=== PATIENT | male | born 1950 | race African-American/Black ===

== ENCOUNTER 2016-10-18 14:12 | Inpatient (IN) | payer MEDICAID, OTHER ==
[~2016-10-18] VITALS: Ht 182.9 cm; Wt 72.6 kg
[~2016-10-18 14:12] MED LIST: ADVAIR 250-501 EACH INH; ALBUTEROL2.5 MG/3 M HHN; ALBUTEROL2.5 MG/3 M INH; ATROVENT HFA12.9 GM INH; AZITHROMYCIN250 MG ORAL; AZITHROMYCIN250 MG PO; IBUPROFEN600 MG ORAL; NORCO 5-325 TA1 EACH ORAL; PREDNISONE20 MG ORAL; PREDNISONE50 MG PO; UNK CHOLESTEROL MED
[2016-10-18] MEDS ORDERED: Azithromycin Inj IV ONE (14:42)
[2016-10-18] MEDS ORDERED: Azithromycin 500 MG in NS 275 ML IV ONE (14:45)
[2016-10-18] MEDS ORDERED: Solu-MEDROL 125mg Inj IVP ONE (14:45)
--- NOTE | 2016-10-18 14:57 | Emergency Room Report ---
History of Present Illness General Chief Complaint: Dyspnea/Respdistress Source: Patient Present Illness HPI 66 YOM with known COPD, previous heavy smoker, with ?2 days productive cough, SOB. On home O2 with no improvement. + fever/chills, chest tightnes. Denies chest pain, Abd pain. On albuterol, spiriva, atrovent for known COPD. Patient states he is DNI. I discussed this in depth with him and patient adamantly refuses intubation if it comes down to that. Is OK with bipap. Allergies: Coded Allergies: No Known Allergies (Unverified , 12/02/11) Patient History Past Medical History: COPD Past Surgical History: none Pertinent Family History: none Social History: Reports: smoking Immunizations: UTD Reviewed Nursing Documentation: PMH: Agreed, PSxH: Agreed Nursing Documentation-PMH Past Medical History: No History, Except For Hx Cardiac Problems: No Hx Hypertension: No Hx Pacemaker: No Hx Asthma: Yes Hx COPD: Yes Hx Diabetes: No Hx Cancer: No Hx Gastrointestinal Problems: No Hx Dialysis: No Hx Neurological Problems: No Hx Cerebrovascular Accident: No Hx Seizures: No Review of Systems All Other Systems: negative except mentioned in HPI Physical Exam Vital Signs Date Time Temp Pulse Resp B/P Pulse Ox O2 Delivery O2 Flow Rate FiO2 10/18/16 14:15 98.1 110 40 142/93 68 Nasal Cannula 2.0 Sp02 EP Interpretation: reviewed, abnormal General Appearance: moderate distress, cachetic Head: normocephalic, atraumatic Eyes: bilateral eye EOMI, bilateral eye PERRL ENT: normal ENT inspection, hearing grossly normal, normal voice Neck: normal inspection, full range of motion, supple, no bony tend Respiratory: normal inspection, accessory muscle use, speaking full sentences, other - Retracting, supravlavicular muscle use Cardiovascular #1: tachycardia Gastrointestinal: normal inspection, normal bowel sounds, non tender, soft, no guarding, no hernia Genitourinary: no CVA tenderness Neurologic: normal inspection, alert, oriented x3, responsive, vacuum form operator III-XII nml as tested, motor strength/tone normal, speech normal Psychiatric: normal inspection, judgement/insight normal, mood/affect normal Skin: normal inspection, normal color, no rash Procedures Critical Care Time Critical Care Time CC time of 45 min for this 66 YOM with SOB VS: Hypoxia, tachypnic DDx includes COPD exacerbation, PNA, URI/bronchitis, sepsis PMhx includes COPD Patient immediately placed on hot molder with rhytm strip and STAT EKG was obtained which showed no acute ischemia Initial management indicated: CBC, CMP, troponin, BNP, CXR, nebs, steroids, empiric Abx, IV Mg, BIPAP Highly suspected: COPD exacerbation, +/- PNA Possible interventions BIPAP, additional Abx. CC time included frequent re-exams, interpretation of labs, imaging, adjustment of Abx, admission Critical care time of 45 minutes does not include reportable procedures. Medical Decision Making Diagnostic Impression: Primary Impression: Dyspnea Qualified Codes: R06.00 - Dyspnea, unspecified Additional Impressions: copd exacerbation Acute respiratory failure with hypoxia and hypercarbia ER Course 66 YO M with acute SOB, Hypoxic, tachypnic. Poor air movement. DDx as specified in CC time PLAN: monitoring, Bipap, nebs, Mg, steroids, IV azithro, Blood Cx, admission to [facility] Rhythm Strip Diag. Results EP Interpretation: yes Rate: 98 Rhythm: NSR, no PVC's, no ectopy Chest X-Ray Diagnostic Results EP Interpretation: Yes Findings: no consolidation, no effusion, no pneumothorax, no acute cardiopulmonary disease Number of Views: 1 Reevaluation Time: 15:45 Last Vital Signs Date Time Temp Pulse Resp B/P Pulse Ox O2 Delivery O2 Flow Rate FiO2 10/18/16 14:15 98.1 110 40 142/93 68 Nasal Cannula 2.0 Status: improved Reevaluation Impression Significant improvement on BIPAP and with meds Feels much better RR improved. O2 demands decreased per RT CXR does not show PNA. No additional Abx were given Labs: No lueks. H&H stable. Troponin. Endorsed to Dr Cardoza at 330pm for [facility] admission Disposition: ADMITTED INPATIENT Condition: Critical Referrals: WILIAN LIND,REFERRING (PCP) PRABHA LAWSON M.D. Oct 18, 2016 14:57
[2016-10-18 15:00] VITALS: BP 135/82
[2016-10-18 15:00] LABS: BASOPHILS % (AUTO) 2.5 % (0.0-2.0); LYMPHOCYTES % (AUTO) 11.8 % (20.0-45.0); MEAN CORPUSCULAR HEMOGLOBIN 26.4 PG (27.0-31.0); MEAN CORPUSCULAR HGB CONC 29.9 G/DL (32.0-36.0); MEAN CORPUSCULAR VOLUME 88 FL (80-99); MONOCYTES % (AUTO) 12.2 % (1.0-10.0); NEUTROPHILS % (AUTO) 70.5 % (45.0-75.0); PLATELET COUNT 270 K/UL (150-450); RED BLOOD COUNT 4.99 M/UL (4.70-6.10); WHITE BLOOD COUNT 4.6 K/UL (4.8-10.8)
[2016-10-18] MEDS: Ipratropium 0.02% Inh Soln 2.5ml UD HHN SCH ×3 (15:00→15:39)
[2016-10-18] MEDS: Albuterol ud Inhalation HHN SCH ×3 (15:01→15:39)
[2016-10-18 15:13] LABS: ALANINE AMINOTRANSFERASE 26 U/L (3-41); ANION GAP 8 (5-15); ASPARTATE AMINO TRANSFERASE 42 U/L (5-40); CALCIUM 9.7 mg/dL (8.6-10.2); CARBON DIOXIDE 40 mEQ/L (20-30); CHLORIDE 86 mEQ/L (98-107); CREATININE 0.8 mg/dL (0.7-1.2); GLOMERULAR FILTRATION RATE > 60 mL/min (>60); HEMOLYSIS 8; POTASSIUM 4.7 mEQ/L (3.4-4.9); SODIUM 134 mEQ/L (135-145); TOTAL PROTEIN 8.4 g/dL (6.6-8.7); TROPONIN I < 0.30 ng/mL (<=0.30)
[2016-10-18 15:23] LABS: CKMB 8.8 ng/mL (< 6.7)
[2016-10-18] MEDS ORDERED: SPIRIVA18 MCG INH (15:52)
--- NOTE | 2016-10-18 15:57 | Consultation ---
History of Present Illness General Date patient seen: Oct 18, 2016 Chief Complaint: Dyspnea/Respdistress Referring physician: dr rivera Reason for Consultation: dyspnea Present Illness HPI 66 year old male with known COPD on home O2 ,presented to ER with CC of productive cough, SOB. + fever/chills, chest tightnes. Denies chest pain, Abd pain. Patient states he is DNI. He is admitted for further evaluation. Allergies: Coded Allergies: No Known Allergies (Unverified , 12/02/11) Medication History Scheduled Fluticasone/Salmeterol (Advair 250-50 Diskus), 1 PUFF INH Q12H, (Reported) Ipratropium [place] (Atrovent Hfa), 12.9 GM INH Q6HR, (Reported) Tiotropium [place]* (Spiriva*), 1 PUFF INH DAILY, (Reported) Scheduled PRN Albuterol Sulfate* (Albuterol Sulfate Hhn*), 2.5 MG HHN EVERY 4 HOURS PRN for Bronchospasm, (Reported) Hydrocodone Bit/Acetaminophen 5-325* ([place] 5-325*), 1 TAB ORAL Q12HR PRN for For Pain Ibuprofen* (Motrin*), 600 MG ORAL Q12HR PRN for For Pain Discontinued Medications Azithromycin* (Zithromax*), 250 MG ORAL DAILY Discontinued Reason: Therapy completed Prednisone* (Prednisone*), 40 MG ORAL DAILY Discontinued Reason: Therapy completed Patient History Healthcare decision maker Resuscitation status Advanced Directive on File Past Medical/Surgical History Past Medical/Surgical History: (1) Emphysema, unspecified (2) Chest tightness Review of Systems Constitutional: Reports: malaise Eye: Reports: no symptoms ENT: Reports: no symptoms Respiratory: Reports: no symptoms, shortness of breath, stridor Physical Exam Lines, tubes and drains: peripheral, central line HEENT: normocephalic, atraumatic Neck: non-tender, normal alignment Respiratory/Chest: chest wall non-tender, lungs clear Breasts: no masses Cardiovascular/Chest: normal peripheral pulses Abdomen: normal bowel sounds Genitourinary/Rectal: normal genital exam Last 24 Hour Vital Signs Date Time Temp Pulse Resp B/P Pulse Ox O2 Delivery O2 Flow Rate FiO2 10/18/16 15:09 96 23 98 Facial 15.0 30 10/18/16 15:01 96 23 97 Bi-pap 15.0 30 10/18/16 15:01 96 23 Bi-pap 15.0 30 10/18/16 15:00 98.1 99 25 135/82 99 Bi-pap 30 10/18/16 14:50 30 10/18/16 14:35 99 40 Nasal Cannula 2.0 10/18/16 14:15 98.1 110 40 142/93 68 Nasal Cannula 2.0 Laboratory Tests Test 10/18/16 14:30 White Blood Count 4.6 K/UL (4.8-10.8) L Red Blood Count 4.99 M/UL (4.70-6.10) Hemoglobin 13.2 G/DL (14.2-18.0) L Hematocrit 44.1 % (42.0-52.0) Mean Corpuscular Volume 88 FL (80-99) Mean Corpuscular Hemoglobin 26.4 PG (27.0-31.0) L Mean Corpuscular Hemoglobin Concent 29.9 G/DL (32.0-36.0) L Red Cell Distribution Width 15.0 % (11.6-14.8) H Platelet Count 270 K/UL (150-450) Mean Platelet Volume 8.0 FL (6.5-10.1) Neutrophils (%) (Auto) 70.5 % (45.0-75.0) Lymphocytes (%) (Auto) 11.8 % (20.0-45.0) L Monocytes (%) (Auto) 12.2 % (1.0-10.0) H Eosinophils (%) (Auto) 3.0 % (0.0-3.0) Basophils (%) (Auto) 2.5 % (0.0-2.0) H Sodium Level 134 mEQ/L (135-145) L Potassium Level 4.7 mEQ/L (3.4-4.9) Chloride Level 86 mEQ/L (98-107) L Carbon Dioxide Level 40 mEQ/L (20-30) H Anion Gap 8 (5-15) Blood Urea Nitrogen 10 mg/dL (7-23) Creatinine 0.8 mg/dL (0.7-1.2) Estimat Glomerular Filtration Rate > 60 mL/min (>60) Glucose Level 81 mg/dL (74-106) Calcium Level 9.7 mg/dL (8.6-10.2) Total Bilirubin 0.3 mg/dL (0.0-1.2) Aspartate Amino Transf (AST/SGOT) 42 U/L (5-40) H Alanine Aminotransferase (ALT/SGPT) 26 U/L (3-41) Alkaline Phosphatase 77 U/L (40-129) Total Creatine Kinase 301 U/L (38-174) H Creatine Kinase MB 8.8 ng/mL (< 6.7) H Creatine Kinase MB Relative Index 2.9 Troponin I < 0.30 ng/mL (<=0.30) Total Protein 8.4 g/dL (6.6-8.7) Albumin 4.2 g/dL (3.5-5.2) Globulin 4.2 g/dL Albumin/Globulin Ratio 1.0 (1.0-2.7) Height (Feet): 5 Height (Inches): 7.00 Weight (Pounds): 170 Medications Current Medications Medications (Trade) Dose Ordered Sig/Radha Route PRN Reason Start Time Stop Time Status Last Admin Dose Admin Magnesium Sulfate (Magnesium Sulfate 1gm/100ml) 100 ml @ 100 mls/hr Q1H IVPB 10/18/16 14:45 10/18/16 16:44 Assessment/Plan Problem List: (1) Acute respiratory failure ICD Codes: J96.00 - Acute respiratory failure, unspecified whether with hypoxia or hypercapnia SNOMED: 82157576 (2) copd exacerbation (3) Emphysema, unspecified ICD Codes: J43.9 - Emphysema, unspecified SNOMED: 74731986 (4) Acute respiratory failure with hypoxia and hypercarbia ICD Codes: J96.01 - Acute respiratory failure with hypoxia; J96.02 - Acute respiratory failure with hypercapnia SNOMED: 36163743, 37666285, 858922989 Assessment/Plan respiratory treatment IV steroids titrate fio2 Iv antibiotics pt/ot GIOVANY SUMMERS Oct 18, 2016 15:57
[2016-10-18] MEDS ORDERED: Nitroglycerin Subl 0.4mg tab (Bottle Of 25) SL PRN (16:00)
[2016-10-18] MEDS ORDERED: Ketorolac 30mg Inj IV PRN (16:00)
[2016-10-18] MEDS ORDERED: LORazepam Inj 2mg/ml 1ml IV PRN (16:00)
[2016-10-18] MEDS ORDERED: DuoNeb 0.5-3(2.5)mg/3ml neb HHN PRN (16:00)
[2016-10-18] MEDS ORDERED: Norco 5mg/325mg tab ORAL PRN ×2 (16:00→18:05)
[2016-10-18] MEDS ORDERED: Promethazine/Codeine 5ml UD ORAL PRN (16:00)
[2016-10-18] MEDS ORDERED: Morphine Sulfate 2mg/ml Inj IVP PRN (16:00)
--- NOTE | 2016-10-18 16:22 | Diagnostic Imaging Report ---
Indications: Shortness of breath Technique: Portable AP chest Findings: Comparison: 05/18/2014 Lungs remain symmetrically hyperinflated with attenuation of upper lung zone vascular markings. Small linear density is now noted in left lung base. Lungs remain otherwise clear. Heart size remains within normal limits. Central pulmonary arteries remain prominent. No pleural abnormality. Aortic arch calcification. IMPRESSION: COPD Development versus better visualization of left lung base subsegmental atelectasis versus scarring Suggestion of development of pulmonary internal hypertension Aortosclerosis No significant change from previous exam
[2016-10-18 16:30] VITALS: BP 103/83
--- NOTE | 2016-10-18 17:10 | History & Physical ---
History and Physical History & Physicial Dipesh Cardoza MD Oct 18, 2016 17:10
[2016-10-18] MEDS ORDERED: Albuterol ud Inhalation HHN PRN (17:15)
[2016-10-18] MEDS: Solu-MEDROL 125mg Inj IV SCH (18:01)
[2016-10-18 18:05] LABS: ABG BASE EXCESS 13.6; ABG PCO2 81.1 mmHg (35.0-45.0)
[2016-10-18 18:06] LABS: ABG ALLEN TEST POSITIVE
[2016-10-18] MEDS: NovoLOG Insulin Flexpen SUBQ SCH ×2 (18:30→20:47)
[2016-10-18] MEDS: Advair 250/50 Inhaler - 14 dose INH SCH (18:51)
[2016-10-18 20:30] VITALS: BP 131/73
[2016-10-18] MEDS: Theophylline ER 100mg ORAL SCH (20:35)
[2016-10-18] MEDS: Heparin 5000 units/ml inj SUBQ SCH (20:36)
[2016-10-18] MEDS ORDERED: Piperacillin/Tazobactam 2.25 GM in D5W 55 ML IV SCH (22:00)
[2016-10-18] MEDS: Zoysn 3.37gm in D5W 110ml IVPB SCH (22:21)
[2016-10-19] VITALS: BP 145/98
[2016-10-19] MEDS: Solu-MEDROL 125mg Inj IV SCH ×4 (00:03→17:56)
--- NOTE | 2016-10-19 01:07 | History and Physical Report ---
DATE OF ADMISSION: 10/18/2016 CHIEF COMPLAINT: Shortness of breath and respiratory distress. HISTORY OF PRESENT ILLNESS: This 66-year-old gentleman with past medical history significant for COPD. Denies any history of heart disease, diabetes, or dyslipidemia. History of extensive smoking in the past, quit about eight years ago, who was presented to the hospital complained about the productive cough and shortness were progressively worsening over past 48 hours. The patient using home oxygen. He is not improving. He had fever, chills, chest tightness, however, denies any abdominal pain. He has been using his albuterol, Spiriva, and Atrovent, however, he was not responsive to it and subsequently, the patient was presented to the emergency room complained about severe shortness breath. Shortly after initial evaluation, the patient was started on the BiPAP. He refused to have intubated and okayed with BiPAP and shortly after initial evaluation, the patient was admitted to the hospital with acute respiratory failure and COPD exacerbation. PAST MEDICAL AND PAST SURGICAL HISTORY: As above. History of chronic smoker, COPD, and emphysema. MEDICATIONS: Medications at home is significant for albuterol, Advair, [place], ibuprofen, Atrovent, and Spiriva. ALLERGIES: No known drug allergies. SOCIAL HISTORY: Ex-smoker, quit about eight years ago. Smoker over 30 years. Denies any substance or alcohol abuse. FAMILY HISTORY: Noncontributory. REVIEW OF SYSTEMS: Mostly as above. Denies any dysuria, frequency, or hematochezia. Denies any hemoptysis in case complained about cough. Denies any loss of consciousness. Denies any double vision. Complained about shortness of breath. PHYSICAL EXAMINATION: VITAL SIGNS: On admission from the ER, temperature 98.1 degrees, pulse of 110, respirations 40, and blood pressure 142/93. GENERAL: The patient awake, responsive, on BiPAP, cachectic. HEAD AND NECK: Pupils are reactive to light. Extraocular movements are intact. NECK: Supple. No JVD. LUNGS: Good air entry. No wheeze. Decreased air in the bases. No rhonchi. HEART: S1, S2. ABDOMEN: Soft and nontender. Positive sounds. EXTREMITIES: No cyanosis or clubbing or edema. Muscle atrophy was noted . NEUROLOGIC: Motor is 5/5 in all extremities. Gait was not assessed. Cranial nerves II through XII are grossly intact. Mood and affect is intact. LABORATORY AND DIAGNOSTIC DATA: On admission, WBC of 4.6, hemoglobin 13, hematocrit 44, and platelet 270,000. Sodium 134, potassium 4.7, chloride 86, bicarb 40, BUN 10, creatinine 0.8, and glucose 81. AST of 42 and ALT of 26. CK kinase 301. Troponin less than 0.30. The patient had a chest x-ray, shows COPD better visualization of the left lung base subsegmental atelectasis versus scarring suggest of pulmonary interval hypertension, atherosclerosis. No significant changes in the previous examination. ASSESSMENT: 1. Acute respiratory failure. 2. Acute chronic obstructive pulmonary disease exacerbation. 3. Malnutrition and cachexia. PLAN: Admit the patient to [facility]. The patient refused intubation. He is DNI, howver, CPR is okay. He was started on broad-spectrum antibiotics with Zosyn, nebulizer treatments, theophylline, Solu-Medrol and we will follow up with the laboratory in the morning including ABG and doctor Dr. Katz, Pulmonary Critical Care. DVT prophylaxis. Heparin subcutaneous. Dipesh Cardoza M.D. DR: Alex JOB#: [id number] CC:
[2016-10-19 04:00] VITALS: BP 111/67
[2016-10-19 04:41] LABS: MEAN CORPUSCULAR HEMOGLOBIN 27.1 PG (27.0-31.0); MEAN CORPUSCULAR VOLUME 88 FL (80-99); MEAN PLATELET VOLUME 8.4 FL (6.5-10.1); PLATELET COUNT 245 K/UL (150-450); RED BLOOD COUNT 4.41 M/UL (4.70-6.10); RED CELL DISTRIBUTION WIDTH 15.2 % (11.6-14.8); WHITE BLOOD COUNT 2.7 K/UL (4.8-10.8)
[2016-10-19 04:55] LABS: INR 1.1 (0.9-1.1); PROTHROMBIN TIME 10.7 SEC (9.30-11.50)
[2016-10-19 05:15] LABS: ANION GAP 7 (5-15); CALCIUM 9.6 mg/dL (8.6-10.2); CARBON DIOXIDE 40 mEQ/L (20-30); CHLORIDE 90 mEQ/L (98-107); CREATININE 0.7 mg/dL (0.7-1.2); GLOMERULAR FILTRATION RATE > 60 mL/min (>60); HEMOLYSIS 0; MAGNESIUM 1.9 mg/dL (1.7-2.5); PHOSPHORUS 3.8 mg/dL (2.5-4.8); POTASSIUM 4.8 mEQ/L (3.4-4.9); SODIUM 137 mEQ/L (135-145)
[2016-10-19] MEDS: NovoLOG Insulin Flexpen SUBQ SCH ×4 (06:30→20:58)
[2016-10-19] MEDS: Zoysn 3.37gm in D5W 110ml IVPB SCH ×3 (06:45→21:00)
[2016-10-19 07:47] LABS: ABG ALLEN TEST POSITIVE; ABG BASE EXCESS 14.7; ABG PCO2 77.8 mmHg (35.0-45.0)
[2016-10-19 08:00] VITALS: BP 122/77
[2016-10-19] MEDS: Advair 250/50 Inhaler - 14 dose INH SCH ×2 (08:00→17:15)
[2016-10-19] MEDS: Theophylline ER 100mg ORAL SCH ×2 (09:13→20:54)
[2016-10-19] MEDS: Heparin 5000 units/ml inj SUBQ SCH ×2 (09:19→20:59)
[2016-10-19 11:22] LABS: BAND NEUTROPHILS % (MANUAL) 2 % (0-8); BASOPHILS % (MANUAL) 0 % (0-2); EOSINOPHILS % (MANUAL) 1 % (0-3); LYMPHOCYTES % (MANUAL) 15 % (20-45); NEUTROPHILS % (MANUAL) 79 % (45-75); PLATELET ESTIMATE ADEQUATE; PLATELET MORPHOLOGY NORMAL; TOTAL CELLS COUNTED 100
[2016-10-19 12:00] VITALS: BP 125/70
--- NOTE | 2016-10-19 13:57 | Internal Med Progress Note ---
Subjective Date of Service: Oct 19, 2016 Physician Name Paulette Gutiérrez Attending Physician Dipesh Cardoza MD Current Medications Medications (Trade) Dose Ordered Sig/Radha Route PRN Reason Start Time Stop Time Status Last Admin Dose Admin Acetaminophen/ Hydrocodone Bitart ([place] 5/325) 1 tab Q12HR PRN ORAL Severe Pain (Pain Scale 7-10) 10/18/16 18:05 10/25/16 18:04 Albuterol/ Ipratropium (DuoNeb 0.5-3(2.5)mg/3ml) 3 ml Q4H PRN HHN dyspnea 10/18/16 16:00 10/23/16 15:59 Dextrose (Dextrose 50%) STAT PRN IV Hypoglycemia 10/18/16 16:00 11/17/16 15:59 Heparin Sodium (Porcine) (Heparin 5000 units/ml) 5,000 units EVERY 12 HOURS SUBQ 10/18/16 21:00 11/17/16 20:59 10/19/16 09:19 Ibuprofen 600 mg 600 mg Q12H PRN ORAL Pain Scale (3-5) 10/18/16 18:15 11/17/16 18:14 Insulin Aspart (NovoLOG) BEFORE MEALS AND HS SUBQ 10/18/16 18:30 11/17/16 18:29 10/19/16 11:43 Ketorolac Tromethamine (Toradol 30mg) 30 mg Q8H PRN IV moderate pain 4-6 10/18/16 16:00 10/23/16 15:59 Lorazepam (Ativan 2mg/ml 1ml) 0.5 mg Q4H PRN IV For Anxiety 10/18/16 16:00 10/25/16 15:59 Methylprednisolone Sodium Succinate (Solu-MEDROL) 60 mg EVERY 6 HOURS IV 10/18/16 18:00 11/17/16 17:59 10/19/16 11:41 Morphine Sulfate (Morphine Sulfate) 2 mg Q4H PRN IVP severe pain 7-10 10/18/16 16:00 10/25/16 15:59 Nitroglycerin (Ntg) 0.4 mg Q5M X 3 DOSES PRN SL Prn Chest Pain 10/18/16 16:00 11/17/16 15:59 Ondansetron HCl (Zofran) 4 mg Q6H PRN IVP Nausea & Vomiting 10/18/16 16:00 11/17/16 15:59 Piperacillin Sod/ Tazobactam Sod/ Dextrose (Zosyn/D5W) 110 ml @ 27.5 mls/hr EVERY 8 HOURS IVPB 10/18/16 22:00 10/23/16 21:59 10/19/16 06:45 Promethazine HCl/ Codeine (Phenergan with Codeine) 5 ml Q6H PRN ORAL cough 10/18/16 16:00 11/17/16 15:59 Salmeterol Xinafoate/ Fluticasone (Advair 250/50 Diskus) 1 puffs Q12H INH 10/18/16 17:15 11/17/16 17:14 10/19/16 08:00 Temazepam (Restoril) 15 mg HSPRN PRN ORAL Insomnia 10/18/16 16:00 10/25/16 15:59 Theophylline (Alen-Dur) 100 mg EVERY 12 HOURS ORAL 10/18/16 21:00 11/17/16 20:59 10/19/16 09:13 Tiotropium [place] (Spiriva Inhaler) 1 puff DAILY INH 10/19/16 09:00 11/18/16 08:59 10/19/16 09:20 Allergies: Coded Allergies: No Known Allergies (Unverified , 12/02/11) ROS Limited/Unobtainable: No Constitutional: Reports: no symptoms HEENT: Reports: no symptoms Cardiovascular: Reports: chest pain, palpitations Respiratory: Reports: shortness of breath Gastrointestinal/Abdominal: Reports: no symptoms Genitourinary: Reports: no symptoms Neurologic/Psychiatric: Reports: no symptoms Subjective 66 YO M admitted with Shortness of breath. Cover for Int Wilfrid-Dr Cardoza. [facility] Objective Last Vital Signs Date Time Temp Pulse Resp B/P Pulse Ox O2 Delivery O2 Flow Rate FiO2 10/19/16 12:00 91 10/19/16 12:00 97.7 20 125/70 92 Nasal Cannula 3.0 10/19/16 11:20 32 General Appearance: WD/WN, alert, mild distress EENT: PERRL/EOMI, normal ENT inspection Neck: non-tender, normal alignment, supple Cardiovascular: normal peripheral pulses, no gallop/murmur, no JVD, tachycardia Respiratory/Chest: chest wall non-tender, crackles/rales, rhonchi - bilaterally , expiratory wheezing Abdomen: normal bowel sounds, non tender, soft, no organomegaly, no mass Extremities: normal range of motion Neurologic: airborne operations II-XII grossly normal, no motor/sensory deficits Skin: normal pigmentation, warm/dry Laboratory Tests Test 10/18/16 14:30 10/18/16 17:11 10/19/16 04:00 10/19/16 07:40 White Blood Count 4.6 K/UL (4.8-10.8) L 2.7 K/UL (4.8-10.8) L Red Blood Count 4.99 M/UL (4.70-6.10) 4.41 M/UL (4.70-6.10) L Hemoglobin 13.2 G/DL (14.2-18.0) L 11.9 G/DL (14.2-18.0) L Hematocrit 44.1 % (42.0-52.0) 38.6 % (42.0-52.0) L Mean Corpuscular Volume 88 FL (80-99) 88 FL (80-99) Mean Corpuscular Hemoglobin 26.4 PG (27.0-31.0) L 27.1 PG (27.0-31.0) Mean Corpuscular Hemoglobin Concent 29.9 G/DL (32.0-36.0) L 31.0 G/DL (32.0-36.0) L Red Cell Distribution Width 15.0 % (11.6-14.8) H 15.2 % (11.6-14.8) H Platelet Count 270 K/UL (150-450) 245 K/UL (150-450) Mean Platelet Volume 8.0 FL (6.5-10.1) 8.4 FL (6.5-10.1) Neutrophils (%) (Auto) 70.5 % (45.0-75.0) % (45.0-75.0) Lymphocytes (%) (Auto) 11.8 % (20.0-45.0) L % (20.0-45.0) Monocytes (%) (Auto) 12.2 % (1.0-10.0) H % (1.0-10.0) Eosinophils (%) (Auto) 3.0 % (0.0-3.0) % (0.0-3.0) Basophils (%) (Auto) 2.5 % (0.0-2.0) H % (0.0-2.0) Sodium Level 134 mEQ/L (135-145) L 137 mEQ/L (135-145) Potassium Level 4.7 mEQ/L (3.4-4.9) 4.8 mEQ/L (3.4-4.9) Chloride Level 86 mEQ/L (98-107) L 90 mEQ/L (98-107) L Carbon Dioxide Level 40 mEQ/L (20-30) H 40 mEQ/L (20-30) H Anion Gap 8 (5-15) 7 (5-15) Blood Urea Nitrogen 10 mg/dL (7-23) 11 mg/dL (7-23) Creatinine 0.8 mg/dL (0.7-1.2) 0.7 mg/dL (0.7-1.2) Estimat Glomerular Filtration Rate > 60 mL/min (>60) > 60 mL/min (>60) Glucose Level 81 mg/dL (74-106) 140 mg/dL (74-106) H Calcium Level 9.7 mg/dL (8.6-10.2) 9.6 mg/dL (8.6-10.2) Total Bilirubin 0.3 mg/dL (0.0-1.2) Aspartate Amino Transf (AST/SGOT) 42 U/L (5-40) H Alanine Aminotransferase (ALT/SGPT) 26 U/L (3-41) Alkaline Phosphatase 77 U/L (40-129) Total Creatine Kinase 301 U/L (38-174) H Creatine Kinase MB 8.8 ng/mL (< 6.7) H Creatine Kinase MB Relative Index 2.9 Troponin I < 0.30 ng/mL (<=0.30) Total Protein 8.4 g/dL (6.6-8.7) Albumin 4.2 g/dL (3.5-5.2) Globulin 4.2 g/dL Albumin/Globulin Ratio 1.0 (1.0-2.7) Arterial Blood pH 7.340 (7.350-7.450) 7.366 (7.350-7.450) Arterial Blood Partial Pressure CO2 81.1 mmHg (35.0-45.0) *H 77.8 mmHg (35.0-45.0) *H Arterial Blood Partial Pressure O2 51.6 mmHg (75.0-100.0) L 69.3 mmHg (75.0-100.0) L Arterial Blood HCO3 42.9 mmol/L (22.0-26.0) H 43.6 mmol/L (22.0-26.0) H Arterial Blood Oxygen Saturation 84.8 % (92.0-98.0) L 93.1 % (92.0-98.0) Arterial Blood Base Excess 13.6 14.7 Efren Test Positive Positive Differential Total Cells Counted 100 Neutrophils % (Manual) 79 % (45-75) H Lymphocytes % (Manual) 15 % (20-45) L Monocytes % (Manual) 3 % (1-10) Eosinophils % (Manual) 1 % (0-3) Basophils % (Manual) 0 % (0-2) Band Neutrophils 2 % (0-8) Platelet Estimate Adequate Platelet Morphology Normal Red Blood Cell Morphology Normal Prothrombin Time 10.7 SEC (9.30-11.50) Prothromb Time International Ratio 1.1 (0.9-1.1) Activated Partial Thromboplast Time 32 SEC (23-33) D-Dimer 518 ng/mL (<500) H Phosphorus Level 3.8 mg/dL (2.5-4.8) Magnesium Level 1.9 mg/dL (1.7-2.5) Intake and Output 10/18/16 10/19/16 19:00 07:00 Intake Total 480 ml 6.75 ml Output Total 200 ml 500 ml Balance 280 ml -493.25 ml Intake Oral 480 ml IV Total 6.75 ml Output Urine Total 200 ml 500 ml # Voids 1 2 # Bowel Movements 1 Assessment/Plan Problem List: (1) SOB (shortness of breath) Assessment & Plan: Tolerating nasal canula. (2) Respiratory failure (3) COPD (chronic obstructive pulmonary disease) with emphysema Assessment & Plan: See pulmonary note. Cont IV solumedrol, duoneb and advair. Cont zosyn (4) Chest tightness (5) Acute respiratory failure with hypoxia and hypercarbia Status: progressing PAULETTE GUTIÉRREZ Oct 19, 2016 13:57
[2016-10-19] MEDS ORDERED: guaiFENesin w/Codeine 5ml Liq ud ORAL PRN (14:15)
[2016-10-19 16:00] VITALS: BP 118/71
[2016-10-19] MEDS: DuoNeb 0.5-3(2.5)mg/3ml neb HHN SCH ×2 (18:52→23:17)
[2016-10-19 20:00] VITALS: BP 131/70
[2016-10-20] VITALS: BP 116/49
[2016-10-20] MEDS: Solu-MEDROL 125mg Inj IV SCH ×4 (00:30→17:35)
[2016-10-20] MEDS: DuoNeb 0.5-3(2.5)mg/3ml neb HHN SCH ×6 (03:00→23:43)
[2016-10-20 04:00] VITALS: BP 117/70
[2016-10-20 04:51] LABS: MEAN CORPUSCULAR HEMOGLOBIN 26.9 PG (27.0-31.0); MEAN CORPUSCULAR HGB CONC 30.1 G/DL (32.0-36.0); MEAN CORPUSCULAR VOLUME 89 FL (80-99); MEAN PLATELET VOLUME 7.4 FL (6.5-10.1); PLATELET COUNT 245 K/UL (150-450); RED CELL DISTRIBUTION WIDTH 14.6 % (11.6-14.8)
[2016-10-20 05:04] LABS: ANION GAP 7 (5-15); CALCIUM 9.2 mg/dL (8.6-10.2); CARBON DIOXIDE 40 mEQ/L (20-30); CHLORIDE 90 mEQ/L (98-107); CREATININE 0.9 mg/dL (0.7-1.2); GLOMERULAR FILTRATION RATE > 60 mL/min (>60); HEMOLYSIS 2; POTASSIUM 4.7 mEQ/L (3.4-4.9); SODIUM 137 mEQ/L (135-145)
[2016-10-20] MEDS: Zoysn 3.37gm in D5W 110ml IVPB SCH ×3 (06:22→21:45)
[2016-10-20] MEDS: NovoLOG Insulin Flexpen SUBQ SCH ×4 (06:31→21:35)
[2016-10-20] MEDS: Advair 250/50 Inhaler - 14 dose INH SCH ×2 (07:21→17:15)
[2016-10-20 08:00] VITALS: BP 106/58
[2016-10-20] MEDS: Theophylline ER 100mg ORAL SCH ×2 (08:47→21:32)
[2016-10-20] MEDS: Heparin 5000 units/ml inj SUBQ SCH ×2 (08:51→21:36)
[2016-10-20 12:00] VITALS: BP 115/65
[2016-10-20 16:00] VITALS: BP 125/71
--- NOTE | 2016-10-20 17:33 | Internal Med Progress Note ---
Subjective Date of Service: Oct 20, 2016 Physician Name Paulette Gutiérrez Attending Physician Dipesh Cardoza MD Current Medications Medications (Trade) Dose Ordered Sig/Radha Route PRN Reason Start Time Stop Time Status Last Admin Dose Admin Acetaminophen/ Hydrocodone Bitart ([place] 5/325) 1 tab Q12HR PRN ORAL Severe Pain (Pain Scale 7-10) 10/18/16 18:05 10/25/16 18:04 Albuterol/ Ipratropium (DuoNeb 0.5-3(2.5)mg/3ml) 3 ml Q4HRT HHN 10/19/16 15:00 10/24/16 14:59 10/20/16 15:05 Dextrose (Dextrose 50%) STAT PRN IV Hypoglycemia 10/18/16 16:00 11/17/16 15:59 Guaifenesin/ Codeine Phosphate (Robitussin with codeine) 5 ml Q6H PRN ORAL For Cough 10/19/16 14:15 11/18/16 14:14 Heparin Sodium (Porcine) (Heparin 5000 units/ml) 5,000 units EVERY 12 HOURS SUBQ 10/18/16 21:00 11/17/16 20:59 10/20/16 08:51 Ibuprofen 600 mg 600 mg Q12H PRN ORAL Pain Scale (3-5) 10/18/16 18:15 11/17/16 18:14 Insulin Aspart (NovoLOG) BEFORE MEALS AND HS SUBQ 10/18/16 18:30 11/17/16 18:29 10/20/16 16:53 Ketorolac Tromethamine (Toradol 30mg) 30 mg Q8H PRN IV moderate pain 4-6 10/18/16 16:00 10/23/16 15:59 Lorazepam (Ativan 2mg/ml 1ml) 0.5 mg Q4H PRN IV For Anxiety 10/18/16 16:00 10/25/16 15:59 Methylprednisolone Sodium Succinate (Solu-MEDROL) 60 mg EVERY 6 HOURS IV 10/18/16 18:00 11/17/16 17:59 10/20/16 11:52 Morphine Sulfate (Morphine Sulfate) 2 mg Q4H PRN IVP severe pain 7-10 10/18/16 16:00 10/25/16 15:59 Nitroglycerin (Ntg) 0.4 mg Q5M X 3 DOSES PRN SL Prn Chest Pain 10/18/16 16:00 11/17/16 15:59 Ondansetron HCl (Zofran) 4 mg Q6H PRN IVP Nausea & Vomiting 10/18/16 16:00 11/17/16 15:59 Piperacillin Sod/ Tazobactam Sod/ Dextrose (Zosyn/D5W) 110 ml @ 27.5 mls/hr EVERY 8 HOURS IVPB 10/18/16 22:00 10/23/16 21:59 10/20/16 13:52 Promethazine HCl/ Codeine (Phenergan with Codeine) 5 ml Q6H PRN ORAL cough 10/18/16 16:00 11/17/16 15:59 Salmeterol Xinafoate/ Fluticasone (Advair 250/50 Diskus) 1 puffs Q12H INH 10/18/16 17:15 11/17/16 17:14 10/20/16 07:21 Temazepam (Restoril) 15 mg HSPRN PRN ORAL Insomnia 10/18/16 16:00 10/25/16 15:59 Theophylline (Alen-Dur) 100 mg EVERY 12 HOURS ORAL 10/18/16 21:00 11/17/16 20:59 10/20/16 08:47 Tiotropium [place] (Spiriva Inhaler) 1 puff DAILY INH 10/19/16 09:00 11/18/16 08:59 10/20/16 09:28 Allergies: Coded Allergies: No Known Allergies (Unverified , 12/02/11) ROS Limited/Unobtainable: No Constitutional: Reports: no symptoms HEENT: Reports: no symptoms Cardiovascular: Reports: no symptoms Respiratory: Reports: shortness of breath Gastrointestinal/Abdominal: Reports: no symptoms Genitourinary: Reports: no symptoms Neurologic/Psychiatric: Reports: no symptoms Subjective 66 YO M admitted with Shortness of breath. Cover for Int Wilfrid-Dr Cardoza. ANNA Objective Last Vital Signs Date Time Temp Pulse Resp B/P Pulse Ox O2 Delivery O2 Flow Rate FiO2 10/20/16 16:00 96.8 106 15 125/71 94 Nasal Cannula 3.0 10/20/16 15:15 32 Laboratory Tests Test 10/20/16 03:30 White Blood Count 15.0 K/UL (4.8-10.8) #H Red Blood Count 4.20 M/UL (4.70-6.10) L Hemoglobin 11.3 G/DL (14.2-18.0) L Hematocrit 37.4 % (42.0-52.0) L Mean Corpuscular Volume 89 FL (80-99) Mean Corpuscular Hemoglobin 26.9 PG (27.0-31.0) L Mean Corpuscular Hemoglobin Concent 30.1 G/DL (32.0-36.0) L Red Cell Distribution Width 14.6 % (11.6-14.8) Platelet Count 245 K/UL (150-450) Mean Platelet Volume 7.4 FL (6.5-10.1) Neutrophils (%) (Auto) % (45.0-75.0) Lymphocytes (%) (Auto) % (20.0-45.0) Monocytes (%) (Auto) % (1.0-10.0) Eosinophils (%) (Auto) % (0.0-3.0) Basophils (%) (Auto) % (0.0-2.0) Sodium Level 137 mEQ/L (135-145) Potassium Level 4.7 mEQ/L (3.4-4.9) Chloride Level 90 mEQ/L (98-107) L Carbon Dioxide Level 40 mEQ/L (20-30) H Anion Gap 7 (5-15) Blood Urea Nitrogen 17 mg/dL (7-23) Creatinine 0.9 mg/dL (0.7-1.2) Estimat Glomerular Filtration Rate > 60 mL/min (>60) Glucose Level 185 mg/dL (74-106) H Calcium Level 9.2 mg/dL (8.6-10.2) Microbiology Date/Time Source Procedure Growth Status 10/18/16 14:37 Blood Blood Culture - Preliminary NO GROWTH AFTER 24 HOURS Resulted 10/18/16 14:30 Blood Blood Culture - Preliminary NO GROWTH AFTER 24 HOURS Resulted Intake and Output 10/19/16 10/20/16 19:00 07:00 Intake Total 720.0 ml 255.0 ml Output Total 200 ml 800 ml Balance 520.0 ml -545.0 ml Intake Oral 500 ml 200 ml IV Total 220.0 ml 55.0 ml Output Urine Total 200 ml 800 ml # Voids 4 # Bowel Movements 2 1 Objective General Appearance: WD/WN, alert, mild distress EENT: PERRL/EOMI, normal ENT inspection Neck: non-tender, normal alignment, supple Cardiovascular: normal peripheral pulses, no gallop/murmur, no JVD, tachycardia Respiratory/Chest: chest wall non-tender, crackles/rales, rhonchi - bilaterally , expiratory wheezing Abdomen: normal bowel sounds, non tender, soft, no organomegaly, no mass Extremities: normal range of motion 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 (2) Respiratory failure (3) COPD (chronic obstructive pulmonary disease) with emphysema Assessment & Plan: See pulmonary note. Cont IV solumedrol, duoneb and advair. Cont zosyn and theophylline (4) Chest tightness (5) Acute respiratory failure with hypoxia and hypercarbia Status: not improved PAULETTE GUTIÉRREZ Oct 20, 2016 17:33
[2016-10-20 20:00] VITALS: BP 129/79
[2016-10-21] VITALS: BP 114/59
[2016-10-21] MEDS: Solu-MEDROL 125mg Inj IV SCH ×2 (01:22→05:29)
[2016-10-21] MEDS: DuoNeb 0.5-3(2.5)mg/3ml neb HHN SCH ×6 (03:00→23:00)
[2016-10-21 04:00] VITALS: BP 113/72
[2016-10-21] MEDS: Zoysn 3.37gm in D5W 110ml IVPB SCH ×3 (05:30→21:34)
[2016-10-21 05:35] LABS: MEAN CORPUSCULAR HEMOGLOBIN 27.4 PG (27.0-31.0); MEAN CORPUSCULAR HGB CONC 30.6 G/DL (32.0-36.0); MEAN CORPUSCULAR VOLUME 90 FL (80-99); MEAN PLATELET VOLUME 7.6 FL (6.5-10.1); PLATELET COUNT 230 K/UL (150-450); RED BLOOD COUNT 3.95 M/UL (4.70-6.10); RED CELL DISTRIBUTION WIDTH 14.7 % (11.6-14.8)
[2016-10-21 06:04] LABS: CALCIUM 9.2 mg/dL (8.6-10.2); CHLORIDE 93 mEQ/L (98-107); CREATININE 0.8 mg/dL (0.7-1.2); GLOMERULAR FILTRATION RATE > 60 mL/min (>60); HEMOLYSIS 0; POTASSIUM 4.8 mEQ/L (3.4-4.9); SODIUM 141 mEQ/L (135-145)
[2016-10-21 06:13] LABS: ANION GAP 8 (5-15); CARBON DIOXIDE 40 mEQ/L (20-30)
[2016-10-21] MEDS: NovoLOG Insulin Flexpen SUBQ SCH ×4 (07:01→20:32)
[2016-10-21] MEDS: Advair 250/50 Inhaler - 14 dose INH SCH ×2 (07:25→17:15)
[2016-10-21 08:00] VITALS: BP 122/70
[2016-10-21 08:37] LABS: ANISOCYTOSIS 1+; BAND NEUTROPHILS % (MANUAL) 0 % (0-8); BASOPHILS % (MANUAL) 0 % (0-2); EOSINOPHILS % (MANUAL) 0 % (0-3); HYPOCHROMASIA 1+; LYMPHOCYTES % (MANUAL) 1 % (20-45); NEUTROPHILS % (MANUAL) 95 % (45-75); PLATELET ESTIMATE ADEQUATE; PLATELET MORPHOLOGY NORMAL; TOTAL CELLS COUNTED 100
[2016-10-21] MEDS: Theophylline ER 100mg ORAL SCH ×2 (09:14→20:29)
[2016-10-21] MEDS: Heparin 5000 units/ml inj SUBQ SCH ×2 (09:18→20:31)
--- NOTE | 2016-10-21 11:32 | Pulmonology Progress Note ---
Assessment/Plan Problems: (1) Acute respiratory failure (2) Dyspnea (3) copd exacerbation (4) Emphysema, unspecified Assessment/Plan improving decrease steroids check sputum sputum induction ordered again check CT chest to rule out bullous disease. pt/ot might go to med/surg. Subjective ROS Limited/Unobtainable: No Interval Events: feeling better, less short of breath. Allergies: Coded Allergies: No Known Allergies (Unverified , 12/02/11) Objective Last 24 Hour Vital Signs Date Time Temp Pulse Resp B/P Pulse Ox O2 Delivery O2 Flow Rate FiO2 10/21/16 10:26 108 20 94 Nasal Cannula 3.0 32 10/21/16 10:15 105 22 Nasal Cannula 3.0 10/21/16 08:00 98.2 101 20 122/70 92 Nasal Cannula 3.0 10/21/16 08:00 110 10/21/16 07:50 104 22 Nasal Cannula 3.0 30 10/21/16 07:31 Nasal Cannula 10/21/16 07:30 Nasal Cannula 10/21/16 07:29 94 Nasal Cannula 3.0 32 10/21/16 07:29 Nasal Cannula 3.0 32 10/21/16 04:00 96.1 92 18 113/72 95 Nasal Cannula 3.0 10/21/16 03:58 96 10/21/16 03:13 Nasal Cannula 10/21/16 03:12 Nasal Cannula 10/21/16 00:00 97.7 108 20 114/59 95 Nasal Cannula 3.0 10/21/16 00:00 110 10/20/16 23:49 111 20 96 Nasal Cannula 3.0 32 10/20/16 23:43 32 10/20/16 23:42 117 18 94 Nasal Cannula 3.0 32 10/20/16 20:11 104 20 98 Nasal Cannula 3.0 32 10/20/16 20:00 109 10/20/16 20:00 96.9 104 15 129/79 98 Nasal Cannula 3.0 10/20/16 19:58 106 18 93 Nasal Cannula 3.0 32 10/20/16 19:58 32 10/20/16 19:57 93 Nasal Cannula 3.0 32 10/20/16 19:57 Nasal Cannula 3.0 32 10/20/16 16:00 96.8 106 15 125/71 94 Nasal Cannula 3.0 10/20/16 16:00 106 1/22/17 15:15 106 20 98 Nasal Cannula 3.0 32 10/20/16 15:05 32 10/20/16 15:04 96 20 96 Nasal Cannula 3.0 32 10/20/16 12:35 97 20 94 Nasal Cannula 3.0 32 10/20/16 12:34 97 20 94 Nasal Cannula 3.0 32 10/20/16 12:00 107 10/20/16 12:00 98.2 98 18 115/65 94 Nasal Cannula 3.0 Intake and Output 10/20/16 10/21/16 19:00 07:00 Intake Total 510.0 ml 405.375 ml Output Total 550 ml 550 ml Balance -40.0 ml -144.625 ml Intake Oral 400 ml 330 ml IV Total 110.0 ml 75.375 ml Output Urine Total 550 ml 550 ml # Voids 4 # Bowel Movements 1 General Appearance: WD/WN HEENT: normocephalic, atraumatic Cardiovascular: normal peripheral pulses, normal rate Abdomen: normal bowel sounds, soft, non tender Genitourinary: normal external genitalia 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 Lymphatic: no neck adenopathy Microbiology Date/Time Source Procedure Growth Status 10/18/16 14:37 Blood Blood Culture - Preliminary NO GROWTH AFTER 48 HOURS Resulted 10/18/16 14:30 Blood Blood Culture - Preliminary NO GROWTH AFTER 48 HOURS Resulted Laboratory Tests 10/21/16 03:45: White Blood Count 16.0H, Red Blood Count 3.95L, Hemoglobin 10.8L, Hematocrit 35.5L, Mean Corpuscular Volume 90, Mean Corpuscular Hemoglobin 27.4, Mean Corpuscular Hemoglobin Concent 30.6L, Red Cell Distribution Width 14.7, Platelet Count 230, Mean Platelet Volume 7.6, Neutrophils (%) (Auto) , Lymphocytes (%) (Auto) , Monocytes (%) (Auto) , Eosinophils (%) (Auto) , Basophils (%) (Auto) , Differential Total Cells Counted 100, Neutrophils % ( Manual) 95H, Lymphocytes % (Manual) 1L, Monocytes % (Manual) 4, Eosinophils % ( Manual) 0, Basophils % (Manual) 0, Band Neutrophils 0, Platelet Estimate Adequate, Platelet Morphology Normal, Hypochromasia 1+, Anisocytosis 1+, Sodium Level 141, Potassium Level 4.8, Chloride Level 93L, Carbon Dioxide Level 40H, Anion Gap 8, Blood Urea Nitrogen 18, Creatinine 0.8, Estimat Glomerular Filtration Rate > 60, Glucose Level 105, Calcium Level 9.2 Current Medications Medications (Trade) Dose Ordered Sig/Radha Route PRN Reason Start Time Stop Time Status Last Admin Dose Admin Acetaminophen/ Hydrocodone Bitart 1 tab 1 tab Q12HR PRN ORAL Severe Pain (Pain Scale 7-10) 10/18/16 18:05 10/25/16 18:04 Albuterol/ Ipratropium (DuoNeb 0.5-3(2.5)mg/3ml) 3 ml Q4HRT HHN 10/19/16 15:00 10/24/16 14:59 10/21/16 10:21 Dextrose (Dextrose 50%) STAT PRN IV Hypoglycemia 10/18/16 16:00 11/17/16 15:59 Guaifenesin/ Codeine Phosphate (Robitussin with codeine) 5 ml Q6H PRN ORAL For Cough 10/19/16 14:15 11/18/16 14:14 Heparin Sodium (Porcine) (Heparin 5000 units/ml) 5,000 units EVERY 12 HOURS SUBQ 10/18/16 21:00 11/17/16 20:59 10/21/16 09:18 Insulin Aspart (NovoLOG) BEFORE MEALS AND HS SUBQ 10/18/16 18:30 11/17/16 18:29 10/21/16 07:01 Methylprednisolone Sodium Succinate (Solu-MEDROL) 60 mg EVERY 12 HOURS IV 10/21/16 21:00 11/20/16 20:59 UNV Nitroglycerin (Ntg) 0.4 mg Q5M X 3 DOSES PRN SL Prn Chest Pain 10/18/16 16:00 11/17/16 15:59 Ondansetron HCl (Zofran) 4 mg Q6H PRN IVP Nausea & Vomiting 10/18/16 16:00 11/17/16 15:59 Piperacillin Sod/ Tazobactam Sod/ Dextrose (Zosyn/D5W) 110 ml @ 27.5 mls/hr EVERY 8 HOURS IVPB 10/18/16 22:00 10/23/16 21:59 10/21/16 05:30 Promethazine HCl/ Codeine (Phenergan with Codeine) 5 ml Q6H PRN ORAL cough 10/18/16 16:00 11/17/16 15:59 Salmeterol Xinafoate/ Fluticasone (Advair 250/50 Diskus) 1 puffs Q12H INH 10/18/16 17:15 11/17/16 17:14 10/21/16 07:25 Temazepam (Restoril) 15 mg HSPRN PRN ORAL Insomnia 10/18/16 16:00 10/25/16 15:59 Theophylline (Alen-Dur) 100 mg EVERY 12 HOURS ORAL 10/18/16 21:00 11/17/16 20:59 10/21/16 09:14 Tiotropium [place] (Spiriva Inhaler) 1 puff DAILY INH 10/19/16 09:00 11/18/16 08:59 10/21/16 07:23 GIOVANY SUMMERS Oct 21, 2016 11:32
--- NOTE | 2016-10-21 11:45 | Internal Med Progress Note ---
Subjective Date of Service: Oct 21, 2016 Physician Name Paulette Gutiérrez Attending Physician Dipesh Cardoza MD Current Medications Medications (Trade) Dose Ordered Sig/Radha Route PRN Reason Start Time Stop Time Status Last Admin Dose Admin Acetaminophen/ Hydrocodone Bitart 1 tab 1 tab Q12HR PRN ORAL Severe Pain (Pain Scale 7-10) 10/18/16 18:05 10/25/16 18:04 Albuterol/ Ipratropium (DuoNeb 0.5-3(2.5)mg/3ml) 3 ml Q4HRT HHN 10/19/16 15:00 10/24/16 14:59 10/21/16 10:21 Dextrose (Dextrose 50%) STAT PRN IV Hypoglycemia 10/18/16 16:00 11/17/16 15:59 Guaifenesin/ Codeine Phosphate (Robitussin with codeine) 5 ml Q6H PRN ORAL For Cough 10/19/16 14:15 11/18/16 14:14 Heparin Sodium (Porcine) (Heparin 5000 units/ml) 5,000 units EVERY 12 HOURS SUBQ 10/18/16 21:00 11/17/16 20:59 10/21/16 09:18 Insulin Aspart (NovoLOG) BEFORE MEALS AND HS SUBQ 10/18/16 18:30 11/17/16 18:29 10/21/16 11:27 Methylprednisolone Sodium Succinate (Solu-MEDROL) 60 mg EVERY 12 HOURS IV 10/21/16 21:00 11/20/16 20:59 Nitroglycerin (Ntg) 0.4 mg Q5M X 3 DOSES PRN SL Prn Chest Pain 10/18/16 16:00 11/17/16 15:59 Ondansetron HCl (Zofran) 4 mg Q6H PRN IVP Nausea & Vomiting 10/18/16 16:00 11/17/16 15:59 Piperacillin Sod/ Tazobactam Sod/ Dextrose (Zosyn/D5W) 110 ml @ 27.5 mls/hr EVERY 8 HOURS IVPB 10/18/16 22:00 10/23/16 21:59 10/21/16 05:30 Promethazine HCl/ Codeine (Phenergan with Codeine) 5 ml Q6H PRN ORAL cough 10/18/16 16:00 11/17/16 15:59 Salmeterol Xinafoate/ Fluticasone (Advair 250/50 Diskus) 1 puffs Q12H INH 10/18/16 17:15 11/17/16 17:14 10/21/16 07:25 Temazepam (Restoril) 15 mg HSPRN PRN ORAL Insomnia 10/18/16 16:00 10/25/16 15:59 Theophylline (Alen-Dur) 100 mg EVERY 12 HOURS ORAL 10/18/16 21:00 11/17/16 20:59 10/21/16 09:14 Tiotropium [place] (Spiriva Inhaler) 1 puff DAILY INH 10/19/16 09:00 11/18/16 08:59 10/21/16 07:23 Allergies: Coded Allergies: No Known Allergies (Unverified , 12/02/11) ROS Limited/Unobtainable: No Constitutional: Reports: no symptoms HEENT: Reports: no symptoms Cardiovascular: Reports: no symptoms Respiratory: Reports: shortness of breath Gastrointestinal/Abdominal: Reports: no symptoms Genitourinary: Reports: no symptoms Neurologic/Psychiatric: Reports: no symptoms Subjective 66 YO M admitted with Shortness of breath. Cover for Int Med-Dr Cardoza. ANNA. Tolerating nasal canula Objective Last Vital Signs Date Time Temp Pulse Resp B/P Pulse Ox O2 Delivery O2 Flow Rate FiO2 10/21/16 10:26 108 20 94 Nasal Cannula 3.0 32 10/21/16 08:00 98.2 122/70 Laboratory Tests Test 10/21/16 03:45 White Blood Count 16.0 K/UL (4.8-10.8) H Red Blood Count 3.95 M/UL (4.70-6.10) L Hemoglobin 10.8 G/DL (14.2-18.0) L Hematocrit 35.5 % (42.0-52.0) L Mean Corpuscular Volume 90 FL (80-99) Mean Corpuscular Hemoglobin 27.4 PG (27.0-31.0) Mean Corpuscular Hemoglobin Concent 30.6 G/DL (32.0-36.0) L Red Cell Distribution Width 14.7 % (11.6-14.8) Platelet Count 230 K/UL (150-450) Mean Platelet Volume 7.6 FL (6.5-10.1) Neutrophils (%) (Auto) % (45.0-75.0) Lymphocytes (%) (Auto) % (20.0-45.0) Monocytes (%) (Auto) % (1.0-10.0) Eosinophils (%) (Auto) % (0.0-3.0) Basophils (%) (Auto) % (0.0-2.0) Differential Total Cells Counted 100 Neutrophils % (Manual) 95 % (45-75) H Lymphocytes % (Manual) 1 % (20-45) L Monocytes % (Manual) 4 % (1-10) Eosinophils % (Manual) 0 % (0-3) Basophils % (Manual) 0 % (0-2) Band Neutrophils 0 % (0-8) Platelet Estimate Adequate Platelet Morphology Normal Hypochromasia 1+ Anisocytosis 1+ Sodium Level 141 mEQ/L (135-145) Potassium Level 4.8 mEQ/L (3.4-4.9) Chloride Level 93 mEQ/L (98-107) L Carbon Dioxide Level 40 mEQ/L (20-30) H Anion Gap 8 (5-15) Blood Urea Nitrogen 18 mg/dL (7-23) Creatinine 0.8 mg/dL (0.7-1.2) Estimat Glomerular Filtration Rate > 60 mL/min (>60) Glucose Level 105 mg/dL (74-106) Calcium Level 9.2 mg/dL (8.6-10.2) Microbiology Date/Time Source Procedure Growth Status 10/18/16 14:37 Blood Blood Culture - Preliminary NO GROWTH AFTER 48 HOURS Resulted 10/18/16 14:30 Blood Blood Culture - Preliminary NO GROWTH AFTER 48 HOURS Resulted Intake and Output 10/20/16 10/21/16 19:00 07:00 Intake Total 510.0 ml 405.375 ml Output Total 550 ml 550 ml Balance -40.0 ml -144.625 ml Intake Oral 400 ml 330 ml IV Total 110.0 ml 75.375 ml Output Urine Total 550 ml 550 ml # Voids 4 # Bowel Movements 1 Objective General Appearance: WD/WN, alert, mild distress EENT: PERRL/EOMI, normal ENT inspection Neck: non-tender, normal alignment, supple Cardiovascular: normal peripheral pulses, no gallop/murmur, no JVD, tachycardia Respiratory/Chest: Nasal canula; chest wall non-tender, crackles/rales, rhonchi - bilaterally, expiratory wheezing Abdomen: normal bowel sounds, non tender, soft, no organomegaly, no mass Extremities: normal range of motion 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 (2) Respiratory failure (3) COPD (chronic obstructive pulmonary disease) with emphysema Assessment & Plan: See pulmonary note. Cont IV solumedrol, duoneb and advair. Cont zosyn and theophylline (4) Chest tightness (5) Acute respiratory failure with hypoxia and hypercarbia Status: not improved PAULETTE GUTIÉRREZ Oct 21, 2016 11:45
[2016-10-21 12:00] VITALS: BP 134/57
--- NOTE | 2016-10-21 14:58 | Diagnostic Imaging Report ---
Indication: Dyspnea. COPD Technique: Continuous helical transaxial imaging of the chest was obtained from the thoracic inlet to the upper abdomen. No intravenous contrast was administered. Coronal 2-D reformats were also obtained. Total Dose length Product (DLP): [address] Dose Index Volume (CTDIvol): 13 mGy Comparison: none Findings: The lungs demonstrate hyperlucency particularly at the upper aspects of the upper lobes. Findings consistent with emphysema. There are scattered mild reticular densities particularly at the lung bases that may represents scarring or atelectasis. No adenopathy or abnormal fluid collections are identified. Aorta shows mural calcification. Visualized part of the upper abdomen is unremarkable. Impression: Moderate degree of emphysema The CT scanner at [facility] is accredited by the [employer] and the scans are performed using protocols designed to limit radiation exposure to as low as reasonably achievable to attain images of sufficient resolution adequate for diagnostic evaluation.
[2016-10-21 16:00] VITALS: BP 126/76
--- NOTE | 2016-10-21 19:10 | Cardiology Report ---
APPROVED REPORT EKG Measurement Heart [id number] Sinus rhythm with frequent premature ventricular complexes Possible Left atrial enlargement Right axis deviation Pulmonary disease pattern Septal infarct, age undetermined Abnormal ECG
[2016-10-21 19:56] VITALS: BP 139/79
[2016-10-21] MEDS ORDERED: Solu-MEDROL 125mg Inj IV SCH (21:00)
[2016-10-22] VITALS (7 sets, daily range): BP systolic 118–140; BP diastolic 63–85
[2016-10-22] MEDS: DuoNeb 0.5-3(2.5)mg/3ml neb HHN SCH ×6 (03:00→23:00)
[2016-10-22 04:58] LABS: MEAN CORPUSCULAR HEMOGLOBIN 27.2 PG (27.0-31.0); MEAN CORPUSCULAR HGB CONC 30.3 G/DL (32.0-36.0); MEAN CORPUSCULAR VOLUME 90 FL (80-99); MEAN PLATELET VOLUME 8.8 FL (6.5-10.1); PLATELET COUNT 257 K/UL (150-450); RED BLOOD COUNT 4.26 M/UL (4.70-6.10); RED CELL DISTRIBUTION WIDTH 14.6 % (11.6-14.8); WHITE BLOOD COUNT 16.2 K/UL (4.8-10.8)
[2016-10-22 05:29] LABS: ANION GAP 8 (5-15); CALCIUM 9.1 mg/dL (8.6-10.2); CARBON DIOXIDE 40 mEQ/L (20-30); CHLORIDE 91 mEQ/L (98-107); CREATININE 0.8 mg/dL (0.7-1.2); GLOMERULAR FILTRATION RATE > 60 mL/min (>60); HEMOLYSIS 2; POTASSIUM 4.8 mEQ/L (3.4-4.9); SODIUM 139 mEQ/L (135-145)
[2016-10-22] MEDS: Zoysn 3.37gm in D5W 110ml IVPB SCH (05:39)
[2016-10-22] MEDS ORDERED: Nitroglycerin Subl 0.4mg tab (Bottle Of 25) SL PRN (06:45)
[2016-10-22] MEDS ORDERED: Norco 5mg/325mg tab ORAL PRN (07:25)
[2016-10-22] MEDS: Solu-MEDROL 125mg Inj IV SCH ×2 (08:05→21:24)
[2016-10-22] MEDS: Theophylline ER 100mg ORAL SCH ×2 (08:05→21:24)
[2016-10-22] MEDS: Heparin 5000 units/ml inj SUBQ SCH ×2 (08:06→21:26)
[2016-10-22 08:51] LABS: ANISOCYTOSIS 1+; BAND NEUTROPHILS % (MANUAL) 0 % (0-8); BASOPHILS % (MANUAL) 0 % (0-2); EOSINOPHILS % (MANUAL) 0 % (0-3); HYPOCHROMASIA 1+; LYMPHOCYTES % (MANUAL) 3 % (20-45); NEUTROPHILS % (MANUAL) 89 % (45-75); PLATELET ESTIMATE ADEQUATE; PLATELET MORPHOLOGY NORMAL; TOTAL CELLS COUNTED 100
[2016-10-22] MEDS ORDERED: Promethazine/Codeine 5ml UD ORAL PRN (10:00)
[2016-10-22] MEDS: Advair 250/50 Inhaler - 14 dose INH SCH ×2 (11:23→19:30)
[2016-10-22] MEDS: NovoLOG Insulin Flexpen SUBQ SCH ×3 (11:30→21:27)
[2016-10-22] MEDS ORDERED: guaiFENesin w/Codeine 5ml Liq ud ORAL PRN (12:35)
[2016-10-22] MEDS: Piperacillin/Tazobactam 3.375 GM in D5W 110 ML IVPB SCH ×2 (13:24→21:22)
--- NOTE | 2016-10-22 17:26 | Internal Med Progress Note ---
Subjective Date of Service: Oct 22, 2016 Physician Name Paulette Gutiérrez Attending Physician Dipesh Cardoza MD Current Medications Medications (Trade) Dose Ordered Sig/Radha Route PRN Reason Start Time Stop Time Status Last Admin Dose Admin Acetaminophen/ Hydrocodone Bitart ([place] 5/325) 1 tab Q12H PRN ORAL Severe Pain (Pain Scale 7-10) 10/22/16 07:25 10/29/16 07:24 Albuterol/ Ipratropium (DuoNeb 0.5-3(2.5)mg/3ml) 3 ml Q4HRT HHN 10/22/16 07:00 10/27/16 06:59 10/22/16 16:03 Dextrose (Dextrose 50%) STAT PRN IV Hypoglycemia 10/22/16 07:25 11/21/16 07:24 Guaifenesin/ Codeine Phosphate (Robitussin with codeine) 5 ml Q6H PRN ORAL For Cough 10/22/16 12:35 11/21/16 12:34 Heparin Sodium (Porcine) (Heparin 5000 units/ml) 5,000 units EVERY 12 HOURS SUBQ 10/22/16 09:00 11/21/16 08:59 10/22/16 08:06 Insulin Aspart (NovoLOG) BEFORE MEALS AND HS SUBQ 10/22/16 11:30 11/21/16 11:29 Methylprednisolone Sodium Succinate (Solu-MEDROL) 60 mg EVERY 12 HOURS IV 10/22/16 09:00 11/21/16 08:59 10/22/16 08:05 Nitroglycerin (Ntg) 0.4 mg Q5M X 3 DOSES PRN SL Prn Chest Pain 10/22/16 06:45 11/21/16 06:44 Ondansetron HCl (Zofran) 4 mg Q6H PRN IVP Nausea & Vomiting 10/22/16 07:27 11/21/16 07:26 Piperacillin Sod/ Tazobactam Sod/ Dextrose (Zosyn/D5W) 110 ml @ 27.5 mls/hr EVERY 8 HOURS IVPB 10/22/16 14:00 10/29/16 13:59 10/22/16 13:24 Salmeterol Xinafoate/ Fluticasone (Advair 250/50 Diskus) 1 puffs Q12HR@0700,1900 INH 10/22/16 09:00 11/21/16 08:59 10/22/16 11:23 Temazepam (Restoril) 15 mg HSPRN PRN ORAL Insomnia 10/22/16 16:00 10/29/16 15:59 Theophylline (Alen-Dur) 100 mg EVERY 12 HOURS ORAL 10/22/16 09:00 11/21/16 08:59 10/22/16 08:05 Tiotropium [place] (Spiriva Inhaler) 1 puff DAILY INH 10/22/16 09:00 11/21/16 08:59 Allergies: Coded Allergies: No Known Allergies (Unverified , 12/02/11) Subjective 66 YO M admitted with Shortness of breath. Cover for Int Med-Dr Cardoza. Tolerating nasal canula Objective Last Vital Signs Date Time Temp Pulse Resp B/P Pulse Ox O2 Delivery O2 Flow Rate FiO2 10/22/16 16:13 103 20 97 Nasal Cannula 3.0 32 10/22/16 12:00 97.7 118/76 Laboratory Tests Test 10/22/16 03:50 White Blood Count 16.2 K/UL (4.8-10.8) H Red Blood Count 4.26 M/UL (4.70-6.10) L Hemoglobin 11.6 G/DL (14.2-18.0) L Hematocrit 38.2 % (42.0-52.0) L Mean Corpuscular Volume 90 FL (80-99) Mean Corpuscular Hemoglobin 27.2 PG (27.0-31.0) Mean Corpuscular Hemoglobin Concent 30.3 G/DL (32.0-36.0) L Red Cell Distribution Width 14.6 % (11.6-14.8) Platelet Count 257 K/UL (150-450) Mean Platelet Volume 8.8 FL (6.5-10.1) Neutrophils (%) (Auto) % (45.0-75.0) Lymphocytes (%) (Auto) % (20.0-45.0) Monocytes (%) (Auto) % (1.0-10.0) Eosinophils (%) (Auto) % (0.0-3.0) Basophils (%) (Auto) % (0.0-2.0) Differential Total Cells Counted 100 Neutrophils % (Manual) 89 % (45-75) H Lymphocytes % (Manual) 3 % (20-45) L Monocytes % (Manual) 8 % (1-10) Eosinophils % (Manual) 0 % (0-3) Basophils % (Manual) 0 % (0-2) Band Neutrophils 0 % (0-8) Platelet Estimate Adequate Platelet Morphology Normal Hypochromasia 1+ Anisocytosis 1+ Sodium Level 139 mEQ/L (135-145) Potassium Level 4.8 mEQ/L (3.4-4.9) Chloride Level 91 mEQ/L (98-107) L Carbon Dioxide Level 40 mEQ/L (20-30) H Anion Gap 8 (5-15) Blood Urea Nitrogen 18 mg/dL (7-23) Creatinine 0.8 mg/dL (0.7-1.2) Estimat Glomerular Filtration Rate > 60 mL/min (>60) Glucose Level 122 mg/dL (74-106) H Calcium Level 9.1 mg/dL (8.6-10.2) Intake and Output 10/21/16 10/22/16 19:00 07:00 Intake Total 630 ml 260.0 ml Output Total 600 ml Balance 630 ml -340.0 ml Intake Oral 630 ml 150 ml IV Total 110.0 ml Output Urine Total 600 ml # Voids 102 1 # Bowel Movements 1 Objective General Appearance: WD/WN, alert, mild distress EENT: PERRL/EOMI, normal ENT inspection Neck: non-tender, normal alignment, supple Cardiovascular: normal peripheral pulses, no gallop/murmur, no JVD, tachycardia Respiratory/Chest: Nasal canula; chest wall non-tender, crackles/rales, rhonchi - bilaterally, expiratory wheezing Abdomen: normal bowel sounds, non tender, soft, no organomegaly, no mass Extremities: normal range of motion 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 (2) Respiratory failure (3) COPD (chronic obstructive pulmonary disease) with emphysema Assessment & Plan: See pulmonary note. Cont IV solumedrol, duoneb and advair. Cont zosyn and theophylline (4) Chest tightness (5) Acute respiratory failure with hypoxia and hypercarbia Assessment & Plan: Tolerating nasal canula. Status: progressing GUTIÉRREZ,PAULETTE Oct 22, 2016 17:26
--- NOTE | 2016-10-22 18:42 | Pulmonology Progress Note ---
Assessment/Plan Problems: (1) Acute respiratory failure (2) Dyspnea (3) copd exacerbation (4) Emphysema, unspecified Assessment/Plan improving decrease steroids check sputum sputum induction ordered again check CT chest reviewed, extensive bullous disease Subjective Allergies: Coded Allergies: No Known Allergies (Unverified , 12/02/11) Objective Last 24 Hour Vital Signs Date Time Temp Pulse Resp B/P Pulse Ox O2 Delivery O2 Flow Rate FiO2 10/22/16 16:13 103 20 97 Nasal Cannula 3.0 32 10/22/16 16:02 106 20 95 Nasal Cannula 3.0 32 10/22/16 16:00 98.4 115 20 128/68 95 Nasal Cannula 3.0 10/22/16 12:00 97.7 104 20 118/76 93 Nasal Cannula 10/22/16 11:23 Nasal Cannula 3.0 32 10/22/16 11:22 73 20 93 Nasal Cannula 3.0 32 10/22/16 09:00 108 23 96 Nasal Cannula 3.0 32 10/22/16 08:46 104 20 94 Nasal Cannula 3.0 32 10/22/16 08:45 94 Nasal Cannula 3.0 32 10/22/16 08:00 97.3 96 21 122/63 100 Nasal Cannula 3.0 10/22/16 06:52 97.7 101 20 128/78 95 Nasal Cannula 3.0 10/22/16 04:00 98.2 105 24 140/84 94 Nasal Cannula 3.0 10/22/16 04:00 93 10/22/16 03:49 Nasal Cannula 3.0 32 10/22/16 03:49 Nasal Cannula 3.0 32 10/22/16 00:01 108 10/22/16 00:00 98.0 114 24 126/64 93 Nasal Cannula 3.0 10/21/16 23:30 Nasal Cannula 3.0 32 10/21/16 23:30 Nasal Cannula 3.0 32 10/21/16 20:00 107 10/21/16 19:56 98.2 108 22 139/79 95 Nasal Cannula 3.0 10/21/16 19:30 Nasal Cannula 3.0 32 10/21/16 19:30 105 20 95 Nasal Cannula 3.0 32 10/21/16 19:30 103 20 94 Nasal Cannula 3.0 32 10/21/16 19:30 95 Nasal Cannula 3.0 32 Intake and Output 10/21/16 10/22/16 19:00 07:00 Intake Total 630 ml 260.0 ml Output Total 600 ml Balance 630 ml -340.0 ml Intake Oral 630 ml 150 ml IV Total 110.0 ml Output Urine Total 600 ml # Voids 102 1 # Bowel Movements 1 Laboratory Tests 10/22/16 03:50: White Blood Count 16.2H, Red Blood Count 4.26L, Hemoglobin 11.6L, Hematocrit 38.2L, Mean Corpuscular Volume 90, Mean Corpuscular Hemoglobin 27.2, Mean Corpuscular Hemoglobin Concent 30.3L, Red Cell Distribution Width 14.6, Platelet Count 257, Mean Platelet Volume 8.8, Neutrophils (%) (Auto) , Lymphocytes (%) (Auto) , Monocytes (%) (Auto) , Eosinophils (%) (Auto) , Basophils (%) (Auto) , Differential Total Cells Counted 100, Neutrophils % ( Manual) 89H, Lymphocytes % (Manual) 3L, Monocytes % (Manual) 8, Eosinophils % ( Manual) 0, Basophils % (Manual) 0, Band Neutrophils 0, Platelet Estimate Adequate, Platelet Morphology Normal, Hypochromasia 1+, Anisocytosis 1+, Sodium Level 139, Potassium Level 4.8, Chloride Level 91L, Carbon Dioxide Level 40H, Anion Gap 8, Blood Urea Nitrogen 18, Creatinine 0.8, Estimat Glomerular Filtration Rate > 60, Glucose Level 122H, Calcium Level 9.1 Current Medications Medications (Trade) Dose Ordered Sig/Radha Route PRN Reason Start Time Stop Time Status Last Admin Dose Admin Acetaminophen/ Hydrocodone Bitart ([place] 5/325) 1 tab Q12H PRN ORAL Severe Pain (Pain Scale 7-10) 10/22/16 07:25 10/29/16 07:24 Albuterol/ Ipratropium (DuoNeb 0.5-3(2.5)mg/3ml) 3 ml Q4HRT HHN 10/22/16 07:00 10/27/16 06:59 10/22/16 16:03 Dextrose (Dextrose 50%) STAT PRN IV Hypoglycemia 10/22/16 07:25 11/21/16 07:24 Guaifenesin (Mucinex) 600 mg TWICE A DAY ORAL 10/22/16 19:30 11/21/16 19:29 Guaifenesin/ Codeine Phosphate (Robitussin with codeine) 5 ml Q6H PRN ORAL For Cough 10/22/16 12:35 11/21/16 12:34 Heparin Sodium (Porcine) (Heparin 5000 units/ml) 5,000 units EVERY 12 HOURS SUBQ 10/22/16 09:00 11/21/16 08:59 10/22/16 08:06 Insulin Aspart (NovoLOG) BEFORE MEALS AND HS SUBQ 10/22/16 11:30 11/21/16 11:29 10/22/16 18:06 Methylprednisolone Sodium Succinate (Solu-MEDROL) 60 mg EVERY 12 HOURS IV 10/22/16 09:00 11/21/16 08:59 10/22/16 08:05 Nitroglycerin (Ntg) 0.4 mg Q5M X 3 DOSES PRN SL Prn Chest Pain 10/22/16 06:45 11/21/16 06:44 Ondansetron HCl (Zofran) 4 mg Q6H PRN IVP Nausea & Vomiting 10/22/16 07:27 11/21/16 07:26 Piperacillin Sod/ Tazobactam Sod/ Dextrose (Zosyn/D5W) 110 ml @ 27.5 mls/hr EVERY 8 HOURS IVPB 10/22/16 14:00 10/29/16 13:59 10/22/16 13:24 Salmeterol Xinafoate/ Fluticasone (Advair 250/50 Diskus) 1 puffs Q12HR@0700,1900 INH 10/22/16 09:00 11/21/16 08:59 10/22/16 11:23 Temazepam (Restoril) 15 mg HSPRN PRN ORAL Insomnia 10/22/16 16:00 10/29/16 15:59 Theophylline (Alen-Dur) 100 mg EVERY 12 HOURS ORAL 10/22/16 09:00 11/21/16 08:59 10/22/16 08:05 Tiotropium [place] (Spiriva Inhaler) 1 puff DAILY INH 10/22/16 09:00 11/21/16 08:59 GIOVANY SUMMERS Oct 22, 2016 18:42
[2016-10-22] MEDS: guaiFENesin 600mg tab ORAL SCH (21:24)
[2016-10-23] VITALS (7 sets, daily range): BP systolic 106–132; BP diastolic 66–88
[2016-10-23] MEDS: DuoNeb 0.5-3(2.5)mg/3ml neb HHN SCH ×6 (02:28→23:38)
[2016-10-23] MEDS: Piperacillin/Tazobactam 3.375 GM in D5W 110 ML IVPB SCH ×3 (06:07→20:39)
[2016-10-23] MEDS: NovoLOG Insulin Flexpen SUBQ SCH ×4 (06:07→20:42)
[2016-10-23 07:17] LABS: MEAN CORPUSCULAR HEMOGLOBIN 26.3 PG (27.0-31.0); MEAN CORPUSCULAR HGB CONC 29.5 G/DL (32.0-36.0); MEAN CORPUSCULAR VOLUME 89 FL (80-99); MEAN PLATELET VOLUME 7.5 FL (6.5-10.1); PLATELET COUNT 274 K/UL (150-450); RED CELL DISTRIBUTION WIDTH 15.5 % (11.6-14.8); WHITE BLOOD COUNT 12.3 K/UL (4.8-10.8)
[2016-10-23 07:23] LABS: CHLORIDE 91 mEQ/L (98-107); CREATININE 0.7 mg/dL (0.7-1.2); GLOMERULAR FILTRATION RATE > 60 mL/min (>60); HEMOLYSIS 3; POTASSIUM 4.9 mEQ/L (3.4-4.9); SODIUM 138 mEQ/L (135-145)
[2016-10-23] MEDS: Advair 250/50 Inhaler - 14 dose INH SCH ×2 (07:28→19:37)
[2016-10-23 07:31] LABS: ANION GAP 3 (5-15)
[2016-10-23 07:45] LABS: CARBON DIOXIDE 44 mEQ/L (20-30)
[2016-10-23] MEDS: guaiFENesin 600mg tab ORAL SCH ×2 (08:28→17:29)
[2016-10-23] MEDS: Solu-MEDROL 125mg Inj IV SCH (08:28)
[2016-10-23] MEDS: Theophylline ER 100mg ORAL SCH ×2 (08:28→20:40)
[2016-10-23] MEDS: Heparin 5000 units/ml inj SUBQ SCH ×2 (08:30→20:41)
[2016-10-23 08:52] LABS: ANISOCYTOSIS 1+; BAND NEUTROPHILS % (MANUAL) 0 % (0-8); BASOPHILS % (MANUAL) 0 % (0-2); EOSINOPHILS % (MANUAL) 0 % (0-3); LYMPHOCYTES % (MANUAL) 4 % (20-45); NEUTROPHILS % (MANUAL) 95 % (45-75); PLATELET ESTIMATE ADEQUATE; PLATELET MORPHOLOGY NORMAL; TOTAL CELLS COUNTED 100
[2016-10-23 08:53] LABS: HYPOCHROMASIA 1+
--- NOTE | 2016-10-23 13:48 | Internal Med Progress Note ---
Subjective Date of Service: Oct 23, 2016 Physician Name Paulette Gutiérrez Attending Physician Dipesh Cardoza MD Current Medications Medications (Trade) Dose Ordered Sig/Radha Route PRN Reason Start Time Stop Time Status Last Admin Dose Admin Acetaminophen/ Hydrocodone Bitart ([place] 5/325) 1 tab Q12H PRN ORAL Severe Pain (Pain Scale 7-10) 10/22/16 07:25 10/29/16 07:24 Albuterol/ Ipratropium (DuoNeb 0.5-3(2.5)mg/3ml) 3 ml Q4HRT HHN 10/22/16 07:00 10/27/16 06:59 10/23/16 07:28 Dextrose (Dextrose 50%) STAT PRN IV Hypoglycemia 10/22/16 07:25 11/21/16 07:24 Guaifenesin (Mucinex) 600 mg TWICE A DAY ORAL 10/22/16 19:30 11/21/16 19:29 10/23/16 08:28 Guaifenesin/ Codeine Phosphate (Robitussin with codeine) 5 ml Q6H PRN ORAL For Cough 10/22/16 12:35 11/21/16 12:34 Heparin Sodium (Porcine) (Heparin 5000 units/ml) 5,000 units EVERY 12 HOURS SUBQ 10/22/16 09:00 11/21/16 08:59 10/23/16 08:30 Insulin Aspart (NovoLOG) BEFORE MEALS AND HS SUBQ 10/22/16 11:30 11/21/16 11:29 10/22/16 21:27 Methylprednisolone Sodium Succinate (Solu-MEDROL) 60 mg EVERY 12 HOURS IV 10/22/16 09:00 11/21/16 08:59 10/23/16 08:28 Nitroglycerin (Ntg) 0.4 mg Q5M X 3 DOSES PRN SL Prn Chest Pain 10/22/16 06:45 11/21/16 06:44 Ondansetron HCl (Zofran) 4 mg Q6H PRN IVP Nausea & Vomiting 10/22/16 07:27 11/21/16 07:26 Piperacillin Sod/ Tazobactam Sod/ Dextrose (Zosyn/D5W) 110 ml @ 27.5 mls/hr EVERY 8 HOURS IVPB 10/22/16 14:00 10/29/16 13:59 10/23/16 13:42 Salmeterol Xinafoate/ Fluticasone (Advair 250/50 Diskus) 1 puffs Q12HR@0700,1900 INH 10/22/16 09:00 11/21/16 08:59 10/23/16 07:28 Temazepam (Restoril) 15 mg HSPRN PRN ORAL Insomnia 10/22/16 16:00 10/29/16 15:59 Theophylline (Alen-Dur) 100 mg EVERY 12 HOURS ORAL 10/22/16 09:00 11/21/16 08:59 10/23/16 08:28 Tiotropium [place] (Spiriva Inhaler) 1 puff DAILY INH 10/22/16 09:00 11/21/16 08:59 10/23/16 07:28 Allergies: Coded Allergies: No Known Allergies (Unverified , 12/02/11) ROS Limited/Unobtainable: No Constitutional: Reports: no symptoms HEENT: Reports: no symptoms Respiratory: Reports: shortness of breath Gastrointestinal/Abdominal: Reports: no symptoms Genitourinary: Reports: no symptoms Neurologic/Psychiatric: Reports: no symptoms Subjective 66 YO M admitted with Shortness of breath. Cover for Int Wilfrid-Dr Cardoza. Tolerating nasal canula Objective Last Vital Signs Date Time Temp Pulse Resp B/P Pulse Ox O2 Delivery O2 Flow Rate FiO2 10/23/16 12:11 98.1 89 20 106/66 94 Nasal Cannula 2.0 10/23/16 11:55 32 Laboratory Tests Test 10/23/16 06:15 White Blood Count 12.3 K/UL (4.8-10.8) H Red Blood Count 4.50 M/UL (4.70-6.10) L Hemoglobin 11.8 G/DL (14.2-18.0) L Hematocrit 40.1 % (42.0-52.0) L Mean Corpuscular Volume 89 FL (80-99) Mean Corpuscular Hemoglobin 26.3 PG (27.0-31.0) L Mean Corpuscular Hemoglobin Concent 29.5 G/DL (32.0-36.0) L Red Cell Distribution Width 15.5 % (11.6-14.8) H Platelet Count 274 K/UL (150-450) Mean Platelet Volume 7.5 FL (6.5-10.1) Neutrophils (%) (Auto) % (45.0-75.0) Lymphocytes (%) (Auto) % (20.0-45.0) Monocytes (%) (Auto) % (1.0-10.0) Eosinophils (%) (Auto) % (0.0-3.0) Basophils (%) (Auto) % (0.0-2.0) Differential Total Cells Counted 100 Neutrophils % (Manual) 95 % (45-75) H Lymphocytes % (Manual) 4 % (20-45) L Monocytes % (Manual) 1 % (1-10) Eosinophils % (Manual) 0 % (0-3) Basophils % (Manual) 0 % (0-2) Band Neutrophils 0 % (0-8) Platelet Estimate Adequate Platelet Morphology Normal Hypochromasia 1+ Anisocytosis 1+ Sodium Level 138 mEQ/L (135-145) Potassium Level 4.9 mEQ/L (3.4-4.9) Chloride Level 91 mEQ/L (98-107) L Carbon Dioxide Level 44 mEQ/L (20-30) *H Anion Gap 3 (5-15) L Blood Urea Nitrogen 18 mg/dL (7-23) Creatinine 0.7 mg/dL (0.7-1.2) Estimat Glomerular Filtration Rate > 60 mL/min (>60) Glucose Level 105 mg/dL (74-106) Calcium Level 9.0 mg/dL (8.6-10.2) Intake and Output 10/22/16 10/23/16 19:00 07:00 Intake Total 480 ml 284.5 ml Output Total 180 ml 1500 ml Balance 300 ml -1215.5 ml Intake Oral 480 ml 240 ml IV Total 44.5 ml Output Urine Total 180 ml 1500 ml # Voids 3 Objective General Appearance: WD/WN, alert, mild distress EENT: PERRL/EOMI, normal ENT inspection Neck: non-tender, normal alignment, supple Cardiovascular: normal peripheral pulses, no gallop/murmur, no JVD, tachycardia Respiratory/Chest: Nasal canula; chest wall non-tender, crackles/rales, rhonchi - bilaterally, expiratory wheezing Abdomen: normal bowel sounds, non tender, soft, no organomegaly, no mass Extremities: normal range of motion 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 (2) Respiratory failure (3) COPD (chronic obstructive pulmonary disease) with emphysema Assessment & Plan: See pulmonary note. Cont IV solumedrol, duoneb and advair. Cont zosyn and theophylline (4) Chest tightness (5) Acute respiratory failure with hypoxia and hypercarbia Assessment & Plan: Tolerating nasal canula. Status: progressing PAULETTE GUTIÉRREZ Oct 23, 2016 13:48
--- NOTE | 2016-10-23 16:55 | Pulmonology Progress Note ---
Assessment/Plan Problems: (1) Acute respiratory failure (2) Dyspnea (3) copd exacerbation (4) Emphysema, unspecified Assessment/Plan improving decrease steroids to 40 q12 check sputum, not available yet sputum induction ordered again check CT chest reviewed, extensive bullous disease Subjective ROS Limited/Unobtainable: No Constitutional: Reports: no symptoms HEENT: Repors: no symptoms Respiratory: Reports: no symptoms Cardiovascular: Reports: no symptoms Allergies: Coded Allergies: No Known Allergies (Unverified , 12/02/11) Objective Last 24 Hour Vital Signs Date Time Temp Pulse Resp B/P Pulse Ox O2 Delivery O2 Flow Rate FiO2 10/23/16 16:46 98.1 100 19 130/81 97 Room Air 10/23/16 14:15 Nasal Cannula 3.0 32 10/23/16 14:04 106 18 97 Nasal Cannula 3.0 32 10/23/16 13:54 110 20 92 Nasal Cannula 3.0 32 10/23/16 12:11 98.1 89 20 106/66 94 Nasal Cannula 2.0 10/23/16 11:55 Nasal Cannula 3.0 32 10/23/16 11:55 Nasal Cannula 3.0 32 10/23/16 08:00 98.1 90 19 123/75 97 Room Air 10/23/16 07:38 108 20 94 Nasal Cannula 3.0 32 10/23/16 07:28 105 20 92 Nasal Cannula 3.0 32 10/23/16 07:28 92 Nasal Cannula 3.0 32 10/23/16 07:28 Nasal Cannula 3.0 32 10/23/16 04:04 98.3 96 21 132/79 99 Nasal Cannula 3.0 10/23/16 02:28 Nasal Cannula 3.0 32 10/23/16 02:28 Nasal Cannula 3.0 32 10/23/16 00:15 98.4 100 21 124/88 99 Room Air 10/22/16 23:29 Nasal Cannula 3.0 32 10/22/16 23:29 Nasal Cannula 3.0 32 10/22/16 20:00 98.4 110 20 120/85 94 Nasal Cannula 3.0 10/22/16 19:40 112 20 93 Nasal Cannula 3.0 32 10/22/16 19:30 92 Nasal Cannula 3.0 32 10/22/16 19:30 112 20 92 Nasal Cannula 3.0 32 10/22/16 19:30 Nasal Cannula 3.0 32 Intake and Output 10/22/16 10/23/16 19:00 07:00 Intake Total 480 ml 284.5 ml Output Total 180 ml 1500 ml Balance 300 ml -1215.5 ml Intake Oral 480 ml 240 ml IV Total 44.5 ml Output Urine Total 180 ml 1500 ml # Voids 3 HEENT: normocephalic Respiratory/Chest: chest wall non-tender, lungs clear Cardiovascular: normal peripheral pulses, normal rate Abdomen: normal bowel sounds, soft, non tender Skin: no rash Neurologic/Psychiatric: per diem rn II-XII grossly normal Lymphatic: no neck adenopathy Musculoskeletal: normal muscle bulk Laboratory Tests 10/23/16 06:15: White Blood Count 12.3H, Red Blood Count 4.50L, Hemoglobin 11.8L, Hematocrit 40.1L, Mean Corpuscular Volume 89, Mean Corpuscular Hemoglobin 26.3L, Mean Corpuscular Hemoglobin Concent 29.5L, Red Cell Distribution Width 15.5H, Platelet Count 274, Mean Platelet Volume 7.5, Neutrophils (%) (Auto) , Lymphocytes (%) (Auto) , Monocytes (%) (Auto) , Eosinophils (%) (Auto) , Basophils (%) (Auto) , Differential Total Cells Counted 100, Neutrophils % ( Manual) 95H, Lymphocytes % (Manual) 4L, Monocytes % (Manual) 1, Eosinophils % ( Manual) 0, Basophils % (Manual) 0, Band Neutrophils 0, Platelet Estimate Adequate, Platelet Morphology Normal, Hypochromasia 1+, Anisocytosis 1+, Sodium Level 138, Potassium Level 4.9, Chloride Level 91L, Carbon Dioxide Level 44*H, Anion Gap 3L, Blood Urea Nitrogen 18, Creatinine 0.7, Estimat Glomerular Filtration Rate > 60, Glucose Level 105, Calcium Level 9.0 Current Medications Medications (Trade) Dose Ordered Sig/Radha Route PRN Reason Start Time Stop Time Status Last Admin Dose Admin Acetaminophen/ Hydrocodone Bitart ([place] 5/325) 1 tab Q12H PRN ORAL Severe Pain (Pain Scale 7-10) 10/22/16 07:25 10/29/16 07:24 Albuterol/ Ipratropium (DuoNeb 0.5-3(2.5)mg/3ml) 3 ml Q4HRT HHN 10/22/16 07:00 10/27/16 06:59 10/23/16 13:54 Dextrose (Dextrose 50%) STAT PRN IV Hypoglycemia 10/22/16 07:25 11/21/16 07:24 Guaifenesin (Mucinex) 600 mg TWICE A DAY ORAL 10/22/16 19:30 11/21/16 19:29 10/23/16 08:28 Guaifenesin/ Codeine Phosphate (Robitussin with codeine) 5 ml Q6H PRN ORAL For Cough 10/22/16 12:35 11/21/16 12:34 Heparin Sodium (Porcine) (Heparin 5000 units/ml) 5,000 units EVERY 12 HOURS SUBQ 10/22/16 09:00 11/21/16 08:59 10/23/16 08:30 Insulin Aspart (NovoLOG) BEFORE MEALS AND HS SUBQ 10/22/16 11:30 11/21/16 11:29 10/22/16 21:27 Methylprednisolone Sodium Succinate (Solu-MEDROL) 60 mg EVERY 12 HOURS IV 10/22/16 09:00 11/21/16 08:59 10/23/16 08:28 Nitroglycerin (Ntg) 0.4 mg Q5M X 3 DOSES PRN SL Prn Chest Pain 10/22/16 06:45 11/21/16 06:44 Ondansetron HCl (Zofran) 4 mg Q6H PRN IVP Nausea & Vomiting 10/22/16 07:27 11/21/16 07:26 Piperacillin Sod/ Tazobactam Sod/ Dextrose (Zosyn/D5W) 110 ml @ 27.5 mls/hr EVERY 8 HOURS IVPB 10/22/16 14:00 10/29/16 13:59 10/23/16 13:42 Salmeterol Xinafoate/ Fluticasone (Advair 250/50 Diskus) 1 puffs Q12HR@0700,1900 INH 10/22/16 09:00 11/21/16 08:59 10/23/16 07:28 Temazepam (Restoril) 15 mg HSPRN PRN ORAL Insomnia 10/22/16 16:00 10/29/16 15:59 Theophylline (Alen-Dur) 100 mg EVERY 12 HOURS ORAL 10/22/16 09:00 11/21/16 08:59 10/23/16 08:28 Tiotropium [place] (Spiriva Inhaler) 1 puff DAILY INH 10/22/16 09:00 11/21/16 08:59 10/23/16 07:28 GIOVANY SUMMERS Oct 23, 2016 16:55
[2016-10-23] MEDS: Solu-MEDROL 40mg Inj IVP SCH (20:39)
[2016-10-24] VITALS (7 sets, daily range): BP systolic 112–128; BP diastolic 67–80
[2016-10-24] MEDS: DuoNeb 0.5-3(2.5)mg/3ml neb HHN SCH ×6 (03:00→23:00)
[2016-10-24] MEDS: Piperacillin/Tazobactam 3.375 GM in D5W 110 ML IVPB SCH ×3 (05:50→22:07)
[2016-10-24] MEDS: NovoLOG Insulin Flexpen SUBQ SCH ×4 (06:18→22:09)
[2016-10-24] MEDS: Advair 250/50 Inhaler - 14 dose INH SCH ×3 (06:21→19:00)
[2016-10-24 07:20] LABS: MEAN CORPUSCULAR HGB CONC 30.3 G/DL (32.0-36.0); MEAN CORPUSCULAR VOLUME 89 FL (80-99); MEAN PLATELET VOLUME 7.6 FL (6.5-10.1); PLATELET COUNT 272 K/UL (150-450); RED BLOOD COUNT 4.68 M/UL (4.70-6.10); RED CELL DISTRIBUTION WIDTH 15.6 % (11.6-14.8); WHITE BLOOD COUNT 10.8 K/UL (4.8-10.8)
[2016-10-24 07:45] LABS: CALCIUM 9.5 mg/dL (8.6-10.2); CHLORIDE 93 mEQ/L (98-107); CREATININE 0.7 mg/dL (0.7-1.2); GLOMERULAR FILTRATION RATE > 60 mL/min (>60); HEMOLYSIS 4; SODIUM 141 mEQ/L (135-145)
[2016-10-24 07:54] LABS: ANION GAP 2 (5-15)
[2016-10-24 07:59] LABS: CARBON DIOXIDE 46 mEQ/L (20-30); POTASSIUM 6.1 mEQ/L (3.4-4.9)
[2016-10-24] MEDS: Theophylline ER 100mg ORAL SCH ×2 (09:15→22:08)
[2016-10-24] MEDS: guaiFENesin 600mg tab ORAL SCH ×2 (09:15→18:22)
[2016-10-24] MEDS: Solu-MEDROL 40mg Inj IVP SCH (09:15)
[2016-10-24] MEDS: Heparin 5000 units/ml inj SUBQ SCH ×2 (09:22→22:09)
[2016-10-24 10:43] LABS: ANISOCYTOSIS 1+; BAND NEUTROPHILS % (MANUAL) 0 % (0-8); BASOPHILS % (MANUAL) 0 % (0-2); EOSINOPHILS % (MANUAL) 0 % (0-3); LYMPHOCYTES % (MANUAL) 6 % (20-45); NEUTROPHILS % (MANUAL) 86 % (45-75); PLATELET ESTIMATE ADEQUATE; PLATELET MORPHOLOGY NORMAL; TOTAL CELLS COUNTED 100
[2016-10-24 11:50] LABS: CALCIUM 9.1 mg/dL (8.6-10.2); CHLORIDE 89 mEQ/L (98-107); CREATININE 0.7 mg/dL (0.7-1.2); GLOMERULAR FILTRATION RATE > 60 mL/min (>60); HEMOLYSIS 6; POTASSIUM 4.9 mEQ/L (3.4-4.9); SODIUM 137 mEQ/L (135-145)
[2016-10-24 11:56] LABS: ANION GAP 5 (5-15)
[2016-10-24 11:57] LABS: CARBON DIOXIDE 43 mEQ/L (20-30)
--- NOTE | 2016-10-24 13:37 | Pulmonology Progress Note ---
Assessment/Plan Problems: (1) Acute respiratory failure (2) Dyspnea (3) copd exacerbation (4) Emphysema, unspecified Assessment/Plan improving dc IVsteroids check sputum, not available yet sputum induction ordered again check CT chest reviewed, extensive bullous disease dc planning Subjective ROS Limited/Unobtainable: No Constitutional: Reports: no symptoms HEENT: Repors: no symptoms Respiratory: Reports: no symptoms Allergies: Coded Allergies: No Known Allergies (Unverified , 12/02/11) Objective Last 24 Hour Vital Signs Date Time Temp Pulse Resp B/P Pulse Ox O2 Delivery O2 Flow Rate FiO2 10/24/16 12:00 100.0 108 18 115/68 94 Nasal Cannula 3.5 10/24/16 11:15 109 20 97 Nasal Cannula 3.0 10/24/16 11:05 104 20 95 Nasal Cannula 3.0 10/24/16 08:00 97.9 103 20 115/67 95 Nasal Cannula 3.5 10/24/16 07:55 106 20 96 Nasal Cannula 3.0 10/24/16 07:45 Nasal Cannula 3.0 10/24/16 07:45 91 Nasal Cannula 3.0 32 10/24/16 07:44 103 22 91 Nasal Cannula 3.0 10/24/16 04:00 97.3 92 18 112/80 96 Nasal Cannula 3.0 10/24/16 03:20 Nasal Cannula 3.0 32 10/24/16 03:20 Nasal Cannula 3.0 32 10/24/16 00:00 97.9 97 18 128/78 96 Nasal Cannula 3.0 10/23/16 23:38 Nasal Cannula 3.0 32 10/23/16 23:38 Nasal Cannula 3.0 32 10/23/16 20:00 98.2 93 18 131/81 97 Nasal Cannula 3.0 10/23/16 19:46 108 20 98 Nasal Cannula 3.0 32 10/23/16 19:36 104 20 96 Nasal Cannula 3.0 32 10/23/16 19:27 92 Nasal Cannula 3.0 32 10/23/16 19:27 Nasal Cannula 3.0 32 10/23/16 16:46 98.1 100 19 130/81 97 Room Air 10/23/16 14:15 Nasal Cannula 3.0 32 10/23/16 14:04 106 18 97 Nasal Cannula 3.0 32 10/23/16 13:54 110 20 92 Nasal Cannula 3.0 32 Intake and Output 10/23/16 10/24/16 19:00 07:00 Intake Total 860 ml Output Total 740 ml Balance 860 ml -740 ml Intake Oral 860 ml Output Urine Total 740 ml # Voids 2 General Appearance: WD/WN HEENT: normocephalic, atraumatic Respiratory/Chest: chest wall non-tender, lungs clear Cardiovascular: normal peripheral pulses, normal rate Abdomen: normal bowel sounds, soft, non tender Extremities: no cyanosis 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 Lymphatic: no neck adenopathy Laboratory Tests 10/24/16 06:40: White Blood Count 10.8, Red Blood Count 4.68L, Hemoglobin 12.6L, Hematocrit 41.7L, Mean Corpuscular Volume 89, Mean Corpuscular Hemoglobin 27.0, Mean Corpuscular Hemoglobin Concent 30.3L, Red Cell Distribution Width 15.6H, Platelet Count 272, Mean Platelet Volume 7.6, Neutrophils (%) (Auto) , Lymphocytes (%) (Auto) , Monocytes (%) (Auto) , Eosinophils (%) (Auto) , Basophils (%) (Auto) , Differential Total Cells Counted 100, Neutrophils % ( Manual) 86H, Lymphocytes % (Manual) 6L, Monocytes % (Manual) 8, Eosinophils % ( Manual) 0, Basophils % (Manual) 0, Band Neutrophils 0, Platelet Estimate Adequate, Platelet Morphology Normal, Anisocytosis 1+, Sodium Level 141, Potassium Level 6.1*H, Chloride Level 93L, Carbon Dioxide Level 46*H, Anion Gap 2L, Blood Urea Nitrogen 17, Creatinine 0.7, Estimat Glomerular Filtration Rate > 60, Glucose Level 93, Calcium Level 9.5 10/24/16 11:10: Sodium Level 137, Potassium Level 4.9, Chloride Level 89L, Carbon Dioxide Level 43*H, Anion Gap 5, Blood Urea Nitrogen 18, Creatinine 0.7, Estimat Glomerular Filtration Rate > 60, Glucose Level 97, Calcium Level 9.1 Current Medications Medications (Trade) Dose Ordered Sig/Radha Route PRN Reason Start Time Stop Time Status Last Admin Dose Admin Acetaminophen/ Hydrocodone Bitart ([place] 5/325) 1 tab Q12H PRN ORAL Severe Pain (Pain Scale 7-10) 10/22/16 07:25 10/29/16 07:24 Albuterol/ Ipratropium (DuoNeb 0.5-3(2.5)mg/3ml) 3 ml Q4HRT HHN 10/22/16 07:00 10/27/16 06:59 10/24/16 11:08 Dextrose (Dextrose 50%) STAT PRN IV Hypoglycemia 10/22/16 07:25 11/21/16 07:24 Guaifenesin (Mucinex) 600 mg TWICE A DAY ORAL 10/22/16 19:30 11/21/16 19:29 10/24/16 09:15 Guaifenesin/ Codeine Phosphate (Robitussin with codeine) 5 ml Q6H PRN ORAL For Cough 10/22/16 12:35 11/21/16 12:34 Heparin Sodium (Porcine) (Heparin 5000 units/ml) 5,000 units EVERY 12 HOURS SUBQ 10/22/16 09:00 11/21/16 08:59 10/24/16 09:22 Insulin Aspart (NovoLOG) BEFORE MEALS AND HS SUBQ 10/22/16 11:30 11/21/16 11:29 10/23/16 20:42 Methylprednisolone Sodium Succinate 40 mg 40 mg EVERY 12 HOURS IVP 10/23/16 21:00 11/22/16 20:59 10/24/16 09:15 Nitroglycerin (Ntg) 0.4 mg Q5M X 3 DOSES PRN SL Prn Chest Pain 10/22/16 06:45 11/21/16 06:44 Ondansetron HCl (Zofran) 4 mg Q6H PRN IVP Nausea & Vomiting 10/22/16 07:27 11/21/16 07:26 Piperacillin Sod/ Tazobactam Sod/ Dextrose (Zosyn/D5W) 110 ml @ 27.5 mls/hr Q8H IVPB 10/23/16 21:00 10/30/16 20:59 10/24/16 13:26 Salmeterol Xinafoate/ Fluticasone (Advair 250/50 Diskus) 1 puffs Q12HR@0700,1900 INH 10/22/16 09:00 11/21/16 08:59 10/24/16 09:23 Temazepam (Restoril) 15 mg HSPRN PRN ORAL Insomnia 10/22/16 16:00 10/29/16 15:59 Theophylline (Alen-Dur) 100 mg EVERY 12 HOURS ORAL 10/22/16 09:00 11/21/16 08:59 10/24/16 09:15 Tiotropium [place] (Spiriva Inhaler) 1 puff DAILY INH 10/22/16 09:00 11/21/16 08:59 10/23/16 07:28 GIOVANY SUMMERS Oct 24, 2016 13:37
--- NOTE | 2016-10-24 18:15 | Internal Med Progress Note ---
Subjective Date of Service: Oct 24, 2016 Physician Name Paulette Gutiérrez Attending Physician Dipesh Cardoza MD Current Medications Medications (Trade) Dose Ordered Sig/Radha Route PRN Reason Start Time Stop Time Status Last Admin Dose Admin Acetaminophen/ Hydrocodone Bitart ([place] 5/325) 1 tab Q12H PRN ORAL Severe Pain (Pain Scale 7-10) 10/22/16 07:25 10/29/16 07:24 Albuterol/ Ipratropium (DuoNeb 0.5-3(2.5)mg/3ml) 3 ml Q4HRT HHN 10/22/16 07:00 10/27/16 06:59 10/24/16 15:16 Dextrose (Dextrose 50%) STAT PRN IV Hypoglycemia 10/22/16 07:25 11/21/16 07:24 Guaifenesin 600 mg 600 mg TWICE A DAY ORAL 10/22/16 19:30 11/21/16 19:29 10/24/16 09:15 Guaifenesin/ Codeine Phosphate (Robitussin with codeine) 5 ml Q6H PRN ORAL For Cough 10/22/16 12:35 11/21/16 12:34 Heparin Sodium (Porcine) (Heparin 5000 units/ml) 5,000 units EVERY 12 HOURS SUBQ 10/22/16 09:00 11/21/16 08:59 10/24/16 09:22 Insulin Aspart (NovoLOG) BEFORE MEALS AND HS SUBQ 10/22/16 11:30 11/21/16 11:29 10/23/16 20:42 Nitroglycerin (Ntg) 0.4 mg Q5M X 3 DOSES PRN SL Prn Chest Pain 10/22/16 06:45 11/21/16 06:44 Ondansetron HCl (Zofran) 4 mg Q6H PRN IVP Nausea & Vomiting 10/22/16 07:27 11/21/16 07:26 Piperacillin Sod/ Tazobactam Sod/ Dextrose (Zosyn/D5W) 110 ml @ 27.5 mls/hr Q8H IVPB 10/23/16 21:00 10/30/16 20:59 10/24/16 13:26 Prednisone (predniSONE) 40 mg DAILY ORAL 10/25/16 09:00 11/24/16 08:59 Salmeterol Xinafoate/ Fluticasone (Advair 250/50 Diskus) 1 puffs Q12HR@0700,1900 INH 10/22/16 09:00 11/21/16 08:59 10/24/16 09:23 Temazepam (Restoril) 15 mg HSPRN PRN ORAL Insomnia 10/22/16 16:00 10/29/16 15:59 Theophylline (Alen-Dur) 100 mg EVERY 12 HOURS ORAL 10/22/16 09:00 11/21/16 08:59 10/24/16 09:15 Tiotropium [place] (Spiriva Inhaler) 1 puff DAILY INH 10/22/16 09:00 11/21/16 08:59 10/23/16 07:28 Allergies: Coded Allergies: No Known Allergies (Unverified , 12/02/11) ROS Limited/Unobtainable: No Constitutional: Reports: no symptoms HEENT: Reports: no symptoms Cardiovascular: Reports: no symptoms Respiratory: Reports: shortness of breath Gastrointestinal/Abdominal: Reports: no symptoms Genitourinary: Reports: no symptoms Neurologic/Psychiatric: Reports: no symptoms Subjective 66 YO M admitted with Shortness of breath. Cover for Int Med-Dr Cardoza. Tolerating nasal canula Objective Last Vital Signs Date Time Temp Pulse Resp B/P Pulse Ox O2 Delivery O2 Flow Rate FiO2 10/24/16 16:00 98.4 100 20 125/69 92 Nasal Cannula 3.0 10/24/16 07:45 32 Laboratory Tests Test 10/24/16 06:40 10/24/16 11:10 White Blood Count 10.8 K/UL (4.8-10.8) Red Blood Count 4.68 M/UL (4.70-6.10) L Hemoglobin 12.6 G/DL (14.2-18.0) L Hematocrit 41.7 % (42.0-52.0) L Mean Corpuscular Volume 89 FL (80-99) Mean Corpuscular Hemoglobin 27.0 PG (27.0-31.0) Mean Corpuscular Hemoglobin Concent 30.3 G/DL (32.0-36.0) L Red Cell Distribution Width 15.6 % (11.6-14.8) H Platelet Count 272 K/UL (150-450) Mean Platelet Volume 7.6 FL (6.5-10.1) Neutrophils (%) (Auto) % (45.0-75.0) Lymphocytes (%) (Auto) % (20.0-45.0) Monocytes (%) (Auto) % (1.0-10.0) Eosinophils (%) (Auto) % (0.0-3.0) Basophils (%) (Auto) % (0.0-2.0) Differential Total Cells Counted 100 Neutrophils % (Manual) 86 % (45-75) H Lymphocytes % (Manual) 6 % (20-45) L Monocytes % (Manual) 8 % (1-10) Eosinophils % (Manual) 0 % (0-3) Basophils % (Manual) 0 % (0-2) Band Neutrophils 0 % (0-8) Platelet Estimate Adequate Platelet Morphology Normal Anisocytosis 1+ Sodium Level 141 mEQ/L (135-145) 137 mEQ/L (135-145) Potassium Level 6.1 mEQ/L (3.4-4.9) *H 4.9 mEQ/L (3.4-4.9) Chloride Level 93 mEQ/L (98-107) L 89 mEQ/L (98-107) L Carbon Dioxide Level 46 mEQ/L (20-30) *H 43 mEQ/L (20-30) *H Anion Gap 2 (5-15) L 5 (5-15) Blood Urea Nitrogen 17 mg/dL (7-23) 18 mg/dL (7-23) Creatinine 0.7 mg/dL (0.7-1.2) 0.7 mg/dL (0.7-1.2) Estimat Glomerular Filtration Rate > 60 mL/min (>60) > 60 mL/min (>60) Glucose Level 93 mg/dL (74-106) 97 mg/dL (74-106) Calcium Level 9.5 mg/dL (8.6-10.2) 9.1 mg/dL (8.6-10.2) Intake and Output 10/23/16 10/24/16 19:00 07:00 Intake Total 860 ml Output Total 740 ml Balance 860 ml -740 ml Intake Oral 860 ml Output Urine Total 740 ml # Voids 2 Objective General Appearance: WD/WN, alert, mild distress EENT: PERRL/EOMI, normal ENT inspection Neck: non-tender, normal alignment, supple Cardiovascular: normal peripheral pulses, no gallop/murmur, no JVD, tachycardia Respiratory/Chest: Nasal canula; chest wall non-tender, crackles/rales, rhonchi - bilaterally, expiratory wheezing Abdomen: normal bowel sounds, non tender, soft, no organomegaly, no mass Extremities: normal range of motion 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 (2) Respiratory failure (3) COPD (chronic obstructive pulmonary disease) with emphysema Assessment & Plan: See pulmonary note. D/C IV solumedrol; change to oral prednisone. Cont duoneb and advair. Cont zosyn and theophylline (4) Chest tightness (5) Acute respiratory failure with hypoxia and hypercarbia Assessment & Plan: Tolerating nasal canula. Status: progressing Assessment/Plan D/C planning: snf facility PAULETTE GUTIÉRREZ Oct 24, 2016 18:15
[2016-10-24] MEDS ORDERED: Tubing IV Secondary IV ONE (18:18)
[2016-10-24] MEDS ORDERED: NS 275ml ONE (18:18)
[2016-10-25] MEDS: DuoNeb 0.5-3(2.5)mg/3ml neb HHN SCH ×6 (03:00→23:00)
[2016-10-25 04:00] VITALS: BP 123/74
[2016-10-25] MEDS: Piperacillin/Tazobactam 3.375 GM in D5W 110 ML IVPB SCH ×3 (05:33→22:29)
[2016-10-25] MEDS: NovoLOG Insulin Flexpen SUBQ SCH ×4 (06:30→21:13)
[2016-10-25] MEDS: Advair 250/50 Inhaler - 14 dose INH SCH ×2 (07:12→18:01)
[2016-10-25 07:20] LABS: BASOPHILS % (AUTO) 1.4 % (0.0-2.0); LYMPHOCYTES % (AUTO) 10.1 % (20.0-45.0); MEAN CORPUSCULAR HEMOGLOBIN 27.1 PG (27.0-31.0); MEAN CORPUSCULAR HGB CONC 30.7 G/DL (32.0-36.0); MEAN CORPUSCULAR VOLUME 88 FL (80-99); MEAN PLATELET VOLUME 7.5 FL (6.5-10.1); MONOCYTES % (AUTO) 10.1 % (1.0-10.0); NEUTROPHILS % (AUTO) 77.3 % (45.0-75.0); PLATELET COUNT 247 K/UL (150-450); RED CELL DISTRIBUTION WIDTH 15.5 % (11.6-14.8); WHITE BLOOD COUNT 9.9 K/UL (4.8-10.8)
[2016-10-25 07:28] LABS: CALCIUM 8.7 mg/dL (8.6-10.2); CHLORIDE 90 mEQ/L (98-107); CREATININE 0.8 mg/dL (0.7-1.2); GLOMERULAR FILTRATION RATE > 60 mL/min (>60); HEMOLYSIS 7; POTASSIUM 4.7 mEQ/L (3.4-4.9); SODIUM 137 mEQ/L (135-145)
[2016-10-25 07:35] LABS: ANION GAP 6 (5-15)
[2016-10-25 07:48] LABS: CARBON DIOXIDE 41 mEQ/L (20-30)
[2016-10-25 08:00] VITALS: BP 119/65
[2016-10-25] MEDS: guaiFENesin 600mg tab ORAL SCH ×2 (08:31→18:01)
[2016-10-25] MEDS: Theophylline ER 100mg ORAL SCH (08:31)
[2016-10-25] MEDS: PredniSONE 20mg tab ORAL SCH (08:31)
[2016-10-25] MEDS: Heparin 5000 units/ml inj SUBQ SCH ×2 (08:34→21:12)
[2016-10-25 12:00] VITALS: BP 116/73
--- NOTE | 2016-10-25 15:32 | Internal Med Progress Note ---
Subjective Physician Name Dipesh Cardoza Attending Physician Dipesh Cardoza MD Current Medications Medications (Trade) Dose Ordered Sig/Radha Route PRN Reason Start Time Stop Time Status Last Admin Dose Admin Acetaminophen/ Hydrocodone Bitart ([place] 5/325) 1 tab Q12H PRN ORAL Severe Pain (Pain Scale 7-10) 10/22/16 07:25 10/29/16 07:24 Albuterol/ Ipratropium (DuoNeb 0.5-3(2.5)mg/3ml) 3 ml Q4HRT HHN 10/22/16 07:00 10/27/16 06:59 10/25/16 11:36 Dextrose (Dextrose 50%) STAT PRN IV Hypoglycemia 10/22/16 07:25 11/21/16 07:24 Guaifenesin 600 mg 600 mg TWICE A DAY ORAL 10/22/16 19:30 11/21/16 19:29 10/25/16 08:31 Guaifenesin/ Codeine Phosphate (Robitussin with codeine) 5 ml Q6H PRN ORAL For Cough 10/22/16 12:35 11/21/16 12:34 Heparin Sodium (Porcine) (Heparin 5000 units/ml) 5,000 units EVERY 12 HOURS SUBQ 10/22/16 09:00 11/21/16 08:59 10/25/16 08:34 Insulin Aspart (NovoLOG) BEFORE MEALS AND HS SUBQ 10/22/16 11:30 11/21/16 11:29 10/24/16 22:09 Nitroglycerin (Ntg) 0.4 mg Q5M X 3 DOSES PRN SL Prn Chest Pain 10/22/16 06:45 11/21/16 06:44 Ondansetron HCl (Zofran) 4 mg Q6H PRN IVP Nausea & Vomiting 10/22/16 07:27 11/21/16 07:26 Piperacillin Sod/ Tazobactam Sod/ Dextrose (Zosyn/D5W) 110 ml @ 27.5 mls/hr Q8H IVPB 10/23/16 21:00 10/30/16 20:59 10/25/16 14:05 Prednisone (predniSONE) 40 mg DAILY ORAL 10/25/16 09:00 11/24/16 08:59 10/25/16 08:31 Salmeterol Xinafoate/ Fluticasone (Advair 250/50 Diskus) 1 puffs Q12HR@0700,1900 INH 10/22/16 09:00 11/21/16 08:59 10/24/16 09:23 Temazepam (Restoril) 15 mg HSPRN PRN ORAL Insomnia 10/22/16 16:00 10/29/16 15:59 Theophylline (Alen-Dur) 100 mg EVERY 12 HOURS ORAL 10/22/16 09:00 11/21/16 08:59 10/25/16 08:31 Tiotropium [place] (Spiriva Inhaler) 1 puff DAILY INH 10/22/16 09:00 11/21/16 08:59 10/25/16 09:17 Allergies: Coded Allergies: No Known Allergies (Unverified , 12/02/11) Subjective awake, alert, responsive, NAD, still SOB Objective Last Vital Signs Date Time Temp Pulse Resp B/P Pulse Ox O2 Delivery O2 Flow Rate FiO2 10/25/16 12:00 98.1 107 18 116/73 94 Nasal Cannula 3.0 10/25/16 11:00 32 Laboratory Tests Test 10/25/16 05:30 White Blood Count 9.9 K/UL (4.8-10.8) Red Blood Count 4.30 M/UL (4.70-6.10) L Hemoglobin 11.6 G/DL (14.2-18.0) L Hematocrit 37.9 % (42.0-52.0) L Mean Corpuscular Volume 88 FL (80-99) Mean Corpuscular Hemoglobin 27.1 PG (27.0-31.0) Mean Corpuscular Hemoglobin Concent 30.7 G/DL (32.0-36.0) L Red Cell Distribution Width 15.5 % (11.6-14.8) H Platelet Count 247 K/UL (150-450) Mean Platelet Volume 7.5 FL (6.5-10.1) Neutrophils (%) (Auto) 77.3 % (45.0-75.0) H Lymphocytes (%) (Auto) 10.1 % (20.0-45.0) L Monocytes (%) (Auto) 10.1 % (1.0-10.0) H Eosinophils (%) (Auto) 1.0 % (0.0-3.0) Basophils (%) (Auto) 1.4 % (0.0-2.0) Sodium Level 137 mEQ/L (135-145) Potassium Level 4.7 mEQ/L (3.4-4.9) Chloride Level 90 mEQ/L (98-107) L Carbon Dioxide Level 41 mEQ/L (20-30) *H Anion Gap 6 (5-15) Blood Urea Nitrogen 16 mg/dL (7-23) Creatinine 0.8 mg/dL (0.7-1.2) Estimat Glomerular Filtration Rate > 60 mL/min (>60) Glucose Level 86 mg/dL (74-106) Calcium Level 8.7 mg/dL (8.6-10.2) Intake and Output 10/24/16 10/25/16 19:00 07:00 Intake Total 450 ml 507.5 ml Output Total 150 ml 1125 ml Balance 300 ml -617.5 ml Intake Oral 350 ml 480 ml IV Total 100 ml 27.5 ml Output Urine Total 150 ml 1125 ml # Voids 1 7 Objective GENERAL: The patient awake, responsive, cachectic. HEAD AND NECK: Pupils are reactive to light. Extraocular movements are intact. NECK: Supple. No JVD. LUNGS: Good air entry. No wheeze. Decreased air in the bases. No rhonchi. HEART: S1, S2 RR, No Murmur ABDOMEN: Soft and nontender. Positive sounds. EXTREMITIES: No cyanosis or clubbing or edema. Muscle atrophy was noted . NEUROLOGIC: Motor is 5/5 in all extremities. Gait was not assessed. Cranial nerves II through XII are grossly intact. Mood and affect is intact. Assessment/Plan Assessment/Plan ASSESSMENT: 1. Acute Hypoxemic and Hypercapnic respiratory failure. 2. Acute chronic obstructive pulmonary disease exacerbation / emphysema . 3. Malnutrition and cachexia. Plan: [facility] Planning for [facility] Tx Abx: Dipesh Mayer MD Oct 25, 2016 15:31
[2016-10-25 16:00] VITALS: BP 133/86
[2016-10-25 19:00] VITALS: BP 130/75
[2016-10-26 00:02] VITALS: BP 130/71
[2016-10-26] MEDS: DuoNeb 0.5-3(2.5)mg/3ml neb HHN SCH ×6 (03:00→23:20)
[2016-10-26 04:00] VITALS: BP 113/64
[2016-10-26] MEDS: Piperacillin/Tazobactam 3.375 GM in D5W 110 ML IVPB SCH (04:39)
[2016-10-26] MEDS: NovoLOG Insulin Flexpen SUBQ SCH ×4 (06:30→21:42)
[2016-10-26] MEDS: Advair 250/50 Inhaler - 14 dose INH SCH ×2 (07:00→19:00)
[2016-10-26 08:00] VITALS: BP 132/73
[2016-10-26] MEDS: PredniSONE 20mg tab ORAL SCH (09:02)
[2016-10-26] MEDS: guaiFENesin 600mg tab ORAL SCH ×2 (09:02→18:00)
[2016-10-26] MEDS: Theophylline ER 100mg ORAL SCH (09:02)
[2016-10-26] MEDS: Heparin 5000 units/ml inj SUBQ SCH ×2 (09:07→21:36)
[2016-10-26 12:00] VITALS: BP 117/63
--- NOTE | 2016-10-26 12:38 | Pulmonology Progress Note ---
Assessment/Plan Problems: (1) Acute respiratory failure (2) copd exacerbation (3) Emphysema, unspecified (4) Acute respiratory failure with hypoxia and hypercarbia Assessment/Plan improving taper po prednisone check sputum, not available yet sputum induction ordered again check CT chest reviewed, extensive bullous disease dc planning dc antibioitcs Subjective ROS Limited/Unobtainable: No Constitutional: Reports: no symptoms HEENT: Repors: no symptoms Respiratory: Reports: no symptoms Cardiovascular: Reports: no symptoms Allergies: Coded Allergies: No Known Allergies (Unverified , 12/02/11) Objective Last 24 Hour Vital Signs Date Time Temp Pulse Resp B/P Pulse Ox O2 Delivery O2 Flow Rate FiO2 10/26/16 10:15 88 20 Nasal Cannula 3.0 30 10/26/16 10:10 32 10/26/16 10:10 85 18 92 Nasal Cannula 3.0 32 10/26/16 10:10 85 18 97 Nasal Cannula 3.0 32 10/26/16 08:00 97.9 95 18 132/73 98 Nasal Cannula 3.0 10/26/16 06:50 Nasal Cannula 3.0 32 10/26/16 06:50 Nasal Cannula 3.0 32 10/26/16 06:50 94 18 97 Nasal Cannula 3.0 32 10/26/16 06:50 97 Nasal Cannula 3.0 32 10/26/16 04:00 97.9 99 21 113/64 96 Nasal Cannula 3.0 10/26/16 03:15 Nasal Cannula 3.0 32 10/26/16 03:14 Nasal Cannula 3.0 32 10/26/16 00:02 97.2 110 18 130/71 96 Nasal Cannula 3.0 10/25/16 23:20 Nasal Cannula 3.0 32 10/25/16 23:19 Nasal Cannula 3.0 32 10/25/16 19:59 93 Nasal Cannula 3.0 32 10/25/16 19:59 Nasal Cannula 3.0 32 10/25/16 19:59 Nasal Cannula 3.0 32 10/25/16 19:59 Nasal Cannula 3.0 32 10/25/16 19:00 98.1 110 18 130/75 Room Air 10/25/16 16:00 95.9 109 18 133/86 97 Nasal Cannula 3.0 10/25/16 15:10 107 20 95 Nasal Cannula 3.0 32 10/25/16 15:10 101 18 92 Nasal Cannula 3.0 32 10/25/16 15:10 32 Intake and Output 10/25/16 10/26/16 19:00 07:00 Intake Total 610.0 ml 520 ml Output Total 120 ml 225 ml Balance 490.0 ml 295 ml Intake Oral 500 ml 520 ml IV Total 110.0 ml Output Urine Total 120 ml 225 ml # Voids 2 2 General Appearance: WD/WN HEENT: normocephalic Respiratory/Chest: chest wall non-tender, lungs clear Cardiovascular: normal peripheral pulses, normal rate Abdomen: normal bowel sounds, soft, non tender Extremities: no cyanosis, no clubbing Skin: no ulcers Current Medications Medications (Trade) Dose Ordered Sig/Radha Route PRN Reason Start Time Stop Time Status Last Admin Dose Admin Acetaminophen/ Hydrocodone Bitart ([place] 5/325) 1 tab Q12H PRN ORAL Severe Pain (Pain Scale 7-10) 10/22/16 07:25 10/29/16 07:24 Albuterol/ Ipratropium (DuoNeb 0.5-3(2.5)mg/3ml) 3 ml Q4HRT HHN 10/22/16 07:00 10/27/16 06:59 10/26/16 10:25 Dextrose (Dextrose 50%) STAT PRN IV Hypoglycemia 10/22/16 07:25 11/21/16 07:24 Guaifenesin 600 mg 600 mg TWICE A DAY ORAL 10/22/16 19:30 11/21/16 19:29 10/26/16 09:02 Guaifenesin/ Codeine Phosphate (Robitussin with codeine) 5 ml Q6H PRN ORAL For Cough 10/22/16 12:35 11/21/16 12:34 Heparin Sodium (Porcine) (Heparin 5000 units/ml) 5,000 units EVERY 12 HOURS SUBQ 10/22/16 09:00 11/21/16 08:59 10/26/16 09:07 Insulin Aspart (NovoLOG) BEFORE MEALS AND HS SUBQ 10/22/16 11:30 11/21/16 11:29 10/25/16 21:13 Nitroglycerin (Ntg) 0.4 mg Q5M X 3 DOSES PRN SL Prn Chest Pain 10/22/16 06:45 11/21/16 06:44 Ondansetron HCl (Zofran) 4 mg Q6H PRN IVP Nausea & Vomiting 10/22/16 07:27 11/21/16 07:26 Piperacillin Sod/ Tazobactam Sod/ Dextrose (Zosyn/D5W) 110 ml @ 27.5 mls/hr Q8H IVPB 10/23/16 21:00 10/30/16 20:59 10/26/16 04:39 Prednisone (predniSONE) 40 mg DAILY ORAL 10/25/16 09:00 11/24/16 08:59 10/26/16 09:02 Salmeterol Xinafoate/ Fluticasone (Advair 250/50 Diskus) 1 puffs Q12HR@0700,1900 INH 10/22/16 09:00 11/21/16 08:59 10/25/16 18:01 Temazepam (Restoril) 15 mg HSPRN PRN ORAL Insomnia 10/22/16 16:00 10/29/16 15:59 Theophylline (Alen-Dur) 100 mg DAILY ORAL 10/26/16 09:00 11/21/16 08:59 10/26/16 09:02 Tiotropium [place] (Spiriva Inhaler) 1 puff DAILY INH 10/22/16 09:00 11/21/16 08:59 10/25/16 09:17 GIOVANY SUMMERS Oct 26, 2016 12:38
--- NOTE | 2016-10-26 15:08 | Internal Med Progress Note ---
Subjective Date of Service: Oct 26, 2016 Physician Name Paulette Gutiérrez Attending Physician Dipesh Cardoza MD Current Medications Medications (Trade) Dose Ordered Sig/Radha Route PRN Reason Start Time Stop Time Status Last Admin Dose Admin Acetaminophen/ Hydrocodone Bitart ([place] 5/325) 1 tab Q12H PRN ORAL Severe Pain (Pain Scale 7-10) 10/22/16 07:25 10/29/16 07:24 Albuterol/ Ipratropium (DuoNeb 0.5-3(2.5)mg/3ml) 3 ml Q4HRT HHN 10/22/16 07:00 10/27/16 06:59 10/26/16 10:25 Dextrose (Dextrose 50%) STAT PRN IV Hypoglycemia 10/22/16 07:25 11/21/16 07:24 Guaifenesin (Mucinex) 600 mg TWICE A DAY ORAL 10/22/16 19:30 11/21/16 19:29 10/26/16 09:02 Guaifenesin/ Codeine Phosphate (Robitussin with codeine) 5 ml Q6H PRN ORAL For Cough 10/22/16 12:35 11/21/16 12:34 Heparin Sodium (Porcine) (Heparin 5000 units/ml) 5,000 units EVERY 12 HOURS SUBQ 10/22/16 09:00 11/21/16 08:59 10/26/16 09:07 Insulin Aspart (NovoLOG) BEFORE MEALS AND HS SUBQ 10/22/16 11:30 11/21/16 11:29 10/25/16 21:13 Nitroglycerin (Ntg) 0.4 mg Q5M X 3 DOSES PRN SL Prn Chest Pain 10/22/16 06:45 11/21/16 06:44 Ondansetron HCl (Zofran) 4 mg Q6H PRN IVP Nausea & Vomiting 10/22/16 07:27 11/21/16 07:26 Prednisone (predniSONE) 20 mg DAILY ORAL 10/27/16 09:00 11/26/16 08:59 Salmeterol Xinafoate/ Fluticasone (Advair 250/50 Diskus) 1 puffs Q12HR@0700,1900 INH 10/22/16 09:00 11/21/16 08:59 10/25/16 18:01 Temazepam (Restoril) 15 mg HSPRN PRN ORAL Insomnia 10/22/16 16:00 10/29/16 15:59 Theophylline (Alen-Dur) 100 mg DAILY ORAL 10/26/16 09:00 11/21/16 08:59 10/26/16 09:02 Tiotropium [place] (Spiriva Inhaler) 1 puff DAILY INH 10/22/16 09:00 11/21/16 08:59 10/25/16 09:17 Allergies: Coded Allergies: No Known Allergies (Unverified , 12/02/11) ROS Limited/Unobtainable: No Constitutional: Reports: no symptoms HEENT: Reports: no symptoms Cardiovascular: Reports: no symptoms Respiratory: Reports: shortness of breath Gastrointestinal/Abdominal: Reports: no symptoms Genitourinary: Reports: no symptoms Neurologic/Psychiatric: Reports: no symptoms Subjective 66 YO M admitted with Shortness of breath. Cover for Int [facility]fr[facility]-Dr Cardoza. Tolerating nasal canula. Await jail fac placement Objective Last Vital Signs Date Time Temp Pulse Resp B/P Pulse Ox O2 Delivery O2 Flow Rate FiO2 10/26/16 12:00 96.9 104 16 117/63 Nasal Cannula 3.0 104 10/26/16 10:15 30 10/26/16 10:10 92 Intake and Output 10/25/16 10/26/16 19:00 07:00 Intake Total 610.0 ml 520 ml Output Total 120 ml 225 ml Balance 490.0 ml 295 ml Intake Oral 500 ml 520 ml IV Total 110.0 ml Output Urine Total 120 ml 225 ml # Voids 2 2 Objective General Appearance: WD/WN, alert, mild distress EENT: PERRL/EOMI, normal ENT inspection Neck: non-tender, normal alignment, supple Cardiovascular: normal peripheral pulses, no gallop/murmur, no JVD, tachycardia Respiratory/Chest: Nasal canula; chest wall non-tender, crackles/rales, rhonchi - bilaterally, expiratory wheezing Abdomen: normal bowel sounds, non tender, soft, no organomegaly, no mass Extremities: normal range of motion 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 (2) Respiratory failure (3) COPD (chronic obstructive pulmonary disease) with emphysema Assessment & Plan: See pulmonary note. D/C IV solumedrol; change to oral prednisone. Cont duoneb and advair. Cont zosyn and theophylline (4) Chest tightness (5) Acute respiratory failure with hypoxia and hypercarbia Assessment & Plan: Tolerating nasal canula. Status: stable Assessment/Plan D/C planning: long-term facility when bed available. PAULETTE GUTIÉRREZ Oct 26, 2016 15:08
[2016-10-26 16:00] VITALS: BP 124/76
[2016-10-26 20:00] VITALS: BP 134/78
[2016-10-27] VITALS: BP 120/69
[2016-10-27] MEDS: DuoNeb 0.5-3(2.5)mg/3ml neb HHN SCH ×3 (03:00→23:17)
[2016-10-27 04:00] VITALS: BP 130/62
[2016-10-27] MEDS: NovoLOG Insulin Flexpen SUBQ SCH ×4 (06:30→22:32)
[2016-10-27 07:09] LABS: BASOPHILS % (AUTO) 0.5 % (0.0-2.0); EOSINOPHILS % (AUTO) 2.3 % (0.0-3.0); LYMPHOCYTES % (AUTO) 9.3 % (20.0-45.0); MEAN CORPUSCULAR HEMOGLOBIN 27.5 PG (27.0-31.0); MEAN CORPUSCULAR HGB CONC 30.9 G/DL (32.0-36.0); MEAN CORPUSCULAR VOLUME 89 FL (80-99); MEAN PLATELET VOLUME 7.7 FL (6.5-10.1); NEUTROPHILS % (AUTO) 78.9 % (45.0-75.0); PLATELET COUNT 267 K/UL (150-450); RED BLOOD COUNT 4.38 M/UL (4.70-6.10); RED CELL DISTRIBUTION WIDTH 15.1 % (11.6-14.8); WHITE BLOOD COUNT 9.9 K/UL (4.8-10.8)
[2016-10-27 07:39] LABS: CALCIUM 9.3 mg/dL (8.6-10.2); CHLORIDE 95 mEQ/L (98-107); CREATININE 0.8 mg/dL (0.7-1.2); GLOMERULAR FILTRATION RATE > 60 mL/min (>60); HEMOLYSIS 22; POTASSIUM 5.7 mEQ/L (3.4-4.9); SODIUM 141 mEQ/L (135-145)
[2016-10-27 07:47] LABS: ANION GAP 4 (5-15)
[2016-10-27 07:52] LABS: CARBON DIOXIDE 42 mEQ/L (20-30)
[2016-10-27] MEDS: Advair 250/50 Inhaler - 14 dose INH SCH ×2 (08:03→19:00)
[2016-10-27 08:45] VITALS: BP 120/70
[2016-10-27] MEDS: guaiFENesin 600mg tab ORAL SCH ×2 (09:00→18:19)
[2016-10-27] MEDS: Theophylline ER 100mg ORAL SCH (09:00)
[2016-10-27] MEDS: PredniSONE 20mg tab ORAL SCH (09:37)
[2016-10-27] MEDS: Heparin 5000 units/ml inj SUBQ SCH ×2 (09:41→22:31)
[2016-10-27 12:30] VITALS: BP 116/65
--- NOTE | 2016-10-27 13:00 | Pulmonology Progress Note ---
Assessment/Plan Problems: (1) Acute respiratory failure (2) copd exacerbation (3) Emphysema, unspecified (4) Acute respiratory failure with hypoxia and hypercarbia Assessment/Plan improving taper po prednisone check sputum, not available yet sputum induction ordered again check CT chest reviewed, extensive bullous disease dc planning dc antibioitcs Subjective ROS Limited/Unobtainable: No Constitutional: Reports: no symptoms HEENT: Repors: no symptoms Respiratory: Reports: no symptoms Cardiovascular: Reports: no symptoms Gastrointestinal/Abdominal: Reports: no symptoms Allergies: Coded Allergies: No Known Allergies (Unverified , 12/02/11) Objective Last 24 Hour Vital Signs Date Time Temp Pulse Resp B/P Pulse Ox O2 Delivery O2 Flow Rate FiO2 10/27/16 11:37 Nasal Cannula 3.0 32 10/27/16 11:36 Nasal Cannula 3.0 32 10/27/16 08:45 98.1 110 20 120/70 95 Room Air 10/27/16 07:00 82 16 99 Nasal Cannula 3.0 32 10/27/16 06:54 Nasal Cannula 3.0 32 10/27/16 06:54 97 Nasal Cannula 3.0 32 10/27/16 06:53 32 10/27/16 06:53 84 20 97 Nasal Cannula 3.0 32 10/27/16 04:00 98.2 100 21 130/62 96 Nasal Cannula 3.0 10/27/16 03:04 Nasal Cannula 3.0 32 10/27/16 03:03 Nasal Cannula 3.0 32 10/27/16 00:00 98.2 107 19 120/69 97 Nasal Cannula 3.0 10/26/16 23:29 86 16 99 Nasal Cannula 3.0 32 10/26/16 23:22 32 10/26/16 23:22 107 20 97 Nasal Cannula 3.0 32 10/26/16 20:00 98.4 106 18 134/78 97 Room Air 10/26/16 19:40 86 18 97 Nasal Cannula 3.0 32 10/26/16 19:29 Nasal Cannula 3.0 32 10/26/16 19:29 97 Nasal Cannula 3.0 32 10/26/16 19:28 32 10/26/16 19:26 80 20 97 Nasal Cannula 3.0 32 10/26/16 16:00 98.2 101 20 124/76 95 Room Air 10/26/16 15:17 105 18 97 Nasal Cannula 3.0 32 10/26/16 15:10 32 10/26/16 15:10 101 20 95 Nasal Cannula 3.0 32 Intake and Output 10/26/16 10/27/16 19:00 07:00 Intake Total 480 ml 650 ml Output Total 1350 ml Balance 480 ml -700 ml Intake Oral 480 ml 650 ml Output Urine Total 1350 ml # Voids 4 # Bowel Movements 1 General Appearance: WD/WN HEENT: normocephalic, atraumatic Respiratory/Chest: chest wall non-tender, lungs clear Cardiovascular: normal peripheral pulses, normal rate Abdomen: normal bowel sounds, soft, non tender Genitourinary: normal external genitalia Extremities: no cyanosis Skin: no rash, no lesions Laboratory Tests 10/27/16 05:15: White Blood Count 9.9, Red Blood Count 4.38L, Hemoglobin 12.1L, Hematocrit 39.1L , Mean Corpuscular Volume 89, Mean Corpuscular Hemoglobin 27.5, Mean Corpuscular Hemoglobin Concent 30.9L, Red Cell Distribution Width 15.1H, Platelet Count 267, Mean Platelet Volume 7.7, Neutrophils (%) (Auto) 78.9H, Lymphocytes (%) (Auto) 9.3L, Monocytes (%) (Auto) 9.0, Eosinophils (%) (Auto) 2.3, Basophils (%) (Auto) 0.5, Sodium Level 141, Potassium Level 5.7H, Chloride Level 95L, Carbon Dioxide Level 42*H, Anion Gap 4L, Blood Urea Nitrogen 17, Creatinine 0.8, Estimat Glomerular Filtration Rate > 60, Glucose Level 75, Calcium Level 9.3 Current Medications Medications (Trade) Dose Ordered Sig/Radha Route PRN Reason Start Time Stop Time Status Last Admin Dose Admin Acetaminophen/ Hydrocodone Bitart ([place] 5/325) 1 tab Q12H PRN ORAL Severe Pain (Pain Scale 7-10) 10/22/16 07:25 10/29/16 07:24 Dextrose (Dextrose 50%) STAT PRN IV Hypoglycemia 10/22/16 07:25 11/21/16 07:24 Guaifenesin (Mucinex) 600 mg TWICE A DAY ORAL 10/22/16 19:30 11/21/16 19:29 10/27/16 09:00 Guaifenesin/ Codeine Phosphate (Robitussin with codeine) 5 ml Q6H PRN ORAL For Cough 10/22/16 12:35 11/21/16 12:34 Heparin Sodium (Porcine) (Heparin 5000 units/ml) 5,000 units EVERY 12 HOURS SUBQ 10/22/16 09:00 11/21/16 08:59 10/27/16 09:41 Insulin Aspart (NovoLOG) BEFORE MEALS AND HS SUBQ 10/22/16 11:30 11/21/16 11:29 10/26/16 21:42 Nitroglycerin (Ntg) 0.4 mg Q5M X 3 DOSES PRN SL Prn Chest Pain 10/22/16 06:45 11/21/16 06:44 Ondansetron HCl (Zofran) 4 mg Q6H PRN IVP Nausea & Vomiting 10/22/16 07:27 11/21/16 07:26 Prednisone (predniSONE) 20 mg DAILY ORAL 10/27/16 09:00 11/26/16 08:59 10/27/16 09:37 Salmeterol Xinafoate/ Fluticasone (Advair 250/50 Diskus) 1 puffs Q12HR@0700,1900 INH 10/22/16 09:00 11/21/16 08:59 10/27/16 08:03 Temazepam (Restoril) 15 mg HSPRN PRN ORAL Insomnia 10/22/16 16:00 10/29/16 15:59 Theophylline (Alen-Dur) 100 mg DAILY ORAL 10/26/16 09:00 11/21/16 08:59 10/27/16 09:00 Tiotropium [place] (Spiriva Inhaler) 1 puff DAILY INH 10/22/16 09:00 11/21/16 08:59 10/27/16 09:02 GIOVANY SUMMERS Oct 27, 2016 13:00
--- NOTE | 2016-10-27 15:58 | Internal Med Progress Note ---
Subjective Date of Service: Oct 27, 2016 Physician Name Paulette Gutiérrez Attending Physician Dipesh Cardoza MD Current Medications Medications (Trade) Dose Ordered Sig/Radha Route PRN Reason Start Time Stop Time Status Last Admin Dose Admin Acetaminophen/ Hydrocodone Bitart ([place] 5/325) 1 tab Q12H PRN ORAL Severe Pain (Pain Scale 7-10) 10/22/16 07:25 10/29/16 07:24 Dextrose (Dextrose 50%) STAT PRN IV Hypoglycemia 10/22/16 07:25 11/21/16 07:24 Guaifenesin (Mucinex) 600 mg TWICE A DAY ORAL 10/22/16 19:30 11/21/16 19:29 10/27/16 09:00 Guaifenesin/ Codeine Phosphate (Robitussin with codeine) 5 ml Q6H PRN ORAL For Cough 10/22/16 12:35 11/21/16 12:34 Heparin Sodium (Porcine) (Heparin 5000 units/ml) 5,000 units EVERY 12 HOURS SUBQ 10/22/16 09:00 11/21/16 08:59 10/27/16 09:41 Insulin Aspart (NovoLOG) BEFORE MEALS AND HS SUBQ 10/22/16 11:30 11/21/16 11:29 10/26/16 21:42 Nitroglycerin (Ntg) 0.4 mg Q5M X 3 DOSES PRN SL Prn Chest Pain 10/22/16 06:45 11/21/16 06:44 Ondansetron HCl (Zofran) 4 mg Q6H PRN IVP Nausea & Vomiting 10/22/16 07:27 11/21/16 07:26 Prednisone (predniSONE) 20 mg DAILY ORAL 10/27/16 09:00 11/26/16 08:59 10/27/16 09:37 Salmeterol Xinafoate/ Fluticasone (Advair 250/50 Diskus) 1 puffs Q12HR@0700,1900 INH 10/22/16 09:00 11/21/16 08:59 10/27/16 08:03 Temazepam (Restoril) 15 mg HSPRN PRN ORAL Insomnia 10/22/16 16:00 10/29/16 15:59 Theophylline (Alen-Dur) 100 mg DAILY ORAL 10/26/16 09:00 11/21/16 08:59 10/27/16 09:00 Tiotropium [place] (Spiriva Inhaler) 1 puff DAILY INH 10/22/16 09:00 11/21/16 08:59 10/27/16 09:02 Allergies: Coded Allergies: No Known Allergies (Unverified , 12/02/11) ROS Limited/Unobtainable: No Constitutional: Reports: no symptoms HEENT: Reports: no symptoms Cardiovascular: Reports: no symptoms Respiratory: Reports: shortness of breath Gastrointestinal/Abdominal: Reports: no symptoms Genitourinary: Reports: no symptoms Neurologic/Psychiatric: Reports: no symptoms Subjective 66 YO M admitted with Shortness of breath. Cover for Int Wilfrid-Dr Cardoza. Tolerating nasal canula. Await assisted fac placement Objective Last Vital Signs Date Time Temp Pulse Resp B/P Pulse Ox O2 Delivery O2 Flow Rate FiO2 10/27/16 12:30 97.7 104 20 116/65 98 Nasal Cannula 2.0 10/27/16 11:37 32 Laboratory Tests Test 10/27/16 05:15 White Blood Count 9.9 K/UL (4.8-10.8) Red Blood Count 4.38 M/UL (4.70-6.10) L Hemoglobin 12.1 G/DL (14.2-18.0) L Hematocrit 39.1 % (42.0-52.0) L Mean Corpuscular Volume 89 FL (80-99) Mean Corpuscular Hemoglobin 27.5 PG (27.0-31.0) Mean Corpuscular Hemoglobin Concent 30.9 G/DL (32.0-36.0) L Red Cell Distribution Width 15.1 % (11.6-14.8) H Platelet Count 267 K/UL (150-450) Mean Platelet Volume 7.7 FL (6.5-10.1) Neutrophils (%) (Auto) 78.9 % (45.0-75.0) H Lymphocytes (%) (Auto) 9.3 % (20.0-45.0) L Monocytes (%) (Auto) 9.0 % (1.0-10.0) Eosinophils (%) (Auto) 2.3 % (0.0-3.0) Basophils (%) (Auto) 0.5 % (0.0-2.0) Sodium Level 141 mEQ/L (135-145) Potassium Level 5.7 mEQ/L (3.4-4.9) H Chloride Level 95 mEQ/L (98-107) L Carbon Dioxide Level 42 mEQ/L (20-30) *H Anion Gap 4 (5-15) L Blood Urea Nitrogen 17 mg/dL (7-23) Creatinine 0.8 mg/dL (0.7-1.2) Estimat Glomerular Filtration Rate > 60 mL/min (>60) Glucose Level 75 mg/dL (74-106) Calcium Level 9.3 mg/dL (8.6-10.2) Intake and Output 10/26/16 10/27/16 19:00 07:00 Intake Total 480 ml 650 ml Output Total 1350 ml Balance 480 ml -700 ml Intake Oral 480 ml 650 ml Output Urine Total 1350 ml # Voids 4 # Bowel Movements 1 Objective General Appearance: WD/WN, alert, mild distress EENT: PERRL/EOMI, normal ENT inspection Neck: non-tender, normal alignment, supple Cardiovascular: normal peripheral pulses, no gallop/murmur, no JVD, tachycardia Respiratory/Chest: Nasal canula; chest wall non-tender, crackles/rales, rhonchi - bilaterally, expiratory wheezing Abdomen: normal bowel sounds, non tender, soft, no organomegaly, no mass Extremities: normal range of motion 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 (2) Respiratory failure (3) COPD (chronic obstructive pulmonary disease) with emphysema Assessment & Plan: See pulmonary note. D/C IV solumedrol; change to oral prednisone. Cont duoneb and advair. Cont zosyn and theophylline (4) Chest tightness (5) Acute respiratory failure with hypoxia and hypercarbia Assessment & Plan: Tolerating nasal canula. Status: progressing Assessment/Plan D/C planning: detention facility [facility] bed available. PAULETTE GUTIÉRREZ Oct 27, 2016 15:58
[2016-10-27 16:14] VITALS: BP 120/75
[2016-10-27] MEDS ORDERED: DuoNeb 0.5-3(2.5)mg/3ml neb HHN PRN (19:15)
[2016-10-27 20:50] VITALS: BP 131/77
[2016-10-28] VITALS: BP 129/77
[2016-10-28] MEDS: DuoNeb 0.5-3(2.5)mg/3ml neb HHN SCH ×6 (03:00→23:06)
[2016-10-28 04:00] VITALS: BP 126/75
[2016-10-28] MEDS: NovoLOG Insulin Flexpen SUBQ SCH ×4 (06:28→21:00)
[2016-10-28] MEDS: Advair 250/50 Inhaler - 14 dose INH SCH ×2 (06:42→19:00)
[2016-10-28 07:25] LABS: BASOPHILS % (AUTO) 0.6 % (0.0-2.0); EOSINOPHILS % (AUTO) 1.4 % (0.0-3.0); LYMPHOCYTES % (AUTO) 9.3 % (20.0-45.0); MEAN CORPUSCULAR HEMOGLOBIN 27.7 PG (27.0-31.0); MEAN CORPUSCULAR HGB CONC 30.2 G/DL (32.0-36.0); MEAN CORPUSCULAR VOLUME 92 FL (80-99); MONOCYTES % (AUTO) 9.1 % (1.0-10.0); NEUTROPHILS % (AUTO) 79.7 % (45.0-75.0); PLATELET COUNT 246 K/UL (150-450); RED BLOOD COUNT 4.06 M/UL (4.70-6.10); RED CELL DISTRIBUTION WIDTH 15.2 % (11.6-14.8); WHITE BLOOD COUNT 10.1 K/UL (4.8-10.8)
[2016-10-28 08:00] VITALS: BP 124/61
[2016-10-28 08:05] LABS: ANION GAP 5 (5-15); CALCIUM 9.3 mg/dL (8.6-10.2); CHLORIDE 92 mEQ/L (98-107); CREATININE 0.7 mg/dL (0.7-1.2); GLOMERULAR FILTRATION RATE > 60 mL/min (>60); HEMOLYSIS 2; POTASSIUM 4.5 mEQ/L (3.4-4.9); SODIUM 139 mEQ/L (135-145)
[2016-10-28 08:07] LABS: CARBON DIOXIDE 42 mEQ/L (20-30)
[2016-10-28] MEDS: PredniSONE 20mg tab ORAL SCH (08:36)
[2016-10-28] MEDS: guaiFENesin 600mg tab ORAL SCH ×2 (08:36→19:00)
[2016-10-28] MEDS: Theophylline ER 100mg ORAL SCH (08:36)
[2016-10-28] MEDS: Heparin 5000 units/ml inj SUBQ SCH ×2 (08:39→21:13)
[2016-10-28 12:00] VITALS: BP 124/76
--- NOTE | 2016-10-28 12:29 | Internal Med Progress Note ---
Subjective Date of Service: Oct 28, 2016 Physician Name Paulette Gutiérrez Attending Physician Dipesh Cardoza MD Current Medications Medications (Trade) Dose Ordered Sig/Radha Route PRN Reason Start Time Stop Time Status Last Admin Dose Admin Acetaminophen/ Hydrocodone Bitart ([place] 5/325) 1 tab Q12H PRN ORAL Severe Pain (Pain Scale 7-10) 10/22/16 07:25 10/29/16 07:24 Albuterol/ Ipratropium (DuoNeb 0.5-3(2.5)mg/3ml) 3 ml Q4HRT HHN 10/27/16 23:00 11/01/16 22:59 10/28/16 11:07 Albuterol/ Ipratropium (DuoNeb 0.5-3(2.5)mg/3ml) 3 ml Q6H PRN HHN Shortness of Breath 10/27/16 19:15 11/01/16 19:14 Dextrose (Dextrose 50%) STAT PRN IV Hypoglycemia 10/22/16 07:25 11/21/16 07:24 Guaifenesin (Mucinex) 600 mg TWICE A DAY ORAL 10/22/16 19:30 11/21/16 19:29 10/28/16 08:36 Guaifenesin/ Codeine Phosphate (Robitussin with codeine) 5 ml Q6H PRN ORAL For Cough 10/22/16 12:35 11/21/16 12:34 Heparin Sodium (Porcine) (Heparin 5000 units/ml) 5,000 units EVERY 12 HOURS SUBQ 10/22/16 09:00 11/21/16 08:59 10/28/16 08:39 Insulin Aspart (NovoLOG) BEFORE MEALS AND HS SUBQ 10/22/16 11:30 11/21/16 11:29 10/27/16 22:32 Nitroglycerin (Ntg) 0.4 mg Q5M X 3 DOSES PRN SL Prn Chest Pain 10/22/16 06:45 11/21/16 06:44 Ondansetron HCl (Zofran) 4 mg Q6H PRN IVP Nausea & Vomiting 10/22/16 07:27 11/21/16 07:26 Prednisone (predniSONE) 20 mg DAILY ORAL 10/27/16 09:00 11/26/16 08:59 10/28/16 08:36 Salmeterol Xinafoate/ Fluticasone (Advair 250/50 Diskus) 1 puffs Q12HR@0700,1900 INH 10/22/16 09:00 11/21/16 08:59 10/28/16 06:42 Temazepam (Restoril) 15 mg HSPRN PRN ORAL Insomnia 10/22/16 16:00 10/29/16 15:59 Theophylline (Alen-Dur) 100 mg DAILY ORAL 10/26/16 09:00 11/21/16 08:59 10/28/16 08:36 Tiotropium [place] (Spiriva Inhaler) 1 puff DAILY INH 10/22/16 09:00 11/21/16 08:59 10/28/16 06:48 Allergies: Coded Allergies: No Known Allergies (Unverified , 12/02/11) ROS Limited/Unobtainable: No Constitutional: Reports: no symptoms HEENT: Reports: no symptoms Cardiovascular: Reports: chest pain Respiratory: Reports: shortness of breath Gastrointestinal/Abdominal: Reports: no symptoms Genitourinary: Reports: no symptoms Neurologic/Psychiatric: Reports: no symptoms Subjective 66 YO M admitted with Shortness of breath. Cover for Int Med-Dr Cardoza. Tolerating nasal canula. Await group home fac placement Objective Last Vital Signs Date Time Temp Pulse Resp B/P Pulse Ox O2 Delivery O2 Flow Rate FiO2 10/28/16 12:00 98.2 112 19 124/76 99 Nasal Cannula 3.0 10/28/16 11:00 32 Laboratory Tests Test 10/27/16 16:40 10/28/16 06:05 Potassium Level 5.7 mEQ/L (3.4-4.9) H 4.5 mEQ/L (3.4-4.9) White Blood Count 10.1 K/UL (4.8-10.8) Red Blood Count 4.06 M/UL (4.70-6.10) L Hemoglobin 11.3 G/DL (14.2-18.0) L Hematocrit 37.2 % (42.0-52.0) L Mean Corpuscular Volume 92 FL (80-99) Mean Corpuscular Hemoglobin 27.7 PG (27.0-31.0) Mean Corpuscular Hemoglobin Concent 30.2 G/DL (32.0-36.0) L Red Cell Distribution Width 15.2 % (11.6-14.8) H Platelet Count 246 K/UL (150-450) Mean Platelet Volume 7.0 FL (6.5-10.1) Neutrophils (%) (Auto) 79.7 % (45.0-75.0) H Lymphocytes (%) (Auto) 9.3 % (20.0-45.0) L Monocytes (%) (Auto) 9.1 % (1.0-10.0) Eosinophils (%) (Auto) 1.4 % (0.0-3.0) Basophils (%) (Auto) 0.6 % (0.0-2.0) Sodium Level 139 mEQ/L (135-145) Chloride Level 92 mEQ/L (98-107) L Carbon Dioxide Level 42 mEQ/L (20-30) *H Anion Gap 5 (5-15) Blood Urea Nitrogen 18 mg/dL (7-23) Creatinine 0.7 mg/dL (0.7-1.2) Estimat Glomerular Filtration Rate > 60 mL/min (>60) Glucose Level 74 mg/dL (74-106) Calcium Level 9.3 mg/dL (8.6-10.2) Intake and Output 10/27/16 10/28/16 19:00 07:00 Intake Total 360 ml 740 ml Output Total 880 ml 1700 ml Balance -520 ml -960 ml Intake Oral 360 ml 740 ml Output Urine Total 880 ml 1700 ml # Voids 3 2 Objective General Appearance: WD/WN, alert, mild distress EENT: PERRL/EOMI, normal ENT inspection Neck: non-tender, normal alignment, supple Cardiovascular: normal peripheral pulses, no gallop/murmur, no JVD, tachycardia Respiratory/Chest: Nasal canula; chest wall non-tender, crackles/rales, rhonchi - bilaterally, expiratory wheezing Abdomen: normal bowel sounds, non tender, soft, no organomegaly, no mass Extremities: normal range of motion 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 (2) Respiratory failure (3) COPD (chronic obstructive pulmonary disease) with emphysema Assessment & Plan: See pulmonary note. D/C IV solumedrol; change to oral prednisone. Cont duoneb and advair. Cont zosyn and theophylline (4) Chest tightness (5) Acute respiratory failure with hypoxia and hypercarbia Assessment & Plan: Tolerating nasal canula. Status: stable Assessment/Plan D/C planning: assisted facility when bed available. PAULETTE GUTIÉRREZ Oct 28, 2016 12:29
[2016-10-28 16:00] VITALS: BP 126/75
[2016-10-28 20:00] VITALS: BP 127/73
--- NOTE | 2016-10-28 23:02 | Pulmonology Progress Note ---
Assessment/Plan Problems: (1) Acute respiratory failure (2) copd exacerbation (3) Emphysema, unspecified (4) Acute respiratory failure with hypoxia and hypercarbia Assessment/Plan improving taper po prednisone check sputum, not available yet sputum induction ordered again check CT chest reviewed, extensive bullous disease dc planning dc antibioitcs Subjective ROS Limited/Unobtainable: No Constitutional: Reports: no symptoms HEENT: Repors: no symptoms Respiratory: Reports: no symptoms Allergies: Coded Allergies: No Known Allergies (Unverified , 12/02/11) Objective Last 24 Hour Vital Signs Date Time Temp Pulse Resp B/P Pulse Ox O2 Delivery O2 Flow Rate FiO2 10/28/16 20:02 105 20 100 Nasal Cannula 3.0 32 10/28/16 20:00 98.2 111 16 127/73 96 Room Air 10/28/16 19:56 32 10/28/16 19:56 101 18 95 Nasal Cannula 3.0 32 10/28/16 19:55 Nasal Cannula 3.0 32 10/28/16 19:55 95 Nasal Cannula 3.0 32 10/28/16 16:00 98.1 107 16 126/75 97 Room Air 10/28/16 15:06 118 20 100 Nasal Cannula 3.0 32 10/28/16 15:00 114 18 96 Nasal Cannula 3.0 32 10/28/16 15:00 32 10/28/16 12:00 98.2 112 19 124/76 99 Nasal Cannula 3.0 10/28/16 11:00 102 18 100 Nasal Cannula 3.0 32 10/28/16 10:55 32 10/28/16 10:55 107 18 99 Nasal Cannula 3.0 32 10/28/16 08:00 98.8 104 19 124/61 95 Nasal Cannula 2.0 10/28/16 06:35 102 18 100 Nasal Cannula 3.0 32 10/28/16 06:30 Nasal Cannula 3.0 32 10/28/16 06:30 98 Nasal Cannula 3.0 32 10/28/16 06:30 100 18 98 Nasal Cannula 3.0 32 10/28/16 06:30 32 10/28/16 04:00 97.7 95 18 126/75 98 Nasal Cannula 2.0 10/28/16 03:30 Nasal Cannula 10/28/16 03:29 Nasal Cannula 10/28/16 00:00 98.1 108 18 129/77 94 Room Air 10/27/16 23:21 101 16 98 Nasal Cannula 3.0 32 10/27/16 23:16 32 10/27/16 23:16 101 18 97 Nasal Cannula 3.0 32 Intake and Output 10/27/16 10/28/16 19:00 07:00 Intake Total 360 ml 740 ml Output Total 880 ml 1700 ml Balance -520 ml -960 ml Intake Oral 360 ml 740 ml Output Urine Total 880 ml 1700 ml # Voids 3 2 General Appearance: WD/WN HEENT: normocephalic, atraumatic Respiratory/Chest: chest wall non-tender, normal breath sounds Cardiovascular: normal peripheral pulses Abdomen: normal bowel sounds, non distended Extremities: no cyanosis Skin: no rash Laboratory Tests 10/28/16 06:05: White Blood Count 10.1, Red Blood Count 4.06L, Hemoglobin 11.3L, Hematocrit 37.2L, Mean Corpuscular Volume 92, Mean Corpuscular Hemoglobin 27.7, Mean Corpuscular Hemoglobin Concent 30.2L, Red Cell Distribution Width 15.2H, Platelet Count 246, Mean Platelet Volume 7.0, Neutrophils (%) (Auto) 79.7H, Lymphocytes (%) (Auto) 9.3L, Monocytes (%) (Auto) 9.1, Eosinophils (%) (Auto) 1.4, Basophils (%) (Auto) 0.6, Sodium Level 139, Potassium Level 4.5, Chloride Level 92L, Carbon Dioxide Level 42*H, Anion Gap 5, Blood Urea Nitrogen 18, Creatinine 0.7, Estimat Glomerular Filtration Rate > 60, Glucose Level 74, Calcium Level 9.3 Current Medications Medications (Trade) Dose Ordered Sig/Radha Route PRN Reason Start Time Stop Time Status Last Admin Dose Admin Acetaminophen/ Hydrocodone Bitart ([place] 5/325) 1 tab Q12H PRN ORAL Severe Pain (Pain Scale 7-10) 10/22/16 07:25 10/29/16 07:24 Albuterol/ Ipratropium (DuoNeb 0.5-3(2.5)mg/3ml) 3 ml Q4HRT HHN 10/27/16 23:00 11/01/16 22:59 10/28/16 19:54 Albuterol/ Ipratropium (DuoNeb 0.5-3(2.5)mg/3ml) 3 ml Q6H PRN HHN Shortness of Breath 10/27/16 19:15 11/01/16 19:14 Dextrose (Dextrose 50%) STAT PRN IV Hypoglycemia 10/22/16 07:25 11/21/16 07:24 Guaifenesin (Mucinex) 600 mg TWICE A DAY ORAL 10/22/16 19:30 11/21/16 19:29 10/28/16 19:00 Guaifenesin/ Codeine Phosphate (Robitussin with codeine) 5 ml Q6H PRN ORAL For Cough 10/22/16 12:35 11/21/16 12:34 Heparin Sodium (Porcine) (Heparin 5000 units/ml) 5,000 units EVERY 12 HOURS SUBQ 10/22/16 09:00 11/21/16 08:59 10/28/16 21:13 Insulin Aspart (NovoLOG) BEFORE MEALS AND HS SUBQ 10/22/16 11:30 11/21/16 11:29 10/27/16 22:32 Nitroglycerin (Ntg) 0.4 mg Q5M X 3 DOSES PRN SL Prn Chest Pain 10/22/16 06:45 11/21/16 06:44 Ondansetron HCl (Zofran) 4 mg Q6H PRN IVP Nausea & Vomiting 10/22/16 07:27 11/21/16 07:26 Prednisone (predniSONE) 20 mg DAILY ORAL 10/27/16 09:00 11/26/16 08:59 10/28/16 08:36 Salmeterol Xinafoate/ Fluticasone (Advair 250/50 Diskus) 1 puffs Q12HR@0700,1900 INH 10/22/16 09:00 11/21/16 08:59 10/28/16 06:42 Temazepam (Restoril) 15 mg HSPRN PRN ORAL Insomnia 10/22/16 16:00 10/29/16 15:59 Theophylline (Alen-Dur) 100 mg DAILY ORAL 10/26/16 09:00 11/21/16 08:59 10/28/16 08:36 Tiotropium [place] (Spiriva Inhaler) 1 puff DAILY INH 10/22/16 09:00 11/21/16 08:59 10/28/16 06:48 GIOVANY SUMMERS Oct 28, 2016 23:02
[2016-10-29] VITALS: BP 132/72
[2016-10-29] MEDS: DuoNeb 0.5-3(2.5)mg/3ml neb HHN SCH ×6 (03:00→23:00)
[2016-10-29 04:00] VITALS: BP 147/70
[2016-10-29] MEDS: NovoLOG Insulin Flexpen SUBQ SCH ×4 (06:28→21:14)
[2016-10-29 07:13] LABS: BASOPHILS % (AUTO) 1.4 % (0.0-2.0); EOSINOPHILS % (AUTO) 1.1 % (0.0-3.0); MEAN CORPUSCULAR HEMOGLOBIN 28.3 PG (27.0-31.0); MEAN CORPUSCULAR VOLUME 88 FL (80-99); MEAN PLATELET VOLUME 7.2 FL (6.5-10.1); MONOCYTES % (AUTO) 9.7 % (1.0-10.0); NEUTROPHILS % (AUTO) 84.8 % (45.0-75.0); PLATELET COUNT 252 K/UL (150-450); RED BLOOD COUNT 4.08 M/UL (4.70-6.10); RED CELL DISTRIBUTION WIDTH 15.8 % (11.6-14.8); WHITE BLOOD COUNT 12.4 K/UL (4.8-10.8)
[2016-10-29 07:48] LABS: CALCIUM 9.2 mg/dL (8.6-10.2); CHLORIDE 92 mEQ/L (98-107); CREATININE 0.6 mg/dL (0.7-1.2); GLOMERULAR FILTRATION RATE > 60 mL/min (>60); HEMOLYSIS 1; POTASSIUM 4.8 mEQ/L (3.4-4.9); SODIUM 139 mEQ/L (135-145)
[2016-10-29 07:53] LABS: ANION GAP 7 (5-15); CARBON DIOXIDE 40 mEQ/L (20-30)
[2016-10-29 08:00] VITALS: BP 141/77
[2016-10-29] MEDS: Theophylline ER 100mg ORAL SCH (08:21)
[2016-10-29] MEDS: PredniSONE 20mg tab ORAL SCH (08:21)
[2016-10-29] MEDS: guaiFENesin 600mg tab ORAL SCH ×2 (08:21→17:54)
[2016-10-29] MEDS: Heparin 5000 units/ml inj SUBQ SCH ×2 (08:24→21:12)
[2016-10-29] MEDS: Advair 250/50 Inhaler - 14 dose INH SCH ×2 (09:00→19:14)
[2016-10-29 12:00] VITALS: BP 136/72
[2016-10-29 16:00] VITALS: BP 149/77
--- NOTE | 2016-10-29 16:55 | Internal Med Progress Note ---
Subjective Date of Service: Oct 29, 2016 Physician Name Paulette Gutiérrez Attending Physician Dipesh Cardoza MD Current Medications Medications (Trade) Dose Ordered Sig/Radha Route PRN Reason Start Time Stop Time Status Last Admin Dose Admin Albuterol/ Ipratropium (DuoNeb 0.5-3(2.5)mg/3ml) 3 ml Q4HRT HHN 10/27/16 23:00 11/01/16 22:59 10/29/16 15:57 Albuterol/ Ipratropium (DuoNeb 0.5-3(2.5)mg/3ml) 3 ml Q6H PRN HHN Shortness of Breath 10/27/16 19:15 11/01/16 19:14 10/29/16 04:32 Dextrose (Dextrose 50%) STAT PRN IV Hypoglycemia 10/22/16 07:25 11/21/16 07:24 Guaifenesin (Mucinex) 600 mg TWICE A DAY ORAL 10/22/16 19:30 11/21/16 19:29 10/29/16 08:21 Guaifenesin/ Codeine Phosphate (Robitussin with codeine) 5 ml Q6H PRN ORAL For Cough 10/22/16 12:35 11/21/16 12:34 Heparin Sodium (Porcine) (Heparin 5000 units/ml) 5,000 units EVERY 12 HOURS SUBQ 10/22/16 09:00 11/21/16 08:59 10/29/16 08:24 Insulin Aspart (NovoLOG) BEFORE MEALS AND HS SUBQ 10/22/16 11:30 11/21/16 11:29 10/27/16 22:32 Nitroglycerin (Ntg) 0.4 mg Q5M X 3 DOSES PRN SL Prn Chest Pain 10/22/16 06:45 11/21/16 06:44 Ondansetron HCl (Zofran) 4 mg Q6H PRN IVP Nausea & Vomiting 10/22/16 07:27 11/21/16 07:26 Prednisone (predniSONE) 20 mg DAILY ORAL 10/27/16 09:00 11/26/16 08:59 10/29/16 08:21 Salmeterol Xinafoate/ Fluticasone (Advair 250/50 Diskus) 1 puffs Q12HR@0700,1900 INH 10/22/16 09:00 2/23/17 08:59 10/29/16 09:00 Theophylline (Alen-Dur) 100 mg DAILY ORAL 10/26/16 09:00 11/21/16 08:59 10/29/16 08:21 Tiotropium [place] (Spiriva Inhaler) 1 puff DAILY INH 10/22/16 09:00 11/21/16 08:59 10/29/16 06:56 Allergies: Coded Allergies: No Known Allergies (Unverified , 12/02/11) ROS Limited/Unobtainable: No Constitutional: Reports: no symptoms HEENT: Reports: no symptoms Cardiovascular: Reports: no symptoms Respiratory: Reports: shortness of breath Gastrointestinal/Abdominal: Reports: no symptoms Genitourinary: Reports: no symptoms Neurologic/Psychiatric: Reports: no symptoms Subjective 66 YO M admitted with Shortness of breath. Cover for Int Wilfrid-Dr Cardoza. Tolerating nasal canula. Await acceptance at [facility] Objective Last Vital Signs Date Time Temp Pulse Resp B/P Pulse Ox O2 Delivery O2 Flow Rate FiO2 10/29/16 15:25 106 20 98 Nasal Cannula 3.0 32 10/29/16 12:00 98.4 136/72 Laboratory Tests Test 10/29/16 06:25 White Blood Count 12.4 K/UL (4.8-10.8) H Red Blood Count 4.08 M/UL (4.70-6.10) L Hemoglobin 11.5 G/DL (14.2-18.0) L Hematocrit 36.1 % (42.0-52.0) L Mean Corpuscular Volume 88 FL (80-99) Mean Corpuscular Hemoglobin 28.3 PG (27.0-31.0) Mean Corpuscular Hemoglobin Concent 32.0 G/DL (32.0-36.0) Red Cell Distribution Width 15.8 % (11.6-14.8) H Platelet Count 252 K/UL (150-450) Mean Platelet Volume 7.2 FL (6.5-10.1) Neutrophils (%) (Auto) 84.8 % (45.0-75.0) H Lymphocytes (%) (Auto) 3.0 % (20.0-45.0) L Monocytes (%) (Auto) 9.7 % (1.0-10.0) Eosinophils (%) (Auto) 1.1 % (0.0-3.0) Basophils (%) (Auto) 1.4 % (0.0-2.0) Sodium Level 139 mEQ/L (135-145) Potassium Level 4.8 mEQ/L (3.4-4.9) Chloride Level 92 mEQ/L (98-107) L Carbon Dioxide Level 40 mEQ/L (20-30) H Anion Gap 7 (5-15) Blood Urea Nitrogen 17 mg/dL (7-23) Creatinine 0.6 mg/dL (0.7-1.2) L Estimat Glomerular Filtration Rate > 60 mL/min (>60) Glucose Level 87 mg/dL (74-106) Calcium Level 9.2 mg/dL (8.6-10.2) Intake and Output 10/28/16 10/29/16 19:00 07:00 Intake Total 600 ml 400 ml Balance 600 ml 400 ml Intake Oral 600 ml 400 ml # Voids 5 6 Objective General Appearance: WD/WN, alert, mild distress EENT: PERRL/EOMI, normal ENT inspection Neck: non-tender, normal alignment, supple Cardiovascular: normal peripheral pulses, no gallop/murmur, no JVD, tachycardia Respiratory/Chest: Nasal canula; chest wall non-tender, crackles/rales, rhonchi - bilaterally, expiratory wheezing Abdomen: normal bowel sounds, non tender, soft, no organomegaly, no mass Extremities: normal range of motion 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 (2) Respiratory failure (3) COPD (chronic obstructive pulmonary disease) with emphysema Assessment & Plan: See pulmonary note. D/C IV solumedrol; change to oral prednisone. Cont duoneb and advair. Cont zosyn and theophylline (4) Chest tightness (5) Acute respiratory failure with hypoxia and hypercarbia Assessment & Plan: Tolerating nasal canula. Status: progressing Assessment/Plan D/C planning: [facility] when bed available. PAULETTE GUTIÉRREZ Oct 29, 2016 16:55
[2016-10-29 20:00] VITALS: BP 126/72
--- NOTE | 2016-10-29 23:30 | Pulmonology Progress Note ---
Assessment/Plan Problems: (1) Acute respiratory failure (2) copd exacerbation (3) Emphysema, unspecified (4) Acute respiratory failure with hypoxia and hypercarbia Assessment/Plan improving taper po prednisone check sputum, not available yet sputum induction ordered again check CT chest reviewed, extensive bullous disease dc planning dc antibioitcs Subjective ROS Limited/Unobtainable: Yes Constitutional: Reports: anorexia, fatigue Respiratory: Reports: dyspnea at rest, dyspnea on exertion, pleuritic pain, productive cough, shortness of breath, sputum, wheezing Allergies: Coded Allergies: No Known Allergies (Unverified , 10/30/16) Objective Last 24 Hour Vital Signs Date Time Temp Pulse Resp B/P Pulse Ox O2 Delivery O2 Flow Rate FiO2 10/29/16 20:00 98.2 105 18 126/72 96 Nasal Cannula 2.0 10/29/16 19:16 111 18 97 Nasal Cannula 3.0 32 10/29/16 19:16 108 18 98 Nasal Cannula 3.0 32 10/29/16 19:16 32 10/29/16 19:15 Nasal Cannula 3.0 32 10/29/16 17:27 94 Nasal Cannula 3.0 32 10/29/16 16:00 98.2 112 24 149/77 97 Nasal Cannula 2.0 10/29/16 15:25 106 20 98 Nasal Cannula 3.0 32 10/29/16 15:20 32 10/29/16 15:20 102 18 97 Nasal Cannula 3.0 32 10/29/16 12:00 98.4 108 22 136/72 98 Nasal Cannula 2.0 10/29/16 10:35 118 20 98 Nasal Cannula 3.0 32 10/29/16 10:30 116 18 97 Nasal Cannula 3.0 32 10/29/16 10:30 32 10/29/16 08:00 98.6 119 24 141/77 97 Nasal Cannula 2.0 10/29/16 06:35 98 18 98 Nasal Cannula 3.0 32 10/29/16 06:30 Nasal Cannula 3.0 32 10/29/16 06:30 32 10/29/16 06:30 95 Nasal Cannula 3.0 32 10/29/16 06:30 114 18 94 Nasal Cannula 3.0 32 10/29/16 04:35 32 10/29/16 04:35 119 18 98 Nasal Cannula 3.0 32 10/29/16 04:34 116 16 97 Nasal Cannula 3.0 32 10/29/16 04:00 97.9 108 19 147/70 96 Room Air 10/29/16 03:53 Nasal Cannula 3.0 32 10/29/16 03:30 20 10/29/16 00:00 98.1 117 20 132/72 96 Room Air Intake and Output 10/28/16 10/29/16 19:00 07:00 Intake Total 600 ml 400 ml Balance 600 ml 400 ml Intake Oral 600 ml 400 ml # Voids 5 6 General Appearance: no acute distress HEENT: normocephalic, atraumatic, PERRL Respiratory/Chest: chest wall non-tender, decreased breath sounds, accessory muscle use, rhonchi Cardiovascular: normal peripheral pulses, normal rate, regular rhythm, no JVD Abdomen: normal bowel sounds, soft, non tender, no organomegaly Genitourinary: normal external genitalia Extremities: no cyanosis Skin: rash Neurologic/Psychiatric: unresponsiveness Laboratory Tests 10/29/16 06:25: White Blood Count 12.4H, Red Blood Count 4.08L, Hemoglobin 11.5L, Hematocrit 36.1L, Mean Corpuscular Volume 88, Mean Corpuscular Hemoglobin 28.3, Mean Corpuscular Hemoglobin Concent 32.0, Red Cell Distribution Width 15.8H, Platelet Count 252, Mean Platelet Volume 7.2, Neutrophils (%) (Auto) 84.8H, Lymphocytes (%) (Auto) 3.0L, Monocytes (%) (Auto) 9.7, Eosinophils (%) (Auto) 1.1, Basophils (%) (Auto) 1.4, Sodium Level 139, Potassium Level 4.8, Chloride Level 92L, Carbon Dioxide Level 40H, Anion Gap 7, Blood Urea Nitrogen 17, Creatinine 0.6L, Estimat Glomerular Filtration Rate > 60, Glucose Level 87, Calcium Level 9.2 Current Medications Medications (Trade) Dose Ordered Sig/Radha Route PRN Reason Start Time Stop Time Status Last Admin Dose Admin Albuterol/ Ipratropium (DuoNeb 0.5-3(2.5)mg/3ml) 3 ml Q4HRT HHN 10/27/16 23:00 11/01/16 22:59 10/29/16 19:14 Albuterol/ Ipratropium (DuoNeb 0.5-3(2.5)mg/3ml) 3 ml Q6H PRN HHN Shortness of Breath 10/27/16 19:15 11/01/16 19:14 10/29/16 04:32 Dextrose (Dextrose 50%) STAT PRN IV Hypoglycemia 10/22/16 07:25 11/21/16 07:24 Guaifenesin (Mucinex) 600 mg TWICE A DAY ORAL 10/22/16 19:30 11/21/16 19:29 10/29/16 17:54 Guaifenesin/ Codeine Phosphate (Robitussin with codeine) 5 ml Q6H PRN ORAL For Cough 10/22/16 12:35 11/21/16 12:34 Heparin Sodium (Porcine) (Heparin 5000 units/ml) 5,000 units EVERY 12 HOURS SUBQ 10/22/16 09:00 11/21/16 08:59 10/29/16 21:12 Insulin Aspart (NovoLOG) BEFORE MEALS AND HS SUBQ 10/22/16 11:30 11/21/16 11:29 10/29/16 21:14 Nitroglycerin (Ntg) 0.4 mg Q5M X 3 DOSES PRN SL Prn Chest Pain 10/22/16 06:45 11/21/16 06:44 Ondansetron HCl (Zofran) 4 mg Q6H PRN IVP Nausea & Vomiting 10/22/16 07:27 11/21/16 07:26 Prednisone (predniSONE) 20 mg DAILY ORAL 10/27/16 09:00 11/26/16 08:59 10/29/16 08:21 Salmeterol Xinafoate/ Fluticasone (Advair 250/50 Diskus) 1 puffs Q12HR@0700,1900 INH 10/22/16 09:00 11/21/16 08:59 10/29/16 19:14 Theophylline (Alen-Dur) 100 mg DAILY ORAL 10/26/16 09:00 11/21/16 08:59 10/29/16 08:21 Tiotropium Curran (Spiriva Inhaler) 1 puff DAILY INH 10/22/16 09:00 11/21/16 08:59 10/29/16 06:56 GIOVANY SUMMERS Oct 29, 2016 23:30
[2016-10-30] VITALS: BP 143/74
[2016-10-30] MEDS: DuoNeb 0.5-3(2.5)mg/3ml neb HHN SCH ×5 (03:00→18:36)
[2016-10-30 04:00] VITALS: BP 119/73
[2016-10-30] MEDS: NovoLOG Insulin Flexpen SUBQ SCH ×3 (06:25→16:28)
[2016-10-30] MEDS: Advair 250/50 Inhaler - 14 dose INH SCH ×2 (06:51→18:36)
[2016-10-30 08:00] VITALS: BP 119/70
[2016-10-30] MEDS: Theophylline ER 100mg ORAL SCH (08:05)
[2016-10-30] MEDS: guaiFENesin 600mg tab ORAL SCH ×2 (08:05→17:15)
[2016-10-30] MEDS: PredniSONE 20mg tab ORAL SCH (08:05)
[2016-10-30] MEDS: Heparin 5000 units/ml inj SUBQ SCH (08:07)
[2016-10-30 08:14] LABS: BASOPHILS % (AUTO) 1.4 % (0.0-2.0); EOSINOPHILS % (AUTO) 1.9 % (0.0-3.0); LYMPHOCYTES % (AUTO) 5.2 % (20.0-45.0); MEAN CORPUSCULAR HEMOGLOBIN 27.7 PG (27.0-31.0); MEAN CORPUSCULAR HGB CONC 31.1 G/DL (32.0-36.0); MEAN CORPUSCULAR VOLUME 89 FL (80-99); MEAN PLATELET VOLUME 7.7 FL (6.5-10.1); MONOCYTES % (AUTO) 9.7 % (1.0-10.0); NEUTROPHILS % (AUTO) 81.8 % (45.0-75.0); PLATELET COUNT 255 K/UL (150-450); RED BLOOD COUNT 4.37 M/UL (4.70-6.10); RED CELL DISTRIBUTION WIDTH 15.9 % (11.6-14.8); WHITE BLOOD COUNT 9.1 K/UL (4.8-10.8)
[2016-10-30 08:46] LABS: CALCIUM 9.4 mg/dL (8.6-10.2); CHLORIDE 91 mEQ/L (98-107); CREATININE 0.6 mg/dL (0.7-1.2); GLOMERULAR FILTRATION RATE > 60 mL/min (>60); HEMOLYSIS 2; POTASSIUM 4.2 mEQ/L (3.4-4.9); SODIUM 139 mEQ/L (135-145)
[2016-10-30 08:52] LABS: ANION GAP 7 (5-15)
[2016-10-30 09:01] LABS: CARBON DIOXIDE 41 mEQ/L (20-30)
[2016-10-30 12:00] VITALS: BP 140/76
--- NOTE | 2016-10-30 13:33 | Internal Med Progress Note ---
Subjective Date of Service: Oct 30, 2016 Physician Name Paulette Gutiérrez Attending Physician Dipesh Cardoza MD Current Medications Medications (Trade) Dose Ordered Sig/Radha Route PRN Reason Start Time Stop Time Status Last Admin Dose Admin Albuterol/ Ipratropium (DuoNeb 0.5-3(2.5)mg/3ml) 3 ml Q4HRT HHN 10/27/16 23:00 11/01/16 22:59 10/30/16 11:16 Albuterol/ Ipratropium (DuoNeb 0.5-3(2.5)mg/3ml) 3 ml Q6H PRN HHN Shortness of Breath 10/27/16 19:15 11/01/16 19:14 10/29/16 04:32 Dextrose (Dextrose 50%) STAT PRN IV Hypoglycemia 10/22/16 07:25 11/21/16 07:24 Guaifenesin (Mucinex) 600 mg TWICE A DAY ORAL 10/22/16 19:30 11/21/16 19:29 10/30/16 08:05 Guaifenesin/ Codeine Phosphate (Robitussin with codeine) 5 ml Q6H PRN ORAL For Cough 10/22/16 12:35 11/21/16 12:34 Heparin Sodium (Porcine) (Heparin 5000 units/ml) 5,000 units EVERY 12 HOURS SUBQ 10/22/16 09:00 11/21/16 08:59 10/30/16 08:07 Insulin Aspart (NovoLOG) BEFORE MEALS AND HS SUBQ 10/22/16 11:30 11/21/16 11:29 10/29/16 21:14 Nitroglycerin (Ntg) 0.4 mg Q5M X 3 DOSES PRN SL Prn Chest Pain 10/22/16 06:45 11/21/16 06:44 Ondansetron HCl (Zofran) 4 mg Q6H PRN IVP Nausea & Vomiting 10/22/16 07:27 11/21/16 07:26 Prednisone (predniSONE) 20 mg DAILY ORAL 10/27/16 09:00 11/26/16 08:59 10/30/16 08:05 Salmeterol Xinafoate/ Fluticasone (Advair 250/50 Diskus) 1 puffs Q12HR@0700,1900 INH 10/22/16 09:00 11/21/16 08:59 10/30/16 06:51 Theophylline (Alen-Dur) 100 mg DAILY ORAL 10/26/16 09:00 11/21/16 08:59 10/30/16 08:05 Tiotropium Duvall (Spiriva Inhaler) 1 puff DAILY INH 10/22/16 09:00 11/21/16 08:59 10/30/16 08:58 Allergies: Coded Allergies: No Known Allergies (Unverified , 12/02/11) ROS Limited/Unobtainable: No Constitutional: Reports: no symptoms HEENT: Reports: no symptoms Cardiovascular: Reports: no symptoms Respiratory: Reports: shortness of breath Gastrointestinal/Abdominal: Reports: no symptoms Genitourinary: Reports: no symptoms Neurologic/Psychiatric: Reports: no symptoms Subjective 66 YO M admitted with Shortness of breath. Cover for Int Wilfrid-Dr Cardoza. Tolerating nasal canula. Await acceptance at [facility] Objective Last Vital Signs Date Time Temp Pulse Resp B/P Pulse Ox O2 Delivery O2 Flow Rate FiO2 10/30/16 12:00 98.2 109 19 140/76 96 Nasal Cannula 3.0 10/30/16 11:26 32 Laboratory Tests Test 10/30/16 07:40 White Blood Count 9.1 K/UL (4.8-10.8) Red Blood Count 4.37 M/UL (4.70-6.10) L Hemoglobin 12.1 G/DL (14.2-18.0) L Hematocrit 39.0 % (42.0-52.0) L Mean Corpuscular Volume 89 FL (80-99) Mean Corpuscular Hemoglobin 27.7 PG (27.0-31.0) Mean Corpuscular Hemoglobin Concent 31.1 G/DL (32.0-36.0) L Red Cell Distribution Width 15.9 % (11.6-14.8) H Platelet Count 255 K/UL (150-450) Mean Platelet Volume 7.7 FL (6.5-10.1) Neutrophils (%) (Auto) 81.8 % (45.0-75.0) H Lymphocytes (%) (Auto) 5.2 % (20.0-45.0) L Monocytes (%) (Auto) 9.7 % (1.0-10.0) Eosinophils (%) (Auto) 1.9 % (0.0-3.0) Basophils (%) (Auto) 1.4 % (0.0-2.0) Sodium Level 139 mEQ/L (135-145) Potassium Level 4.2 mEQ/L (3.4-4.9) Chloride Level 91 mEQ/L (98-107) L Carbon Dioxide Level 41 mEQ/L (20-30) *H Anion Gap 7 (5-15) Blood Urea Nitrogen 13 mg/dL (7-23) Creatinine 0.6 mg/dL (0.7-1.2) L Estimat Glomerular Filtration Rate > 60 mL/min (>60) Glucose Level 87 mg/dL (74-106) Calcium Level 9.4 mg/dL (8.6-10.2) Intake and Output 10/29/16 10/30/16 19:00 07:00 Intake Total 840 ml 360 ml Output Total 500 ml Balance 840 ml -140 ml Intake Oral 840 ml 360 ml Output Urine Total 500 ml Objective General Appearance: WD/WN, alert, mild distress EENT: PERRL/EOMI, normal ENT inspection Neck: non-tender, normal alignment, supple Cardiovascular: normal peripheral pulses, no gallop/murmur, no JVD, tachycardia Respiratory/Chest: Nasal canula; chest wall non-tender, crackles/rales, rhonchi - bilaterally, expiratory wheezing Abdomen: normal bowel sounds, non tender, soft, no organomegaly, no mass Extremities: normal range of motion 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 (2) Respiratory failure (3) COPD (chronic obstructive pulmonary disease) with emphysema Assessment & Plan: See pulmonary note. D/C IV solumedrol; change to oral prednisone. Cont duoneb and advair. Cont zosyn and theophylline (4) Chest tightness (5) Acute respiratory failure with hypoxia and hypercarbia Assessment & Plan: Tolerating nasal canula. Assessment/Plan D/C planning: [facility] when bed available. PAULETTE GUTIÉRREZ Oct 30, 2016 13:33
[2016-10-30 16:21] VITALS: BP 119/73
[2016-10-30] MEDS ORDERED: DELTASONE20 MG PO (17:40)
[2016-10-30] MEDS ORDERED: THEOPHYLLINE A100 MG ORAL (17:41)
[2016-10-30] MEDS ORDERED: MUCINEX600 MG PO (17:41)
[2016-10-30] MEDS ORDERED: ROBITUSSIN AC5 ML ORAL (17:42)
[2016-10-30] MEDS ORDERED: NOVOLOG100 UNITS1 SQ (17:43)
[2016-10-30] MEDS ORDERED: ZOFRAN4 M1 ORAL (17:44)
[2016-10-30] MEDS ORDERED: NITROGLYCERIN0.4 MG SL (17:45)
--- NOTE | 2016-10-31 16:44 | Discharge Summary ---
Discharge Summary Hospital Course Date of Admission Oct 18, 2016 at 14:50 Date of Discharge Oct 30, 2016 at 20:23 Admitting Diagnosis Syncope/ACS HPI Man Ventura is a 66 year old male who was admitted on Oct 18, 2016 at 14: 50 for Syncope,Acute Coronary Syndrome Hospital Course [id number] Discharge Discharge Disposition Patient was discharged [place] [facility] [place] Diagnoses: Lawanda Benitez NP Oct 31, 2016 16:44
--- NOTE | 2016-11-01 07:28 | Discharge Summary 2 SIG ---
DATE OF ADMISSION: 10/18/2016 DATE OF DISCHARGE: 10/30/2016 CONSULTANTS: Jose Cruz Katz M.D. BRIEF HOSPITAL COURSE: The patient is a 66-year-old gentleman with past medical history significant for chronic obstructive pulmonary disease, history of extensive smoking in the past, presented to the hospital complaining of productive cough and shortness of breath that has gotten progressively worse over the past 48 hours. He has been using home O2 and was not improving. He had fever, chills, chest tightness and his regular medications were not responding. On evaluation at ED, he was started on BiPAP. He refused intubation, however, CPR is okay. He was admitted to [facility] and was started on broad-spectrum antibiotics, nebulizer treatments, theophylline, and Solu-Medrol. Dr. Katz was consulted. Blood culture did not isolate any growth. IV steroid was tapered. He was eventually taken off the BiPAP and was tolerating O2 via nasal cannula. The patient had a chest CT done showed emphysema. The patient was eventually discharged to a [facility] facility. FINAL DIAGNOSES: 1. Acute chronic obstructive pulmonary disease exacerbation with emphysema. 2. Acute respiratory failure, requiring BiPAP, resolved. 3. Acute respiratory failure with hypoxia and hypercarbia. 4. Emphysema. 5. Malnutrition and cachexia. Fausto Kelley M.D. I have been assigned to dictate discharge summary on this account and I was not involved in the patient's management. Lawanda Benitez N.P. DR: ETTA JOB#: [id number] CC: RENUKA
== END 2016-10-30 20:23 | DRG 140 ==
LOC: ENRESERVTM → ENRESERVDT → EDBEDREQSVC 14:34 → EMR 14:36 → 2W 14:50 → EDBEDREQ 15:57 → 3E 10-22 06:45
DX: J44.1 Chronic obstructive pulmonary disease with (acute) exacerbation (principal); J96.01 Acute respiratory failure with hypoxia; J96.02 Acute respiratory failure with hypercapnia; E46 Unspecified protein-calorie malnutrition; R64 Cachexia; Z99.81 Dependence on supplemental oxygen; Z68.21 Body mass index [BMI] 21.0-21.9, adult
CPT/HCPCS: 36415; 36600; 71010; 71250; 80048; 80053; 82550; 82553; 82803; 82962; 83735; 84100; 84132; 84484; 85007; 85025; 85379; 85610; 85730; 87040; 93005; 94640; 94664; 94760; J1815; J7620

== ENCOUNTER 2018-02-10 13:22 | Inpatient (IN) | payer OTHER ==
[~2018-02-10] VITALS: Ht 170.2 cm; Wt 70.3 kg
[~2018-02-10 13:22] MED LIST changes: +DELTASONE20 MG PO; +MUCINEX600 MG PO; +NITROGLYCERIN0.4 MG SL; +NOVOLOG100 UNITS1 SQ; +ROBITUSSIN AC5 ML ORAL; +SPIRIVA18 MCG INH; +THEOPHYLLINE A100 MG ORAL; +ZOFRAN4 M1 ORAL
[2018-02-10] MEDS ORDERED: Sodium Chloride 500ML 500 ML IV ONE (13:42)
[2018-02-10 13:48] VITALS: BP 140/93
[2018-02-10] MEDS: Albuterol ud Inhalation HHN SCH ×3 (13:53→14:32)
[2018-02-10] MEDS: Ipratropium 0.02% Inh Soln 2.5ml UD HHN SCH ×3 (13:53→14:32)
[2018-02-10] MEDS ORDERED: cefTRIAXone 1 GM in NS 55 ML IVPB ONE (14:00)
--- NOTE | 2018-02-10 14:15 | Emergency Room Report ---
History of Present Illness General Chief Complaint: Abdominal Pain Source: Patient, Medical Record, EMS Present Illness HPI This patient presents from a [place] [facility] facility. He presents for 2 complaints. He has had shortness of breath and has a history of COPD. He also complains of abdominal pain. He has been constipated for the past 2 days. There has been no fever or chills, nausea or vomiting, chest pain. There's been no cough or congestion. There are no other complaints. He does have a history of congestive heart failure. He has also had multiple cardiopulmonary arrest in October of this year. He was intubated during that time. Allergies: Coded Allergies: No Known Allergies (Unverified , 10/30/16) Patient History Past Medical History: see triage record, [place], CAD, CHF, AFib, arrhyth, COPD, GERD Social History: Denies: smoking, alcohol use, drug use Reviewed Nursing Documentation: PMH: Agreed; PSxH: Agreed Nursing Documentation-PMH Hx Cardiac Problems: No Hx Hypertension: No Hx Pacemaker: No Hx Asthma: Yes Hx COPD: Yes Hx Diabetes: No Hx Cancer: No Hx Gastrointestinal Problems: No Hx Dialysis: No Hx Neurological Problems: No Hx Cerebrovascular Accident: No Hx Seizures: No Review of Systems All Other Systems: negative except mentioned in HPI Physical Exam Vital Signs Date Time Temp Pulse Resp B/P (MAP) Pulse Ox O2 Delivery O2 Flow Rate FiO2 02/10/18 13:17 98.3 102 20 147/94 98 Nasal Cannula 3.0 98.2 Sp02 EP Interpretation: reviewed, abnormal General Appearance: no apparent distress, alert, GCS 15, non-toxic Head: normocephalic, atraumatic Eyes: bilateral eye normal inspection, bilateral eye PERRL ENT: hearing grossly normal, normal pharynx, no angioedema, normal voice Neck: full range of motion, supple/symm/no masses Respiratory: chest non-tender, no rhonchi, no respiratory distress, no accessory muscle use, wheezing, expiration, other - pursed lip breathing Cardiovascular #1: no edema, tachycardia Gastrointestinal: soft, no guarding, no rebound, distended, tenderness - diffusely ttp Rectal: deferred Musculoskeletal: normal range of motion Neurologic: alert, oriented x3, responsive, motor strength/tone normal, sensory intact, speech normal Psychiatric: judgement/insight normal, memory normal, mood/affect normal, no suicidal/homicidal ideation Skin: warm/dry, well hydrated, other - See RN skin exam Medical Decision Making Diagnostic Impression: Primary Impression: copd exacerbation EKG Diagnostic Results Rate: tachycardiac Rhythm: other - S. tachycardia ST Segments: no acute changes Rhythm Strip Diag. Results EP Interpretation: yes Rate: 100's Rhythm: other - PVCs Chest X-Ray Diagnostic Results Chest X-Ray Diagnostic Results : Chest X-Ray Ordered: Yes # of Views/Limited/Complete: 1 View Indication: Shortness of Breath EP Interpretation: Yes Interpretation: no pneumothorax, other - RLL and LLL opacity Impression: Other - See above Electronically Signed by: King Last Vital Signs Date Time Temp Pulse Resp B/P (MAP) Pulse Ox O2 Delivery O2 Flow Rate FiO2 02/10/18 13:48 101 23 140/93 98 Room Air 02/10/18 13:17 98.3 3.0 98.2 Disposition: ADMITTED INPATIENT Condition: Critical BRIANNA BISHOP D.O. February 10, 2018 14:15
[2018-02-10] MEDS ORDERED: ASCORBIC ACID500 MG ORAL (14:16)
[2018-02-10] MEDS ORDERED: ASPIR 8181 MG ORAL (14:16)
[2018-02-10 14:25] LABS: HEMOGLOBIN 13.2 G/DL (14.2-18.0); MEAN CORPUSCULAR VOLUME 86 FL (80-99); PLATELET COUNT 255 K/UL (150-450); RED BLOOD COUNT 5.13 M/UL (4.70-6.10); RED CELL DISTRIBUTION WIDTH 16.6 % (11.6-14.8); WHITE BLOOD COUNT 8.9 K/UL (4.8-10.8)
[2018-02-10] MEDS ORDERED: Ketorolac 30mg Inj IV ONE (14:30)
[2018-02-10] MEDS ORDERED: LORazepam Inj 2mg/ml 1ml IV ONE (14:30)
--- NOTE | 2018-02-10 14:32 | Diagnostic Imaging Report ---
Indication: Shortness of breath Technique: One view of the chest Comparison: 10/18/2016 Findings: Again demonstrated is bilateral pulmonary hyperinflation, particularly involving the right mid and upper lung. Scarring is seen in the left lung base. No acute infiltrates. No effusions. Normal heart size. Tortuous calcified aorta Impression: COPD changes, also previously described No acute process
[2018-02-10 14:41] LABS: ANION GAP 4 mmol/L (5-15); BLOOD UREA NITROGEN 22 mg/dL (7-18); CALCIUM 10.6 MG/DL (8.5-10.1); CARBON DIOXIDE 38 MMOL/L (21-32); CHLORIDE 90 MMOL/L (98-107); POTASSIUM 5.4 MMOL/L (3.5-5.1); SODIUM 132 MMOL/L (136-145)
[2018-02-10 14:54] LABS: ALANINE AMINOTRANSFERASE 28 U/L (12-78); ALBUMIN 4.7 G/DL (3.4-5.0); ALBUMIN/GLOBULIN RATIO 0.9 (1.0-2.7); ALKALINE PHOSPHATASE 78 U/L (46-116); ASPARTATE AMINO TRANSFERASE 33 U/L (15-37); BILIRUBIN,TOTAL 0.6 MG/DL (0.2-1.0); CKMB 3.7 NG/ML (0.0-3.6); CREATINE KINASE 225 U/L (26-308)
[2018-02-10] MEDS ORDERED: SPIRIVA18 MCG INH (14:57)
[2018-02-10] MEDS ORDERED: FERROUS SULFAT325 MG ORAL (14:57)
[2018-02-10] MEDS ORDERED: SENNA8.6 M2 PO (14:57)
[2018-02-10] MEDS ORDERED: ONE DAILY1 EAC3 ORAL (14:57)
[2018-02-10] MEDS ORDERED: MAGOX 400400 MG ORAL (14:57)
[2018-02-10] MEDS ORDERED: FLEET ENEMA133 ML RECTAL (14:57)
[2018-02-10] MEDS ORDERED: DUONEB 0.5-3(2.53 ML HHN (14:57)
[2018-02-10] MEDS ORDERED: METOPROLOL TART25 MG ORAL (14:57)
[2018-02-10 15:47] LABS: APPEARANCE,URINE CLEAR; BILIRUBIN, URINE NEGATIVE (NEGATIVE); GLUCOSE, URINE (UA) NEGATIVE (NEGATIVE); KETONES,URINE 1+ (NEGATIVE); LEUKOCYTE ESTERASE ,URINE 1+ (NEGATIVE); NITRITE,URINE NEGATIVE (NEGATIVE); PH,URINE 5 (4.5-8.0); PROTEIN,URINE 3+ (NEGATIVE); UROBILINOGEN,URINE NORMAL MG/DL (0.0-1.0)
[2018-02-10 15:57] LABS: COLOR,URINE YELLOW
[2018-02-10 16:28] VITALS: BP 160/82
[2018-02-10] MEDS ORDERED: Isovue-300 100ml vial INJ PRN (16:30)
[2018-02-10] MEDS ORDERED: MAG-OX 400400 MG ORAL (17:27)
[2018-02-10 17:28] VITALS: BP 151/87
[2018-02-10] MEDS ORDERED: MULTIVITAMINS1 EAC8 ORAL (17:32)
[2018-02-10] MEDS ORDERED: ACETAMINOPHEN325 M1 ORAL (17:36)
[2018-02-10] MEDS ORDERED: Ketorolac 30mg Inj IV PRN (18:45)
[2018-02-10] MEDS ORDERED: LORazepam Inj 2mg/ml 1ml IV PRN (18:45)
[2018-02-10] MEDS ORDERED: Promethazine/Codeine 5ml UD ORAL PRN (18:45)
[2018-02-10] MEDS ORDERED: Albuterol/Ipratropium 3ml neb HHN PRN (18:45)
[2018-02-10] MEDS ORDERED: Nitroglycerin Subl 0.4mg tab SL PRN (18:45)
--- NOTE | 2018-02-10 19:50 | Emergency Room Report ---
Physical Exam Vital Signs Date Time Temp Pulse Resp B/P (MAP) Pulse Ox O2 Delivery O2 Flow Rate FiO2 02/10/18 13:17 98.3 102 20 147/94 98 Nasal Cannula 3.0 98.2 02/10/18 13:53 28 Medical Decision Making Diagnostic Impression: Primary Impression: copd exacerbation Additional Impression: SBO (small bowel obstruction) ER Course This patient presented with a COPD exacerbation. Initially he was hypoxemic. He was given albuterol and Atrovent nebulizer treatments, in addition to prednisone. He has significant improvement in his respiratory status. He also had a very distended firm abdomen that was tender to palpation. He underwent CT of the abdomen and pelvis which had findings that are concerning for a small bowel obstruction. The patient declined NGT repeatedly despite multiple attempts at explaining the importance of this. General surgery was contacted. The patient is admitted to the [facility]. This patient is critically ill. This patient required complex medical decision- making, aggressive intervention, extensive laboratory workup and monitoring. Critical care time: 40 minutes. Laboratory Tests Test 02/10/18 14:00 02/10/18 15:19 White Blood Count 8.9 K/UL (4.8-10.8) Red Blood Count 5.13 M/UL (4.70-6.10) Hemoglobin 13.2 G/DL (14.2-18.0) L Hematocrit 44.0 % (42.0-52.0) Mean Corpuscular Volume 86 FL (80-99) Mean Corpuscular Hemoglobin 25.8 PG (27.0-31.0) L Mean Corpuscular Hemoglobin Concent 30.1 G/DL (32.0-36.0) L Red Cell Distribution Width 16.6 % (11.6-14.8) H Platelet Count 255 K/UL (150-450) Mean Platelet Volume 8.5 FL (6.5-10.1) Neutrophils (%) (Auto) % (45.0-75.0) Lymphocytes (%) (Auto) % (20.0-45.0) Monocytes (%) (Auto) % (1.0-10.0) Eosinophils (%) (Auto) % (0.0-3.0) Basophils (%) (Auto) % (0.0-2.0) Differential Total Cells Counted 100 Neutrophils % (Manual) 85 % (45-75) H Lymphocytes % (Manual) 5 % (20-45) L Monocytes % (Manual) 9 % (1-10) Eosinophils % (Manual) 1 % (0-3) Basophils % (Manual) 0 % (0-2) Band Neutrophils 0 % (0-8) Platelet Estimate Adequate Platelet Morphology Normal Hypochromasia 1+ Anisocytosis 1+ Sodium Level 132 MMOL/L (136-145) L Potassium Level 5.4 MMOL/L (3.5-5.1) H Chloride Level 90 MMOL/L (98-107) L Carbon Dioxide Level 38 MMOL/L (21-32) H Anion Gap 4 mmol/L (5-15) L Blood Urea Nitrogen 22 mg/dL (7-18) H Creatinine 1.0 MG/DL (0.55-1.30) Estimate Glomerular Filtration Rate > 60 mL/min (>60) Glucose Level 120 MG/DL (74-106) H Lactic Acid Level 1.30 mmol/L (0.66-2.22) Calcium Level 10.6 MG/DL (8.5-10.1) H Total Bilirubin 0.6 MG/DL (0.2-1.0) Aspartate Amino Transferase (AST) 33 U/L (15-37) Alanine Aminotransferase (ALT) 28 U/L (12-78) Alkaline Phosphatase 78 U/L (46-116) Total Creatine Kinase 225 U/L (26-308) Creatine Kinase MB 3.7 NG/ML (0.0-3.6) H Creatine Kinase MB Relative Index 1.6 Troponin I 0.000 ng/mL (0.000-0.056) Pro-B-Type Natriuretic Peptide 117 pg/mL (0-125) Total Protein 9.8 G/DL (6.4-8.2) H Albumin 4.7 G/DL (3.4-5.0) Globulin 5.1 g/dL Albumin/Globulin Ratio 0.9 (1.0-2.7) L Urine Color Yellow Urine Appearance Clear Urine pH 5 (4.5-8.0) Urine Specific [place] 1.020 (1.005-1.035) Urine Protein 3+ (NEGATIVE) H Urine Glucose (UA) Negative (NEGATIVE) Urine Ketones 1+ (NEGATIVE) H Urine Occult Blood 4+ (NEGATIVE) H Urine Nitrite Negative (NEGATIVE) Urine Bilirubin Negative (NEGATIVE) Urine Urobilinogen Normal MG/DL (0.0-1.0) Urine Leukocyte Esterase 1+ (NEGATIVE) H Urine RBC 5-10 /HPF (0 - 0) H Urine WBC 2-4 /HPF (0 - 0) Urine Squamous Epithelial Cells None /LPF (NONE/OCC) Urine Bacteria Few /HPF (NONE) EKG Diagnostic Results Rate: tachycardiac Rhythm: other - s.tachy ST Segments: no acute changes Rhythm Strip Diag. Results EP Interpretation: yes Rate: 120's Rhythm: no PVC's, no ectopy, other - S.tachy CT/MRI/US Diagnostic Results CT/MRI/US Diagnostic Results : Imaging Test Ordered: CT abd/pelvis Impression Findings concerning for small bowel obstruction. See official report. Last Vital Signs Date Time Temp Pulse Resp B/P (MAP) Pulse Ox O2 Delivery O2 Flow Rate FiO2 02/10/18 17:28 122 20 151/87 95 Nasal Cannula 4.0 02/10/18 16:22 98.3 02/10/18 14:54 98 Disposition: ADMITTED INPATIENT Condition: Critical Referrals: Dipesh Cardoza MD (PCP) BRIANNA BISHOP D.O. February 10, 2018 19:50
[2018-02-10 20:30] VITALS: BP 162/83
[2018-02-10 20:32] VITALS: BP 162/83
[2018-02-10] MEDS ORDERED: Theophylline ER 100mg ORAL SCH (21:00)
[2018-02-10] MEDS: Zosyn 3.375gm q8h **Extended infusion IVPB SCH ×2 (21:22)
[2018-02-10] MEDS: Heparin 5000 units/ml inj SUBQ SCH (21:24)
[2018-02-10] MEDS ORDERED: Piperacillin/Tazobactam 2.25 GM in D5W 55 ML IV SCH (22:00)
[2018-02-10] MEDS ORDERED: Metoclopramide 10mg/2ml Inj IVP PRN (22:15)
[2018-02-10] MEDS: D5 1/2NS 1,000 ML IV SCH (22:55)
--- NOTE | 2018-02-10 23:42 | History & Physical ---
History and Physical History & Physicial job # [id number] Dipesh Cardoza MD February 10, 2018 23:42
[2018-02-10] MEDS ORDERED: Fleet's Enema 133ml RECTAL SCH (23:45)
--- NOTE | 2018-02-10 23:45 | Consultation ---
DATE OF CONSULTATION: 02/10/2018 CONSULTING PHYSICIAN: Jeanine Hicks M.D. REQUESTING PHYSICIAN: Emergency room physician. REASON FOR CONSULTATION: Abdominal pain. HISTORY OF PRESENT ILLNESS: This is a 68-year-old male, who was brought to the emergency room from [facility] for constipation. The patient stated that he has been unable to have a bowel movement or even pass gas for two days. Besides, he complains of abdominal pain and apparently the pain is located at the mid abdomen. He denies any nausea or vomiting. He denies any fever. He denies any cough, dysuria, or frequency. He denies any previous history of similar episode. On admission to the emergency room, it was noticed that the patient had shortness of breath and he was given respiratory therapy after which he felt better about breathing. He claims that the abdominal pain is steady without radiation. PAST MEDICAL HISTORY: He denies allergies, diabetes, and renal diseases. He has a history of chronic obstructive pulmonary disease, apparently hypertension, but he has a history of congestive heart failure, coronary artery disease, and atrial fibrillation, and apparently he has had a cardiopulmonary arrest in October 2017. PAST SURGICAL HISTORY: None. MEDICATIONS: Please see the medicine reconciliation form. SOCIAL HISTORY: The patient is a 68-year-old male, single, father of two children. Currently, he is a resident of [facility] and he stated that this is because he passes out. He claims that he has quit smoking a long time ago. He denies drinking. REVIEW OF SYSTEMS: He complains of weakness. PHYSICAL EXAMINATION: GENERAL: The patient appeared to be a well-developed and well-nourished 68-year-old male, lying in bed, not in acute distress. HEENT: Head is normocephalic and atraumatic. Eyes, pupils are equal, round, and reactive to light. Mouth is clear, but poor denture. NECK: There is no palpable thyromegaly or adenopathy. CHEST: Clear to auscultation and percussion. HEART: There is no gallop or murmur. S1 and S2 are within normal limits. ABDOMEN: Severely distended, under tension, but apparently it is not very tender. Although at the emergency room, it has been tender to palpation, but at this time, he claims that it is not tender. Bowel sounds are hypoactive. GENITALIA: No hernia. EXTREMITIES: Within normal limits. LABORATORY DATA: CBC has shown a normal WBC with a mild left shift. Chemistry is normal. CAT scan of the abdomen shows dilated small bowel, but he has stool and gas in the colon. The stomach is severely distended and full of secretion. ASSESSMENT: Rule out bowel obstruction versus paralytic ileus. RECOMMENDATIONS: At this time, the patient requires to be NPO. He requires a NG-tube placement to be hooked up with the suction and I took the liberty of ordering a Gastrografin follow-through. Jeanine Hicks M.D. DR: VIANEY JOB#: [id number] CC:
[2018-02-11] VITALS (7 sets, daily range): BP systolic 126–174; BP diastolic 71–99
[2018-02-11] MEDS: Solu-MEDROL 125mg Inj IV SCH ×5 (00:32→23:32)
--- NOTE | 2018-02-11 02:00 | History and Physical Report ---
DATE OF ADMISSION: 02/10/2018 CHIEF COMPLAINT: Transfer from the rehabilitation [facility] due to abdominal distention. HISTORY OF PRESENT ILLNESS: This is a 68-year-old very unfortunate gentleman with past medical history significant for COPD, chronic smoker, atrial flutter with congestive heart failure with a reduced ejection fraction of 31%, prior history of respiratory failure as well as cardiac arrest who was presented to the hospital from nursing facility after it was noted to have severe shortness of breath and abdominal distention. Shortly after initial evaluation in the emergency, the patient was admitted to the hospital with acute COPD and severe constipation. The patient stated that he had bowel movement for the past 4 days and he denies any fever, chills, nausea, or vomiting. Denies any chest pain. Denies any cough or chest congestion. Multiple cardiopulmonary arrest in October 2017 and required intubation. PAST MEDICAL HISTORY/PAST SURGICAL HISTORY: As above, history of coronary artery disease with myocardial infarction, congestive heart failure, atrial fibrillation, COPD, GERD, history of PEA arrest in 10/2016 and respiratory failure and influenza with superimposed pneumonia. MEDICATIONS: At the nursing facility, please refer to medication reconciliation list. ALLERGIES: No known drug allergies. SOCIAL HISTORY: Ex-smoker. No substance abuse. intermediate resident. FAMILY HISTORY: Noncontributory. REVIEW OF SYSTEMS: Very limited secondary to the patient's status. No fever or chills. No nausea or vomiting, complained about constipation. PHYSICAL EXAMINATION: VITAL SIGNS: On admission, temperature 98.2 degrees, pulse of 102, respirations 20, and blood pressure 147/94. GENERAL: The patient is awake, responsive, in no acute distress. HEAD AND NECK: Pupils are equal and reactive to light. Anicteric. Neck was supple. No JVD. LUNGS: Decreased air in the bases. No wheezes. No rhonchi. HEART: S1 and S2. Tachycardic. No murmur. ABDOMEN: Hard, distended. No rebound tenderness. No fluid shift. EXTREMITIES: No cyanosis, clubbing, or edema. NEUROLOGIC: Cranial nerves II through XII grossly intact. The patient moving all extremities. Gait was not assessed due to patient's status. LABORATORY AND DIAGNOSTIC DATA: On admission from the ER, sodium 132, potassium 5.4, chloride 90, bicarbonate is 38, BUN 22, creatinine 1.0, GFR is greater than 60 and glucose is 120. Lactic acid is 1.30. Calcium is 10.6. AST of 33 and ALT of 28. ProBNP of 117. Total protein 9.8. WBC of 8.9, hemoglobin 13, hematocrit 44, and platelet is 255. Urinalysis, +3 protein, +4 occult blood, +1 leukocytes, and few bacteria. The patient had a chest x-ray done, which noted COPD changes and no acute process. EKG was noted to be sinus tachycardia with ventricular rate of 103, occasional PVCs. No ST elevation was identified. ASSESSMENT: 1. Abdominal distention, possible due to the constipation and fecal impaction. 2. Acute COPD. 3. History of atrial flutter. 4. Dehydration. 5. History of CHF with systolic dysfunction. 6. GERD. 7. Hyponatremia. 8. Hyperkalemia. 9. Acute kidney injury. PLAN: Admit the patient to [facility]. We will follow up laboratory and Dr. Katz from Pulmonary Critical Care, Dr. Rosen from Nephrology, IV hydration, broad-spectrum antibiotics with Zosyn and Fleet enema. KUB. CT scan of the abdomen abdominal decompression has not been done. We will monitor laboratory in the morning. Code status is Full Code as per POLST. Activity as tolerated. Diet, clear liquid. DVT prophylaxis with heparin subcutaneous. Dipesh Cardoza M.D. DR: ZARI JOB#: [id number] CC:
[2018-02-11] MEDS: Zosyn 3.375gm q8h **Extended infusion IVPB SCH ×4 (06:06→14:21)
[2018-02-11] MEDS: D5 1/2NS 1,000 ML IV SCH (08:15)
[2018-02-11] MEDS: Heparin 5000 units/ml inj SUBQ SCH (09:02)
--- NOTE | 2018-02-11 09:11 | Diagnostic Imaging Report ---
Clinical Indication: Abdominal pain times one day. Constipation Technique: No oral contrast utilized, per emergency room physician request IV administration nonionic contrast. Venous phase spiral acquisition obtained through the abdomen and pelvis. Multiplanar reconstructions were generated. Total dose length product 677.38 mGycm. CTDIvol(s) 12.77 mGy. Dose reduction achieved using automated exposure control Comparison: none Findings: Small bowel loops are diffusely dilated and fluid-filled. There are nondilated small bowel loops in the upper abdomen. However, these may be proximal rather than distal. There may be a transition point to nondilated distal small bowel in the right lower quadrant, although suspect this is difficult to state for certain, and the course of the distal ileum is not well delineated. The appendix is not definitely demonstrated. There are equivocal small colonic diverticula. No evidence of diverticulitis. No free or loculated intraperitoneal air or fluid is evident. The stomach is distended. The distal esophagus is unremarkable. The duodenum is unremarkable. Numerous radiopaque tablets are seen throughout the stomach, small bowel, and colon The liver demonstrates subcentimeter low-attenuation lesions which are too small to characterize. The gallbladder, bile ducts, pancreas, spleen, adrenals, kidneys are unremarkable. No retroperitoneal or mesenteric mass or adenopathy. No pelvic mass or adenopathy. The lung bases demonstrate hyperinflation and fibrotic changes. The bones demonstrate mild degenerative spondylosis changes. Impression: Diffusely dilated fluid-filled small bowel loops. Appearance is highly suggestive of distal small bowel obstruction. However, transition point is only equivocally demonstrated, and it is possible of the dilatation extends to the terminal ileum, indicating that ileus is also within the differential diagnosis Colonic diverticulosis. No evidence of diverticulitis Subcentimeter low-attenuation liver lesions, too small to characterize, most likely benign simple cysts or bile hamartomas. No further follow-up necessary Pulmonary COPD changes Degenerative spondylosis incidentally noted This agrees with the preliminary interpretation provided overnight by [employer] teleradiology service. The CT scanner at [facility] is accredited by the [employer] and the scans are performed using protocols designed to limit radiation exposure to as low as reasonably achievable to attain images of sufficient resolution adequate for diagnostic evaluation.
--- NOTE | 2018-02-11 09:29 | Diagnostic Imaging Report ---
Indication: Abdominal distention Technique: Supine view of the abdomen Comparison: Treatment Specialist image from CT scan 02/10/2018 Findings: Again demonstrated is diffuse gaseous distention of small bowel, overall unchanged. Gas and stool are seen in the proximal colon. Contrast from prior intravenous contrast injection is seen within the bladder. Impression: Unchanged small bowel distention, previously thought to represent distal small bowel obstruction, over one day
--- NOTE | 2018-02-11 10:48 | Consultation ---
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 and constipation. Denies chest pain, Abd pain. He was in respiratory failure in ER, is admitted to [facility] for further evaluation. Allergies: Coded Allergies: No Known Allergies (Unverified , 10/30/16) Medication History Scheduled Ascorbic Acid* (Ascorbic Acid*), 500 MG ORAL DAILY, (Reported) Aspirin* (Aspir 81*), 81 MG ORAL DAILY, (Reported) Ferrous Sulfate* (Ferrous Sulfate*), 325 MG ORAL DAILY, (Reported) Fluticasone/Salmeterol (Advair 250-50 Diskus), 1 PUFF INH Q12H, (Reported) Ipratropium [place] (Atrovent Hfa), 12.9 GM INH Q6HR, (Reported) Magnesium Oxide (Magnesium Oxide), 400 MG ORAL TID, (Reported) Metoprolol Tartrate* (Metoprolol Tartrate*), 25 MG ORAL EVERY 12 HOURS, ( Reported) Multivitamin With Minerals (Multivitamins With Minerals*), 1 TAB ORAL DAILY, ( Reported) Na Phos,M-B/Na Phos,Di-Ba* (Fleet Enema*), 133 ML RECTAL DAILY, (Reported) Sennosides (Senna), 8.6 MG PO HS, (Reported) Tiotropium [place]* (Spiriva*), 1 PUFF INH DAILY, (Reported) Scheduled PRN Acetaminophen* (Acetaminophen 325MG Tablet*), 650 MG ORAL Q6H PRN for Fever/ Headache/Mild Pain, (Reported) Albuterol Sulfate* (Albuterol Sulfate Hhn*), 2.5 MG HHN EVERY 4 HOURS PRN for Bronchospasm, (Reported) Miscellaneous Medications Ipratropium/Albuterol Sulfate (DuoNeb 0.5-3(2.5)mg/3ml), 3 ML HHN, (Reported) Discontinued Medications Guaifenesin (Mucinex), 600 MG PO BID, (Reported) Discontinued Reason: Pt stopped taking med Guaifenesin/Codeine (Guaifenesin-Codeine Syrup), 5 ML ORAL Q6H PRN for For Cough , (Reported) Discontinued Reason: Pt stopped taking med Hydrocodone Bit/Acetaminophen 5-325* ([place] 5-325*), 1 TAB ORAL Q12HR PRN for For Pain Discontinued Reason: Pt stopped taking med Ibuprofen* (Motrin*), 600 MG ORAL Q12HR PRN for For Pain Discontinued Reason: Pt stopped taking med Insulin Aspart (Novolog Flexpen), SQ ACHS, (Reported) Discontinued Reason: Pt stopped taking med Nitroglycerin (Nitroglycerin), 0.4 MG SL PRN, (Reported) Discontinued Reason: Pt stopped taking med Ondansetron (Zofran), 4 MG ORAL Q6H PRN for Nausea & Vomiting, (Reported) Discontinued Reason: Pt stopped taking med Prednisone (Deltasone), 20 MG PO DAILY, (Reported) Discontinued Reason: Pt stopped taking med Theophylline (Theodur*), 100 MG ORAL DAILY, (Reported) Discontinued Reason: Pt stopped taking med Patient History Healthcare decision maker N Resuscitation status Full Code Advanced Directive on File Past Medical/Surgical History Past Medical/Surgical History: (1) Emphysema, unspecified (2) COPD (chronic obstructive pulmonary disease) with emphysema Review of Systems All Other Systems: negative except mentioned in HPI Physical Exam General Appearance: cachetic Lines, tubes and drains: peripheral HEENT: normocephalic Neck: non-tender, normal alignment Respiratory/Chest: chest wall non-tender, lungs clear Cardiovascular/Chest: normal peripheral pulses, normal rate Abdomen: normal bowel sounds, non tender Genitourinary/Rectal: normal genital exam Extremities: normal range of motion Last 24 Hour Vital Signs Date Time Temp Pulse Resp B/P (MAP) Pulse Ox O2 Delivery O2 Flow Rate FiO2 02/11/18 08:00 97.8 92 21 126/71 99 Nasal Cannula 4.0 97.8 02/11/18 08:00 89 20 Nasal Cannula 4.0 36 02/11/18 08:00 106 02/11/18 04:16 105 02/11/18 04:00 97.4 115 32 163/97 83 Nasal Cannula 4.0 97.4 02/11/18 00:00 98.0 120 32 152/97 84 Nasal Cannula 4.0 98.0 02/10/18 23:24 125 02/10/18 23:12 86 20 Nasal Cannula 2.0 28 02/10/18 20:35 98.3 127 24 162/83 96 Nasal Cannula 3.0 98 98.3 02/10/18 20:32 98.3 127 24 162/83 96 Nasal Cannula 3.0 98.3 02/10/18 20:30 98.3 127 24 162/83 96 Nasal Cannula 3.0 98.3 02/10/18 17:28 122 20 151/87 95 Nasal Cannula 4.0 02/10/18 16:28 123 24 160/82 90 Nasal Cannula 4.0 02/10/18 16:22 98.3 02/10/18 14:54 103 18 99 Nasal Cannula 2.0 98 02/10/18 14:32 28 02/10/18 14:32 106 20 99 Nasal Cannula 2.0 28 02/10/18 14:30 106 20 98 Nasal Cannula 2.0 98 02/10/18 14:06 104 18 99 Nasal Cannula 2.0 28 02/10/18 14:06 28 02/10/18 14:05 104 20 99 Nasal Cannula 2.0 98 02/10/18 13:53 28 02/10/18 13:53 105 20 Nasal Cannula 2.0 28 02/10/18 13:53 105 20 98 Nasal Cannula 2.0 28 02/10/18 13:48 101 23 140/93 98 Room Air 02/10/18 13:17 98.3 102 20 147/94 98 Nasal Cannula 3.0 98.2 Intake and Output 02/10/18 02/11/18 19:00 07:00 Intake Total 1555 ml 1093.19 ml Output Total 500 ml Balance 1555 ml 593.19 ml Intake Oral 0 ml 150 ml IV Total 1555 ml 943.19 ml Output Urine Total 500 ml # Voids 2 Laboratory Tests Test 02/10/18 14:00 02/10/18 15:19 White Blood Count 8.9 K/UL (4.8-10.8) Red Blood Count 5.13 M/UL (4.70-6.10) Hemoglobin 13.2 G/DL (14.2-18.0) L Hematocrit 44.0 % (42.0-52.0) Mean Corpuscular Volume 86 FL (80-99) Mean Corpuscular Hemoglobin 25.8 PG (27.0-31.0) L Mean Corpuscular Hemoglobin Concent 30.1 G/DL (32.0-36.0) L Red Cell Distribution Width 16.6 % (11.6-14.8) H Platelet Count 255 K/UL (150-450) Mean Platelet Volume 8.5 FL (6.5-10.1) Neutrophils (%) (Auto) % (45.0-75.0) Lymphocytes (%) (Auto) % (20.0-45.0) Monocytes (%) (Auto) % (1.0-10.0) Eosinophils (%) (Auto) % (0.0-3.0) Basophils (%) (Auto) % (0.0-2.0) Differential Total Cells Counted 100 Neutrophils % (Manual) 85 % (45-75) H Lymphocytes % (Manual) 5 % (20-45) L Monocytes % (Manual) 9 % (1-10) Eosinophils % (Manual) 1 % (0-3) Basophils % (Manual) 0 % (0-2) Band Neutrophils 0 % (0-8) Platelet Estimate Adequate Platelet Morphology Normal Hypochromasia 1+ Anisocytosis 1+ Sodium Level 132 MMOL/L (136-145) L Potassium Level 5.4 MMOL/L (3.5-5.1) H Chloride Level 90 MMOL/L (98-107) L Carbon Dioxide Level 38 MMOL/L (21-32) H Anion Gap 4 mmol/L (5-15) L Blood Urea Nitrogen 22 mg/dL (7-18) H Creatinine 1.0 MG/DL (0.55-1.30) Estimat Glomerular Filtration Rate > 60 mL/min (>60) Glucose Level 120 MG/DL (74-106) H Lactic Acid Level 1.30 mmol/L (0.66-2.22) Calcium Level 10.6 MG/DL (8.5-10.1) H Total Bilirubin 0.6 MG/DL (0.2-1.0) Aspartate Amino Transf (AST/SGOT) 33 U/L (15-37) Alanine Aminotransferase (ALT/SGPT) 28 U/L (12-78) Alkaline Phosphatase 78 U/L (46-116) Total Creatine Kinase 225 U/L (26-308) Creatine Kinase MB 3.7 NG/ML (0.0-3.6) H Creatine Kinase MB Relative Index 1.6 Troponin I 0.000 ng/mL (0.000-0.056) Pro-B-Type Natriuretic Peptide 117 pg/mL (0-125) Total Protein 9.8 G/DL (6.4-8.2) H Albumin 4.7 G/DL (3.4-5.0) Globulin 5.1 g/dL Albumin/Globulin Ratio 0.9 (1.0-2.7) L Urine Color Yellow Urine Appearance Clear Urine pH 5 (4.5-8.0) Urine Specific [place] 1.020 (1.005-1.035) Urine Protein 3+ (NEGATIVE) H Urine Glucose (UA) Negative (NEGATIVE) Urine Ketones 1+ (NEGATIVE) H Urine Occult Blood 4+ (NEGATIVE) H Urine Nitrite Negative (NEGATIVE) Urine Bilirubin Negative (NEGATIVE) Urine Urobilinogen Normal MG/DL (0.0-1.0) Urine Leukocyte Esterase 1+ (NEGATIVE) H Urine RBC 5-10 /HPF (0 - 0) H Urine WBC 2-4 /HPF (0 - 0) Urine Squamous Epithelial Cells None /LPF (NONE/OCC) Urine Bacteria Few /HPF (NONE) Height (Feet): 5 Height (Inches): 7.00 Weight (Pounds): 64 Medications Current Medications Medications (Trade) Dose Ordered Sig/Radha Route PRN Reason Start Time Stop Time Status Last Admin Dose Admin Albuterol/ Ipratropium (Albuterol/ Ipratropium) 3 ml Q4H PRN HHN dyspnea 02/10/18 18:45 02/15/18 18:44 Dextrose (Dextrose 50%) 25 ml PRN IV Hypoglycemia 02/10/18 19:00 03/12/18 18:59 Dextrose (Dextrose 50%) 50 ml PRN IV hypoglycemia 02/10/18 19:00 03/12/18 18:59 Dextrose/Sodium Chloride 1,000 ml @ 100 mls/hr Q10H IV 02/10/18 22:15 03/12/18 22:14 02/10/18 22:55 Heparin Sodium (Porcine) (Heparin 5000 units/ml) 5,000 units EVERY 12 HOURS SUBQ 02/10/18 21:00 03/12/18 20:59 02/11/18 09:02 Iopamidol (Isovue-300 100ml) 100 ml NOW PRN INJ Radiology Procedure 02/10/18 16:30 Ketorolac Tromethamine (Toradol 30mg) 30 mg Q8H PRN IV Moderate Pain (Pain Scale 4-6) 02/10/18 18:45 02/15/18 18:44 Lorazepam (Ativan 2mg/ml 1ml) 0.5 mg Q4H PRN IV For Anxiety 02/10/18 18:45 02/17/18 18:44 Methylprednisolone Sodium Succinate (Solu-MEDROL) 60 mg EVERY 6 HOURS IV 02/11/18 00:00 03/13/18 00:00 02/11/18 06:06 Metoclopramide HCl (Reglan) 10 mg Q8H PRN IVP Nausea & Vomiting 02/10/18 22:15 03/12/18 22:14 Nitroglycerin (Ntg) 0.4 mg Q5M X 3 DOSES PRN SL Prn Chest Pain 02/10/18 18:45 03/12/18 18:44 Ondansetron HCl (Zofran) 4 mg Q6H PRN IVP Nausea & Vomiting 02/10/18 18:45 03/12/18 18:44 Piperacillin Sod/ Tazobactam Sod 3.375 gm/Sodium Chloride 110 ml @ 27.5 mls/hr EVERY 8 HOURS IVPB 02/10/18 20:00 02/15/18 19:59 02/11/18 06:06 Promethazine HCl/ Codeine (Phenergan with Codeine) 5 ml Q6H PRN ORAL cough 02/10/18 18:45 03/12/18 18:44 Temazepam (Restoril) 15 mg HSPRN PRN ORAL Insomnia 02/10/18 21:00 02/17/18 20:59 Tiotropium Jackson (Spiriva Inhaler) 1 puff DAILY INH 02/11/18 10:45 03/13/18 10:44 UNV Assessment/Plan Problem List: (1) Acute respiratory failure ICD Codes: J96.00 - Acute respiratory failure, unspecified whether with hypoxia or hypercapnia SNOMED: 61766308 (2) copd exacerbation (3) Protein-calorie malnutrition, severe ICD Codes: E43 - Unspecified severe protein-calorie malnutrition SNOMED: 512149769 (4) Emphysema, unspecified ICD Codes: J43.9 - Emphysema, unspecified SNOMED: 88591495 Assessment/Plan respiratory treatment check sputum iv steroids iv abx theophylline laxatives. Jose Cruz Katz MD February 11, 2018 10:48
--- NOTE | 2018-02-11 11:13 | General Surgery Progress Note ---
General Surgery-Progress Note Objective Last 24 Hour Vital Signs Date Time Temp Pulse Resp B/P (MAP) Pulse Ox O2 Delivery O2 Flow Rate FiO2 02/11/18 08:00 97.8 92 21 126/71 99 Nasal Cannula 4.0 97.8 02/11/18 08:00 89 20 Nasal Cannula 4.0 36 02/11/18 08:00 106 02/11/18 04:16 105 02/11/18 04:00 97.4 115 32 163/97 83 Nasal Cannula 4.0 97.4 02/11/18 00:00 98.0 120 32 152/97 84 Nasal Cannula 4.0 98.0 02/10/18 23:24 125 02/10/18 23:12 86 20 Nasal Cannula 2.0 28 02/10/18 20:35 98.3 127 24 162/83 96 Nasal Cannula 3.0 98 98.3 02/10/18 20:32 98.3 127 24 162/83 96 Nasal Cannula 3.0 98.3 02/10/18 20:30 98.3 127 24 162/83 96 Nasal Cannula 3.0 98.3 02/10/18 17:28 122 20 151/87 95 Nasal Cannula 4.0 02/10/18 16:28 123 24 160/82 90 Nasal Cannula 4.0 02/10/18 16:22 98.3 02/10/18 14:54 103 18 99 Nasal Cannula 2.0 98 02/10/18 14:32 28 02/10/18 14:32 106 20 99 Nasal Cannula 2.0 28 02/10/18 14:30 106 20 98 Nasal Cannula 2.0 98 02/10/18 14:06 104 18 99 Nasal Cannula 2.0 28 02/10/18 14:06 28 02/10/18 14:05 104 20 99 Nasal Cannula 2.0 98 02/10/18 13:53 28 02/10/18 13:53 105 20 Nasal Cannula 2.0 28 02/10/18 13:53 105 20 98 Nasal Cannula 2.0 28 02/10/18 13:48 101 23 140/93 98 Room Air 02/10/18 13:17 98.3 102 20 147/94 98 Nasal Cannula 3.0 98.2 I&O Intake and Output 02/10/18 02/11/18 19:00 07:00 Intake Total 1555 ml 1093.19 ml Output Total 500 ml Balance 1555 ml 593.19 ml Intake Oral 0 ml 150 ml IV Total 1555 ml 943.19 ml Output Urine Total 500 ml # Voids 2 Respiratory: clear Abdomen: distended, non-tender, other - hypoactive BS had injection of analgesics cannot depend on no tendernss He refuses all interventions Extremities: no edema Laboratory Tests Test 02/10/18 14:00 02/10/18 15:19 White Blood Count 8.9 K/UL (4.8-10.8) Red Blood Count 5.13 M/UL (4.70-6.10) Hemoglobin 13.2 G/DL (14.2-18.0) L Hematocrit 44.0 % (42.0-52.0) Mean Corpuscular Volume 86 FL (80-99) Mean Corpuscular Hemoglobin 25.8 PG (27.0-31.0) L Mean Corpuscular Hemoglobin Concent 30.1 G/DL (32.0-36.0) L Red Cell Distribution Width 16.6 % (11.6-14.8) H Platelet Count 255 K/UL (150-450) Mean Platelet Volume 8.5 FL (6.5-10.1) Neutrophils (%) (Auto) % (45.0-75.0) Lymphocytes (%) (Auto) % (20.0-45.0) Monocytes (%) (Auto) % (1.0-10.0) Eosinophils (%) (Auto) % (0.0-3.0) Basophils (%) (Auto) % (0.0-2.0) Differential Total Cells Counted 100 Neutrophils % (Manual) 85 % (45-75) H Lymphocytes % (Manual) 5 % (20-45) L Monocytes % (Manual) 9 % (1-10) Eosinophils % (Manual) 1 % (0-3) Basophils % (Manual) 0 % (0-2) Band Neutrophils 0 % (0-8) Platelet Estimate Adequate Platelet Morphology Normal Hypochromasia 1+ Anisocytosis 1+ Sodium Level 132 MMOL/L (136-145) L Potassium Level 5.4 MMOL/L (3.5-5.1) H Chloride Level 90 MMOL/L (98-107) L Carbon Dioxide Level 38 MMOL/L (21-32) H Anion Gap 4 mmol/L (5-15) L Blood Urea Nitrogen 22 mg/dL (7-18) H Creatinine 1.0 MG/DL (0.55-1.30) Estimat Glomerular Filtration Rate > 60 mL/min (>60) Glucose Level 120 MG/DL (74-106) H Lactic Acid Level 1.30 mmol/L (0.66-2.22) Calcium Level 10.6 MG/DL (8.5-10.1) H Total Bilirubin 0.6 MG/DL (0.2-1.0) Aspartate Amino Transf (AST/SGOT) 33 U/L (15-37) Alanine Aminotransferase (ALT/SGPT) 28 U/L (12-78) Alkaline Phosphatase 78 U/L (46-116) Total Creatine Kinase 225 U/L (26-308) Creatine Kinase MB 3.7 NG/ML (0.0-3.6) H Creatine Kinase MB Relative Index 1.6 Troponin I 0.000 ng/mL (0.000-0.056) Pro-B-Type Natriuretic Peptide 117 pg/mL (0-125) Total Protein 9.8 G/DL (6.4-8.2) H Albumin 4.7 G/DL (3.4-5.0) Globulin 5.1 g/dL Albumin/Globulin Ratio 0.9 (1.0-2.7) L Urine Color Yellow Urine Appearance Clear Urine pH 5 (4.5-8.0) Urine Specific [place] 1.020 (1.005-1.035) Urine Protein 3+ (NEGATIVE) H Urine Glucose (UA) Negative (NEGATIVE) Urine Ketones 1+ (NEGATIVE) H Urine Occult Blood 4+ (NEGATIVE) H Urine Nitrite Negative (NEGATIVE) Urine Bilirubin Negative (NEGATIVE) Urine Urobilinogen Normal MG/DL (0.0-1.0) Urine Leukocyte Esterase 1+ (NEGATIVE) H Urine RBC 5-10 /HPF (0 - 0) H Urine WBC 2-4 /HPF (0 - 0) Urine Squamous Epithelial Cells None /LPF (NONE/OCC) Urine Bacteria Few /HPF (NONE) Assessment Additional Comments R/O paralitic Ileus Plan Additional Comments NG tube conservative treatment Jeanine Hicks MD February 11, 2018 11:13
[2018-02-11] MEDS ORDERED: Lactulose 20gm/30ml UDC ORAL SCH ×2 (13:00→18:00)
[2018-02-11] MEDS ORDERED: Sennosides 8.6mg ORAL SCH (13:00)
[2018-02-11] MEDS ORDERED: Docusate 100mg cap ORAL SCH ×2 (13:00→18:00)
--- NOTE | 2018-02-11 16:06 | Consultation ---
History of Present Illness General Date patient seen: February 11, 2018 Chief Complaint: Abdominal Pain Present Illness HPI 68-year-old male, who was [facility] constipation. The patient stated that he has been unable to have a bowel movement or even pass gas for two days. Allergies: Coded Allergies: No Known Allergies (Unverified , 10/30/16) Medication History Scheduled Ascorbic Acid* (Ascorbic Acid*), 500 MG ORAL DAILY, (Reported) Aspirin* (Aspir 81*), 81 MG ORAL DAILY, (Reported) Ferrous Sulfate* (Ferrous Sulfate*), 325 MG ORAL DAILY, (Reported) Fluticasone/Salmeterol (Advair 250-50 Diskus), 1 PUFF INH Q12H, (Reported) Ipratropium [place] (Atrovent Hfa), 12.9 GM INH Q6HR, (Reported) Magnesium Oxide (Magnesium Oxide), 400 MG ORAL TID, (Reported) Metoprolol Tartrate* (Metoprolol Tartrate*), 25 MG ORAL EVERY 12 HOURS, ( Reported) Multivitamin With Minerals (Multivitamins With Minerals*), 1 TAB ORAL DAILY, ( Reported) Na Phos,M-B/Na Phos,Di-Ba* (Fleet Enema*), 133 ML RECTAL DAILY, (Reported) Sennosides (Senna), 8.6 MG PO HS, (Reported) Tiotropium [place]* (Spiriva*), 1 PUFF INH DAILY, (Reported) Scheduled PRN Acetaminophen* (Acetaminophen 325MG Tablet*), 650 MG ORAL Q6H PRN for Fever/ Headache/Mild Pain, (Reported) Albuterol Sulfate* (Albuterol Sulfate Hhn*), 2.5 MG HHN EVERY 4 HOURS PRN for Bronchospasm, (Reported) Miscellaneous Medications Ipratropium/Albuterol Sulfate (DuoNeb 0.5-3(2.5)mg/3ml), 3 ML HHN, (Reported) Discontinued Medications Guaifenesin (Mucinex), 600 MG PO BID, (Reported) Discontinued Reason: Pt stopped taking med Guaifenesin/Codeine (Guaifenesin-Codeine Syrup), 5 ML ORAL Q6H PRN for For Cough , (Reported) Discontinued Reason: Pt stopped taking med Hydrocodone Bit/Acetaminophen 5-325* ([place] 5-325*), 1 TAB ORAL Q12HR PRN for For Pain Discontinued Reason: Pt stopped taking med Ibuprofen* (Motrin*), 600 MG ORAL Q12HR PRN for For Pain Discontinued Reason: Pt stopped taking med Insulin Aspart (Novolog Flexpen), SQ ACHS, (Reported) Discontinued Reason: Pt stopped taking med Nitroglycerin (Nitroglycerin), 0.4 MG SL PRN, (Reported) Discontinued Reason: Pt stopped taking med Ondansetron (Zofran), 4 MG ORAL Q6H PRN for Nausea & Vomiting, (Reported) Discontinued Reason: Pt stopped taking med Prednisone (Deltasone), 20 MG PO DAILY, (Reported) Discontinued Reason: Pt stopped taking med Theophylline (Theodur*), 100 MG ORAL DAILY, (Reported) Discontinued Reason: Pt stopped taking med Patient History Limited by: medical condition History Provided By: Patient, Medical Record, PMD Healthcare decision maker N Resuscitation status Full Code Advanced Directive on File Past Medical/Surgical History Past Medical/Surgical History: (1) SOB (shortness of breath) (2) Chest tightness (3) Emphysema, unspecified (4) COPD (chronic obstructive pulmonary disease) with emphysema (5) Respiratory failure (6) Protein-calorie malnutrition, severe (7) Acute respiratory failure (8) CHF (congestive heart failure) (9) Hypertension (10) copd exacerbation (11) SBO (small bowel obstruction) (12) Acute respiratory failure (13) copd exacerbation (14) ATN (acute tubular necrosis) (15) Unresponsive episode Physical Exam General Appearance: WD/WN, no apparent distress Last 24 Hour Vital Signs Date Time Temp Pulse Resp B/P (MAP) Pulse Ox O2 Delivery O2 Flow Rate FiO2 02/11/18 14:14 110 22 84 Nasal Cannula 32 02/11/18 12:00 97.8 117 22 153/99 99 Nasal Cannula 4.0 97.8 117 02/11/18 12:00 115 02/11/18 08:00 97.8 92 21 126/71 99 Nasal Cannula 4.0 97.8 02/11/18 08:00 89 20 Nasal Cannula 4.0 36 02/11/18 08:00 106 02/11/18 04:16 105 02/11/18 04:00 97.4 115 32 163/97 83 Nasal Cannula 4.0 97.4 02/11/18 00:00 98.0 120 32 152/97 84 Nasal Cannula 4.0 98.0 02/10/18 23:24 125 02/10/18 23:12 86 20 Nasal Cannula 2.0 28 02/10/18 20:35 98.3 127 24 162/83 96 Nasal Cannula 3.0 98 98.3 02/10/18 20:32 98.3 127 24 162/83 96 Nasal Cannula 3.0 98.3 02/10/18 20:30 98.3 127 24 162/83 96 Nasal Cannula 3.0 98.3 02/10/18 17:28 122 20 151/87 95 Nasal Cannula 4.0 02/10/18 16:28 123 24 160/82 90 Nasal Cannula 4.0 02/10/18 16:22 98.3 Intake and Output 02/10/18 02/11/18 19:00 07:00 Intake Total 1555 ml 1093.19 ml Output Total 500 ml Balance 1555 ml 593.19 ml Intake Oral 0 ml 150 ml IV Total 1555 ml 943.19 ml Output Urine Total 500 ml # Voids 2 Height (Feet): 5 Height (Inches): 7.00 Weight (Pounds): 64 Medications Current Medications Medications (Trade) Dose Ordered Sig/Radha Route PRN Reason Start Time Stop Time Status Last Admin Dose Admin Albuterol/ Ipratropium (Albuterol/ Ipratropium) 3 ml Q4H PRN HHN dyspnea 02/10/18 18:45 02/15/18 18:44 Dextrose (Dextrose 50%) 25 ml PRN IV Hypoglycemia 02/10/18 19:00 03/12/18 18:59 Dextrose (Dextrose 50%) 50 ml PRN IV hypoglycemia 02/10/18 19:00 03/12/18 18:59 Docusate Sodium (Colace) 100 mg THREE TIMES A DAY ORAL 02/11/18 13:00 03/13/18 12:59 02/11/18 13:36 Heparin Sodium (Porcine) (Heparin 5000 units/ml) 5,000 units EVERY 12 HOURS SUBQ 02/10/18 21:00 03/12/18 20:59 02/11/18 09:02 Lactulose (Cephulac) 30 gm THREE TIMES A DAY ORAL 02/11/18 13:00 03/13/18 12:59 02/11/18 13:36 Lorazepam (Ativan 2mg/ml 1ml) 0.5 mg Q4H PRN IV For Anxiety 02/10/18 18:45 02/17/18 18:44 Methylprednisolone Sodium Succinate (Solu-MEDROL) 60 mg EVERY 6 HOURS IV 02/11/18 00:00 03/13/18 00:00 02/11/18 11:37 Metoclopramide HCl (Reglan) 10 mg Q8H PRN IVP Nausea & Vomiting 02/10/18 22:15 03/12/18 22:14 Mineral Oil (Fleet's Mineral Oil Enema) 133 ml EVERY OTHER DAY RECTAL 02/13/18 09:00 03/15/18 08:59 Nitroglycerin (Ntg) 0.4 mg Q5M X 3 DOSES PRN SL Prn Chest Pain 02/10/18 18:45 03/12/18 18:44 Ondansetron HCl (Zofran) 4 mg Q6H PRN IVP Nausea & Vomiting 02/10/18 18:45 03/12/18 18:44 Piperacillin Sod/ Tazobactam Sod 3.375 gm/Sodium Chloride 110 ml @ 27.5 mls/hr EVERY 8 HOURS IVPB 02/10/18 20:00 02/15/18 19:59 02/11/18 14:21 Promethazine HCl/ Codeine (Phenergan with Codeine) 5 ml Q6H PRN ORAL cough 02/10/18 18:45 03/12/18 18:44 Sennosides (Senokot) 1 tab DAILY ORAL 02/12/18 09:00 03/14/18 08:59 Temazepam (Restoril) 15 mg HSPRN PRN ORAL Insomnia 02/10/18 21:00 02/17/18 20:59 Theophylline (Alen-Dur) 100 mg EVERY 12 HOURS ORAL 02/11/18 21:00 03/13/18 20:59 Tiotropium [place] (Spiriva Inhaler) 1 puff DAILY INH 02/11/18 13:00 03/13/18 12:59 02/11/18 13:46 Assessment/Plan Status: stable Assessment/Plan encephalopathy cont current meds Hair Liao M.D. February 11, 2018 16:06
--- NOTE | 2018-02-11 16:56 | Cardiology Report ---
APPROVED REPORT EKG Measurement Heart [id number] Sinus tachycardia with occasional premature ventricular complexes Otherwise normal ECG
[2018-02-11] MEDS ORDERED: Metoclopramide 10mg/2ml Inj IVP PRN (17:00)
[2018-02-11] MEDS ORDERED: LORazepam Inj 2mg/ml 1ml IV PRN (17:00)
[2018-02-11] MEDS ORDERED: Promethazine/Codeine 5ml UD ORAL PRN (17:00)
[2018-02-11] MEDS ORDERED: Nitroglycerin Subl 0.4mg tab SL PRN (17:00)
[2018-02-11] MEDS ORDERED: Albuterol/Ipratropium 3ml neb HHN PRN (17:00)
[2018-02-11] MEDS ORDERED: Heparin 5000 units/ml inj SUBQ SCH (21:00)
[2018-02-11] MEDS ORDERED: Theophylline ER 100mg ORAL SCH ×2 (21:00)
[2018-02-11] MEDS: Piperacillin/Tazobactam 3.375 GM in NS 110 ML IVPB SCH (22:14)
[2018-02-11] MEDS ORDERED: D5 1/2NS 1000ml IV ONE (22:22)
[2018-02-11] MEDS ORDERED: NS 275ml ONE (22:22)
[2018-02-11] MEDS ORDERED: Tubing IV Secondary IV ONE (22:22)
--- NOTE | 2018-02-11 22:59 | Internal Med Progress Note ---
Subjective Physician Name Dipesh Cardoza Attending Physician Dipesh Cardoza MD Current Medications Medications (Trade) Dose Ordered Sig/Radha Route PRN Reason Start Time Stop Time Status Last Admin Dose Admin Albuterol/ Ipratropium (Albuterol/ Ipratropium) 3 ml Q4H PRN HHN dyspnea 02/11/18 17:00 02/15/18 16:59 Amlodipine Besylate (Norvasc) 5 mg DAILY ORAL 02/12/18 09:00 03/14/18 08:59 Clonidine HCl (Catapres Tab) 0.1 mg Q4H PRN ORAL SBP > 160mmHg 02/11/18 21:30 03/13/18 21:29 02/11/18 21:55 Dextrose (Dextrose 50%) 25 ml PRN IV Hypoglycemia 02/11/18 16:45 03/12/18 18:59 Dextrose (Dextrose 50%) 50 ml PRN IV hypoglycemia 02/11/18 16:45 03/12/18 18:59 Docusate Sodium (Colace) 100 mg THREE TIMES A DAY ORAL 02/11/18 18:00 03/13/18 12:59 02/11/18 18:17 Heparin Sodium (Porcine) (Heparin 5000 units/ml) 5,000 units EVERY 12 HOURS SUBQ 02/11/18 21:00 03/12/18 20:59 02/11/18 22:04 Lactulose (Cephulac) 30 gm THREE TIMES A DAY ORAL 02/11/18 18:00 03/13/18 12:59 02/11/18 18:16 Lorazepam (Ativan 2mg/ml 1ml) 0.5 mg Q4H PRN IV For Anxiety 02/11/18 17:00 18 16:59 Methylprednisolone Sodium Succinate (Solu-MEDROL) 60 mg EVERY 6 HOURS IV 02/11/18 18:00 03/13/18 00:00 02/11/18 18:16 Metoclopramide HCl (Reglan) 10 mg Q8H PRN IVP Nausea & Vomiting 02/11/18 17:00 03/12/18 16:59 Mineral Oil (Fleet's Mineral Oil Enema) 133 ml EVERY OTHER DAY RECTAL 02/13/18 09:00 03/15/18 08:59 Nitroglycerin (Ntg) 0.4 mg Q5M X 3 DOSES PRN SL Prn Chest Pain 02/11/18 17:00 03/12/18 16:59 Ondansetron HCl (Zofran) 4 mg Q6H PRN IVP Nausea & Vomiting 02/11/18 17:00 03/12/18 16:59 Piperacillin Sod/ Tazobactam Sod 3.375 gm/Sodium Chloride 110 ml @ 27.5 mls/hr EVERY 8 HOURS IVPB 02/11/18 22:00 02/15/18 19:59 02/11/18 22:14 Promethazine HCl/ Codeine (Phenergan with Codeine) 5 ml Q6H PRN ORAL cough 02/11/18 17:00 03/12/18 16:59 Sennosides (Senokot) 1 tab DAILY ORAL 02/12/18 09:00 03/14/18 08:59 Temazepam (Restoril) 15 mg HSPRN PRN ORAL Insomnia 02/11/18 21:00 02/17/18 20:59 Theophylline (Alen-Dur) 100 mg EVERY 12 HOURS ORAL 02/11/18 21:00 03/13/18 20:59 02/11/18 21:54 Tiotropium Tarzan (Spiriva Inhaler) 1 puff DAILY INH 02/12/18 09:00 03/13/18 12:59 Allergies: Coded Allergies: No Known Allergies (Unverified , 10/30/16) Subjective awake, alert, responsive, NAD, No Gas or BM, C/O distended abdomen. Objective Last Vital Signs Date Time Temp Pulse Resp B/P (MAP) Pulse Ox O2 Delivery O2 Flow Rate FiO2 02/11/18 21:55 174/84 02/11/18 20:21 Nasal Cannula 4.0 36 02/11/18 20:21 92 02/11/18 20:18 108 24 02/11/18 20:00 97.3 97.3 Intake and Output 02/10/18 02/11/18 19:00 07:00 Intake Total 1555 ml 1093.19 ml Output Total 500 ml Balance 1555 ml 593.19 ml Intake Oral 0 ml 150 ml IV Total 1555 ml 943.19 ml Output Urine Total 500 ml # Voids 2 Objective General: No acute distress, awake and alert HEENT: NCAT, sclera anicteric, PERRL, EOMI. Neck: Supple, no significant jugular venous distention, Lungs: Fair inspiratory effort, decrease breath sound on bases bilaterally, no Wheeze or Rales. Heart: Regular rate and rhythm, normal S1/S2, no murmurs Abdomen: soft, nontender, + distended. hypoactive bowel sounds. / Rectal: Refused and deferred. Extremities: No Cyanosis , clubbing or edema. Neuro: A&O x 3, Able to move all extremities Assessment/Plan Assessment/Plan 1. Abdominal distention, possible due to the Small bowel obstruction Vs. paralytic Ileus. 2. Acute COPD. 3. History of atrial flutter. 4. Dehydration. 5. History of CHF with systolic dysfunction. 6. GERD. 7. Hyponatremia. 8. Hyperkalemia. 9. Acute kidney injury. 10. Severe protein calori malnutrition. Plan: F/U with surgery recommendations Monitor labs and cultures Abx: Zosyn Neb Tx Solumedral IV Full code heparin SQ Transfer to Telemetry Dipesh Cardoza MD February 11, 2018 22:59
[2018-02-12] VITALS (18 sets, daily range): BP systolic 105–155; BP diastolic 73–95
[2018-02-12] MEDS: Solu-MEDROL 125mg Inj IV SCH ×3 (05:31→18:39)
[2018-02-12] MEDS: Piperacillin/Tazobactam 3.375 GM in NS 110 ML IVPB SCH ×3 (05:33→22:07)
--- NOTE | 2018-02-12 08:45 | Emergency Room Report ---
History of Present Illness General Chief Complaint: Abdominal Pain Source: Patient, Medical Record, EMS Present Illness Allergies: Coded Allergies: No Known Allergies (Unverified , 10/30/16) Nursing Documentation-PMH Hx Cardiac Problems: Yes - AFlutter and Cardiac Arrest Hx Hypertension: No Hx Pacemaker: No Hx Asthma: Yes Hx COPD: Yes Hx Diabetes: No Hx Cancer: No Hx Gastrointestinal Problems: No Hx Dialysis: No Hx Neurological Problems: No Hx Cerebrovascular Accident: No Hx Seizures: No Physical Exam Vital Signs Date Time Temp Pulse Resp B/P (MAP) Pulse Ox O2 Delivery O2 Flow Rate FiO2 02/10/18 13:17 98.3 102 20 147/94 98 Nasal Cannula 3.0 98.2 02/10/18 13:53 28 Procedures Intubation Intubation : Consent: Emergent Intubation Method: orotracheal Tube Size (cm): 7.5 Medications: Succinylcholine Breath Sounds after Intubation: equal Intubation Complications: no complications Post Intubation Xray: Yes Progress/Xray Impression: see report Attempts: One Patient Tolerated: Well Complications: None Progress I was called for airway intubation on the floor. Patient has COPD and shows significant deterioration, including decreased pH and elevated CO2. On rapid secondary evaluation, patient is responsive very minimally to physical stimuli, does not appear to be protecting his airway and does require airway intubation Medical Decision Making Chest X-Ray Diagnostic Results Chest X-Ray Diagnostic Results : Chest X-Ray Ordered: Yes # of Views/Limited/Complete: 1 View Indication: Shortness of Breath EP Interpretation: Yes Interpretation: no consolidation, no effusion, no pneumothorax, other - Perihilar fullness, ET tube appropriate position above rico Impression: Other - ET tube appropriate Electronically Signed by: Denisa Echols DO Last Vital Signs Date Time Temp Pulse Resp B/P (MAP) Pulse Ox O2 Delivery O2 Flow Rate FiO2 02/12/18 04:00 97.2 116 18 153/87 91 Simple Mask 5.0 97.2 02/11/18 20:21 36 Disposition: ADMITTED INPATIENT Condition: Critical Referrals: Dipesh Cardoza MD (PCP) Denisa Echols DO February 12, 2018 08:45
[2018-02-12] MEDS ORDERED: Sennosides 8.6mg ORAL SCH ×2 (09:00)
[2018-02-12 09:21] LABS: HEMOGLOBIN 11.5 G/DL (14.2-18.0); MEAN CORPUSCULAR VOLUME 91 FL (80-99); PLATELET COUNT 187 K/UL (150-450); RED CELL DISTRIBUTION WIDTH 16.4 % (11.6-14.8); WHITE BLOOD COUNT 7.2 K/UL (4.8-10.8)
[2018-02-12] MEDS ORDERED: LORazepam Inj 2mg/ml 1ml IV PRN ×3 (09:36→14:15)
[2018-02-12] MEDS ORDERED: Albuterol/Ipratropium 3ml neb HHN PRN ×3 (09:37→13:45)
[2018-02-12 10:00] LABS: ALANINE AMINOTRANSFERASE 40 U/L (12-78); ALBUMIN 3.9 G/DL (3.4-5.0); ALBUMIN/GLOBULIN RATIO 0.9 (1.0-2.7); ALKALINE PHOSPHATASE 60 U/L (46-116); ANION GAP 0 mmol/L (5-15); ASPARTATE AMINO TRANSFERASE 68 U/L (15-37); BILIRUBIN,TOTAL 0.3 MG/DL (0.2-1.0); BLOOD UREA NITROGEN 29 mg/dL (7-18); CALCIUM 9.1 MG/DL (8.5-10.1); CHLORIDE 97 MMOL/L (98-107); CREATININE 1.1 MG/DL (0.55-1.30); PHOSPHORUS 4.5 MG/DL (2.5-4.9); SODIUM 140 MMOL/L (136-145)
[2018-02-12 10:03] LABS: CARBON DIOXIDE 43 MMOL/L (21-32); POTASSIUM 6.2 MMOL/L (3.5-5.1)
--- NOTE | 2018-02-12 10:14 | Diagnostic Imaging Report ---
Indication: Post intubation Technique: One view of the chest Comparison: 02/10/2018 Findings: Interim endotracheal intubation, endotracheal tube tip in good position, approximately 7 cm above the rico. Better inspiration currently. Lungs and pleural spaces are clear. Impression: Satisfactory endotracheal intubation No acute process
[2018-02-12] MEDS ORDERED: Morphine Sulfate 4mg/ml Inj IVP PRN ×2 (10:15→12:15)
--- NOTE | 2018-02-12 10:21 | Pulmonolgy Critical Care Note ---
Critical Care - Asmt/Plan Problems: (1) Acute respiratory failure (2) copd exacerbation (3) SBO (small bowel obstruction) (4) ATN (acute tubular necrosis) (5) Protein-calorie malnutrition, severe (6) Emphysema, unspecified Respiratory: monitor respiratory rate, adjust FIO2, CXR Cardiac: continue to monitor HR/BP Renal: F/U I&O, increase IV fluid, check electrolytes Infectious Disease: check cultures Gastrointestinal: hold feedings Endocrine: monitor blood sugar Prophylaxis: Protonix Disposition: keep in ICU Notes Reviewed: cardio, renal Discussed with: nurses, consultants Critical Care - Objective Last 24 Hour Vital Signs Date Time Temp Pulse Resp B/P (MAP) Pulse Ox O2 Delivery O2 Flow Rate FiO2 02/12/18 09:45 Mechanical Ventilator 40 02/12/18 09:44 Mechanical Ventilator 40 02/12/18 09:31 94 18 Mechanical Ventilator 40 02/12/18 09:29 104 18 40 02/12/18 09:00 104 18 116/73 94 Mechanical Ventilator 40 02/12/18 08:00 101 18 40 02/12/18 08:00 97.4 121 18 154/92 100 Mechanical Ventilator 40 97.4 02/12/18 08:00 118 02/12/18 04:00 97.2 116 18 153/87 91 Simple Mask 5.0 97.2 02/12/18 04:00 113 02/12/18 00:00 107 02/12/18 00:00 97.7 115 22 155/93 95 Nasal Cannula 4.0 97.7 02/11/18 23:18 161/98 02/11/18 21:55 174/84 02/11/18 20:21 Nasal Cannula 4.0 36 02/11/18 20:21 92 Nasal Cannula 4.0 36 02/11/18 20:18 108 24 Nasal Cannula 4.0 36 02/11/18 20:00 97.3 116 22 174/94 85 Nasal Cannula 4.0 97.3 109 02/11/18 20:00 116 02/11/18 16:00 98 02/11/18 16:00 98.7 109 28 156/85 90 Nasal Cannula 4.0 98.7 109 02/11/18 14:14 110 22 84 Nasal Cannula 32 02/11/18 12:00 97.8 117 22 153/99 99 Nasal Cannula 4.0 97.8 117 02/11/18 12:00 115 Status: awake Condition: critical HEENT: atraumatic, normocephalic Neck: full ROM Lungs: clear Heart: HR/BP stable Abdomen: soft, non-tender, feeding tube Extremities: edema Micro: Microbiology Date/Time Source Procedure Growth Status 02/10/18 14:15 Blood Blood Culture - Preliminary NO GROWTH AFTER 24 HOURS Resulted 02/10/18 14:00 Blood Blood Culture - Preliminary NO GROWTH AFTER 24 HOURS Resulted 02/10/18 15:08 Rectum VRE Culture - Final NO VANCOMYCIN RESISTANT ENTEROCOCCUS ... Complete Critical Care - Subjective ROS Limited/Unobtainable: No ICU Day: 1 Intubation Day: 1 Interval Events: intubated this morning because of worsening respiratory status FI02: 40 Vent Support Breath Rate: 18 Vent Support Mode: AC Vent Tidal Volume: 450 Sputum Amount: None PIP: 34 I&O: Intake and Output 02/11/18 02/12/18 19:00 07:00 Intake Total 360 ml 131.1 ml Output Total 480 ml 300 ml Balance -120 ml -168.9 ml Intake Oral 360 ml IV Total 131.1 ml Output Urine Total 480 ml 300 ml CXR: ET in good position ET-Tube: 7.5 ET Position: 24 Labs: Laboratory Tests Test 02/12/18 07:15 02/12/18 08:30 02/12/18 09:25 Arterial Blood pH 7.057 (7.350-7.450) 7.361 (7.350-7.450) Arterial Blood Partial Pressure CO2 189.5 mmHg (35.0-45.0) *H 79.9 mmHg (35.0-45.0) *H Arterial Blood Partial Pressure O2 105.3 mmHg (75.0-100.0) H 57.8 mmHg (75.0-100.0) L Arterial Blood HCO3 52.1 mmol/L (22.0-26.0) H 44.2 mmol/L (22.0-26.0) H Arterial Blood Oxygen Saturation 96.8 % (92.0-98.0) 92.4 % (92.0-98.0) Arterial Blood Base Excess 15.2 15.4 Efren Test Positive Positive White Blood Count 7.2 K/UL (4.8-10.8) Red Blood Count 4.30 M/UL (4.70-6.10) L Hemoglobin 11.5 G/DL (14.2-18.0) L Hematocrit 39.0 % (42.0-52.0) L Mean Corpuscular Volume 91 FL (80-99) Mean Corpuscular Hemoglobin 26.7 PG (27.0-31.0) L Mean Corpuscular Hemoglobin Concent 29.5 G/DL (32.0-36.0) L Red Cell Distribution Width 16.4 % (11.6-14.8) H Platelet Count 187 K/UL (150-450) Mean Platelet Volume 8.5 FL (6.5-10.1) Neutrophils (%) (Auto) % (45.0-75.0) Lymphocytes (%) (Auto) % (20.0-45.0) Monocytes (%) (Auto) % (1.0-10.0) Eosinophils (%) (Auto) % (0.0-3.0) Basophils (%) (Auto) % (0.0-2.0) Neutrophils % (Manual) Pending Lymphocytes % (Manual) Pending Platelet Estimate Pending Platelet Morphology Pending Erythrocyte Sedimentation Rate Pending Prothrombin Time 10.0 SEC (9.30-11.50) Prothromb Time International Ratio 1.0 (0.9-1.1) Activated Partial Thromboplast Time 29 SEC (23-33) Sodium Level 140 MMOL/L (136-145) Potassium Level 6.2 MMOL/L (3.5-5.1) *H Chloride Level 97 MMOL/L (98-107) L Carbon Dioxide Level 43 MMOL/L (21-32) *H Anion Gap 0 mmol/L (5-15) L Blood Urea Nitrogen 29 mg/dL (7-18) H Creatinine 1.1 MG/DL (0.55-1.30) Estimat Glomerular Filtration Rate > 60 mL/min (>60) Glucose Level 141 MG/DL (74-106) H Calcium Level 9.1 MG/DL (8.5-10.1) Phosphorus Level 4.5 MG/DL (2.5-4.9) Magnesium Level 2.9 MG/DL (1.8-2.4) H Total Bilirubin 0.3 MG/DL (0.2-1.0) Aspartate Amino Transf (AST/SGOT) 68 U/L (15-37) H Alanine Aminotransferase (ALT/SGPT) 40 U/L (12-78) Alkaline Phosphatase 60 U/L (46-116) C-Reactive Protein, Quantitative 6.9 mg/dL (0.00-0.90) H Total Protein 8.3 G/DL (6.4-8.2) H Albumin 3.9 G/DL (3.4-5.0) Globulin 4.4 g/dL Albumin/Globulin Ratio 0.9 (1.0-2.7) L Jose Cruz Katz MD February 12, 2018 10:21
[2018-02-12 11:01] LABS: CREATINE KINASE 843 U/L (26-308)
[2018-02-12] MEDS ORDERED: Nitroglycerin Subl 0.4mg tab SL PRN (11:30)
[2018-02-12] MEDS: LORazepam Inj 2mg/ml 1ml IV PRN (11:51)
--- NOTE | 2018-02-12 13:23 | Consultation ---
Consult Note Consult Note asked to eval for renal failure and hyperKalemia patient seen in ICU intubated examined data reviewed discussed with RN This patient presents from a shelter facility. He presents for 2 complaints. He has had shortness of breath and has a history of COPD. He also complains of abdominal pain. He has been constipated for the past 2 days. There has been no fever or chills, nausea or vomiting, chest pain. There's been no cough or congestion. There are no other complaints. He does have a history of congestive heart failure. He has also had multiple cardiopulmonary arrest in October of this year. He was intubated during that time. Allergies: Coded Allergies: No Known Allergies (Unverified , 10/30/16) Assessment/Plan Renal failure / Acute / Dehydration HyperKalemia likely due to acidosis Acute respiratory failure- Abdominal distention, possible due to the Small bowel obstruction Vs. paralytic Ileus. COPD. History of atrial flutter. Dehydration. History of CHF with systolic dysfunction. GERD. Severe protein calori malnutrition. Noel- D5NS IV fluid IV protonix recheck K pulmonary support Anemia fuentes avoid nephrotoxics 2D echo YAMIL LOVE February 12, 2018 13:23
[2018-02-12] MEDS: Lactulose 20gm/30ml UDC ORAL SCH ×2 (14:19→18:39)
[2018-02-12] MEDS: Docusate 100mg cap ORAL SCH ×2 (14:19→18:39)
--- NOTE | 2018-02-12 14:19 | General Surgery Progress Note ---
General Surgery-Progress Note Subjective Additional Comments had respiratory failure and he was intubated Objective Last 24 Hour Vital Signs Date Time Temp Pulse Resp B/P (MAP) Pulse Ox O2 Delivery O2 Flow Rate FiO2 02/12/18 12:39 122 16 40 02/12/18 10:35 111 16 40 02/12/18 09:45 Mechanical Ventilator 40 02/12/18 09:44 Mechanical Ventilator 40 02/12/18 09:31 94 18 Mechanical Ventilator 40 02/12/18 09:29 104 18 40 02/12/18 09:00 104 18 116/73 94 Mechanical Ventilator 40 02/12/18 08:00 101 18 40 02/12/18 08:00 97.4 121 18 154/92 100 Mechanical Ventilator 40 97.4 02/12/18 08:00 118 02/12/18 04:00 97.2 116 18 153/87 91 Simple Mask 5.0 97.2 02/12/18 04:00 113 02/12/18 00:00 107 02/12/18 00:00 97.7 115 22 155/93 95 Nasal Cannula 4.0 97.7 02/11/18 23:18 161/98 02/11/18 21:55 174/84 02/11/18 20:21 Nasal Cannula 4.0 36 02/11/18 20:21 92 Nasal Cannula 4.0 36 02/11/18 20:18 108 24 Nasal Cannula 4.0 36 02/11/18 20:00 97.3 116 22 174/94 85 Nasal Cannula 4.0 97.3 109 02/11/18 20:00 116 02/11/18 16:00 98 02/11/18 16:00 98.7 109 28 156/85 90 Nasal Cannula 4.0 98.7 109 I&O Intake and Output 02/11/18 02/12/18 19:00 07:00 Intake Total 360 ml 131.1 ml Output Total 480 ml 300 ml Balance -120 ml -168.9 ml Intake Oral 360 ml IV Total 131.1 ml Output Urine Total 480 ml 300 ml Respiratory: clear, decreased breath sounds Abdomen: distended, tenderness, absent bowel sounds Extremities: no tenderness Laboratory Tests Test 02/12/18 07:15 02/12/18 08:30 02/12/18 09:25 02/12/18 12:05 Arterial Blood pH 7.057 (7.350-7.450) 7.361 (7.350-7.450) 7.484 (7.350-7.450) Arterial Blood Partial Pressure CO2 189.5 mmHg (35.0-45.0) *H 79.9 mmHg (35.0-45.0) *H 54.7 mmHg (35.0-45.0) H Arterial Blood Partial Pressure O2 105.3 mmHg (75.0-100.0) H 57.8 mmHg (75.0-100.0) L 68.9 mmHg (75.0-100.0) L Arterial Blood HCO3 52.1 mmol/L (22.0-26.0) H 44.2 mmol/L (22.0-26.0) H 40.1 mmol/L (22.0-26.0) H Arterial Blood Oxygen Saturation 96.8 % (92.0-98.0) 92.4 % (92.0-98.0) 96.2 % (92.0-98.0) Arterial Blood Base Excess 15.2 15.4 14.5 Efren Test Positive Positive Positive White Blood Count 7.2 K/UL (4.8-10.8) Red Blood Count 4.30 M/UL (4.70-6.10) L Hemoglobin 11.5 G/DL (14.2-18.0) L Hematocrit 39.0 % (42.0-52.0) L Mean Corpuscular Volume 91 FL (80-99) Mean Corpuscular Hemoglobin 26.7 PG (27.0-31.0) L Mean Corpuscular Hemoglobin Concent 29.5 G/DL (32.0-36.0) L Red Cell Distribution Width 16.4 % (11.6-14.8) H Platelet Count 187 K/UL (150-450) Mean Platelet Volume 8.5 FL (6.5-10.1) Neutrophils (%) (Auto) % (45.0-75.0) Lymphocytes (%) (Auto) % (20.0-45.0) Monocytes (%) (Auto) % (1.0-10.0) Eosinophils (%) (Auto) % (0.0-3.0) Basophils (%) (Auto) % (0.0-2.0) Differential Total Cells Counted 100 Neutrophils % (Manual) 95 % (45-75) H Lymphocytes % (Manual) 4 % (20-45) L Monocytes % (Manual) 1 % (1-10) Eosinophils % (Manual) 0 % (0-3) Basophils % (Manual) 0 % (0-2) Band Neutrophils 0 % (0-8) Platelet Estimate Adequate Platelet Morphology Normal Red Blood Cell Morphology Normal Erythrocyte Sedimentation Rate 34 MM/HR (0-20) H Prothrombin Time 10.0 SEC (9.30-11.50) Prothromb Time International Ratio 1.0 (0.9-1.1) Activated Partial Thromboplast Time 29 SEC (23-33) Sodium Level 140 MMOL/L (136-145) Potassium Level 6.2 MMOL/L (3.5-5.1) *H Chloride Level 97 MMOL/L (98-107) L Carbon Dioxide Level 43 MMOL/L (21-32) *H Anion Gap 0 mmol/L (5-15) L Blood Urea Nitrogen 29 mg/dL (7-18) H Creatinine 1.1 MG/DL (0.55-1.30) Estimat Glomerular Filtration Rate > 60 mL/min (>60) Glucose Level 141 MG/DL (74-106) H Uric Acid 4.0 MG/DL (2.6-7.2) Calcium Level 9.1 MG/DL (8.5-10.1) Phosphorus Level 4.5 MG/DL (2.5-4.9) Magnesium Level 2.9 MG/DL (1.8-2.4) H Total Bilirubin 0.3 MG/DL (0.2-1.0) Aspartate Amino Transf (AST/SGOT) 68 U/L (15-37) H Alanine Aminotransferase (ALT/SGPT) 40 U/L (12-78) Alkaline Phosphatase 60 U/L (46-116) Total Creatine Kinase 843 U/L (26-308) H C-Reactive Protein, Quantitative 6.9 mg/dL (0.00-0.90) H Total Protein 8.3 G/DL (6.4-8.2) H Albumin 3.9 G/DL (3.4-5.0) Globulin 4.4 g/dL Albumin/Globulin Ratio 0.9 (1.0-2.7) L Assessment Additional Comments Paralytic ileus Plan Additional Comments ng tube Moshfegh,Moussa MD February 12, 2018 14:19
--- NOTE | 2018-02-12 14:55 | Internal Med Progress Note ---
Subjective Physician Name Dipesh Cardoza Attending Physician Dipesh Cardoza MD Current Medications Medications (Trade) Dose Ordered Sig/Radha Route PRN Reason Start Time Stop Time Status Last Admin Dose Admin Albuterol/ Ipratropium (Albuterol/ Ipratropium) 3 ml Q4H PRN HHN dyspnea and/or SOB 02/12/18 13:00 02/15/18 16:59 Bisacodyl (Dulcolax) 10 mg DAILYPRN PRN RECTAL Constipation 02/12/18 14:30 03/14/18 14:29 UNV Dextrose (Dextrose 50%) 25 ml PRN IV Hypoglycemia 02/12/18 11:30 03/12/18 18:59 Dextrose (Dextrose 50%) 50 ml PRN IV hypoglycemia 02/12/18 11:30 03/12/18 18:59 Dextrose/Sodium Chloride 1,000 ml @ 100 mls/hr Q10H IV 02/12/18 15:00 03/14/18 14:59 Docusate Sodium (Colace) 100 mg THREE TIMES A DAY ORAL 02/12/18 13:00 03/13/18 12:59 02/12/18 14:19 Heparin Sodium (Porcine) (Heparin 5000 units/ml) 5,000 units EVERY 12 HOURS SUBQ 02/12/18 21:00 03/12/18 20:59 Lactulose (Cephulac) 30 gm THREE TIMES A DAY ORAL 02/12/18 13:00 03/13/18 12:59 02/12/18 14:19 Lorazepam (Ativan 2mg/ml 1ml) 1 mg Q2H PRN IV For Anxiety 02/12/18 11:45 02/19/18 09:35 02/12/18 11:51 Lorazepam (Ativan 2mg/ml 1ml) 2 mg Q4H PRN IV For Anxiety 02/12/18 14:15 02/19/18 10:14 Methylprednisolone Sodium Succinate (Solu-MEDROL) 60 mg EVERY 6 HOURS IV 02/12/18 12:00 03/13/18 00:00 02/12/18 13:39 Mineral Oil (Fleet's Mineral Oil Enema) 133 ml EVERY OTHER DAY RECTAL 02/13/18 09:00 03/15/18 08:59 Morphine Sulfate (Morphine Sulfate) 4 mg Q4H PRN IVP For Pain 02/12/18 12:15 02/19/18 12:14 Nitroglycerin (Ntg) 0.4 mg Q5M X 3 DOSES PRN SL Prn Chest Pain 02/12/18 11:30 03/12/18 16:59 Ondansetron HCl (Zofran) 4 mg Q6H PRN IVP Nausea & Vomiting 02/12/18 17:00 03/12/18 16:59 Pantoprazole (Protonix) 40 mg Q12HR IV 02/12/18 21:00 03/15/18 08:59 Piperacillin Sod/ Tazobactam Sod 3.375 gm/Sodium Chloride 110 ml @ 27.5 mls/hr EVERY 8 HOURS IVPB 02/12/18 14:00 02/15/18 19:59 02/12/18 13:39 Allergies: Coded Allergies: No Known Allergies (Unverified , 10/30/16) Subjective intubated after [employer], sedated in ICU, open eyes. Objective Last Vital Signs Date Time Temp Pulse Resp B/P (MAP) Pulse Ox O2 Delivery O2 Flow Rate FiO2 02/12/18 14:00 118 18 114/95 100 Mechanical Ventilator 40 02/12/18 08:00 97.4 97.4 02/12/18 04:00 5.0 Laboratory Tests Test 02/12/18 07:15 02/12/18 08:30 02/12/18 09:25 02/12/18 12:05 Arterial Blood pH 7.057 (7.350-7.450) 7.361 (7.350-7.450) 7.484 (7.350-7.450) Arterial Blood Partial Pressure CO2 189.5 mmHg (35.0-45.0) *H 79.9 mmHg (35.0-45.0) *H 54.7 mmHg (35.0-45.0) H Arterial Blood Partial Pressure O2 105.3 mmHg (75.0-100.0) H 57.8 mmHg (75.0-100.0) L 68.9 mmHg (75.0-100.0) L Arterial Blood HCO3 52.1 mmol/L (22.0-26.0) H 44.2 mmol/L (22.0-26.0) H 40.1 mmol/L (22.0-26.0) H Arterial Blood Oxygen Saturation 96.8 % (92.0-98.0) 92.4 % (92.0-98.0) 96.2 % (92.0-98.0) Arterial Blood Base Excess 15.2 15.4 14.5 Efren Test Positive Positive Positive White Blood Count 7.2 K/UL (4.8-10.8) Red Blood Count 4.30 M/UL (4.70-6.10) L Hemoglobin 11.5 G/DL (14.2-18.0) L Hematocrit 39.0 % (42.0-52.0) L Mean Corpuscular Volume 91 FL (80-99) Mean Corpuscular Hemoglobin 26.7 PG (27.0-31.0) L Mean Corpuscular Hemoglobin Concent 29.5 G/DL (32.0-36.0) L Red Cell Distribution Width 16.4 % (11.6-14.8) H Platelet Count 187 K/UL (150-450) Mean Platelet Volume 8.5 FL (6.5-10.1) Neutrophils (%) (Auto) % (45.0-75.0) Lymphocytes (%) (Auto) % (20.0-45.0) Monocytes (%) (Auto) % (1.0-10.0) Eosinophils (%) (Auto) % (0.0-3.0) Basophils (%) (Auto) % (0.0-2.0) Differential Total Cells Counted 100 Neutrophils % (Manual) 95 % (45-75) H Lymphocytes % (Manual) 4 % (20-45) L Monocytes % (Manual) 1 % (1-10) Eosinophils % (Manual) 0 % (0-3) Basophils % (Manual) 0 % (0-2) Band Neutrophils 0 % (0-8) Platelet Estimate Adequate Platelet Morphology Normal Red Blood Cell Morphology Normal Erythrocyte Sedimentation Rate 34 MM/HR (0-20) H Prothrombin Time 10.0 SEC (9.30-11.50) Prothromb Time International Ratio 1.0 (0.9-1.1) Activated Partial Thromboplast Time 29 SEC (23-33) Sodium Level 140 MMOL/L (136-145) Potassium Level 6.2 MMOL/L (3.5-5.1) *H Chloride Level 97 MMOL/L (98-107) L Carbon Dioxide Level 43 MMOL/L (21-32) *H Anion Gap 0 mmol/L (5-15) L Blood Urea Nitrogen 29 mg/dL (7-18) H Creatinine 1.1 MG/DL (0.55-1.30) Estimat Glomerular Filtration Rate > 60 mL/min (>60) Glucose Level 141 MG/DL (74-106) H Uric Acid 4.0 MG/DL (2.6-7.2) Calcium Level 9.1 MG/DL (8.5-10.1) Phosphorus Level 4.5 MG/DL (2.5-4.9) Magnesium Level 2.9 MG/DL (1.8-2.4) H Total Bilirubin 0.3 MG/DL (0.2-1.0) Aspartate Amino Transf (AST/SGOT) 68 U/L (15-37) H Alanine Aminotransferase (ALT/SGPT) 40 U/L (12-78) Alkaline Phosphatase 60 U/L (46-116) Total Creatine Kinase 843 U/L (26-308) H C-Reactive Protein, Quantitative 6.9 mg/dL (0.00-0.90) H Total Protein 8.3 G/DL (6.4-8.2) H Albumin 3.9 G/DL (3.4-5.0) Globulin 4.4 g/dL Albumin/Globulin Ratio 0.9 (1.0-2.7) L Microbiology Date/Time Source Procedure Growth Status 02/10/18 14:15 Blood Blood Culture - Preliminary NO GROWTH AFTER 24 HOURS Resulted 02/10/18 14:00 Blood Blood Culture - Preliminary NO GROWTH AFTER 24 HOURS Resulted 02/10/18 15:08 Nasal Nares MRSA Culture - Final NO METHICILLIN RESISTANT STAPH AUREUS... Complete 02/10/18 15:08 Rectum VRE Culture - Final NO VANCOMYCIN RESISTANT ENTEROCOCCUS ... Complete Intake and Output 02/11/18 02/12/18 19:00 07:00 Intake Total 360 ml 131.1 ml Output Total 480 ml 300 ml Balance -120 ml -168.9 ml Intake Oral 360 ml IV Total 131.1 ml Output Urine Total 480 ml 300 ml Objective General: sedated, intubated. HEENT: NCAT, sclera anicteric, PERRL, ET Tube, OG Tube. Neck: Supple, no significant jugular venous distention, Lungs: Mechanical breath sound, no Wheeze or Rales. Heart: Regular rate and rhythm, normal S1/S2, no murmurs Abdomen: Hard, nontender, + distended. hypoactive bowel sounds. / Rectal: Refused and deferred. Extremities: No Cyanosis , clubbing or edema. Neuro: sedated, Able to move all extremities Assessment/Plan Assessment/Plan 1. Abdominal distention, possible due to the Small bowel obstruction Vs. paralytic Ileus. 2. Acute COPD. 3. History of atrial flutter. 4. Dehydration. 5. History of CHF with systolic dysfunction. 6. GERD. 7. Hyponatremia. 8. Hyperkalemia. 9. Acute kidney injury. 10. Severe protein calori malnutrition. 11. Acute Respiratory Failure. Plan: Transfer to ICU F/U with surgery recommendations Monitor labs and cultures Abx: Zosyn Neb Tx Solumedral IV Full code heparin SQ Dipesh Cardoza MD February 12, 2018 14:55
[2018-02-12] MEDS ORDERED: D5NS 1,000 ML IV SCH (15:00)
[2018-02-12 15:17] LABS: BASOPHILS % (AUTO) 1.1 % (0.0-2.0); HEMATOCRIT 35.4 % (42.0-52.0); HEMOGLOBIN 10.3 G/DL (14.2-18.0); LYMPHOCYTES % (AUTO) 4.9 % (20.0-45.0); MEAN CORPUSCULAR VOLUME 90 FL (80-99); MONOCYTES % (AUTO) 11.5 % (1.0-10.0); NEUTROPHILS % (AUTO) 82.5 % (45.0-75.0); PLATELET COUNT 178 K/UL (150-450); RED BLOOD COUNT 3.93 M/UL (4.70-6.10); RED CELL DISTRIBUTION WIDTH 16.3 % (11.6-14.8); WHITE BLOOD COUNT 9.2 K/UL (4.8-10.8)
--- NOTE | 2018-02-12 15:23 | Diagnostic Imaging Report ---
Indication: Post nasogastric tube placement Technique: Supine view of the upper abdomen Comparison: 02/11/2018 Findings: Interim placement of a nasogastric tube, tip which projects at the level gastric fundus, proximal port above the gastroesophageal junction. Small bowel loops remain distended Impression: High position of nasogastric tube. Advancement recommended. This was previously recognized by ordering physician, but also discussed by phone with patient's nurse at the time of interpretation
[2018-02-12 15:30] LABS: ANION GAP 5 mmol/L (5-15); BLOOD UREA NITROGEN 30 mg/dL (7-18); CALCIUM 9.5 MG/DL (8.5-10.1); CARBON DIOXIDE 36 MMOL/L (21-32); CHLORIDE 99 MMOL/L (98-107); POTASSIUM 5.7 MMOL/L (3.5-5.1); SODIUM 140 MMOL/L (136-145)
[2018-02-12 15:47] LABS: ALANINE AMINOTRANSFERASE 36 U/L (12-78); ALBUMIN 3.7 G/DL (3.4-5.0); ALBUMIN/GLOBULIN RATIO 0.9 (1.0-2.7); ALKALINE PHOSPHATASE 54 U/L (46-116); ASPARTATE AMINO TRANSFERASE 66 U/L (15-37); BILIRUBIN,TOTAL 0.4 MG/DL (0.2-1.0); CHOLESTEROL 162 MG/DL (< 200); CREATINE KINASE 726 U/L (26-308); FERRITIN 246 NG/ML (8-388); GAMMA GLUTAMYL TRANSPEPTIDASE 3 U/L (5-85); HDL CHOLESTEROL 85 MG/DL (40-60); PHOSPHORUS 1.4 MG/DL (2.5-4.9); TRIGLYCERIDES 71 MG/DL (30-150)
[2018-02-12] MEDS: D5NS 1,000 ML IV SCH ×2 (17:00→22:46)
[2018-02-12] MEDS ORDERED: Promethazine/Codeine 5ml UD ORAL PRN (17:00)
--- NOTE | 2018-02-12 18:19 | General Progress Note ---
Assessment/Plan Assessment/Plan Assessment - Ileus vs SBO - suspect former - Anemia - Resp failure - Electrolyte abnormalities Recommendations - NPO - IVF - NGT --> LIS - correct all lytes - follow exam and imaging Subjective Allergies: Coded Allergies: No Known Allergies (Unverified , 10/30/16) Objective Last 24 Hour Vital Signs Date Time Temp Pulse Resp B/P (MAP) Pulse Ox O2 Delivery O2 Flow Rate FiO2 02/12/18 17:05 119 16 40 02/12/18 17:00 118 16 118/86 100 Mechanical Ventilator 40 02/12/18 16:04 121 02/12/18 16:00 98.8 119 16 118/84 100 Mechanical Ventilator 40 98.8 02/12/18 15:00 126 16 113/77 98 Mechanical Ventilator 40 02/12/18 14:47 124 16 40 02/12/18 14:00 118 18 114/95 100 Mechanical Ventilator 40 02/12/18 13:00 119 16 107/75 100 Mechanical Ventilator 40 02/12/18 12:39 122 16 40 02/12/18 12:04 122 02/12/18 12:00 123 16 123/88 94 Mechanical Ventilator 40 02/12/18 11:00 114 16 115/76 98 Mechanical Ventilator 40 02/12/18 10:35 111 16 40 02/12/18 10:00 106 18 105/81 97 Mechanical Ventilator 40 02/12/18 09:45 Mechanical Ventilator 40 02/12/18 09:44 Mechanical Ventilator 40 02/12/18 09:31 94 18 Mechanical Ventilator 40 02/12/18 09:29 104 18 40 02/12/18 09:00 104 18 116/73 94 Mechanical Ventilator 40 02/12/18 08:00 101 18 40 02/12/18 08:00 97.4 121 18 154/92 100 Mechanical Ventilator 40 97.4 02/12/18 08:00 118 02/12/18 04:00 97.2 116 18 153/87 91 Simple Mask 5.0 97.2 02/12/18 04:00 113 02/12/18 00:00 107 02/12/18 00:00 97.7 115 22 155/93 95 Nasal Cannula 4.0 97.7 02/11/18 23:18 161/98 02/11/18 21:55 174/84 02/11/18 20:21 Nasal Cannula 4.0 36 02/11/18 20:21 92 Nasal Cannula 4.0 36 02/11/18 20:18 108 24 Nasal Cannula 4.0 36 02/11/18 20:00 97.3 116 22 174/94 85 Nasal Cannula 4.0 97.3 109 02/11/18 20:00 116 Intake and Output 02/11/18 02/12/18 19:00 07:00 Intake Total 360 ml 131.1 ml Output Total 480 ml 300 ml Balance -120 ml -168.9 ml Intake Oral 360 ml IV Total 131.1 ml Output Urine Total 480 ml 300 ml Laboratory Tests 02/12/18 07:15: Arterial Blood pH 7.057*L, Arterial Blood Partial Pressure CO2 189.5*H, Arterial Blood Partial Pressure O2 105.3H, Arterial Blood HCO3 52.1H, Arterial Blood Oxygen Saturation 96.8, Arterial Blood Base Excess 15.2, Efren Test Positive 02/12/18 08:30: White Blood Count 7.2, Red Blood Count 4.30L, Hemoglobin 11.5L, Hematocrit 39.0L , Mean Corpuscular Volume 91, Mean Corpuscular Hemoglobin 26.7L, Mean Corpuscular Hemoglobin Concent 29.5L, Red Cell Distribution Width 16.4H, Platelet Count 187, Mean Platelet Volume 8.5, Neutrophils (%) (Auto) , Lymphocytes (%) (Auto) , Monocytes (%) (Auto) , Eosinophils (%) (Auto) , Basophils (%) (Auto) , Differential Total Cells Counted 100, Neutrophils % ( Manual) 95H, Lymphocytes % (Manual) 4L, Monocytes % (Manual) 1, Eosinophils % ( Manual) 0, Basophils % (Manual) 0, Band Neutrophils 0, Platelet Estimate Adequate, Platelet Morphology Normal, Red Blood Cell Morphology Normal, Erythrocyte Sedimentation Rate 34H, Prothrombin Time 10.0, Prothromb Time International Ratio 1.0, Activated Partial Thromboplast Time 29, Sodium Level 140, Potassium Level 6.2*H, Chloride Level 97L, Carbon Dioxide Level 43*H, Anion Gap 0L, Blood Urea Nitrogen 29H, Creatinine 1.1, Estimat Glomerular Filtration Rate > 60, Glucose Level 141H, Uric Acid 4.0, Calcium Level 9.1, Phosphorus Level 4.5, Magnesium Level 2.9H, Total Bilirubin 0.3, Aspartate Amino Transf (AST/SGOT) 68H, Alanine Aminotransferase (ALT/SGPT) 40, Alkaline Phosphatase 60, Total Creatine Kinase 843H, C-Reactive Protein, Quantitative 6.9H, Total Protein 8.3H, Albumin 3.9, Globulin 4.4, Albumin/Globulin Ratio 0.9L 02/12/18 09:25: Arterial Blood pH 7.361, Arterial Blood Partial Pressure CO2 79.9*H, Arterial Blood Partial Pressure O2 57.8L, Arterial Blood HCO3 44.2H, Arterial Blood Oxygen Saturation 92.4, Arterial Blood Base Excess 15.4, Efren Test Positive 02/12/18 12:05: Arterial Blood pH 7.484H, Arterial Blood Partial Pressure CO2 54.7H, Arterial Blood Partial Pressure O2 68.9L, Arterial Blood HCO3 40.1H, Arterial Blood Oxygen Saturation 96.2, Arterial Blood Base Excess 14.5, Efren Test Positive 02/12/18 14:55: White Blood Count 9.2, Red Blood Count 3.93L, Hemoglobin 10.3L, Hematocrit 35.4L , Mean Corpuscular Volume 90, Mean Corpuscular Hemoglobin 26.1L, Mean Corpuscular Hemoglobin Concent 28.9L, Red Cell Distribution Width 16.3H, Platelet Count 178, Mean Platelet Volume 7.6, Neutrophils (%) (Auto) 82.5H, Lymphocytes (%) (Auto) 4.9L, Monocytes (%) (Auto) 11.5H, Eosinophils (%) (Auto) 0.0, Basophils (%) (Auto) 1.1, Sodium Level 140, Potassium Level 5.7H, Chloride Level 99, Carbon Dioxide Level 36H, Anion Gap 5, Blood Urea Nitrogen 30H, Creatinine 1.0, Estimat Glomerular Filtration Rate > 60, Glucose Level 99, Hemoglobin A1c 5.3, Uric Acid 4.8, Calcium Level 9.5, Phosphorus Level 1.4L, Magnesium Level 2.9H, Ferritin 246, Total Bilirubin 0.4, Gamma Glutamyl Transpeptidase 3L, Aspartate Amino Transf (AST/SGOT) 66H, Alanine Aminotransferase (ALT/SGPT) 36, Alkaline Phosphatase 54, Total Creatine Kinase 726H, Troponin I 0.131H, C-Reactive Protein, Quantitative 5.3H, Pro-B-Type Natriuretic Peptide 1483H, Total Protein 7.9, Albumin 3.7, Globulin 4.2, Albumin /Globulin Ratio 0.9L, Triglycerides Level 71, Cholesterol Level 162, LDL Cholesterol 74, HDL Cholesterol 85H, Cholesterol/HDL Ratio 1.9L, Vitamin B12 Level 1234H, Folate 15.6, Thyroid Stimulating Hormone (TSH) 0.262L Height (Feet): 5 Height (Inches): 7.00 Weight (Pounds): 64 Nic Cade MD February 12, 2018 18:19
[2018-02-12] MEDS ORDERED: Sodium Phosphate 30 MM in NS 275 ML IVPB ONE (18:30)
[2018-02-12] MEDS: Nitroglycerin Patch 0.4mg TDERMAL SCH (18:40)
--- NOTE | 2018-02-12 20:48 | Cardiology Progress Note ---
Assessment/Plan Assessment/Plan [id number] rewepiratory fialure related to copd exacerbation at thsit time not in chf has hs of cm will fu post echo repeat ekg in am as well as cardiac enzyme Objective Last 24 Hour Vital Signs Date Time Temp Pulse Resp B/P (MAP) Pulse Ox O2 Delivery O2 Flow Rate FiO2 02/12/18 19:04 127 16 40 02/12/18 19:00 99.3 128 16 139/90 98 Mechanical Ventilator 40 99.3 02/12/18 18:40 141/88 02/12/18 18:00 126 16 132/88 100 Mechanical Ventilator 40 02/12/18 17:05 119 16 40 02/12/18 17:00 118 16 118/86 100 Mechanical Ventilator 40 02/12/18 16:04 121 02/12/18 16:00 98.8 119 16 118/84 100 Mechanical Ventilator 40 98.8 02/12/18 15:00 126 16 113/77 98 Mechanical Ventilator 40 02/12/18 14:47 124 16 40 02/12/18 14:00 118 18 114/95 100 Mechanical Ventilator 40 02/12/18 13:00 119 16 107/75 100 Mechanical Ventilator 40 02/12/18 12:39 122 16 40 02/12/18 12:04 122 02/12/18 12:00 123 16 123/88 94 Mechanical Ventilator 40 02/12/18 11:00 114 16 115/76 98 Mechanical Ventilator 40 02/12/18 10:35 111 16 40 02/12/18 10:00 106 18 105/81 97 Mechanical Ventilator 40 02/12/18 09:45 Mechanical Ventilator 40 02/12/18 09:44 Mechanical Ventilator 40 02/12/18 09:31 94 18 Mechanical Ventilator 40 02/12/18 09:29 104 18 40 02/12/18 09:00 104 18 116/73 94 Mechanical Ventilator 40 02/12/18 08:00 101 18 40 02/12/18 08:00 97.4 121 18 154/92 100 Mechanical Ventilator 40 97.4 02/12/18 08:00 118 02/12/18 04:00 97.2 116 18 153/87 91 Simple Mask 5.0 97.2 02/12/18 04:00 113 02/12/18 00:00 107 02/12/18 00:00 97.7 115 22 155/93 95 Nasal Cannula 4.0 97.7 02/11/18 23:18 161/98 02/11/18 21:55 174/84 Intake and Output 02/11/18 02/12/18 19:00 07:00 Intake Total 360 ml 131.1 ml Output Total 480 ml 300 ml Balance -120 ml -168.9 ml Intake Oral 360 ml IV Total 131.1 ml Output Urine Total 480 ml 300 ml Laboratory Tests Test 02/12/18 07:15 02/12/18 08:30 02/12/18 09:25 02/12/18 12:05 Arterial Blood pH 7.057 (7.350-7.450) 7.361 (7.350-7.450) 7.484 (7.350-7.450) Arterial Blood Partial Pressure CO2 189.5 mmHg (35.0-45.0) *H 79.9 mmHg (35.0-45.0) *H 54.7 mmHg (35.0-45.0) H Arterial Blood Partial Pressure O2 105.3 mmHg (75.0-100.0) H 57.8 mmHg (75.0-100.0) L 68.9 mmHg (75.0-100.0) L Arterial Blood HCO3 52.1 mmol/L (22.0-26.0) H 44.2 mmol/L (22.0-26.0) H 40.1 mmol/L (22.0-26.0) H Arterial Blood Oxygen Saturation 96.8 % (92.0-98.0) 92.4 % (92.0-98.0) 96.2 % (92.0-98.0) Arterial Blood Base Excess 15.2 15.4 14.5 Efren Test Positive Positive Positive White Blood Count 7.2 K/UL (4.8-10.8) Red Blood Count 4.30 M/UL (4.70-6.10) L Hemoglobin 11.5 G/DL (14.2-18.0) L Hematocrit 39.0 % (42.0-52.0) L Mean Corpuscular Volume 91 FL (80-99) Mean Corpuscular Hemoglobin 26.7 PG (27.0-31.0) L Mean Corpuscular Hemoglobin Concent 29.5 G/DL (32.0-36.0) L Red Cell Distribution Width 16.4 % (11.6-14.8) H Platelet Count 187 K/UL (150-450) Mean Platelet Volume 8.5 FL (6.5-10.1) Neutrophils (%) (Auto) % (45.0-75.0) Lymphocytes (%) (Auto) % (20.0-45.0) Monocytes (%) (Auto) % (1.0-10.0) Eosinophils (%) (Auto) % (0.0-3.0) Basophils (%) (Auto) % (0.0-2.0) Differential Total Cells Counted 100 Neutrophils % (Manual) 95 % (45-75) H Lymphocytes % (Manual) 4 % (20-45) L Monocytes % (Manual) 1 % (1-10) Eosinophils % (Manual) 0 % (0-3) Basophils % (Manual) 0 % (0-2) Band Neutrophils 0 % (0-8) Platelet Estimate Adequate Platelet Morphology Normal Red Blood Cell Morphology Normal Erythrocyte Sedimentation Rate 34 MM/HR (0-20) H Prothrombin Time 10.0 SEC (9.30-11.50) Prothromb Time International Ratio 1.0 (0.9-1.1) Activated Partial Thromboplast Time 29 SEC (23-33) Sodium Level 140 MMOL/L (136-145) Potassium Level 6.2 MMOL/L (3.5-5.1) *H Chloride Level 97 MMOL/L (98-107) L Carbon Dioxide Level 43 MMOL/L (21-32) *H Anion Gap 0 mmol/L (5-15) L Blood Urea Nitrogen 29 mg/dL (7-18) H Creatinine 1.1 MG/DL (0.55-1.30) Estimat Glomerular Filtration Rate > 60 mL/min (>60) Glucose Level 141 MG/DL (74-106) H Uric Acid 4.0 MG/DL (2.6-7.2) Calcium Level 9.1 MG/DL (8.5-10.1) Phosphorus Level 4.5 MG/DL (2.5-4.9) Magnesium Level 2.9 MG/DL (1.8-2.4) H Total Bilirubin 0.3 MG/DL (0.2-1.0) Aspartate Amino Transf (AST/SGOT) 68 U/L (15-37) H Alanine Aminotransferase (ALT/SGPT) 40 U/L (12-78) Alkaline Phosphatase 60 U/L (46-116) Total Creatine Kinase 843 U/L (26-308) H C-Reactive Protein, Quantitative 6.9 mg/dL (0.00-0.90) H Total Protein 8.3 G/DL (6.4-8.2) H Albumin 3.9 G/DL (3.4-5.0) Globulin 4.4 g/dL Albumin/Globulin Ratio 0.9 (1.0-2.7) L Test 02/12/18 13:00 02/12/18 14:55 Urine Color Pending Urine Appearance Pending Urine pH Pending Urine Specific Rochelle Pending Urine Protein Pending Urine Glucose (UA) Pending Urine Ketones Pending Urine Occult Blood Pending Urine Nitrite Pending Urine Bilirubin Pending Urine Urobilinogen Pending Urine Leukocyte Esterase Pending Urine RBC Pending Urine WBC Pending Urine Squamous Epithelial Cells Pending Urine Bacteria Pending Urine Eosinophils Pending Urine Random Sodium 14 mmol/L (20-110) L Urine Potassium Timed 55 mmol/L (12-62) White Blood Count 9.2 K/UL (4.8-10.8) Red Blood Count 3.93 M/UL (4.70-6.10) L Hemoglobin 10.3 G/DL (14.2-18.0) L Hematocrit 35.4 % (42.0-52.0) L Mean Corpuscular Volume 90 FL (80-99) Mean Corpuscular Hemoglobin 26.1 PG (27.0-31.0) L Mean Corpuscular Hemoglobin Concent 28.9 G/DL (32.0-36.0) L Red Cell Distribution Width 16.3 % (11.6-14.8) H Platelet Count 178 K/UL (150-450) Mean Platelet Volume 7.6 FL (6.5-10.1) Neutrophils (%) (Auto) 82.5 % (45.0-75.0) H Lymphocytes (%) (Auto) 4.9 % (20.0-45.0) L Monocytes (%) (Auto) 11.5 % (1.0-10.0) H Eosinophils (%) (Auto) 0.0 % (0.0-3.0) Basophils (%) (Auto) 1.1 % (0.0-2.0) Sodium Level 140 MMOL/L (136-145) Potassium Level 5.7 MMOL/L (3.5-5.1) H Chloride Level 99 MMOL/L (98-107) Carbon Dioxide Level 36 MMOL/L (21-32) H Anion Gap 5 mmol/L (5-15) Blood Urea Nitrogen 30 mg/dL (7-18) H Creatinine 1.0 MG/DL (0.55-1.30) Estimat Glomerular Filtration Rate > 60 mL/min (>60) Glucose Level 99 MG/DL (74-106) Hemoglobin A1c 5.3 % (4.3-6.0) Uric Acid 4.8 MG/DL (2.6-7.2) Calcium Level 9.5 MG/DL (8.5-10.1) Phosphorus Level 1.4 MG/DL (2.5-4.9) L Magnesium Level 2.9 MG/DL (1.8-2.4) H Ferritin 246 NG/ML (8-388) Total Bilirubin 0.4 MG/DL (0.2-1.0) Gamma Glutamyl Transpeptidase 3 U/L (5-85) L Aspartate Amino Transf (AST/SGOT) 66 U/L (15-37) H Alanine Aminotransferase (ALT/SGPT) 36 U/L (12-78) Alkaline Phosphatase 54 U/L (46-116) Total Creatine Kinase 726 U/L (26-308) H Troponin I 0.131 ng/mL (0.000-0.056) C-Reactive Protein, Quantitative 5.3 mg/dL (0.00-0.90) H Pro-B-Type Natriuretic Peptide 1483 pg/mL (0-125) H Total Protein 7.9 G/DL (6.4-8.2) Albumin 3.7 G/DL (3.4-5.0) Globulin 4.2 g/dL Albumin/Globulin Ratio 0.9 (1.0-2.7) L Triglycerides Level 71 MG/DL (30-150) Cholesterol Level 162 MG/DL (< 200) LDL Cholesterol 74 mg/dL (<100) HDL Cholesterol 85 MG/DL (40-60) H Cholesterol/HDL Ratio 1.9 (3.3-4.4) L Vitamin B12 Level 1234 PG/ML (193-986) H Folate 15.6 NG/ML (8.6-58.9) Thyroid Stimulating Hormone (TSH) 0.262 uiU/mL (0.358-3.740) Microbiology Date/Time Source Procedure Growth Status 02/10/18 14:15 Blood Blood Culture - Preliminary NO GROWTH AFTER 24 HOURS Resulted 02/10/18 14:00 Blood Blood Culture - Preliminary NO GROWTH AFTER 24 HOURS Resulted 02/10/18 15:08 Nasal Nares MRSA Culture - Final NO METHICILLIN RESISTANT STAPH AUREUS... Complete 02/10/18 15:08 Rectum VRE Culture - Final NO VANCOMYCIN RESISTANT ENTEROCOCCUS ... Complete Crow Del Rosario MD February 12, 2018 20:48
[2018-02-12 20:57] LABS: APPEARANCE,URINE CLEAR; BILIRUBIN, URINE NEGATIVE (NEGATIVE); COLOR,URINE PALE YELLOW; GLUCOSE, URINE (UA) NEGATIVE (NEGATIVE); KETONES,URINE 3+ (NEGATIVE); LEUKOCYTE ESTERASE ,URINE NEGATIVE (NEGATIVE); NITRITE,URINE NEGATIVE (NEGATIVE); PH,URINE 5 (4.5-8.0); PROTEIN,URINE 3+ (NEGATIVE); UROBILINOGEN,URINE NORMAL MG/DL (0.0-1.0)
[2018-02-12] MEDS ORDERED: Theophylline ER 100mg ORAL SCH (21:00)
[2018-02-12] MEDS: Pantoprazole Inj IV SCH (21:05)
[2018-02-12] MEDS: Heparin 5000 units/ml inj SUBQ SCH (21:06)
[2018-02-13] VITALS (24 sets, daily range): BP systolic 100–181; BP diastolic 72–107
[2018-02-13] MEDS: LORazepam Inj 2mg/ml 1ml IV PRN (00:06)
[2018-02-13] MEDS: Solu-MEDROL 125mg Inj IV SCH ×3 (00:07→11:55)
--- NOTE | 2018-02-13 02:00 | Consultation ---
DATE OF CONSULTATION: 02/12/2018 GASTROENTEROLOGY CONSULTATION CONSULTING PHYSICIAN: iNc Cade M.D. CHIEF COMPLAINT: I was asked to see this patient by Dr. Dipesh Cardoza for evaluation of abdominal distention. HISTORY OF PRESENT ILLNESS: The patient is a 68-year-old man who was brought into the hospital due to abdominal distention and respiratory complaints. Shortly thereafter has respiratory failure requiring intubation and therefore the patient was not able to provide any history. Most of the information is only available from the chart. The abdomen appeared distended and therefore CT scan of the abdomen and pelvis was done showing small bowel dilatation without any clear transition point. The patient has not had a bowel movement yet. PAST MEDICAL HISTORY: History of COPD, atrial fibrillation, gastroesophageal reflux disease, congestive heart failure, abnormal electrolytes, and renal failure. SOCIAL HISTORY: The patient resides in a penitentiary and was brought in for evaluation from there. FAMILY HITORY: Noncontributory. REVIEW OF SYSTEMS: Otherwise negative. PHYSICAL EXAMINATION: GENERAL: Debilitated man, seen in the ICU. HEENT: Normocephalic and atraumatic. The patient was intubated. NECK: Supple. CHEST: Coarse breath sounds. CARDIOVASCULAR: Regular rate. ABDOMEN: Distended, soft with decreased bowel sounds. There is no organomegaly. EXTREMITIES: Revealed no edema. LABORATORY AND DIAGNOSTIC DATA: Laboratory data were noted. ASSESSMENT: This patient presents with abdominal distention with CT evidence of small bowel dilation diffusely without a clear transition and therefore this is more likely a paralytic ileus and not small bowel obstruction. This could be caused by variety of issues including infection, sepsis, electrolyte abnormalities, and ischemia. In this patient, we will correct electrolytes for now and place the patient on bowel rest. Nasogastric decompression should also help. The patient can be weaned as feasible. X-rays and abdominal exam will be followed, but apparently the patient cannot be fed. sr technical sales consultant has already seen the patient and suggested more invasive intervention should there be no resolution to radiographic process. RECOMMENDATIONS: Per above discussion and per orders written in the chart. Thank you for asking me to participate in the care of this patient. Nic Cade M.D. DR: BRYSON JOB#: [id number] CC: RENUKA
--- NOTE | 2018-02-13 04:30 | Consultation ---
DATE OF CONSULTATION: 02/12/2018 CARDIOLOGY CONSULTATION CONSULTING PHYSICIAN: Crow Del Rosario M.D. REFERRING PHYSICIAN: Dipesh Cardoza M.D. REASON FOR REFERRAL: Cardiomyopathy. HISTORY OF PRESENT ILLNESS: The patient is a 68-year-old gentleman who lives in a convalescent facility, apparently with COPD, chronic smoker, atrial flutter, congestive heart failure, EF of 31%, respiratory failure, and cardiac arrest who presented to the hospital from convalescent facility because of shortness of breath, and the patient also has had no bowel movement for approximately four days ago. He was brought to the emergency room. He was admitted to the hospital and subsequently RT was called and the patient was intubated. He is on a ventilator at this time. He is not able to provide any meaningful history. PAST MEDICAL HISTORY: History of coronary artery disease, history of myocardial infarction, congestive heart failure, atrial fibrillation, COPD, gastroesophageal reflux disease, history of pulseless electric activity arrest in 2017, respiratory failure, and influenza with superimposed pneumonia. ALLERGIES: No allergies. REVIEW OF SYSTEMS: Really unable to obtain. PHYSICAL EXAMINATION: GENERAL: Shows to be a middle-aged gentleman, on a mechanical ventilator, unresponsive, noncommunicative. VITAL SIGNS: His blood pressure is 113/78 and heart rate 123. NECK: His neck is supple. LUNGS: Anteriorly decreased breath sounds noted bilaterally. CARDIAC: Regular rhythm. No heaves or thrills noted. ABDOMEN: Distended. No guarding. No rigidity. There are some bowel sounds. NEUROLOGICAL: He is not communicative or responsive. LABORATORY AND DIAGNOSTIC DATA: White count of 9.3, hemoglobin 10.3, and platelet count of 178. The pH is 7.48, pCO2 of 65, pO2 of 69 with a saturation of 96%. Sodium is 140, potassium 5.7, chloride 99, bicarbonate 32, BUN 30, creatinine 1.0, and glucose of 99. A1c of 5.3. His troponin was 0 two days ago and 0.13 today, and his CRP is also 5.3. ProBNP is only 1400. Total cholesterol 162 with a LDL of 74 and HDL of 85. B12 over 1200. TSH of 0.262. His coagulations, INR of 1.0 and a PTT of 29. He had a chest x-ray that was performed and that showed ET tube in place. Lungs and pleural spaces appear to be clear. Abdominal x-rays were performed that showed small bowel distention. He had a CT scan of his abdomen and pelvis that showed lung bases hyperinflated, fibrotic changes, and dilated diffusely fluid-filled small bowel loops. Telemetry shows sinus tachycardia. EKG shows sinus tachycardia, normal QRS axis is noted. He had an echocardiogram that showed ejection fraction reportedly 60%. This is per the home appliance technician's interpretation, official physician's interpretation is pending at this time. ASSESSMENT AND PLAN: 1. Respiratory failure, likely secondary to chronic obstructive pulmonary disease with exacerbation. 2. Abdominal distention, likely secondary to ileus. 3. History of coronary artery disease. 4. History of cardiomyopathy. 5. History of atrial fibrillation previously. This patient was seen in cardiac consultation. The patient secondary due to the lungs, did not show changes suggestive of congestive heart failure. Chest x-ray does not show any changes suggestive of heart failure at this point. I will follow the patient along. His echocardiogram report to be reviewed eventually once available and/or will need to be repeated in the future. If LV systolic dysfunction does exist, then a combination of medication per guidelines should be resumed and followed. If LV systolic function is normal, then we will have the capacity to hold off for those until pulmonary osman . Crow Del Rosario M.D. DR: RACHEL JOB#: [id number] CC:
[2018-02-13 05:08] LABS: HEMATOCRIT 32.5 % (42.0-52.0); HEMOGLOBIN 9.6 G/DL (14.2-18.0); MEAN CORPUSCULAR VOLUME 89 FL (80-99); PLATELET COUNT 169 K/UL (150-450); RED BLOOD COUNT 3.66 M/UL (4.70-6.10); RED CELL DISTRIBUTION WIDTH 16.3 % (11.6-14.8); WHITE BLOOD COUNT 10.4 K/UL (4.8-10.8)
[2018-02-13] MEDS: D5NS 1,000 ML IV SCH ×3 (05:22→20:15)
[2018-02-13 05:52] LABS: CREATINE KINASE 519 U/L (26-308)
[2018-02-13 05:54] LABS: % IRON SATURATION 24 % (15-50); IRON 38 ug/dL (50-175); TOTAL IRON BINDING CAPACITY 161 ug/dL (250-450)
[2018-02-13 05:55] LABS: ALANINE AMINOTRANSFERASE 32 U/L (12-78); ALBUMIN 3.3 G/DL (3.4-5.0); ALBUMIN/GLOBULIN RATIO 0.9 (1.0-2.7); ALKALINE PHOSPHATASE 47 U/L (46-116); ANION GAP 4 mmol/L (5-15); ASPARTATE AMINO TRANSFERASE 50 U/L (15-37); BILIRUBIN,TOTAL 0.3 MG/DL (0.2-1.0); BLOOD UREA NITROGEN 25 mg/dL (7-18); CALCIUM 8.9 MG/DL (8.5-10.1); CARBON DIOXIDE 38 MMOL/L (21-32); CHLORIDE 104 MMOL/L (98-107); CREATININE 1.1 MG/DL (0.55-1.30); PHOSPHORUS 1.1 MG/DL (2.5-4.9); POTASSIUM 3.9 MMOL/L (3.5-5.1); SODIUM 145 MMOL/L (136-145)
[2018-02-13] MEDS: Piperacillin/Tazobactam 3.375 GM in NS 110 ML IVPB SCH ×3 (06:29→22:13)
[2018-02-13] MEDS ORDERED: Sodium Phosphate 20 MM in NS 275 ML IVPB ONE (08:15)
[2018-02-13] MEDS: Lactulose 20gm/30ml UDC ORAL SCH ×3 (09:00→17:17)
[2018-02-13] MEDS: Fleet's Mineral Oil Enema RECTAL SCH (09:00)
[2018-02-13] MEDS: Docusate 100mg cap ORAL SCH ×3 (09:00→17:17)
[2018-02-13] MEDS ORDERED: Fleet's Mineral Oil Enema RECTAL SCH ×2 (09:00)
[2018-02-13] MEDS ORDERED: Pantoprazole Inj IV SCH ×2 (09:00)
[2018-02-13] MEDS: Pantoprazole Inj IV SCH ×2 (09:39→21:08)
[2018-02-13] MEDS: Heparin 5000 units/ml inj SUBQ SCH ×2 (09:41→21:10)
[2018-02-13] MEDS ORDERED: Sodium Phosphate 30 MM in NS 275 ML IVPB ONE (10:00)
--- NOTE | 2018-02-13 11:30 | Diagnostic Imaging Report ---
Indication: Dyspnea Technique: One view of the chest Comparison: 02/12/2018 Findings: Lungs are hyperinflated. There is interim placement of a nasogastric tube. Tip projects beyond the edge of image. Stable satisfactory position of endotracheal tube. Impression: Interim nasogastric intubation. Otherwise unchanged over one day, findings as noted
--- NOTE | 2018-02-13 11:43 | Pulmonolgy Critical Care Note ---
Critical Care - Asmt/Plan Problems: (1) Acute respiratory failure (2) copd exacerbation (3) SBO (small bowel obstruction) (4) ATN (acute tubular necrosis) (5) Protein-calorie malnutrition, severe (6) Emphysema, unspecified Respiratory: monitor respiratory rate, adjust FIO2, CXR, weaning trial Cardiac: continue to monitor HR/BP Renal: F/U I&O, keep IV fluid Infectious Disease: check cultures Gastrointestinal: continue feedings/current rate Endocrine: check TSH Hematologic: monitor H/H Neurologic: PRN Morphine Prophylaxis: Protonix Disposition: keep in ICU Notes Reviewed: cardio Discussed with: consultants, bottle casercontrol officer manager - Objective Last 24 Hour Vital Signs Date Time Temp Pulse Resp B/P (MAP) Pulse Ox O2 Delivery O2 Flow Rate FiO2 02/13/18 11:00 106 16 136/98 100 Mechanical Ventilator 40 02/13/18 10:36 113 16 40 02/13/18 10:00 98.3 111 16 131/99 100 Mechanical Ventilator 40 98.3 02/13/18 09:51 Mechanical Ventilator 40 02/13/18 09:50 Mechanical Ventilator 40 02/13/18 09:20 108 16 40 02/13/18 09:00 104 16 113/78 100 Mechanical Ventilator 40 02/13/18 08:00 108 16 118/88 100 Mechanical Ventilator 40 02/13/18 08:00 40 02/13/18 08:00 103 02/13/18 07:18 111 16 40 02/13/18 07:00 108 16 127/87 100 Mechanical Ventilator 40 02/13/18 06:00 114 16 114/73 98 Mechanical Ventilator 40 02/13/18 05:02 119 16 40 02/13/18 05:00 116 16 152/96 98 Mechanical Ventilator 40 02/13/18 04:00 98.9 107 16 121/82 100 Mechanical Ventilator 40 98.9 02/13/18 04:00 40 02/13/18 04:00 107 02/13/18 03:20 105 16 40 02/13/18 03:00 108 16 116/82 100 Mechanical Ventilator 40 02/13/18 02:00 109 16 107/81 100 Mechanical Ventilator 40 02/13/18 01:09 116 16 40 02/13/18 01:00 116 16 112/72 100 Mechanical Ventilator 40 02/13/18 00:00 99.1 122 16 159/98 100 Mechanical Ventilator 40 99.1 02/13/18 00:00 122 02/12/18 23:00 126 16 119/82 99 Mechanical Ventilator 40 02/12/18 22:55 126 16 40 02/12/18 22:00 124 16 106/81 99 Mechanical Ventilator 40 02/12/18 21:13 125 16 40 02/12/18 21:00 122 16 106/81 98 Mechanical Ventilator 40 02/12/18 20:00 123 16 119/85 99 Mechanical Ventilator 40 02/12/18 20:00 40 02/12/18 20:00 123 02/12/18 19:04 127 16 40 02/12/18 19:00 99.3 128 16 139/90 98 Mechanical Ventilator 40 99.3 02/12/18 18:40 141/88 02/12/18 18:00 126 16 132/88 100 Mechanical Ventilator 40 02/12/18 17:05 119 16 40 02/12/18 17:00 118 16 118/86 100 Mechanical Ventilator 40 02/12/18 16:04 121 02/12/18 16:00 98.8 119 16 118/84 100 Mechanical Ventilator 40 98.8 02/12/18 15:00 126 16 113/77 98 Mechanical Ventilator 40 02/12/18 14:47 124 16 40 02/12/18 14:00 118 18 114/95 100 Mechanical Ventilator 40 02/12/18 13:00 119 16 107/75 100 Mechanical Ventilator 40 02/12/18 12:39 122 16 40 02/12/18 12:04 122 02/12/18 12:00 123 16 123/88 94 Mechanical Ventilator 40 Status: awake Condition: critical HEENT: atraumatic Lungs: clear Heart: HR/BP stable Abdomen: soft, active bowel sounds Extremities: edema Decubiti: stage Micro: Microbiology Date/Time Source Procedure Growth Status 02/10/18 14:15 Blood Blood Culture - Preliminary NO GROWTH AFTER 48 HOURS Resulted 02/10/18 14:00 Blood Blood Culture - Preliminary NO GROWTH AFTER 48 HOURS Resulted 02/10/18 15:08 Nasal Nares MRSA Culture - Final NO METHICILLIN RESISTANT STAPH AUREUS... Complete 02/10/18 15:08 Rectum VRE Culture - Final NO VANCOMYCIN RESISTANT ENTEROCOCCUS ... Complete Critical Care - Subjective ROS Limited/Unobtainable: Yes Condition: critical EKG Rhythm: Sinus Rhythm FI02: 40 Vent Support Breath Rate: 16 Vent Support Mode: AC Vent Tidal Volume: 600 Sputum Amount: Small PIP: 38 I&O: Intake and Output 02/12/18 02/13/18 19:00 07:00 Intake Total 660.0 ml 2195.0 ml Output Total 60 ml 500 ml Balance 600.0 ml 1695.0 ml Intake Oral 0 ml IV Total 660.0 ml 2195.0 ml Output Urine Total 60 ml 350 ml Gastric Drainage Total 150 ml # Bowel Movements 1 1 CXR: no change ET-Tube: 7.5 ET Position: 24 Labs: Laboratory Tests Test 02/12/18 12:05 02/12/18 13:00 02/12/18 14:55 02/13/18 04:35 Arterial Blood pH 7.484 (7.350-7.450) Arterial Blood Partial Pressure CO2 54.7 mmHg (35.0-45.0) H Arterial Blood Partial Pressure O2 68.9 mmHg (75.0-100.0) L Arterial Blood HCO3 40.1 mmol/L (22.0-26.0) H Arterial Blood Oxygen Saturation 96.2 % (92.0-98.0) Arterial Blood Base Excess 14.5 Efren Test Positive Urine Color Pale yellow Urine Appearance Clear Urine pH 5 (4.5-8.0) Urine Specific Moffat 1.020 (1.005-1.035) Urine Protein 3+ (NEGATIVE) H Urine Glucose (UA) Negative (NEGATIVE) Urine Ketones 3+ (NEGATIVE) H Urine Occult Blood 2+ (NEGATIVE) H Urine Nitrite Negative (NEGATIVE) Urine Bilirubin Negative (NEGATIVE) Urine Urobilinogen Normal MG/DL (0.0-1.0) Urine Leukocyte Esterase Negative (NEGATIVE) Urine RBC 2-4 /HPF (0 - 0) H Urine WBC 0-2 /HPF (0 - 0) Urine Squamous Epithelial Cells None /LPF (NONE/OCC) Urine Amorphous Sediment Few /LPF (NONE) H Urine Bacteria None /HPF (NONE) Urine Eosinophils None seen Urine Random Sodium 14 mmol/L (20-110) L Urine Potassium Timed 55 mmol/L (12-62) White Blood Count 9.2 K/UL (4.8-10.8) 10.4 K/UL (4.8-10.8) Red Blood Count 3.93 M/UL (4.70-6.10) L 3.66 M/UL (4.70-6.10) L Hemoglobin 10.3 G/DL (14.2-18.0) L 9.6 G/DL (14.2-18.0) L Hematocrit 35.4 % (42.0-52.0) L 32.5 % (42.0-52.0) L Mean Corpuscular Volume 90 FL (80-99) 89 FL (80-99) Mean Corpuscular Hemoglobin 26.1 PG (27.0-31.0) L 26.2 PG (27.0-31.0) L Mean Corpuscular Hemoglobin Concent 28.9 G/DL (32.0-36.0) L 29.5 G/DL (32.0-36.0) L Red Cell Distribution Width 16.3 % (11.6-14.8) H 16.3 % (11.6-14.8) H Platelet Count 178 K/UL (150-450) 169 K/UL (150-450) Mean Platelet Volume 7.6 FL (6.5-10.1) 8.6 FL (6.5-10.1) Neutrophils (%) (Auto) 82.5 % (45.0-75.0) H % (45.0-75.0) Lymphocytes (%) (Auto) 4.9 % (20.0-45.0) L % (20.0-45.0) Monocytes (%) (Auto) 11.5 % (1.0-10.0) H % (1.0-10.0) Eosinophils (%) (Auto) 0.0 % (0.0-3.0) % (0.0-3.0) Basophils (%) (Auto) 1.1 % (0.0-2.0) % (0.0-2.0) Sodium Level 140 MMOL/L (136-145) 145 MMOL/L (136-145) Potassium Level 5.7 MMOL/L (3.5-5.1) H 3.9 MMOL/L (3.5-5.1) Chloride Level 99 MMOL/L (98-107) 104 MMOL/L (98-107) Carbon Dioxide Level 36 MMOL/L (21-32) H 38 MMOL/L (21-32) H Anion Gap 5 mmol/L (5-15) 4 mmol/L (5-15) L Blood Urea Nitrogen 30 mg/dL (7-18) H 25 mg/dL (7-18) H Creatinine 1.0 MG/DL (0.55-1.30) 1.1 MG/DL (0.55-1.30) Estimat Glomerular Filtration Rate > 60 mL/min (>60) > 60 mL/min (>60) Glucose Level 99 MG/DL (74-106) 166 MG/DL (74-106) H Hemoglobin A1c 5.3 % (4.3-6.0) Uric Acid 4.8 MG/DL (2.6-7.2) 4.2 MG/DL (2.6-7.2) Calcium Level 9.5 MG/DL (8.5-10.1) 8.9 MG/DL (8.5-10.1) Phosphorus Level 1.4 MG/DL (2.5-4.9) L 1.1 MG/DL (2.5-4.9) L Magnesium Level 2.9 MG/DL (1.8-2.4) H 2.6 MG/DL (1.8-2.4) H Ferritin 246 NG/ML (8-388) Total Bilirubin 0.4 MG/DL (0.2-1.0) 0.3 MG/DL (0.2-1.0) Gamma Glutamyl Transpeptidase 3 U/L (5-85) L Aspartate Amino Transf (AST/SGOT) 66 U/L (15-37) H 50 U/L (15-37) H Alanine Aminotransferase (ALT/SGPT) 36 U/L (12-78) 32 U/L (12-78) Alkaline Phosphatase 54 U/L (46-116) 47 U/L (46-116) Total Creatine Kinase 726 U/L (26-308) H 519 U/L (26-308) H Troponin I 0.131 ng/mL (0.000-0.056) 0.066 ng/mL (0.000-0.056) C-Reactive Protein, Quantitative 5.3 mg/dL (0.00-0.90) H Pro-B-Type Natriuretic Peptide 1483 pg/mL (0-125) H 634 pg/mL (0-125) H Total Protein 7.9 G/DL (6.4-8.2) 7.0 G/DL (6.4-8.2) Albumin 3.7 G/DL (3.4-5.0) 3.3 G/DL (3.4-5.0) L Globulin 4.2 g/dL 3.7 g/dL Albumin/Globulin Ratio 0.9 (1.0-2.7) L 0.9 (1.0-2.7) L Triglycerides Level 71 MG/DL (30-150) Cholesterol Level 162 MG/DL (< 200) LDL Cholesterol 74 mg/dL (<100) HDL Cholesterol 85 MG/DL (40-60) H Cholesterol/HDL Ratio 1.9 (3.3-4.4) L Vitamin B12 Level 1234 PG/ML (193-986) H Folate 15.6 NG/ML (8.6-58.9) Thyroid Stimulating Hormone (TSH) 0.262 uiU/mL (0.358-3.740) Iron Level 38 ug/dL (50-175) L Total Iron Binding Capacity 161 ug/dL (250-450) L Percent Iron Saturation 24 % (15-50) Unsaturated Iron Binding 123 ug/dL (112-346) Test 02/13/18 07:15 Arterial Blood pH 7.500 (7.350-7.450) Arterial Blood Partial Pressure CO2 47.3 mmHg (35.0-45.0) H Arterial Blood Partial Pressure O2 90.6 mmHg (75.0-100.0) Arterial Blood HCO3 36.5 mmol/L (22.0-26.0) H Arterial Blood Oxygen Saturation 97.3 % (92.0-98.0) Arterial Blood Base Excess 12 Efren Test Positive Jose Cruz Katz MD February 13, 2018 11:43
--- NOTE | 2018-02-13 12:58 | Cardiology Report ---
APPROVED REPORT EXAM: Two-dimensional and M-mode echocardiogram with Doppler and color Doppler. INDICATION Congestive Heart Failure M-Mode DIMENSIONS IVSd1.3 (0.7-1.1cm)Left Atrium (MM)1.7 (1.6-4.0cm) LVDd3.9 (3.5-5.6cm)Aortic Root2.5 (2.0-3.7cm) PWd1.1 (0.7-1.1cm)Aortic Cusp Exc.2.0 (1.5-2.0cm) LVDs2.6 (2.5-4.0cm) PWs1.5 cm Technically difficult and limited study due to patient on ventilator. Images obtained from subcostal views. Study quality precludes accurate assessment of regional wall motion. Normal left ventricular chamber size, systolic function and wall motion to extent visualized. Left ventricular ejection fraction estimated to be 60% Mild left ventricular hypertrophy. Anterior Echo-free space, may be due to pericardial fat or effusion. All other cardiac chamber sizes appear to be within normal limits. Focal aortic valve sclerosis with adequate cusp excursion. Thickened mitral valve leaflets with normal excursion. Mild mitral annulus and aortic root calcification. Pulmonic valve not visualized. Normal tricuspid valve structure. A color flow and spectral Doppler study was performed and revealed: Trace aortic regurgitation. Possible mild tricuspid regurgitation. RVSP cannot be determined.
--- NOTE | 2018-02-13 13:28 | Internal Med Progress Note ---
Subjective Physician Name Dipesh Cardoza Attending Physician Dipesh Cardoza MD Current Medications Medications (Trade) Dose Ordered Sig/Radha Route PRN Reason Start Time Stop Time Status Last Admin Dose Admin Albuterol/ Ipratropium (Albuterol/ Ipratropium) 3 ml Q4H PRN HHN dyspnea and/or SOB 02/12/18 13:00 02/15/18 16:59 Bisacodyl (Dulcolax) 10 mg DAILYPRN PRN RECTAL Constipation 02/12/18 14:47 03/14/18 14:46 Dextrose (Dextrose 50%) 25 ml PRN IV Hypoglycemia 02/12/18 11:30 03/12/18 18:59 Dextrose (Dextrose 50%) 50 ml PRN IV hypoglycemia 02/12/18 11:30 03/12/18 18:59 Dextrose/Sodium Chloride 1,000 ml @ 150 mls/hr Q6H40M IV 02/12/18 17:00 03/14/18 14:59 02/13/18 12:46 Docusate Sodium (Colace) 100 mg THREE TIMES A DAY ORAL 02/12/18 13:00 03/13/18 12:59 02/12/18 18:39 Heparin Sodium (Porcine) (Heparin 5000 units/ml) 5,000 units EVERY 12 HOURS SUBQ 02/12/18 21:00 03/12/18 20:59 02/13/18 09:41 Lactulose (Cephulac) 30 gm THREE TIMES A DAY ORAL 02/12/18 13:00 03/13/18 12:59 02/13/18 12:54 Lorazepam (Ativan 2mg/ml 1ml) 1 mg Q2H PRN IV For Anxiety 02/12/18 11:45 02/19/18 09:35 02/13/18 00:06 Methylprednisolone Sodium Succinate (Solu-MEDROL) 60 mg EVERY 6 HOURS IV 02/12/18 12:00 03/13/18 00:00 02/13/18 11:55 Mineral Oil (Fleet's Mineral Oil Enema) 133 ml EVERY OTHER DAY RECTAL 02/13/18 09:00 03/15/18 08:59 Morphine Sulfate (Morphine Sulfate) 4 mg Q4H PRN IVP For Pain 02/12/18 12:15 02/19/18 12:14 Nitroglycerin (Ntg) 0.4 mg Q5M X 3 DOSES PRN SL Prn Chest Pain 02/12/18 11:30 03/12/18 16:59 Nitroglycerin (Ntg) 1 patch Q24H TDERMAL 02/12/18 18:00 03/14/18 17:59 02/12/18 18:40 Ondansetron HCl (Zofran) 4 mg Q6H PRN IVP Nausea & Vomiting 02/12/18 17:00 03/12/18 16:59 Pantoprazole (Protonix) 40 mg Q12HR IV 02/12/18 21:00 03/15/18 08:59 02/13/18 09:39 Piperacillin Sod/ Tazobactam Sod 3.375 gm/Sodium Chloride 110 ml @ 27.5 mls/hr EVERY 8 HOURS IVPB 02/12/18 14:00 02/15/18 19:59 02/13/18 06:29 Sodium Phosphate 30 mm/Sodium Chloride 285 ml @ 47.5 mls/hr ONCE ONCE IVPB 02/13/18 10:00 02/13/18 15:59 02/13/18 10:46 Allergies: Coded Allergies: No Known Allergies (Unverified , 10/30/16) Subjective Intubated, awake, alert, responsive, BM X 3 , ICU, open eyes. Objective Last Vital Signs Date Time Temp Pulse Resp B/P (MAP) Pulse Ox O2 Delivery O2 Flow Rate FiO2 02/13/18 13:13 106 18 40 02/13/18 12:00 149/90 99 Mechanical Ventilator 02/13/18 10:00 98.3 98.3 02/12/18 04:00 5.0 Laboratory Tests Test 02/12/18 14:55 02/13/18 04:35 02/13/18 07:15 White Blood Count 9.2 K/UL (4.8-10.8) 10.4 K/UL (4.8-10.8) Red Blood Count 3.93 M/UL (4.70-6.10) L 3.66 M/UL (4.70-6.10) L Hemoglobin 10.3 G/DL (14.2-18.0) L 9.6 G/DL (14.2-18.0) L Hematocrit 35.4 % (42.0-52.0) L 32.5 % (42.0-52.0) L Mean Corpuscular Volume 90 FL (80-99) 89 FL (80-99) Mean Corpuscular Hemoglobin 26.1 PG (27.0-31.0) L 26.2 PG (27.0-31.0) L Mean Corpuscular Hemoglobin Concent 28.9 G/DL (32.0-36.0) L 29.5 G/DL (32.0-36.0) L Red Cell Distribution Width 16.3 % (11.6-14.8) H 16.3 % (11.6-14.8) H Platelet Count 178 K/UL (150-450) 169 K/UL (150-450) Mean Platelet Volume 7.6 FL (6.5-10.1) 8.6 FL (6.5-10.1) Neutrophils (%) (Auto) 82.5 % (45.0-75.0) H % (45.0-75.0) Lymphocytes (%) (Auto) 4.9 % (20.0-45.0) L % (20.0-45.0) Monocytes (%) (Auto) 11.5 % (1.0-10.0) H % (1.0-10.0) Eosinophils (%) (Auto) 0.0 % (0.0-3.0) % (0.0-3.0) Basophils (%) (Auto) 1.1 % (0.0-2.0) % (0.0-2.0) Sodium Level 140 MMOL/L (136-145) 145 MMOL/L (136-145) Potassium Level 5.7 MMOL/L (3.5-5.1) H 3.9 MMOL/L (3.5-5.1) Chloride Level 99 MMOL/L (98-107) 104 MMOL/L (98-107) Carbon Dioxide Level 36 MMOL/L (21-32) H 38 MMOL/L (21-32) H Anion Gap 5 mmol/L (5-15) 4 mmol/L (5-15) L Blood Urea Nitrogen 30 mg/dL (7-18) H 25 mg/dL (7-18) H Creatinine 1.0 MG/DL (0.55-1.30) 1.1 MG/DL (0.55-1.30) Estimat Glomerular Filtration Rate > 60 mL/min (>60) > 60 mL/min (>60) Glucose Level 99 MG/DL (74-106) 166 MG/DL (74-106) H Hemoglobin A1c 5.3 % (4.3-6.0) Uric Acid 4.8 MG/DL (2.6-7.2) 4.2 MG/DL (2.6-7.2) Calcium Level 9.5 MG/DL (8.5-10.1) 8.9 MG/DL (8.5-10.1) Phosphorus Level 1.4 MG/DL (2.5-4.9) L 1.1 MG/DL (2.5-4.9) L Magnesium Level 2.9 MG/DL (1.8-2.4) H 2.6 MG/DL (1.8-2.4) H Ferritin 246 NG/ML (8-388) Total Bilirubin 0.4 MG/DL (0.2-1.0) 0.3 MG/DL (0.2-1.0) Gamma Glutamyl Transpeptidase 3 U/L (5-85) L Aspartate Amino Transf (AST/SGOT) 66 U/L (15-37) H 50 U/L (15-37) H Alanine Aminotransferase (ALT/SGPT) 36 U/L (12-78) 32 U/L (12-78) Alkaline Phosphatase 54 U/L (46-116) 47 U/L (46-116) Total Creatine Kinase 726 U/L (26-308) H 519 U/L (26-308) H Troponin I 0.131 ng/mL (0.000-0.056) 0.066 ng/mL (0.000-0.056) C-Reactive Protein, Quantitative 5.3 mg/dL (0.00-0.90) H Pro-B-Type Natriuretic Peptide 1483 pg/mL (0-125) H 634 pg/mL (0-125) H Total Protein 7.9 G/DL (6.4-8.2) 7.0 G/DL (6.4-8.2) Albumin 3.7 G/DL (3.4-5.0) 3.3 G/DL (3.4-5.0) L Globulin 4.2 g/dL 3.7 g/dL Albumin/Globulin Ratio 0.9 (1.0-2.7) L 0.9 (1.0-2.7) L Triglycerides Level 71 MG/DL (30-150) Cholesterol Level 162 MG/DL (< 200) LDL Cholesterol 74 mg/dL (<100) HDL Cholesterol 85 MG/DL (40-60) H Cholesterol/HDL Ratio 1.9 (3.3-4.4) L Vitamin B12 Level 1234 PG/ML (193-986) H Folate 15.6 NG/ML (8.6-58.9) Thyroid Stimulating Hormone (TSH) 0.262 uiU/mL (0.358-3.740) Iron Level 38 ug/dL (50-175) L Total Iron Binding Capacity 161 ug/dL (250-450) L Percent Iron Saturation 24 % (15-50) Unsaturated Iron Binding 123 ug/dL (112-346) Arterial Blood pH 7.500 (7.350-7.450) Arterial Blood Partial Pressure CO2 47.3 mmHg (35.0-45.0) H Arterial Blood Partial Pressure O2 90.6 mmHg (75.0-100.0) Arterial Blood HCO3 36.5 mmol/L (22.0-26.0) H Arterial Blood Oxygen Saturation 97.3 % (92.0-98.0) Arterial Blood Base Excess 12 Efren Test Positive Microbiology Date/Time Source Procedure Growth Status 02/10/18 14:15 Blood Blood Culture - Preliminary NO GROWTH AFTER 48 HOURS Resulted 02/10/18 14:00 Blood Blood Culture - Preliminary NO GROWTH AFTER 48 HOURS Resulted 02/10/18 15:08 Nasal Nares MRSA Culture - Final NO METHICILLIN RESISTANT STAPH AUREUS... Complete 02/10/18 15:08 Rectum VRE Culture - Final NO VANCOMYCIN RESISTANT ENTEROCOCCUS ... Complete Intake and Output 02/12/18 02/13/18 19:00 07:00 Intake Total 660.0 ml 2209.0 ml Output Total 60 ml 500 ml Balance 600.0 ml 1709.0 ml Intake Oral 0 ml IV Total 660.0 ml 2209.0 ml Output Urine Total 60 ml 350 ml Gastric Drainage Total 150 ml # Bowel Movements 1 1 Objective General: awake, alert, responsive, intubated. HEENT: NCAT, sclera anicteric, PERRL, ET Tube, OG Tube. Neck: Supple, no significant jugular venous distention, Lungs: Mechanical breath sound, no Wheeze or Rales. Heart: Regular rate and rhythm, normal S1/S2, no murmurs Abdomen: Hard, nontender, less distended. hypoactive bowel sounds. / Rectal: Refused and deferred. Extremities: No Cyanosis , clubbing or edema. Neuro: sedated, Able to move all extremities Assessment/Plan Assessment/Plan 1. Abdominal distention, possible due to the Small bowel obstruction improving.. 2. Acute COPD. 3. History of atrial flutter. 4. Dehydration. 5. History of CHF with systolic dysfunction. 6. GERD. 7. Hyponatremia. 8. Hyperkalemia. 9. Acute kidney injury. 10. Severe protein calori malnutrition. 11. Acute Respiratory Failure. Plan: in ICU F/U with surgery recommendations Monitor labs and cultures Abx: Zosyn Neb Tx decrease Solumedral IV 60mg IV Q8 Full code heparin SQ Extubation today Dipesh Cardoza MD February 13, 2018 13:28
--- NOTE | 2018-02-13 14:41 | General Surgery Progress Note ---
General Surgery-Progress Note Subjective Symptoms: improved Objective Last 24 Hour Vital Signs Date Time Temp Pulse Resp B/P (MAP) Pulse Ox O2 Delivery O2 Flow Rate FiO2 02/13/18 14:32 129 18 40 02/13/18 14:00 133 18 181/107 100 Mechanical Ventilator 40 02/13/18 13:13 106 18 40 02/13/18 13:00 119 17 166/90 100 Mechanical Ventilator 40 02/13/18 12:00 118 18 149/90 99 Mechanical Ventilator 40 02/13/18 12:00 111 02/13/18 11:50 40 02/13/18 11:00 106 16 136/98 100 Mechanical Ventilator 40 02/13/18 10:36 113 16 40 02/13/18 10:00 98.3 111 16 131/99 100 Mechanical Ventilator 40 98.3 02/13/18 09:51 Mechanical Ventilator 40 02/13/18 09:50 Mechanical Ventilator 40 02/13/18 09:20 108 16 40 02/13/18 09:00 104 16 113/78 100 Mechanical Ventilator 40 02/13/18 08:00 108 16 118/88 100 Mechanical Ventilator 40 02/13/18 08:00 40 02/13/18 08:00 103 02/13/18 07:18 111 16 40 02/13/18 07:00 108 16 127/87 100 Mechanical Ventilator 40 02/13/18 06:00 114 16 114/73 98 Mechanical Ventilator 40 02/13/18 05:02 119 16 40 02/13/18 05:00 116 16 152/96 98 Mechanical Ventilator 40 02/13/18 04:00 98.9 107 16 121/82 100 Mechanical Ventilator 40 98.9 02/13/18 04:00 40 02/13/18 04:00 107 02/13/18 03:20 105 16 40 02/13/18 03:00 108 16 116/82 100 Mechanical Ventilator 40 02/13/18 02:00 109 16 107/81 100 Mechanical Ventilator 40 02/13/18 01:09 116 16 40 02/13/18 01:00 116 16 112/72 100 Mechanical Ventilator 40 02/13/18 00:00 99.1 122 16 159/98 100 Mechanical Ventilator 40 99.1 02/13/18 00:00 122 02/12/18 23:00 126 16 119/82 99 Mechanical Ventilator 40 02/12/18 22:55 126 16 40 02/12/18 22:00 124 16 106/81 99 Mechanical Ventilator 40 02/12/18 21:13 125 16 40 02/12/18 21:00 122 16 106/81 98 Mechanical Ventilator 40 02/12/18 20:00 123 16 119/85 99 Mechanical Ventilator 40 02/12/18 20:00 40 02/12/18 20:00 123 02/12/18 19:04 127 16 40 02/12/18 19:00 99.3 128 16 139/90 98 Mechanical Ventilator 40 99.3 02/12/18 18:40 141/88 02/12/18 18:00 126 16 132/88 100 Mechanical Ventilator 40 02/12/18 17:05 119 16 40 02/12/18 17:00 118 16 118/86 100 Mechanical Ventilator 40 02/12/18 16:04 121 02/12/18 16:00 98.8 119 16 118/84 100 Mechanical Ventilator 40 98.8 02/12/18 15:00 126 16 113/77 98 Mechanical Ventilator 40 02/12/18 14:47 124 16 40 I&O Intake and Output 02/12/18 02/13/18 19:00 07:00 Intake Total 660.0 ml 2209.0 ml Output Total 60 ml 500 ml Balance 600.0 ml 1709.0 ml Intake Oral 0 ml IV Total 660.0 ml 2209.0 ml Output Urine Total 60 ml 350 ml Gastric Drainage Total 150 ml # Bowel Movements 1 1 Respiratory: decreased breath sounds Abdomen: distended, non-tender, other - hypoactive BS Extremities: no edema Laboratory Tests Test 02/12/18 14:55 02/13/18 04:35 02/13/18 07:15 02/13/18 14:15 White Blood Count 9.2 K/UL (4.8-10.8) 10.4 K/UL (4.8-10.8) Red Blood Count 3.93 M/UL (4.70-6.10) L 3.66 M/UL (4.70-6.10) L Hemoglobin 10.3 G/DL (14.2-18.0) L 9.6 G/DL (14.2-18.0) L Hematocrit 35.4 % (42.0-52.0) L 32.5 % (42.0-52.0) L Mean Corpuscular Volume 90 FL (80-99) 89 FL (80-99) Mean Corpuscular Hemoglobin 26.1 PG (27.0-31.0) L 26.2 PG (27.0-31.0) L Mean Corpuscular Hemoglobin Concent 28.9 G/DL (32.0-36.0) L 29.5 G/DL (32.0-36.0) L Red Cell Distribution Width 16.3 % (11.6-14.8) H 16.3 % (11.6-14.8) H Platelet Count 178 K/UL (150-450) 169 K/UL (150-450) Mean Platelet Volume 7.6 FL (6.5-10.1) 8.6 FL (6.5-10.1) Neutrophils (%) (Auto) 82.5 % (45.0-75.0) H % (45.0-75.0) Lymphocytes (%) (Auto) 4.9 % (20.0-45.0) L % (20.0-45.0) Monocytes (%) (Auto) 11.5 % (1.0-10.0) H % (1.0-10.0) Eosinophils (%) (Auto) 0.0 % (0.0-3.0) % (0.0-3.0) Basophils (%) (Auto) 1.1 % (0.0-2.0) % (0.0-2.0) Sodium Level 140 MMOL/L (136-145) 145 MMOL/L (136-145) Potassium Level 5.7 MMOL/L (3.5-5.1) H 3.9 MMOL/L (3.5-5.1) Chloride Level 99 MMOL/L (98-107) 104 MMOL/L (98-107) Carbon Dioxide Level 36 MMOL/L (21-32) H 38 MMOL/L (21-32) H Anion Gap 5 mmol/L (5-15) 4 mmol/L (5-15) L Blood Urea Nitrogen 30 mg/dL (7-18) H 25 mg/dL (7-18) H Creatinine 1.0 MG/DL (0.55-1.30) 1.1 MG/DL (0.55-1.30) Estimat Glomerular Filtration Rate > 60 mL/min (>60) > 60 mL/min (>60) Glucose Level 99 MG/DL (74-106) 166 MG/DL (74-106) H Hemoglobin A1c 5.3 % (4.3-6.0) Uric Acid 4.8 MG/DL (2.6-7.2) 4.2 MG/DL (2.6-7.2) Calcium Level 9.5 MG/DL (8.5-10.1) 8.9 MG/DL (8.5-10.1) Phosphorus Level 1.4 MG/DL (2.5-4.9) L 1.1 MG/DL (2.5-4.9) L Magnesium Level 2.9 MG/DL (1.8-2.4) H 2.6 MG/DL (1.8-2.4) H Ferritin 246 NG/ML (8-388) Total Bilirubin 0.4 MG/DL (0.2-1.0) 0.3 MG/DL (0.2-1.0) Gamma Glutamyl Transpeptidase 3 U/L (5-85) L Aspartate Amino Transf (AST/SGOT) 66 U/L (15-37) H 50 U/L (15-37) H Alanine Aminotransferase (ALT/SGPT) 36 U/L (12-78) 32 U/L (12-78) Alkaline Phosphatase 54 U/L (46-116) 47 U/L (46-116) Total Creatine Kinase 726 U/L (26-308) H 519 U/L (26-308) H Troponin I 0.131 ng/mL (0.000-0.056) 0.066 ng/mL (0.000-0.056) C-Reactive Protein, Quantitative 5.3 mg/dL (0.00-0.90) H Pro-B-Type Natriuretic Peptide 1483 pg/mL (0-125) H 634 pg/mL (0-125) H Total Protein 7.9 G/DL (6.4-8.2) 7.0 G/DL (6.4-8.2) Albumin 3.7 G/DL (3.4-5.0) 3.3 G/DL (3.4-5.0) L Globulin 4.2 g/dL 3.7 g/dL Albumin/Globulin Ratio 0.9 (1.0-2.7) L 0.9 (1.0-2.7) L Triglycerides Level 71 MG/DL (30-150) Cholesterol Level 162 MG/DL (< 200) LDL Cholesterol 74 mg/dL (<100) HDL Cholesterol 85 MG/DL (40-60) H Cholesterol/HDL Ratio 1.9 (3.3-4.4) L Vitamin B12 Level 1234 PG/ML (193-986) H Folate 15.6 NG/ML (8.6-58.9) Thyroid Stimulating Hormone (TSH) 0.262 uiU/mL (0.358-3.740) Iron Level 38 ug/dL (50-175) L Total Iron Binding Capacity 161 ug/dL (250-450) L Percent Iron Saturation 24 % (15-50) Unsaturated Iron Binding 123 ug/dL (112-346) Arterial Blood pH 7.500 (7.350-7.450) 7.180 (7.350-7.450) Arterial Blood Partial Pressure CO2 47.3 mmHg (35.0-45.0) H 114.3 mmHg (35.0-45.0) *H Arterial Blood Partial Pressure O2 90.6 mmHg (75.0-100.0) 84.5 mmHg (75.0-100.0) Arterial Blood HCO3 36.5 mmol/L (22.0-26.0) H 42.0 mmol/L (22.0-26.0) H Arterial Blood Oxygen Saturation 97.3 % (92.0-98.0) 93.5 % (92.0-98.0) Arterial Blood Base Excess 12 10 Efren Test Positive Positive Assessment Additional Comments Paralytic Ileus Plan Additional Comments Continue current treatment Jeanine Hicks MD February 13, 2018 14:41
[2018-02-13] MEDS ORDERED: D5NS 1,000 ML IV SCH (15:00)
--- NOTE | 2018-02-13 16:51 | Nephrology Progress Note ---
Assessment/Plan Problem List: (1) Acute respiratory failure (2) Protein-calorie malnutrition, severe (3) Acute renal failure (4) Dehydration Assessment Renal failure / Acute / Dehydration HyperKalemia likely due to acidosis Acute respiratory failure- Abdominal distention, possible due to the Small bowel obstruction Vs. paralytic Ileus. COPD. History of atrial flutter. Dehydration. History of CHF with systolic dysfunction. GERD. Severe protein calori malnutrition. Plan Noel- D5NS IV fluid IV protonix recheck K pulmonary support Anemia fuentes avoid nephrotoxics 2D echo Subjective ROS Limited/Unobtainable: Yes Objective Objective Last 24 Hour Vital Signs Date Time Temp Pulse Resp B/P (MAP) Pulse Ox O2 Delivery O2 Flow Rate FiO2 02/13/18 15:00 120 18 125/93 100 Mechanical Ventilator 40 02/13/18 14:32 129 18 40 02/13/18 14:00 133 18 181/107 100 Mechanical Ventilator 40 02/13/18 13:13 106 18 40 02/13/18 13:00 119 17 166/90 100 Mechanical Ventilator 40 02/13/18 12:00 118 18 149/90 99 Mechanical Ventilator 40 02/13/18 12:00 111 02/13/18 11:50 40 02/13/18 11:00 106 16 136/98 100 Mechanical Ventilator 40 02/13/18 10:36 113 16 40 02/13/18 10:00 98.3 111 16 131/99 100 Mechanical Ventilator 40 98.3 02/13/18 09:51 Mechanical Ventilator 40 02/13/18 09:50 Mechanical Ventilator 40 02/13/18 09:20 108 16 40 02/13/18 09:00 104 16 113/78 100 Mechanical Ventilator 40 02/13/18 08:00 108 16 118/88 100 Mechanical Ventilator 40 02/13/18 08:00 40 02/13/18 08:00 103 02/13/18 07:18 111 16 40 02/13/18 07:00 108 16 127/87 100 Mechanical Ventilator 40 02/13/18 06:00 114 16 114/73 98 Mechanical Ventilator 40 02/13/18 05:02 119 16 40 02/13/18 05:00 116 16 152/96 98 Mechanical Ventilator 40 02/13/18 04:00 98.9 107 16 121/82 100 Mechanical Ventilator 40 98.9 02/13/18 04:00 40 02/13/18 04:00 107 02/13/18 03:20 105 16 40 02/13/18 03:00 108 16 116/82 100 Mechanical Ventilator 40 02/13/18 02:00 109 16 107/81 100 Mechanical Ventilator 40 02/13/18 01:09 116 16 40 02/13/18 01:00 116 16 112/72 100 Mechanical Ventilator 40 02/13/18 00:00 99.1 122 16 159/98 100 Mechanical Ventilator 40 99.1 02/13/18 00:00 122 02/12/18 23:00 126 16 119/82 99 Mechanical Ventilator 40 02/12/18 22:55 126 16 40 02/12/18 22:00 124 16 106/81 99 Mechanical Ventilator 40 02/12/18 21:13 125 16 40 02/12/18 21:00 122 16 106/81 98 Mechanical Ventilator 40 02/12/18 20:00 123 16 119/85 99 Mechanical Ventilator 40 02/12/18 20:00 40 02/12/18 20:00 123 02/12/18 19:04 127 16 40 02/12/18 19:00 99.3 128 16 139/90 98 Mechanical Ventilator 40 99.3 02/12/18 18:40 141/88 02/12/18 18:00 126 16 132/88 100 Mechanical Ventilator 40 02/12/18 17:05 119 16 40 02/12/18 17:00 118 16 118/86 100 Mechanical Ventilator 40 Intake and Output 02/12/18 02/13/18 19:00 07:00 Intake Total 660.0 ml 2209.0 ml Output Total 60 ml 500 ml Balance 600.0 ml 1709.0 ml Intake Oral 0 ml IV Total 660.0 ml 2209.0 ml Output Urine Total 60 ml 350 ml Gastric Drainage Total 150 ml # Bowel Movements 1 1 Laboratory Tests 02/13/18 04:35: White Blood Count 10.4, Red Blood Count 3.66L, Hemoglobin 9.6L, Hematocrit 32.5L , Mean Corpuscular Volume 89, Mean Corpuscular Hemoglobin 26.2L, Mean Corpuscular Hemoglobin Concent 29.5L, Red Cell Distribution Width 16.3H, Platelet Count 169, Mean Platelet Volume 8.6, Neutrophils (%) (Auto) , Lymphocytes (%) (Auto) , Monocytes (%) (Auto) , Eosinophils (%) (Auto) , Basophils (%) (Auto) , Sodium Level 145, Potassium Level 3.9, Chloride Level 104 , Carbon Dioxide Level 38H, Anion Gap 4L, Blood Urea Nitrogen 25H, Creatinine 1.1, Estimat Glomerular Filtration Rate > 60, Glucose Level 166H, Uric Acid 4.2 , Calcium Level 8.9, Phosphorus Level 1.1L, Magnesium Level 2.6H, Iron Level 38L , Total Iron Binding Capacity 161L, Percent Iron Saturation 24, Unsaturated Iron Binding 123, Total Bilirubin 0.3, Aspartate Amino Transf (AST/SGOT) 50H, Alanine Aminotransferase (ALT/SGPT) 32, Alkaline Phosphatase 47, Total Creatine Kinase 519H, Troponin I 0.066H, Pro-B-Type Natriuretic Peptide 634H, Total Protein 7.0, Albumin 3.3L, Globulin 3.7, Albumin/Globulin Ratio 0.9L 02/13/18 07:15: Arterial Blood pH 7.500H, Arterial Blood Partial Pressure CO2 47.3H, Arterial Blood Partial Pressure O2 90.6, Arterial Blood HCO3 36.5H, Arterial Blood Oxygen Saturation 97.3, Arterial Blood Base Excess 12, Efren Test Positive 02/13/18 14:15: Arterial Blood pH 7.180*L, Arterial Blood Partial Pressure CO2 114.3*H, Arterial Blood Partial Pressure O2 84.5, Arterial Blood HCO3 42.0H, Arterial Blood Oxygen Saturation 93.5, Arterial Blood Base Excess 10, Efren Test Positive Height (Feet): 5 Height (Inches): 7.00 Weight (Pounds): 143 General Appearance: no apparent distress EENT: other - intubated Respiratory/Chest: decreased breath sounds Abdomen: distended YAMIL LOVE February 13, 2018 16:51
[2018-02-13] MEDS: Nitroglycerin Patch 0.4mg TDERMAL SCH ×2 (17:24→18:17)
--- NOTE | 2018-02-13 18:28 | General Progress Note ---
Assessment/Plan Assessment/Plan Assessment - Ileus vs SBO - suspect former - Anemia - Resp failure - Electrolyte abnormalities Recommendations - NPO - IVF - dulcolax supp trial - correct all lytes - follow exam and imaging Subjective Allergies: Coded Allergies: No Known Allergies (Unverified , 10/30/16) Subjective above noted seen earlier today more awake, fighting restraints abdomen still distended but (+) BM Objective Last 24 Hour Vital Signs Date Time Temp Pulse Resp B/P (MAP) Pulse Ox O2 Delivery O2 Flow Rate FiO2 02/13/18 18:17 153/92 02/13/18 18:00 117 18 153/92 100 Mechanical Ventilator 40 02/13/18 17:13 108 18 40 02/13/18 17:00 108 18 103/83 100 Mechanical Ventilator 40 02/13/18 16:00 40 02/13/18 16:00 97.3 119 16 100/75 100 Mechanical Ventilator 40 97.3 02/13/18 16:00 123 02/13/18 15:00 120 18 125/93 100 Mechanical Ventilator 40 02/13/18 14:32 129 18 40 02/13/18 14:30 40 02/13/18 14:00 133 18 181/107 100 Mechanical Ventilator 40 02/13/18 13:30 40 02/13/18 13:13 106 18 40 02/13/18 13:00 119 17 166/90 100 Mechanical Ventilator 40 02/13/18 12:00 118 18 149/90 99 Mechanical Ventilator 40 02/13/18 12:00 111 02/13/18 11:50 40 02/13/18 11:00 106 16 136/98 100 Mechanical Ventilator 40 02/13/18 10:36 113 16 40 02/13/18 10:00 98.3 111 16 131/99 100 Mechanical Ventilator 40 98.3 02/13/18 09:51 Mechanical Ventilator 40 02/13/18 09:50 Mechanical Ventilator 40 02/13/18 09:20 108 16 40 02/13/18 09:00 104 16 113/78 100 Mechanical Ventilator 40 02/13/18 08:00 108 16 118/88 100 Mechanical Ventilator 40 02/13/18 08:00 40 02/13/18 08:00 103 02/13/18 07:18 111 16 40 02/13/18 07:00 108 16 127/87 100 Mechanical Ventilator 40 02/13/18 06:00 114 16 114/73 98 Mechanical Ventilator 40 02/13/18 05:02 119 16 40 02/13/18 05:00 116 16 152/96 98 Mechanical Ventilator 40 02/13/18 04:00 98.9 107 16 121/82 100 Mechanical Ventilator 40 98.9 02/13/18 04:00 40 02/13/18 04:00 107 02/13/18 03:20 105 16 40 02/13/18 03:00 108 16 116/82 100 Mechanical Ventilator 40 02/13/18 02:00 109 16 107/81 100 Mechanical Ventilator 40 02/13/18 01:09 116 16 40 02/13/18 01:00 116 16 112/72 100 Mechanical Ventilator 40 02/13/18 00:00 99.1 122 16 159/98 100 Mechanical Ventilator 40 99.1 02/13/18 00:00 122 02/12/18 23:00 126 16 119/82 99 Mechanical Ventilator 40 02/12/18 22:55 126 16 40 02/12/18 22:00 124 16 106/81 99 Mechanical Ventilator 40 02/12/18 21:13 125 16 40 02/12/18 21:00 122 16 106/81 98 Mechanical Ventilator 40 02/12/18 20:00 123 16 119/85 99 Mechanical Ventilator 40 02/12/18 20:00 40 02/12/18 20:00 123 02/12/18 19:04 127 16 40 02/12/18 19:00 99.3 128 16 139/90 98 Mechanical Ventilator 40 99.3 02/12/18 18:40 141/88 Intake and Output 02/12/18 02/13/18 19:00 07:00 Intake Total 660.0 ml 2209.0 ml Output Total 60 ml 500 ml Balance 600.0 ml 1709.0 ml Intake Oral 0 ml IV Total 660.0 ml 2209.0 ml Output Urine Total 60 ml 350 ml Gastric Drainage Total 150 ml # Bowel Movements 1 1 Laboratory Tests 02/13/18 04:35: White Blood Count 10.4, Red Blood Count 3.66L, Hemoglobin 9.6L, Hematocrit 32.5L , Mean Corpuscular Volume 89, Mean Corpuscular Hemoglobin 26.2L, Mean Corpuscular Hemoglobin Concent 29.5L, Red Cell Distribution Width 16.3H, Platelet Count 169, Mean Platelet Volume 8.6, Neutrophils (%) (Auto) , Lymphocytes (%) (Auto) , Monocytes (%) (Auto) , Eosinophils (%) (Auto) , Basophils (%) (Auto) , Sodium Level 145, Potassium Level 3.9, Chloride Level 104 , Carbon Dioxide Level 38H, Anion Gap 4L, Blood Urea Nitrogen 25H, Creatinine 1.1, Estimat Glomerular Filtration Rate > 60, Glucose Level 166H, Uric Acid 4.2 , Calcium Level 8.9, Phosphorus Level 1.1L, Magnesium Level 2.6H, Iron Level 38L , Total Iron Binding Capacity 161L, Percent Iron Saturation 24, Unsaturated Iron Binding 123, Total Bilirubin 0.3, Aspartate Amino Transf (AST/SGOT) 50H, Alanine Aminotransferase (ALT/SGPT) 32, Alkaline Phosphatase 47, Total Creatine Kinase 519H, Troponin I 0.066H, C-Reactive Protein, Quantitative 3.4H, Pro-B- Type Natriuretic Peptide 634H, Total Protein 7.0, Albumin 3.3L, Globulin 3.7, Albumin/Globulin Ratio 0.9L 02/13/18 07:15: Arterial Blood pH 7.500H, Arterial Blood Partial Pressure CO2 47.3H, Arterial Blood Partial Pressure O2 90.6, Arterial Blood HCO3 36.5H, Arterial Blood Oxygen Saturation 97.3, Arterial Blood Base Excess 12, Efren Test Positive 02/13/18 14:15: Arterial Blood pH 7.180*L, Arterial Blood Partial Pressure CO2 114.3*H, Arterial Blood Partial Pressure O2 84.5, Arterial Blood HCO3 42.0H, Arterial Blood Oxygen Saturation 93.5, Arterial Blood Base Excess 10, Efren Test Positive Height (Feet): 5 Height (Inches): 7.00 Weight (Pounds): 143 Objective WDWN AA man NCAT supple CTA RRR abd soft, but distended no edema Nic Cade MD February 13, 2018 18:28
--- NOTE | 2018-02-13 19:05 | Cardiology Progress Note ---
Assessment/Plan Assessment/Plan 1. Respiratory failure, likely secondary to chronic obstructive pulmonary disease with exacerbation. 2. Abdominal distention, likely secondary to ileus. 3. History of coronary artery disease per chart pt denies 4. History of atrial fibrillation previously per chart 5. previous hx of cm now normal per recent echo 6. hx of respiratory failreu and PEA arrest with recovery he looks and feel better his ef is normal remain sinsu tachy still requires vent but awake and responsive and comedicated trop min elevated likely due to demand ekg without st t wave abn he deineis any chest pain no chf on exam today Subjective Cardiovascular: Denies: chest pain Respiratory: Reports: shortness of breath Gastrointestinal/Abdominal: Denies: abdominal pain Genitourinary: Denies: burning Objective Last 24 Hour Vital Signs Date Time Temp Pulse Resp B/P (MAP) Pulse Ox O2 Delivery O2 Flow Rate FiO2 02/13/18 18:17 153/92 02/13/18 18:00 117 18 153/92 100 Mechanical Ventilator 40 02/13/18 17:13 108 18 40 02/13/18 17:00 108 18 103/83 100 Mechanical Ventilator 40 02/13/18 16:00 40 02/13/18 16:00 97.3 119 16 100/75 100 Mechanical Ventilator 40 97.3 02/13/18 16:00 123 02/13/18 15:00 120 18 125/93 100 Mechanical Ventilator 40 02/13/18 14:32 129 18 40 02/13/18 14:30 40 02/13/18 14:00 133 18 181/107 100 Mechanical Ventilator 40 02/13/18 13:30 40 02/13/18 13:13 106 18 40 02/13/18 13:00 119 17 166/90 100 Mechanical Ventilator 40 02/13/18 12:00 118 18 149/90 99 Mechanical Ventilator 40 02/13/18 12:00 111 02/13/18 11:50 40 02/13/18 11:00 106 16 136/98 100 Mechanical Ventilator 40 02/13/18 10:36 113 16 40 02/13/18 10:00 98.3 111 16 131/99 100 Mechanical Ventilator 40 98.3 02/13/18 09:51 Mechanical Ventilator 40 02/13/18 09:50 Mechanical Ventilator 40 02/13/18 09:20 108 16 40 02/13/18 09:00 104 16 113/78 100 Mechanical Ventilator 40 02/13/18 08:00 108 16 118/88 100 Mechanical Ventilator 40 02/13/18 08:00 40 02/13/18 08:00 103 02/13/18 07:18 111 16 40 02/13/18 07:00 108 16 127/87 100 Mechanical Ventilator 40 02/13/18 06:00 114 16 114/73 98 Mechanical Ventilator 40 02/13/18 05:02 119 16 40 02/13/18 05:00 116 16 152/96 98 Mechanical Ventilator 40 02/13/18 04:00 98.9 107 16 121/82 100 Mechanical Ventilator 40 98.9 02/13/18 04:00 40 02/13/18 04:00 107 02/13/18 03:20 105 16 40 02/13/18 03:00 108 16 116/82 100 Mechanical Ventilator 40 02/13/18 02:00 109 16 107/81 100 Mechanical Ventilator 40 02/13/18 01:09 116 16 40 02/13/18 01:00 116 16 112/72 100 Mechanical Ventilator 40 02/13/18 00:00 99.1 122 16 159/98 100 Mechanical Ventilator 40 99.1 02/13/18 00:00 122 02/12/18 23:00 126 16 119/82 99 Mechanical Ventilator 40 02/12/18 22:55 126 16 40 02/12/18 22:00 124 16 106/81 99 Mechanical Ventilator 40 02/12/18 21:13 125 16 40 02/12/18 21:00 122 16 106/81 98 Mechanical Ventilator 40 02/12/18 20:00 123 16 119/85 99 Mechanical Ventilator 40 02/12/18 20:00 40 02/12/18 20:00 123 02/12/18 19:04 127 16 40 General Appearance: no apparent distress, alert, on vent Neck: supple Cardiovascular: tachycardia Respiratory/Chest: decreased breath sounds Abdomen: normal bowel sounds, non tender, soft Extremities: no swelling Intake and Output 02/12/18 02/13/18 19:00 07:00 Intake Total 660.0 ml 2209.0 ml Output Total 60 ml 500 ml Balance 600.0 ml 1709.0 ml Intake Oral 0 ml IV Total 660.0 ml 2209.0 ml Output Urine Total 60 ml 350 ml Gastric Drainage Total 150 ml # Bowel Movements 1 1 Laboratory Tests Test 02/13/18 04:35 02/13/18 07:15 02/13/18 14:15 White Blood Count 10.4 K/UL (4.8-10.8) Red Blood Count 3.66 M/UL (4.70-6.10) L Hemoglobin 9.6 G/DL (14.2-18.0) L Hematocrit 32.5 % (42.0-52.0) L Mean Corpuscular Volume 89 FL (80-99) Mean Corpuscular Hemoglobin 26.2 PG (27.0-31.0) L Mean Corpuscular Hemoglobin Concent 29.5 G/DL (32.0-36.0) L Red Cell Distribution Width 16.3 % (11.6-14.8) H Platelet Count 169 K/UL (150-450) Mean Platelet Volume 8.6 FL (6.5-10.1) Neutrophils (%) (Auto) % (45.0-75.0) Lymphocytes (%) (Auto) % (20.0-45.0) Monocytes (%) (Auto) % (1.0-10.0) Eosinophils (%) (Auto) % (0.0-3.0) Basophils (%) (Auto) % (0.0-2.0) Sodium Level 145 MMOL/L (136-145) Potassium Level 3.9 MMOL/L (3.5-5.1) Chloride Level 104 MMOL/L (98-107) Carbon Dioxide Level 38 MMOL/L (21-32) H Anion Gap 4 mmol/L (5-15) L Blood Urea Nitrogen 25 mg/dL (7-18) H Creatinine 1.1 MG/DL (0.55-1.30) Estimat Glomerular Filtration Rate > 60 mL/min (>60) Glucose Level 166 MG/DL (74-106) H Uric Acid 4.2 MG/DL (2.6-7.2) Calcium Level 8.9 MG/DL (8.5-10.1) Phosphorus Level 1.1 MG/DL (2.5-4.9) L Magnesium Level 2.6 MG/DL (1.8-2.4) H Iron Level 38 ug/dL (50-175) L Total Iron Binding Capacity 161 ug/dL (250-450) L Percent Iron Saturation 24 % (15-50) Unsaturated Iron Binding 123 ug/dL (112-346) Total Bilirubin 0.3 MG/DL (0.2-1.0) Aspartate Amino Transf (AST/SGOT) 50 U/L (15-37) H Alanine Aminotransferase (ALT/SGPT) 32 U/L (12-78) Alkaline Phosphatase 47 U/L (46-116) Total Creatine Kinase 519 U/L (26-308) H Troponin I 0.066 ng/mL (0.000-0.056) C-Reactive Protein, Quantitative 3.4 mg/dL (0.00-0.90) H Pro-B-Type Natriuretic Peptide 634 pg/mL (0-125) H Total Protein 7.0 G/DL (6.4-8.2) Albumin 3.3 G/DL (3.4-5.0) L Globulin 3.7 g/dL Albumin/Globulin Ratio 0.9 (1.0-2.7) L Arterial Blood pH 7.500 (7.350-7.450) 7.180 (7.350-7.450) Arterial Blood Partial Pressure CO2 47.3 mmHg (35.0-45.0) H 114.3 mmHg (35.0-45.0) *H Arterial Blood Partial Pressure O2 90.6 mmHg (75.0-100.0) 84.5 mmHg (75.0-100.0) Arterial Blood HCO3 36.5 mmol/L (22.0-26.0) H 42.0 mmol/L (22.0-26.0) H Arterial Blood Oxygen Saturation 97.3 % (92.0-98.0) 93.5 % (92.0-98.0) Arterial Blood Base Excess 12 10 Efren Test Positive Positive Crow Del Rosario MD February 13, 2018 19:05
[2018-02-14] VITALS (24 sets, daily range): BP systolic 106–168; BP diastolic 65–98
[2018-02-14] MEDS: D5NS 1,000 ML IV SCH ×3 (02:40→14:27)
[2018-02-14 05:12] LABS: BASOPHILS % (AUTO) 0.9 % (0.0-2.0); HEMATOCRIT 29.5 % (42.0-52.0); HEMOGLOBIN 9.1 G/DL (14.2-18.0); LYMPHOCYTES % (AUTO) 5.4 % (20.0-45.0); MEAN CORPUSCULAR VOLUME 86 FL (80-99); MONOCYTES % (AUTO) 10.9 % (1.0-10.0); NEUTROPHILS % (AUTO) 82.9 % (45.0-75.0); PLATELET COUNT 170 K/UL (150-450); RED BLOOD COUNT 3.41 M/UL (4.70-6.10); RED CELL DISTRIBUTION WIDTH 16.6 % (11.6-14.8); WHITE BLOOD COUNT 12.4 K/UL (4.8-10.8)
[2018-02-14] MEDS: Piperacillin/Tazobactam 3.375 GM in NS 110 ML IVPB SCH ×3 (05:46→22:20)
[2018-02-14 05:53] LABS: ALANINE AMINOTRANSFERASE 32 U/L (12-78); ALBUMIN/GLOBULIN RATIO 0.9 (1.0-2.7); ALKALINE PHOSPHATASE 43 U/L (46-116); ANION GAP 5 mmol/L (5-15); ASPARTATE AMINO TRANSFERASE 42 U/L (15-37); BILIRUBIN,TOTAL 0.2 MG/DL (0.2-1.0); BLOOD UREA NITROGEN 14 mg/dL (7-18); CALCIUM 7.9 MG/DL (8.5-10.1); CARBON DIOXIDE 33 MMOL/L (21-32); CHLORIDE 107 MMOL/L (98-107); CREATININE 0.8 MG/DL (0.55-1.30); POTASSIUM 3.2 MMOL/L (3.5-5.1); SODIUM 145 MMOL/L (136-145)
--- NOTE | 2018-02-14 07:06 | Pulmonolgy Critical Care Note ---
Critical Care - Asmt/Plan Assessment/Plan: ASSESSMENT Acute hypoxemic hypercapnic respiratory failure requiring intubation COPD exacerbation Abdominal distention due to paralytic ileus Emphysema Dehydration Acute kidney injury Hyperkalemia History of atrial flutter History of congestive heart failure Severe protein calorie malnutrition PLAN OF CARE ICU status Ventilator support Pulmonary toilet fup with ABG and chest x-ray, titrate setting as needed, continue weaning protocol IV steroids and taper as permitted IV Antibiotic Blood culture negative Trial of theophylline Antitussive as needed Surgery followed per surgeon likely paralytic ileus -resolving had BM, diarrhea antiemetic as needed bowel regimen DVT prophylaxis monitor H&H , anemia workup Echocardiogram revealed preserved ejection fraction of 60% Dietary supplements as per operator control room recommendations for severe protein calorie malnutrition case discussed and evaluated by supervising physician Critical Care - Objective Last 24 Hour Vital Signs Date Time Temp Pulse Resp B/P (MAP) Pulse Ox O2 Delivery O2 Flow Rate FiO2 02/14/18 06:42 107 16 40 02/14/18 06:00 105 16 118/73 100 Mechanical Ventilator 40 02/14/18 05:06 108 16 40 02/14/18 05:00 102 16 106/77 100 Mechanical Ventilator 40 02/14/18 04:00 105 16 106/77 100 Mechanical Ventilator 40 02/14/18 04:00 105 02/14/18 04:00 40 02/14/18 03:00 110 16 141/81 100 Mechanical Ventilator 40 02/14/18 02:53 115 16 40 02/14/18 02:00 101 16 126/78 100 Mechanical Ventilator 40 02/14/18 01:13 95 16 40 02/14/18 01:00 100 16 130/70 100 Mechanical Ventilator 40 02/14/18 00:00 95 02/14/18 00:00 97.8 100 17 114/80 100 Mechanical Ventilator 40 97.8 02/13/18 23:15 98 16 40 02/13/18 23:00 99 16 114/80 100 Mechanical Ventilator 40 02/13/18 22:00 104 16 103/72 100 Mechanical Ventilator 40 02/13/18 21:07 111 16 40 02/13/18 21:00 111 16 131/78 100 Mechanical Ventilator 40 02/13/18 20:00 97.5 115 16 153/77 100 Mechanical Ventilator 40 97.5 02/13/18 20:00 115 02/13/18 20:00 40 02/13/18 19:07 114 16 40 02/13/18 19:00 114 20 150/91 100 Mechanical Ventilator 40 02/13/18 18:17 153/92 02/13/18 18:00 117 18 153/92 100 Mechanical Ventilator 40 02/13/18 17:13 108 18 40 02/13/18 17:00 108 18 103/83 100 Mechanical Ventilator 40 02/13/18 16:00 40 02/13/18 16:00 97.3 119 16 100/75 100 Mechanical Ventilator 40 97.3 02/13/18 16:00 123 02/13/18 15:00 120 18 125/93 100 Mechanical Ventilator 40 02/13/18 14:32 129 18 40 02/13/18 14:30 40 02/13/18 14:00 133 18 181/107 100 Mechanical Ventilator 40 02/13/18 13:30 40 02/13/18 13:13 106 18 40 02/13/18 13:00 119 17 166/90 100 Mechanical Ventilator 40 02/13/18 12:00 118 18 149/90 99 Mechanical Ventilator 40 02/13/18 12:00 111 02/13/18 11:50 40 02/13/18 11:00 106 16 136/98 100 Mechanical Ventilator 40 02/13/18 10:36 113 16 40 02/13/18 10:00 98.3 111 16 131/99 100 Mechanical Ventilator 40 98.3 02/13/18 09:51 Mechanical Ventilator 40 02/13/18 09:50 Mechanical Ventilator 40 02/13/18 09:20 108 16 40 02/13/18 09:00 104 16 113/78 100 Mechanical Ventilator 40 02/13/18 08:00 108 16 118/88 100 Mechanical Ventilator 40 02/13/18 08:00 40 02/13/18 08:00 103 02/13/18 07:18 111 16 40 Status: awake, other - on Vent Condition: critical HEENT: atraumatic Lungs: other - BS decreased Heart: HR/BP stable Abdomen: soft, non-tender Extremities: no C/C/E Critical Care - Subjective ROS Limited/Unobtainable: Yes Interval Events: remains intubated did not tolerated weaning 02/13, ABG on CPAP severe hypercapnia with acidosis afebrile, mild leukocytosis Condition: critical EKG Rhythm: Sinus Tachycardia FI02: 40 Vent Support Breath Rate: 16 Vent Support Mode: AC Vent Tidal Volume: 600 Sputum Amount: Small PIP: 37 Fluids: D5NS at 50 I&O: Intake and Output 02/13/18 02/14/18 19:00 07:00 Intake Total 1922.0 ml 1050 ml Output Total 910 ml 970 ml Balance 1012.0 ml 80 ml Intake Oral 0 ml IV Total 1922.0 ml 1050 ml Output Urine Total 910 ml 820 ml Stool Total 150 ml # Bowel Movements 4 4 CXR: CXR 02/14- No definite acute abnormality identified,probable emphysema, as before. ET-Tube: 7.5 ET Position: 24 Radha Ford NP February 14, 2018 07:06
[2018-02-14] MEDS: Docusate 100mg cap ORAL SCH (09:00)
[2018-02-14] MEDS: Lactulose 20gm/30ml UDC ORAL SCH ×3 (09:00→17:39)
--- NOTE | 2018-02-14 09:23 | Diagnostic Imaging Report ---
PORTABLE AP UPRIGHT CXR: HISTORY: 68-year-old male with dyspnea. COMPARISON: 02/13/2018. FINDINGS: The lung volumes are large, as before, with relative paucity of lung markings in the upper lungs, as before, suggesting possible emphysema. There is no confluent lung consolidation. Heart size is normal and stable. Endotracheal tube is in stable and satisfactory position. There is a probable additional NG tube within the superior mediastinum, though it is not definitely identified distal to the tip of the endotracheal tube. IMPRESSION: 1. No definite acute abnormality identified to explain dyspnea; probable emphysema, as before. 2. Nonvisualization of the probable persistent NG tube distal to the tip of the endotracheal tube, possibly obscured, versus significantly withdrawn.
[2018-02-14] MEDS: Pantoprazole Inj IV SCH ×2 (09:27→21:06)
[2018-02-14] MEDS: Heparin 5000 units/ml inj SUBQ SCH ×2 (09:32→21:11)
[2018-02-14] MEDS: Solu-MEDROL 125mg Inj IV SCH ×2 (12:04→22:20)
--- NOTE | 2018-02-14 13:32 | Internal Med Progress Note ---
Subjective Date of Service: February 14, 2018 Physician Name Fausto Kelley Attending Physician Dipesh Cardoza MD Current Medications Medications (Trade) Dose Ordered Sig/Radha Route PRN Reason Start Time Stop Time Status Last Admin Dose Admin Albuterol/ Ipratropium (Albuterol/ Ipratropium) 3 ml Q4H PRN HHN dyspnea and/or SOB 02/12/18 13:00 02/15/18 16:59 Bisacodyl (Dulcolax) 10 mg DAILYPRN PRN RECTAL Constipation 02/13/18 18:51 03/15/18 18:50 Dextrose (Dextrose 50%) 25 ml PRN IV Hypoglycemia 02/12/18 11:30 03/12/18 18:59 Dextrose (Dextrose 50%) 50 ml PRN IV hypoglycemia 02/12/18 11:30 03/12/18 18:59 Dextrose/Sodium Chloride 1,000 ml @ 150 mls/hr Q6H40M IV 02/12/18 17:00 03/14/18 14:59 02/14/18 09:28 Docusate Sodium (Colace) 100 mg THREE TIMES A DAY ORAL 02/12/18 13:00 03/13/18 12:59 02/12/18 18:39 Heparin Sodium (Porcine) (Heparin 5000 units/ml) 5,000 units EVERY 12 HOURS SUBQ 02/12/18 21:00 03/12/18 20:59 02/14/18 09:32 Lactulose (Cephulac) 30 gm THREE TIMES A DAY ORAL 02/12/18 13:00 03/13/18 12:59 02/13/18 12:54 Lorazepam (Ativan 2mg/ml 1ml) 1 mg Q2H PRN IV For Anxiety 02/12/18 11:45 02/19/18 09:35 02/13/18 00:06 Methylprednisolone Sodium Succinate (Solu-MEDROL) 60 mg EVERY 8 HOURS IV 02/14/18 12:00 03/16/18 11:59 02/14/18 12:04 Mineral Oil (Fleet's Mineral Oil Enema) 133 ml EVERY OTHER DAY RECTAL 02/13/18 09:00 03/15/18 08:59 Morphine Sulfate (Morphine Sulfate) 4 mg Q4H PRN IVP For Pain 02/12/18 12:15 02/19/18 12:14 Nitroglycerin (Ntg) 0.4 mg Q5M X 3 DOSES PRN SL Prn Chest Pain 02/12/18 11:30 03/12/18 16:59 Nitroglycerin (Ntg) 1 patch Q24H TDERMAL 02/12/18 18:00 03/14/18 17:59 02/13/18 18:17 Ondansetron HCl (Zofran) 4 mg Q6H PRN IVP Nausea & Vomiting 02/12/18 17:00 03/12/18 16:59 Pantoprazole (Protonix) 40 mg Q12HR IV 02/12/18 21:00 03/15/18 08:59 02/14/18 09:27 Piperacillin Sod/ Tazobactam Sod 3.375 gm/Sodium Chloride 110 ml @ 27.5 mls/hr EVERY 8 HOURS IVPB 02/12/18 14:00 02/15/18 19:59 02/14/18 05:46 Allergies: Coded Allergies: No Known Allergies (Unverified , 10/30/16) ROS Limited/Unobtainable: Yes Subjective 68 YO M admitted with shortness of breath; now COPD exacerbation. Cover for Int Med-Dr Cardoza. ICU. Intubated and sedated. Objective Last Vital Signs Date Time Temp Pulse Resp B/P (MAP) Pulse Ox O2 Delivery O2 Flow Rate FiO2 02/14/18 13:00 106 16 115/70 100 Mechanical Ventilator 40 02/14/18 12:00 98.9 98.9 02/12/18 04:00 5.0 Laboratory Tests Test 02/13/18 14:15 02/14/18 04:30 Arterial Blood pH 7.180 (7.350-7.450) Arterial Blood Partial Pressure CO2 114.3 mmHg (35.0-45.0) *H Arterial Blood Partial Pressure O2 84.5 mmHg (75.0-100.0) Arterial Blood HCO3 42.0 mmol/L (22.0-26.0) H Arterial Blood Oxygen Saturation 93.5 % (92.0-98.0) Arterial Blood Base Excess 10 Efren Test Positive White Blood Count 12.4 K/UL (4.8-10.8) H Red Blood Count 3.41 M/UL (4.70-6.10) L Hemoglobin 9.1 G/DL (14.2-18.0) L Hematocrit 29.5 % (42.0-52.0) L Mean Corpuscular Volume 86 FL (80-99) Mean Corpuscular Hemoglobin 26.6 PG (27.0-31.0) L Mean Corpuscular Hemoglobin Concent 30.8 G/DL (32.0-36.0) L Red Cell Distribution Width 16.6 % (11.6-14.8) H Platelet Count 170 K/UL (150-450) Mean Platelet Volume 8.3 FL (6.5-10.1) Neutrophils (%) (Auto) 82.9 % (45.0-75.0) H Lymphocytes (%) (Auto) 5.4 % (20.0-45.0) L Monocytes (%) (Auto) 10.9 % (1.0-10.0) H Eosinophils (%) (Auto) 0.0 % (0.0-3.0) Basophils (%) (Auto) 0.9 % (0.0-2.0) Sodium Level 145 MMOL/L (136-145) Potassium Level 3.2 MMOL/L (3.5-5.1) L Chloride Level 107 MMOL/L (98-107) Carbon Dioxide Level 33 MMOL/L (21-32) H Anion Gap 5 mmol/L (5-15) Blood Urea Nitrogen 14 mg/dL (7-18) Creatinine 0.8 MG/DL (0.55-1.30) Estimat Glomerular Filtration Rate > 60 mL/min (>60) Glucose Level 124 MG/DL (74-106) H Uric Acid 1.8 MG/DL (2.6-7.2) L Calcium Level 7.9 MG/DL (8.5-10.1) L Phosphorus Level 2.0 MG/DL (2.5-4.9) L Magnesium Level 1.8 MG/DL (1.8-2.4) Total Bilirubin 0.2 MG/DL (0.2-1.0) Aspartate Amino Transf (AST/SGOT) 42 U/L (15-37) H Alanine Aminotransferase (ALT/SGPT) 32 U/L (12-78) Alkaline Phosphatase 43 U/L (46-116) L Troponin I 0.050 ng/mL (0.000-0.056) Pro-B-Type Natriuretic Peptide 1085 pg/mL (0-125) H Total Protein 6.4 G/DL (6.4-8.2) Albumin 3.0 G/DL (3.4-5.0) L Globulin 3.4 g/dL Albumin/Globulin Ratio 0.9 (1.0-2.7) L Intake and Output 02/13/18 02/14/18 19:00 07:00 Intake Total 1922.0 ml 1827.5 ml Output Total 910 ml 970 ml Balance 1012.0 ml 857.5 ml Intake Oral 0 ml IV Total 1922.0 ml 1827.5 ml Output Urine Total 910 ml 820 ml Stool Total 150 ml # Bowel Movements 4 4 Objective Objective General: awake, alert, responsive, intubated. HEENT: NCAT, sclera anicteric, PERRL, ET Tube, OG Tube. Neck: Supple, no significant jugular venous distention, Lungs: Mech vent; Mechanical breath sound, no Wheeze or Rales. Heart: Regular rate and rhythm, normal S1/S2, no murmurs Abdomen: Hard, nontender, less distended. hypoactive bowel sounds. / Rectal: Refused and deferred. Extremities: No Cyanosis , clubbing or edema. Neuro: sedated, Able to move all extremities Assessment/Plan Status: not improved Assessment/Plan Assessment/Plan Assessment/Plan 1. Abdominal distention, possible due to the Small bowel obstruction improving.. 2. Acute COPD. 3. History of atrial flutter. 4. Dehydration. 5. History of CHF with systolic dysfunction. 6. GERD. 7. Hyponatremia. 8. Hyperkalemia. 9. Acute kidney injury. 10. Severe protein calori malnutrition. 11. Acute Respiratory Failure. Plan: in ICU F/U with surgery recommendations Monitor labs and cultures Abx: Zosyn Neb Tx decrease Solumedral IV 60mg IV Q8 Full code heparin SQ Fausto Kelley MD February 14, 2018 13:32
--- NOTE | 2018-02-14 14:04 | General Progress Note ---
Assessment/Plan Assessment/Plan - Ileus vs SBO - suspect former - Anemia - Resp failure - Electrolyte abnormalities Recommendations - NPO - IVF - given diarrhea will hold laxatives -consider TF soon - correct all lytes - follow exam and imaging Subjective ROS Limited/Unobtainable: No Allergies: Coded Allergies: No Known Allergies (Unverified , 10/30/16) Objective Last 24 Hour Vital Signs Date Time Temp Pulse Resp B/P (MAP) Pulse Ox O2 Delivery O2 Flow Rate FiO2 02/14/18 13:00 106 16 115/70 100 Mechanical Ventilator 40 02/14/18 12:49 102 16 40 02/14/18 12:00 109 02/14/18 12:00 98.9 111 16 116/83 100 Mechanical Ventilator 40 98.9 02/14/18 11:00 114 16 40 02/14/18 11:00 111 16 111/87 100 Mechanical Ventilator 40 02/14/18 10:00 127 14 40 02/14/18 10:00 40 02/14/18 10:00 121 18 168/98 99 Mechanical Ventilator 40 02/14/18 09:46 100 02/14/18 09:29 Mechanical Ventilator 40 02/14/18 09:28 Mechanical Ventilator 40 02/14/18 09:00 109 15 150/90 100 Mechanical Ventilator 40 02/14/18 08:45 40 02/14/18 08:36 109 15 40 02/14/18 08:00 106 02/14/18 08:00 98.5 108 16 130/84 100 Mechanical Ventilator 40 98.5 02/14/18 08:00 40 02/14/18 07:00 98.0 98 16 113/88 100 Mechanical Ventilator 40 98.0 02/14/18 06:42 107 16 40 02/14/18 06:00 105 16 118/73 100 Mechanical Ventilator 40 02/14/18 05:06 108 16 40 02/14/18 05:00 102 16 106/77 100 Mechanical Ventilator 40 02/14/18 04:00 105 16 106/77 100 Mechanical Ventilator 40 02/14/18 04:00 105 02/14/18 04:00 40 02/14/18 03:00 110 16 141/81 100 Mechanical Ventilator 40 02/14/18 02:53 115 16 40 02/14/18 02:00 101 16 126/78 100 Mechanical Ventilator 40 02/14/18 01:13 95 16 40 5/19/18 01:00 100 16 130/70 100 Mechanical Ventilator 40 02/14/18 00:00 95 02/14/18 00:00 97.8 100 17 114/80 100 Mechanical Ventilator 40 97.8 02/13/18 23:15 98 16 40 02/13/18 23:00 99 16 114/80 100 Mechanical Ventilator 40 02/13/18 22:00 104 16 103/72 100 Mechanical Ventilator 40 02/13/18 21:07 111 16 40 02/13/18 21:00 111 16 131/78 100 Mechanical Ventilator 40 02/13/18 20:00 97.5 115 16 153/77 100 Mechanical Ventilator 40 97.5 02/13/18 20:00 115 02/13/18 20:00 40 02/13/18 19:07 114 16 40 02/13/18 19:00 114 20 150/91 100 Mechanical Ventilator 40 02/13/18 18:17 153/92 02/13/18 18:00 117 18 153/92 100 Mechanical Ventilator 40 02/13/18 17:13 108 18 40 02/13/18 17:00 108 18 103/83 100 Mechanical Ventilator 40 02/13/18 16:00 40 02/13/18 16:00 97.3 119 16 100/75 100 Mechanical Ventilator 40 97.3 02/13/18 16:00 123 02/13/18 15:00 120 18 125/93 100 Mechanical Ventilator 40 02/13/18 14:32 129 18 40 02/13/18 14:30 40 Intake and Output 02/13/18 02/14/18 19:00 07:00 Intake Total 1922.0 ml 1827.5 ml Output Total 910 ml 970 ml Balance 1012.0 ml 857.5 ml Intake Oral 0 ml IV Total 1922.0 ml 1827.5 ml Output Urine Total 910 ml 820 ml Stool Total 150 ml # Bowel Movements 4 4 Laboratory Tests 02/13/18 14:15: Arterial Blood pH 7.180*L, Arterial Blood Partial Pressure CO2 114.3*H, Arterial Blood Partial Pressure O2 84.5, Arterial Blood HCO3 42.0H, Arterial Blood Oxygen Saturation 93.5, Arterial Blood Base Excess 10, Efren Test Positive 02/14/18 04:30: White Blood Count 12.4H, Red Blood Count 3.41L, Hemoglobin 9.1L, Hematocrit 29.5L, Mean Corpuscular Volume 86, Mean Corpuscular Hemoglobin 26.6L, Mean Corpuscular Hemoglobin Concent 30.8L, Red Cell Distribution Width 16.6H, Platelet Count 170, Mean Platelet Volume 8.3, Neutrophils (%) (Auto) 82.9H, Lymphocytes (%) (Auto) 5.4L, Monocytes (%) (Auto) 10.9H, Eosinophils (%) (Auto) 0.0, Basophils (%) (Auto) 0.9, Sodium Level 145, Potassium Level 3.2L, Chloride Level 107, Carbon Dioxide Level 33H, Anion Gap 5, Blood Urea Nitrogen 14, Creatinine 0.8, Estimat Glomerular Filtration Rate > 60, Glucose Level 124H, Uric Acid 1.8L, Calcium Level 7.9L, Phosphorus Level 2.0L, Magnesium Level 1.8, Total Bilirubin 0.2, Aspartate Amino Transf (AST/SGOT) 42H, Alanine Aminotransferase (ALT/SGPT) 32, Alkaline Phosphatase 43L, Troponin I 0.050, Pro- B-Type Natriuretic Peptide 1085H, Total Protein 6.4, Albumin 3.0L, Globulin 3.4 , Albumin/Globulin Ratio 0.9L Height (Feet): 5 Height (Inches): 7.00 Weight (Pounds): 140 General Appearance: lethargic EENT: normal ENT inspection Neck: supple Cardiovascular: normal rate Respiratory/Chest: decreased breath sounds Abdomen: soft, hypoactive bowel sounds, distended Extremities: non-tender Naldo Raza MD February 14, 2018 14:04
--- NOTE | 2018-02-14 14:18 | Nephrology Progress Note ---
Assessment/Plan Problem List: (1) Acute respiratory failure (2) Protein-calorie malnutrition, severe (3) Acute renal failure (4) Dehydration Assessment Renal failure / Acute / Dehydration HyperKalemia likely due to acidosis Acute respiratory failure- Abdominal distention, possible due to the Small bowel obstruction Vs. paralytic Ileus. COPD. History of atrial flutter. Dehydration. History of CHF with systolic dysfunction. GERD. Severe protein calori malnutrition. Plan Noel- D5NS IV fluid down to 50 cc / h IV protonix k phos iv pulmonary support Anemia fuentes avoid nephrotoxics 2D echo Subjective ROS Limited/Unobtainable: Yes Constitutional: Reports: malaise Objective Objective Last 24 Hour Vital Signs Date Time Temp Pulse Resp B/P (MAP) Pulse Ox O2 Delivery O2 Flow Rate FiO2 02/14/18 13:00 106 16 115/70 100 Mechanical Ventilator 40 02/14/18 12:49 102 16 40 02/14/18 12:00 109 02/14/18 12:00 98.9 111 16 116/83 100 Mechanical Ventilator 40 98.9 02/14/18 11:00 114 16 40 02/14/18 11:00 111 16 111/87 100 Mechanical Ventilator 40 02/14/18 10:00 127 14 40 02/14/18 10:00 40 02/14/18 10:00 121 18 168/98 99 Mechanical Ventilator 40 02/14/18 09:46 100 02/14/18 09:29 Mechanical Ventilator 40 02/14/18 09:28 Mechanical Ventilator 40 02/14/18 09:00 109 15 150/90 100 Mechanical Ventilator 40 02/14/18 08:45 40 02/14/18 08:36 109 15 40 02/14/18 08:00 106 02/14/18 08:00 98.5 108 16 130/84 100 Mechanical Ventilator 40 98.5 02/14/18 08:00 40 02/14/18 07:00 98.0 98 16 113/88 100 Mechanical Ventilator 40 98.0 02/14/18 06:42 107 16 40 02/14/18 06:00 105 16 118/73 100 Mechanical Ventilator 40 02/14/18 05:06 108 16 40 02/14/18 05:00 102 16 106/77 100 Mechanical Ventilator 40 02/14/18 04:00 105 16 106/77 100 Mechanical Ventilator 40 02/14/18 04:00 105 5/19/18 04:00 40 02/14/18 03:00 110 16 141/81 100 Mechanical Ventilator 40 02/14/18 02:53 115 16 40 02/14/18 02:00 101 16 126/78 100 Mechanical Ventilator 40 02/14/18 01:13 95 16 40 02/14/18 01:00 100 16 130/70 100 Mechanical Ventilator 40 02/14/18 00:00 95 02/14/18 00:00 97.8 100 17 114/80 100 Mechanical Ventilator 40 97.8 02/13/18 23:15 98 16 40 02/13/18 23:00 99 16 114/80 100 Mechanical Ventilator 40 02/13/18 22:00 104 16 103/72 100 Mechanical Ventilator 40 02/13/18 21:07 111 16 40 02/13/18 21:00 111 16 131/78 100 Mechanical Ventilator 40 02/13/18 20:00 97.5 115 16 153/77 100 Mechanical Ventilator 40 97.5 02/13/18 20:00 115 02/13/18 20:00 40 02/13/18 19:07 114 16 40 02/13/18 19:00 114 20 150/91 100 Mechanical Ventilator 40 02/13/18 18:17 153/92 02/13/18 18:00 117 18 153/92 100 Mechanical Ventilator 40 02/13/18 17:13 108 18 40 02/13/18 17:00 108 18 103/83 100 Mechanical Ventilator 40 02/13/18 16:00 40 02/13/18 16:00 97.3 119 16 100/75 100 Mechanical Ventilator 40 97.3 02/13/18 16:00 123 02/13/18 15:00 120 18 125/93 100 Mechanical Ventilator 40 02/13/18 14:32 129 18 40 02/13/18 14:30 40 Intake and Output 02/13/18 02/14/18 19:00 07:00 Intake Total 1922.0 ml 1827.5 ml Output Total 910 ml 970 ml Balance 1012.0 ml 857.5 ml Intake Oral 0 ml IV Total 1922.0 ml 1827.5 ml Output Urine Total 910 ml 820 ml Stool Total 150 ml # Bowel Movements 4 4 Laboratory Tests 02/14/18 04:30: White Blood Count 12.4H, Red Blood Count 3.41L, Hemoglobin 9.1L, Hematocrit 29.5L, Mean Corpuscular Volume 86, Mean Corpuscular Hemoglobin 26.6L, Mean Corpuscular Hemoglobin Concent 30.8L, Red Cell Distribution Width 16.6H, Platelet Count 170, Mean Platelet Volume 8.3, Neutrophils (%) (Auto) 82.9H, Lymphocytes (%) (Auto) 5.4L, Monocytes (%) (Auto) 10.9H, Eosinophils (%) (Auto) 0.0, Basophils (%) (Auto) 0.9, Sodium Level 145, Potassium Level 3.2L, Chloride Level 107, Carbon Dioxide Level 33H, Anion Gap 5, Blood Urea Nitrogen 14, Creatinine 0.8, Estimat Glomerular Filtration Rate > 60, Glucose Level 124H, Uric Acid 1.8L, Calcium Level 7.9L, Phosphorus Level 2.0L, Magnesium Level 1.8, Total Bilirubin 0.2, Aspartate Amino Transf (AST/SGOT) 42H, Alanine Aminotransferase (ALT/SGPT) 32, Alkaline Phosphatase 43L, Troponin I 0.050, Pro- B-Type Natriuretic Peptide 1085H, Total Protein 6.4, Albumin 3.0L, Globulin 3.4 , Albumin/Globulin Ratio 0.9L Height (Feet): 5 Height (Inches): 7.00 Weight (Pounds): 140 General Appearance: no apparent distress EENT: other - on vent Respiratory/Chest: decreased breath sounds Abdomen: soft, distended Objective no change YAMIL LOVE February 14, 2018 14:18
[2018-02-14] MEDS ORDERED: Albuterol/Ipratropium 3ml neb HHN PRN (15:00)
--- NOTE | 2018-02-14 15:09 | General Surgery Progress Note ---
General Surgery-Progress Note Subjective Symptoms: improved, BM Objective Last 24 Hour Vital Signs Date Time Temp Pulse Resp B/P (MAP) Pulse Ox O2 Delivery O2 Flow Rate FiO2 02/14/18 14:56 100 16 40 02/14/18 14:00 107 16 131/85 100 Mechanical Ventilator 40 02/14/18 13:00 106 16 115/70 100 Mechanical Ventilator 40 02/14/18 12:49 102 16 40 02/14/18 12:00 109 02/14/18 12:00 98.9 111 16 116/83 100 Mechanical Ventilator 40 98.9 02/14/18 11:00 114 16 40 02/14/18 11:00 111 16 111/87 100 Mechanical Ventilator 40 02/14/18 10:00 127 14 40 02/14/18 10:00 40 02/14/18 10:00 121 18 168/98 99 Mechanical Ventilator 40 02/14/18 09:46 100 02/14/18 09:29 Mechanical Ventilator 40 02/14/18 09:28 Mechanical Ventilator 40 02/14/18 09:00 109 15 150/90 100 Mechanical Ventilator 40 02/14/18 08:45 40 02/14/18 08:36 109 15 40 02/14/18 08:00 106 02/14/18 08:00 98.5 108 16 130/84 100 Mechanical Ventilator 40 98.5 02/14/18 08:00 40 02/14/18 07:00 98.0 98 16 113/88 100 Mechanical Ventilator 40 98.0 02/14/18 06:42 107 16 40 02/14/18 06:00 105 16 118/73 100 Mechanical Ventilator 40 02/14/18 05:06 108 16 40 02/14/18 05:00 102 16 106/77 100 Mechanical Ventilator 40 02/14/18 04:00 105 16 106/77 100 Mechanical Ventilator 40 02/14/18 04:00 105 02/14/18 04:00 40 02/14/18 03:00 110 16 141/81 100 Mechanical Ventilator 40 02/14/18 02:53 115 16 40 02/14/18 02:00 101 16 126/78 100 Mechanical Ventilator 40 02/14/18 01:13 95 16 40 02/14/18 01:00 100 16 130/70 100 Mechanical Ventilator 40 02/14/18 00:00 95 02/14/18 00:00 97.8 100 17 114/80 100 Mechanical Ventilator 40 97.8 02/13/18 23:15 98 16 40 02/13/18 23:00 99 16 114/80 100 Mechanical Ventilator 40 02/13/18 22:00 104 16 103/72 100 Mechanical Ventilator 40 02/13/18 21:07 111 16 40 02/13/18 21:00 111 16 131/78 100 Mechanical Ventilator 40 02/13/18 20:00 97.5 115 16 153/77 100 Mechanical Ventilator 40 97.5 02/13/18 20:00 115 02/13/18 20:00 40 02/13/18 19:07 114 16 40 02/13/18 19:00 114 20 150/91 100 Mechanical Ventilator 40 02/13/18 18:17 153/92 02/13/18 18:00 117 18 153/92 100 Mechanical Ventilator 40 02/13/18 17:13 108 18 40 02/13/18 17:00 108 18 103/83 100 Mechanical Ventilator 40 02/13/18 16:00 40 02/13/18 16:00 97.3 119 16 100/75 100 Mechanical Ventilator 40 97.3 02/13/18 16:00 123 I&O Intake and Output 02/13/18 02/14/18 19:00 07:00 Intake Total 1922.0 ml 1827.5 ml Output Total 910 ml 970 ml Balance 1012.0 ml 857.5 ml Intake Oral 0 ml IV Total 1922.0 ml 1827.5 ml Output Urine Total 910 ml 820 ml Stool Total 150 ml # Bowel Movements 4 4 Respiratory: decreased breath sounds Abdomen: soft, flat, non-tender, present bowel sounds Extremities: no tenderness Laboratory Tests Test 02/14/18 04:30 White Blood Count 12.4 K/UL (4.8-10.8) H Red Blood Count 3.41 M/UL (4.70-6.10) L Hemoglobin 9.1 G/DL (14.2-18.0) L Hematocrit 29.5 % (42.0-52.0) L Mean Corpuscular Volume 86 FL (80-99) Mean Corpuscular Hemoglobin 26.6 PG (27.0-31.0) L Mean Corpuscular Hemoglobin Concent 30.8 G/DL (32.0-36.0) L Red Cell Distribution Width 16.6 % (11.6-14.8) H Platelet Count 170 K/UL (150-450) Mean Platelet Volume 8.3 FL (6.5-10.1) Neutrophils (%) (Auto) 82.9 % (45.0-75.0) H Lymphocytes (%) (Auto) 5.4 % (20.0-45.0) L Monocytes (%) (Auto) 10.9 % (1.0-10.0) H Eosinophils (%) (Auto) 0.0 % (0.0-3.0) Basophils (%) (Auto) 0.9 % (0.0-2.0) Sodium Level 145 MMOL/L (136-145) Potassium Level 3.2 MMOL/L (3.5-5.1) L Chloride Level 107 MMOL/L (98-107) Carbon Dioxide Level 33 MMOL/L (21-32) H Anion Gap 5 mmol/L (5-15) Blood Urea Nitrogen 14 mg/dL (7-18) Creatinine 0.8 MG/DL (0.55-1.30) Estimat Glomerular Filtration Rate > 60 mL/min (>60) Glucose Level 124 MG/DL (74-106) H Uric Acid 1.8 MG/DL (2.6-7.2) L Calcium Level 7.9 MG/DL (8.5-10.1) L Phosphorus Level 2.0 MG/DL (2.5-4.9) L Magnesium Level 1.8 MG/DL (1.8-2.4) Total Bilirubin 0.2 MG/DL (0.2-1.0) Aspartate Amino Transf (AST/SGOT) 42 U/L (15-37) H Alanine Aminotransferase (ALT/SGPT) 32 U/L (12-78) Alkaline Phosphatase 43 U/L (46-116) L Troponin I 0.050 ng/mL (0.000-0.056) C-Reactive Protein, Quantitative Pending Pro-B-Type Natriuretic Peptide 1085 pg/mL (0-125) H Total Protein 6.4 G/DL (6.4-8.2) Albumin 3.0 G/DL (3.4-5.0) L Globulin 3.4 g/dL Albumin/Globulin Ratio 0.9 (1.0-2.7) L Assessment Additional Comments Ileus resolved Plan Additional Comments I will sign off please call me if my services were needed Jeanine Hicks MD February 14, 2018 15:09
[2018-02-14] MEDS ORDERED: D5NS 1000ml IV ONE ×2 (15:15→15:18)
[2018-02-14] MEDS ORDERED: NS 275ml ONE (15:15)
[2018-02-14] MEDS ORDERED: Tubing IV Secondary IV ONE (15:15)
[2018-02-14] MEDS ORDERED: 1/2 NS 1000ml IV ONE (15:15)
[2018-02-14] MEDS ORDERED: Potassium Phosphate 30 MM in NS 275 ML IV ONE (15:30)
[2018-02-14] MEDS: Nitroglycerin Patch 0.4mg TDERMAL SCH (18:36)
--- NOTE | 2018-02-14 19:20 | Cardiology Progress Note ---
Assessment/Plan Assessment/Plan stable from cardiac standpoint on ventilator support for severe COPD Subjective Subjective The patient is alert, intubated, does not report any cardiac complaints Objective Last 24 Hour Vital Signs Date Time Temp Pulse Resp B/P (MAP) Pulse Ox O2 Delivery O2 Flow Rate FiO2 02/14/18 18:36 112/72 02/14/18 18:00 105 16 112/72 100 Mechanical Ventilator 40 02/14/18 17:00 109 16 146/84 100 Mechanical Ventilator 40 02/14/18 17:00 30 02/14/18 16:37 110 16 40 02/14/18 16:00 112 02/14/18 16:00 98.8 106 16 138/87 100 Mechanical Ventilator 40 98.8 02/14/18 16:00 40 02/14/18 15:00 108 16 134/87 100 Mechanical Ventilator 40 02/14/18 14:56 100 16 40 02/14/18 14:00 107 16 131/85 100 Mechanical Ventilator 40 02/14/18 13:00 106 16 115/70 100 Mechanical Ventilator 40 02/14/18 12:49 102 16 40 02/14/18 12:00 109 02/14/18 12:00 98.9 111 16 116/83 100 Mechanical Ventilator 40 98.9 02/14/18 11:00 114 16 40 02/14/18 11:00 111 16 111/87 100 Mechanical Ventilator 40 02/14/18 10:00 127 14 40 02/14/18 10:00 40 02/14/18 10:00 121 18 168/98 99 Mechanical Ventilator 40 02/14/18 09:46 100 02/14/18 09:29 Mechanical Ventilator 40 02/14/18 09:28 Mechanical Ventilator 40 02/14/18 09:00 109 15 150/90 100 Mechanical Ventilator 40 02/14/18 08:45 40 02/14/18 08:36 109 15 40 02/14/18 08:00 106 02/14/18 08:00 98.5 108 16 130/84 100 Mechanical Ventilator 40 98.5 02/14/18 08:00 40 02/14/18 07:00 98.0 98 16 113/88 100 Mechanical Ventilator 40 98.0 02/14/18 06:42 107 16 40 02/14/18 06:00 105 16 118/73 100 Mechanical Ventilator 40 02/14/18 05:06 108 16 40 02/14/18 05:00 102 16 106/77 100 Mechanical Ventilator 40 02/14/18 04:00 105 16 106/77 100 Mechanical Ventilator 40 02/14/18 04:00 105 02/14/18 04:00 40 02/14/18 03:00 110 16 141/81 100 Mechanical Ventilator 40 02/14/18 02:53 115 16 40 02/14/18 02:00 101 16 126/78 100 Mechanical Ventilator 40 02/14/18 01:13 95 16 40 02/14/18 01:00 100 16 130/70 100 Mechanical Ventilator 40 02/14/18 00:00 95 02/14/18 00:00 97.8 100 17 114/80 100 Mechanical Ventilator 40 97.8 02/13/18 23:15 98 16 40 02/13/18 23:00 99 16 114/80 100 Mechanical Ventilator 40 02/13/18 22:00 104 16 103/72 100 Mechanical Ventilator 40 02/13/18 21:07 111 16 40 02/13/18 21:00 111 16 131/78 100 Mechanical Ventilator 40 02/13/18 20:00 97.5 115 16 153/77 100 Mechanical Ventilator 40 97.5 02/13/18 20:00 115 02/13/18 20:00 40 General Appearance: on vent EENT: PERRL/EOMI Neck: no JVD Rhythm: NSR Cardiovascular: normal rate Respiratory/Chest: rhonchi - bilaterally Abdomen: soft Extremities: normal range of motion Intake and Output 02/13/18 02/14/18 19:00 07:00 Intake Total 1922.0 ml 1827.5 ml Output Total 910 ml 970 ml Balance 1012.0 ml 857.5 ml Intake Oral 0 ml IV Total 1922.0 ml 1827.5 ml Output Urine Total 910 ml 820 ml Stool Total 150 ml # Bowel Movements 4 4 Laboratory Tests Test 02/14/18 04:00 02/14/18 04:30 Arterial Blood pH 7.480 (7.350-7.450) Arterial Blood Partial Pressure CO2 43.0 mmHg (35.0-45.0) Arterial Blood Partial Pressure O2 118.0 mmHg (75.0-100.0) H Arterial Blood HCO3 31.4 mmol/L (22.0-26.0) H Arterial Blood Oxygen Saturation 98.3 % (92.0-98.0) H Arterial Blood Base Excess 7.3 Efren Test Positive White Blood Count 12.4 K/UL (4.8-10.8) H Red Blood Count 3.41 M/UL (4.70-6.10) L Hemoglobin 9.1 G/DL (14.2-18.0) L Hematocrit 29.5 % (42.0-52.0) L Mean Corpuscular Volume 86 FL (80-99) Mean Corpuscular Hemoglobin 26.6 PG (27.0-31.0) L Mean Corpuscular Hemoglobin Concent 30.8 G/DL (32.0-36.0) L Red Cell Distribution Width 16.6 % (11.6-14.8) H Platelet Count 170 K/UL (150-450) Mean Platelet Volume 8.3 FL (6.5-10.1) Neutrophils (%) (Auto) 82.9 % (45.0-75.0) H Lymphocytes (%) (Auto) 5.4 % (20.0-45.0) L Monocytes (%) (Auto) 10.9 % (1.0-10.0) H Eosinophils (%) (Auto) 0.0 % (0.0-3.0) Basophils (%) (Auto) 0.9 % (0.0-2.0) Sodium Level 145 MMOL/L (136-145) Potassium Level 3.2 MMOL/L (3.5-5.1) L Chloride Level 107 MMOL/L (98-107) Carbon Dioxide Level 33 MMOL/L (21-32) H Anion Gap 5 mmol/L (5-15) Blood Urea Nitrogen 14 mg/dL (7-18) Creatinine 0.8 MG/DL (0.55-1.30) Estimat Glomerular Filtration Rate > 60 mL/min (>60) Glucose Level 124 MG/DL (74-106) H Uric Acid 1.8 MG/DL (2.6-7.2) L Calcium Level 7.9 MG/DL (8.5-10.1) L Phosphorus Level 2.0 MG/DL (2.5-4.9) L Magnesium Level 1.8 MG/DL (1.8-2.4) Total Bilirubin 0.2 MG/DL (0.2-1.0) Aspartate Amino Transf (AST/SGOT) 42 U/L (15-37) H Alanine Aminotransferase (ALT/SGPT) 32 U/L (12-78) Alkaline Phosphatase 43 U/L (46-116) L Troponin I 0.050 ng/mL (0.000-0.056) C-Reactive Protein, Quantitative 1.9 mg/dL (0.00-0.90) H Pro-B-Type Natriuretic Peptide 1085 pg/mL (0-125) H Total Protein 6.4 G/DL (6.4-8.2) Albumin 3.0 G/DL (3.4-5.0) L Globulin 3.4 g/dL Albumin/Globulin Ratio 0.9 (1.0-2.7) L Anita Tellez MD February 14, 2018 19:20
[2018-02-14] MEDS: LORazepam Inj 2mg/ml 1ml IV PRN (23:00)
[2018-02-15] VITALS (24 sets, daily range): BP systolic 101–155; BP diastolic 50–93
[2018-02-15 05:48] LABS: HEMATOCRIT 27.9 % (42.0-52.0); MEAN CORPUSCULAR VOLUME 85 FL (80-99); PLATELET COUNT 165 K/UL (150-450); RED BLOOD COUNT 3.27 M/UL (4.70-6.10); RED CELL DISTRIBUTION WIDTH 16.2 % (11.6-14.8); WHITE BLOOD COUNT 12.6 K/UL (4.8-10.8)
[2018-02-15] MEDS: Solu-MEDROL 125mg Inj IV SCH ×2 (06:15→20:29)
[2018-02-15] MEDS: Piperacillin/Tazobactam 3.375 GM in NS 110 ML IVPB SCH ×2 (06:15→14:28)
[2018-02-15 06:17] LABS: ANION GAP 6 mmol/L (5-15); BLOOD UREA NITROGEN 11 mg/dL (7-18); CALCIUM 8.2 MG/DL (8.5-10.1); CARBON DIOXIDE 30 MMOL/L (21-32); CHLORIDE 106 MMOL/L (98-107); CREATININE 0.9 MG/DL (0.55-1.30); POTASSIUM 3.6 MMOL/L (3.5-5.1); SODIUM 142 MMOL/L (136-145)
[2018-02-15 06:25] LABS: ALANINE AMINOTRANSFERASE 31 U/L (12-78); ALBUMIN 2.8 G/DL (3.4-5.0); ALKALINE PHOSPHATASE 43 U/L (46-116); ASPARTATE AMINO TRANSFERASE 30 U/L (15-37); BILIRUBIN,DIRECT 0.1 MG/DL (0.0-0.3); BILIRUBIN,TOTAL 0.3 MG/DL (0.2-1.0); PHOSPHORUS 3.1 MG/DL (2.5-4.9)
[2018-02-15] MEDS: Fleet's Mineral Oil Enema RECTAL SCH (08:38)
[2018-02-15] MEDS: Lactulose 20gm/30ml UDC ORAL SCH ×2 (08:38→13:00)
[2018-02-15] MEDS: Pantoprazole Inj IV SCH ×2 (08:51→20:29)
[2018-02-15] MEDS: Heparin 5000 units/ml inj SUBQ SCH ×2 (08:53→20:28)
--- NOTE | 2018-02-15 10:02 | Pulmonolgy Critical Care Note ---
Critical Care - Asmt/Plan Assessment/Plan: ASSESSMENT Acute hypoxemic hypercapnic respiratory failure requiring intubation COPD exacerbation Abdominal distention due to paralytic ileus Emphysema Dehydration Acute kidney injury Hyperkalemia History of atrial flutter History of congestive heart failure Severe protein calorie malnutrition PLAN OF CARE ICU status Ventilator support Pulmonary toilet fup with ABG and chest x-ray, titrate settings as needed, continue weaning protocol IV steroids and taper as permitted IV Antibiotic Blood culture negative Trial of theophylline Antitussive as needed Surgery followed per surgeon likely paralytic ileus -resolving had BM, diarrhea antiemetic as needed bowel regimen DVT prophylaxis monitor H&H , anemia workup Echocardiogram revealed preserved ejection fraction of 60% Dietary supplements as per nick setter recommendations for severe protein calorie malnutrition case discussed and evaluated by supervising physician Critical Care - Objective Last 24 Hour Vital Signs Date Time Temp Pulse Resp B/P (MAP) Pulse Ox O2 Delivery O2 Flow Rate FiO2 02/15/18 09:00 105 17 140/85 97 Mechanical Ventilator 40 02/15/18 09:00 30 02/15/18 08:48 100 02/15/18 08:46 112 17 30 02/15/18 08:41 99 16 100 Mechanical Ventilator 30 02/15/18 08:32 108 16 100 Mechanical Ventilator 30 02/15/18 08:32 30 02/15/18 08:00 30 02/15/18 08:00 99 02/15/18 08:00 98.1 99 16 101/70 98 Mechanical Ventilator 40 98.1 02/15/18 07:17 97 16 30 02/15/18 07:00 98 16 101/67 97 Mechanical Ventilator 40 02/15/18 06:00 100 16 120/81 100 Mechanical Ventilator 40 02/15/18 05:12 113 17 30 02/15/18 05:00 98.2 115 16 117/50 100 Mechanical Ventilator 40 98.2 02/15/18 04:00 110 16 107/60 98 Mechanical Ventilator 40 02/15/18 04:00 30 02/15/18 04:00 121 02/15/18 03:28 109 16 30 02/15/18 03:00 106 16 107/60 97 Mechanical Ventilator 40 02/15/18 02:00 102 17 110/50 97 Mechanical Ventilator 40 02/15/18 01:14 112 16 30 02/15/18 01:00 105 16 114/88 97 Mechanical Ventilator 40 02/15/18 00:00 30 02/15/18 00:00 108 02/15/18 00:00 98.6 108 18 124/78 97 Mechanical Ventilator 40 98.6 02/14/18 23:08 120 16 30 02/14/18 23:00 106 16 157/97 97 Mechanical Ventilator 40 02/14/18 22:00 115 20 150/65 97 Mechanical Ventilator 40 02/14/18 21:00 109 18 146/77 97 Mechanical Ventilator 40 02/14/18 20:50 108 16 30 02/14/18 20:00 30 02/14/18 20:00 98.4 103 16 146/65 97 Mechanical Ventilator 40 98.4 02/14/18 20:00 112 02/14/18 19:30 103 16 30 02/14/18 19:00 109 16 113/77 97 Mechanical Ventilator 40 02/14/18 18:36 112/72 02/14/18 18:00 105 16 112/72 100 Mechanical Ventilator 40 02/14/18 17:00 109 16 146/84 100 Mechanical Ventilator 40 02/14/18 17:00 30 02/14/18 16:37 110 16 40 02/14/18 16:00 112 02/14/18 16:00 98.8 106 16 138/87 100 Mechanical Ventilator 40 98.8 02/14/18 16:00 40 02/14/18 15:00 108 16 134/87 100 Mechanical Ventilator 40 02/14/18 14:56 100 16 40 02/14/18 14:00 107 16 131/85 100 Mechanical Ventilator 40 02/14/18 13:00 106 16 115/70 100 Mechanical Ventilator 40 02/14/18 12:49 102 16 40 02/14/18 12:00 109 02/14/18 12:00 98.9 111 16 116/83 100 Mechanical Ventilator 40 98.9 02/14/18 11:00 114 16 40 02/14/18 11:00 111 16 111/87 100 Mechanical Ventilator 40 Status: awake, other - on vent Condition: critical HEENT: atraumatic, other - OP with ET in place, intact Lungs: other - decreased BS Heart: HR/BP stable Abdomen: soft, non-tender, active bowel sounds Extremities: no C/C/E Critical Care - Subjective ROS Limited/Unobtainable: Yes Interval Events: remains intubated did not tolerated weaning afebrile, mild leukocytosis Mg-16 Condition: critical EKG Rhythm: Sinus Tachycardia FI02: 30 Vent Support Breath Rate: 6 Vent Support Mode: IMV/SIMV Vent Tidal Volume: 600 Sputum Amount: Moderate PEEP: 5.0 PIP: 27 I&O: Intake and Output 02/14/18 02/15/18 19:00 07:00 Intake Total 871.5 ml 737.5 ml Output Total 1700 ml 725 ml Balance -828.5 ml 12.5 ml IV Total 871.5 ml 737.5 ml Output Urine Total 1600 ml 725 ml Stool Total 100 ml # Bowel Movements 50 CXR: 02/14 No definite acute abnormality identified , probable emphysema, ET-Tube: 7.5 ET Position: 24 Radha Ford NP February 15, 2018 10:02
--- NOTE | 2018-02-15 11:37 | General Progress Note ---
Assessment/Plan Assessment/Plan - Ileus vs SBO - suspect former - Anemia - Resp failure - Electrolyte abnormalities Recommendations - - given diarrhea will hold laxatives -consider TF today - correct all lytes - follow exam and imaging -spoke with the patient in the presence of the nurse. he agreed to have TF despite of his post. he is alert and able to make decisions Subjective ROS Limited/Unobtainable: Yes Allergies: Coded Allergies: No Known Allergies (Unverified , 10/30/16) Objective Last 24 Hour Vital Signs Date Time Temp Pulse Resp B/P (MAP) Pulse Ox O2 Delivery O2 Flow Rate FiO2 02/15/18 11:00 103 17 128/75 98 Mechanical Ventilator 40 02/15/18 10:48 108 14 30 02/15/18 10:00 108 17 133/82 98 Mechanical Ventilator 40 02/15/18 09:00 105 17 140/85 97 Mechanical Ventilator 40 02/15/18 09:00 30 02/15/18 08:48 100 02/15/18 08:46 112 17 30 02/15/18 08:41 99 16 100 Mechanical Ventilator 30 02/15/18 08:32 108 16 100 Mechanical Ventilator 30 02/15/18 08:32 30 02/15/18 08:00 30 02/15/18 08:00 99 02/15/18 08:00 98.1 99 16 101/70 98 Mechanical Ventilator 40 98.1 02/15/18 07:17 97 16 30 02/15/18 07:00 98 16 101/67 97 Mechanical Ventilator 40 02/15/18 06:00 100 16 120/81 100 Mechanical Ventilator 40 02/15/18 05:12 113 17 30 02/15/18 05:00 98.2 115 16 117/50 100 Mechanical Ventilator 40 98.2 02/15/18 04:00 110 16 107/60 98 Mechanical Ventilator 40 02/15/18 04:00 30 02/15/18 04:00 121 02/15/18 03:28 109 16 30 02/15/18 03:00 106 16 107/60 97 Mechanical Ventilator 40 02/15/18 02:00 102 17 110/50 97 Mechanical Ventilator 40 02/15/18 01:14 112 16 30 02/15/18 01:00 105 16 114/88 97 Mechanical Ventilator 40 02/15/18 00:00 30 02/15/18 00:00 108 02/15/18 00:00 98.6 108 18 124/78 97 Mechanical Ventilator 40 98.6 02/14/18 23:08 120 16 30 02/14/18 23:00 106 16 157/97 97 Mechanical Ventilator 40 02/14/18 22:00 115 20 150/65 97 Mechanical Ventilator 40 02/14/18 21:00 109 18 146/77 97 Mechanical Ventilator 40 02/14/18 20:50 108 16 30 02/14/18 20:00 30 02/14/18 20:00 98.4 103 16 146/65 97 Mechanical Ventilator 40 98.4 02/14/18 20:00 112 02/14/18 19:30 103 16 30 02/14/18 19:00 109 16 113/77 97 Mechanical Ventilator 40 02/14/18 18:36 112/72 02/14/18 18:00 105 16 112/72 100 Mechanical Ventilator 40 02/14/18 17:00 109 16 146/84 100 Mechanical Ventilator 40 02/14/18 17:00 30 02/14/18 16:37 110 16 40 02/14/18 16:00 112 02/14/18 16:00 98.8 106 16 138/87 100 Mechanical Ventilator 40 98.8 02/14/18 16:00 40 02/14/18 15:00 108 16 134/87 100 Mechanical Ventilator 40 02/14/18 14:56 100 16 40 02/14/18 14:00 107 16 131/85 100 Mechanical Ventilator 40 02/14/18 13:00 106 16 115/70 100 Mechanical Ventilator 40 02/14/18 12:49 102 16 40 02/14/18 12:00 109 02/14/18 12:00 98.9 111 16 116/83 100 Mechanical Ventilator 40 98.9 Intake and Output 02/14/18 02/15/18 19:00 07:00 Intake Total 871.5 ml 737.5 ml Output Total 1700 ml 725 ml Balance -828.5 ml 12.5 ml IV Total 871.5 ml 737.5 ml Output Urine Total 1600 ml 725 ml Stool Total 100 ml # Bowel Movements 50 Laboratory Tests 02/15/18 04:15: White Blood Count 12.6H, Red Blood Count 3.27L, Hemoglobin 9.0L, Hematocrit 27.9L, Mean Corpuscular Volume 85, Mean Corpuscular Hemoglobin 27.5, Mean Corpuscular Hemoglobin Concent 32.2, Red Cell Distribution Width 16.2H, Platelet Count 165, Mean Platelet Volume 8.5, Neutrophils (%) (Auto) , Lymphocytes (%) (Auto) , Monocytes (%) (Auto) , Eosinophils (%) (Auto) , Basophils (%) (Auto) , Differential Total Cells Counted 100, Neutrophils % ( Manual) 89H, Lymphocytes % (Manual) 6L, Monocytes % (Manual) 5, Eosinophils % ( Manual) 0, Basophils % (Manual) 0, Band Neutrophils 0, Platelet Estimate Adequate, Platelet Morphology Normal, Hypochromasia 1+, Anisocytosis 1+, Sodium Level 142, Potassium Level 3.6, Chloride Level 106, Carbon Dioxide Level 30, Anion Gap 6, Blood Urea Nitrogen 11, Creatinine 0.9, Estimat Glomerular Filtration Rate > 60, Glucose Level 124H, Uric Acid 1.3L, Calcium Level 8.2L, Phosphorus Level 3.1, Magnesium Level 1.6L, Total Bilirubin 0.3, Direct Bilirubin 0.1, Aspartate Amino Transf (AST/SGOT) 30, Alanine Aminotransferase ( ALT/SGPT) 31, Alkaline Phosphatase 43L, Pro-B-Type Natriuretic Peptide 768H, Total Protein 6.1L, Albumin 2.8L Height (Feet): 5 Height (Inches): 7.00 Weight (Pounds): 142 General Appearance: alert EENT: normal ENT inspection Neck: supple Cardiovascular: normal rate Respiratory/Chest: decreased breath sounds Abdomen: normal bowel sounds, non tender, soft Extremities: non-tender Naldo Raza MD February 15, 2018 11:37
[2018-02-15] MEDS: D5NS 1,000 ML IV SCH (11:54)
--- NOTE | 2018-02-15 15:20 | Internal Med Progress Note ---
Subjective Date of Service: February 15, 2018 Physician Name Kelley,Fausto Attending Physician Dipesh Cardoza MD Current Medications Medications (Trade) Dose Ordered Sig/Radha Route PRN Reason Start Time Stop Time Status Last Admin Dose Admin Albuterol/ Ipratropium (Albuterol/ Ipratropium) 3 ml Q4H PRN HHN dyspnea and/or SOB 02/14/18 15:00 02/19/18 14:59 02/15/18 08:34 Dextrose (Dextrose 50%) 25 ml PRN IV Hypoglycemia 02/12/18 11:30 03/12/18 18:59 Dextrose (Dextrose 50%) 50 ml PRN IV hypoglycemia 02/12/18 11:30 03/12/18 18:59 Dextrose/Sodium Chloride 1,000 ml @ 50 mls/hr Q20H IV 02/14/18 15:00 03/14/18 14:59 02/15/18 11:54 Heparin Sodium (Porcine) (Heparin 5000 units/ml) 5,000 units EVERY 12 HOURS SUBQ 02/12/18 21:00 03/12/18 20:59 02/15/18 08:53 Lorazepam (Ativan 2mg/ml 1ml) 1 mg Q2H PRN IV For Anxiety 02/12/18 11:45 02/19/18 09:35 02/14/18 23:00 Methylprednisolone Sodium Succinate (Solu-MEDROL) 60 mg EVERY 12 HOURS IV 02/15/18 21:00 03/16/18 11:59 Morphine Sulfate (Morphine Sulfate) 4 mg Q4H PRN IVP For Pain 02/12/18 12:15 02/19/18 12:14 Nitroglycerin (Ntg) 0.4 mg Q5M X 3 DOSES PRN SL Prn Chest Pain 02/12/18 11:30 03/12/18 16:59 Nitroglycerin (Ntg) 1 patch Q24H TDERMAL 02/12/18 18:00 03/14/18 17:59 02/14/18 18:36 Ondansetron HCl (Zofran) 4 mg Q6H PRN IVP Nausea & Vomiting 02/12/18 17:00 03/12/18 16:59 Pantoprazole (Protonix) 40 mg Q12HR IV 02/12/18 21:00 03/15/18 08:59 02/15/18 08:51 Piperacillin Sod/ Tazobactam Sod 3.375 gm/Sodium Chloride 110 ml @ 27.5 mls/hr EVERY 8 HOURS IVPB 02/12/18 14:00 02/15/18 19:59 02/15/18 14:28 Allergies: Coded Allergies: No Known Allergies (Unverified , 10/30/16) Subjective 68 YO M admitted with shortness of breath; now COPD exacerbation. Cover for Int Med-Dr Cardoza. ICU. Intubated and sedated. Objective Last Vital Signs Date Time Temp Pulse Resp B/P (MAP) Pulse Ox O2 Delivery O2 Flow Rate FiO2 02/15/18 15:00 109 17 143/91 96 Mechanical Ventilator 40 02/15/18 12:00 98.3 98.3 02/12/18 04:00 5.0 Laboratory Tests Test 02/15/18 04:15 02/15/18 12:05 White Blood Count 12.6 K/UL (4.8-10.8) H Red Blood Count 3.27 M/UL (4.70-6.10) L Hemoglobin 9.0 G/DL (14.2-18.0) L Hematocrit 27.9 % (42.0-52.0) L Mean Corpuscular Volume 85 FL (80-99) Mean Corpuscular Hemoglobin 27.5 PG (27.0-31.0) Mean Corpuscular Hemoglobin Concent 32.2 G/DL (32.0-36.0) Red Cell Distribution Width 16.2 % (11.6-14.8) H Platelet Count 165 K/UL (150-450) Mean Platelet Volume 8.5 FL (6.5-10.1) Neutrophils (%) (Auto) % (45.0-75.0) Lymphocytes (%) (Auto) % (20.0-45.0) Monocytes (%) (Auto) % (1.0-10.0) Eosinophils (%) (Auto) % (0.0-3.0) Basophils (%) (Auto) % (0.0-2.0) Differential Total Cells Counted 100 Neutrophils % (Manual) 89 % (45-75) H Lymphocytes % (Manual) 6 % (20-45) L Monocytes % (Manual) 5 % (1-10) Eosinophils % (Manual) 0 % (0-3) Basophils % (Manual) 0 % (0-2) Band Neutrophils 0 % (0-8) Platelet Estimate Adequate Platelet Morphology Normal Hypochromasia 1+ Anisocytosis 1+ Sodium Level 142 MMOL/L (136-145) Potassium Level 3.6 MMOL/L (3.5-5.1) Chloride Level 106 MMOL/L (98-107) Carbon Dioxide Level 30 MMOL/L (21-32) Anion Gap 6 mmol/L (5-15) Blood Urea Nitrogen 11 mg/dL (7-18) Creatinine 0.9 MG/DL (0.55-1.30) Estimat Glomerular Filtration Rate > 60 mL/min (>60) Glucose Level 124 MG/DL (74-106) H Uric Acid 1.3 MG/DL (2.6-7.2) L Calcium Level 8.2 MG/DL (8.5-10.1) L Phosphorus Level 3.1 MG/DL (2.5-4.9) Magnesium Level 1.6 MG/DL (1.8-2.4) L Total Bilirubin 0.3 MG/DL (0.2-1.0) Direct Bilirubin 0.1 MG/DL (0.0-0.3) Aspartate Amino Transf (AST/SGOT) 30 U/L (15-37) Alanine Aminotransferase (ALT/SGPT) 31 U/L (12-78) Alkaline Phosphatase 43 U/L (46-116) L Pro-B-Type Natriuretic Peptide 768 pg/mL (0-125) H Total Protein 6.1 G/DL (6.4-8.2) L Albumin 2.8 G/DL (3.4-5.0) L Arterial Blood pH 7.421 (7.350-7.450) Arterial Blood Partial Pressure CO2 53.0 mmHg (35.0-45.0) H Arterial Blood Partial Pressure O2 78.1 mmHg (75.0-100.0) Arterial Blood HCO3 33.7 mmol/L (22.0-26.0) H Arterial Blood Oxygen Saturation 94.7 % (92.0-98.0) Arterial Blood Base Excess 8.0 Efren Test Positive Intake and Output 02/14/18 02/15/18 19:00 07:00 Intake Total 871.5 ml 737.5 ml Output Total 1700 ml 725 ml Balance -828.5 ml 12.5 ml IV Total 871.5 ml 737.5 ml Output Urine Total 1600 ml 725 ml Stool Total 100 ml # Bowel Movements 50 Objective Objective General: awake, alert, responsive, intubated. HEENT: NCAT, sclera anicteric, PERRL, ET Tube, OG Tube. Neck: Supple, no significant jugular venous distention, Lungs: Mech vent; Mechanical breath sound, no Wheeze or Rales. Heart: Regular rate and rhythm, normal S1/S2, no murmurs Abdomen: Hard, nontender, less distended. hypoactive bowel sounds. / Rectal: Refused and deferred. Extremities: No Cyanosis , clubbing or edema. Neuro: sedated, Able to move all extremities Assessment/Plan Assessment/Plan Assessment/Plan Assessment/Plan 1. Abdominal distention, possible due to the Small bowel obstruction improving.. 2. Acute COPD. 3. History of atrial flutter. 4. Dehydration. 5. History of CHF with systolic dysfunction. 6. GERD. 7. Hyponatremia. 8. Hyperkalemia. 9. Acute kidney injury. 10. Severe protein calori malnutrition. 11. Acute Respiratory Failure. Plan: in ICU F/U with surgery recommendations Monitor labs and cultures Abx: Zosyn Neb Tx decrease Solumedral IV 60mg IV Q12 hr Full code heparin SQ Vent per pulmonary Fausto Kelley MD February 15, 2018 15:20
--- NOTE | 2018-02-15 16:04 | Nephrology Progress Note ---
Assessment/Plan Problem List: (1) Acute respiratory failure (2) Protein-calorie malnutrition, severe (3) Acute renal failure (4) Dehydration Assessment Renal failure / Acute / Dehydration HyperKalemia likely due to acidosis Acute respiratory failure- Abdominal distention, possible due to the Small bowel obstruction Vs. paralytic Ileus. COPD. History of atrial flutter. Dehydration. History of CHF with systolic dysfunction. GERD. Severe protein calori malnutrition. Plan Noel- D5NS IV fluid down to 50 cc / h IV protonix k phos iv pulmonary support Anemia fuentes avoid nephrotoxics 2D echo Subjective ROS Limited/Unobtainable: Yes Objective Objective Last 24 Hour Vital Signs Date Time Temp Pulse Resp B/P (MAP) Pulse Ox O2 Delivery O2 Flow Rate FiO2 02/15/18 15:29 118 18 30 02/15/18 15:00 109 17 143/91 96 Mechanical Ventilator 40 02/15/18 14:00 114 17 152/87 96 Mechanical Ventilator 40 02/15/18 13:05 105 15 30 02/15/18 13:00 110 17 139/86 96 Mechanical Ventilator 40 02/15/18 12:00 103 02/15/18 12:00 98.3 103 17 130/81 97 Mechanical Ventilator 40 98.3 02/15/18 11:00 103 17 128/75 98 Mechanical Ventilator 40 02/15/18 10:50 30 02/15/18 10:48 108 14 30 02/15/18 10:00 108 17 133/82 98 Mechanical Ventilator 40 02/15/18 09:00 105 17 140/85 97 Mechanical Ventilator 40 02/15/18 09:00 30 02/15/18 08:48 100 02/15/18 08:46 112 17 30 02/15/18 08:41 99 16 100 Mechanical Ventilator 30 02/15/18 08:32 108 16 100 Mechanical Ventilator 30 02/15/18 08:32 30 02/15/18 08:00 30 02/15/18 08:00 99 02/15/18 08:00 98.1 99 16 101/70 98 Mechanical Ventilator 40 98.1 02/15/18 07:17 97 16 30 02/15/18 07:00 98 16 101/67 97 Mechanical Ventilator 40 02/15/18 06:00 100 16 120/81 100 Mechanical Ventilator 40 02/15/18 05:12 113 17 30 02/15/18 05:00 98.2 115 16 117/50 100 Mechanical Ventilator 40 98.2 02/15/18 04:00 110 16 107/60 98 Mechanical Ventilator 40 02/15/18 04:00 30 02/15/18 04:00 121 02/15/18 03:28 109 16 30 02/15/18 03:00 106 16 107/60 97 Mechanical Ventilator 40 02/15/18 02:00 102 17 110/50 97 Mechanical Ventilator 40 02/15/18 01:14 112 16 30 02/15/18 01:00 105 16 114/88 97 Mechanical Ventilator 40 02/15/18 00:00 30 02/15/18 00:00 108 02/15/18 00:00 98.6 108 18 124/78 97 Mechanical Ventilator 40 98.6 02/14/18 23:08 120 16 30 02/14/18 23:00 106 16 157/97 97 Mechanical Ventilator 40 02/14/18 22:00 115 20 150/65 97 Mechanical Ventilator 40 02/14/18 21:00 109 18 146/77 97 Mechanical Ventilator 40 02/14/18 20:50 108 16 30 02/14/18 20:00 30 02/14/18 20:00 98.4 103 16 146/65 97 Mechanical Ventilator 40 98.4 02/14/18 20:00 112 02/14/18 19:30 103 16 30 02/14/18 19:00 109 16 113/77 97 Mechanical Ventilator 40 02/14/18 18:36 112/72 02/14/18 18:00 105 16 112/72 100 Mechanical Ventilator 40 02/14/18 17:00 109 16 146/84 100 Mechanical Ventilator 40 02/14/18 17:00 30 02/14/18 16:37 110 16 40 Intake and Output 02/14/18 02/15/18 19:00 07:00 Intake Total 871.5 ml 737.5 ml Output Total 1700 ml 725 ml Balance -828.5 ml 12.5 ml IV Total 871.5 ml 737.5 ml Output Urine Total 1600 ml 725 ml Stool Total 100 ml # Bowel Movements 50 Laboratory Tests 02/15/18 04:15: White Blood Count 12.6H, Red Blood Count 3.27L, Hemoglobin 9.0L, Hematocrit 27.9L, Mean Corpuscular Volume 85, Mean Corpuscular Hemoglobin 27.5, Mean Corpuscular Hemoglobin Concent 32.2, Red Cell Distribution Width 16.2H, Platelet Count 165, Mean Platelet Volume 8.5, Neutrophils (%) (Auto) , Lymphocytes (%) (Auto) , Monocytes (%) (Auto) , Eosinophils (%) (Auto) , Basophils (%) (Auto) , Differential Total Cells Counted 100, Neutrophils % ( Manual) 89H, Lymphocytes % (Manual) 6L, Monocytes % (Manual) 5, Eosinophils % ( Manual) 0, Basophils % (Manual) 0, Band Neutrophils 0, Platelet Estimate Adequate, Platelet Morphology Normal, Hypochromasia 1+, Anisocytosis 1+, Sodium Level 142, Potassium Level 3.6, Chloride Level 106, Carbon Dioxide Level 30, Anion Gap 6, Blood Urea Nitrogen 11, Creatinine 0.9, Estimat Glomerular Filtration Rate > 60, Glucose Level 124H, Uric Acid 1.3L, Calcium Level 8.2L, Phosphorus Level 3.1, Magnesium Level 1.6L, Total Bilirubin 0.3, Direct Bilirubin 0.1, Aspartate Amino Transf (AST/SGOT) 30, Alanine Aminotransferase ( ALT/SGPT) 31, Alkaline Phosphatase 43L, Pro-B-Type Natriuretic Peptide 768H, Total Protein 6.1L, Albumin 2.8L 02/15/18 12:05: Arterial Blood pH 7.421, Arterial Blood Partial Pressure CO2 53.0H, Arterial Blood Partial Pressure O2 78.1, Arterial Blood HCO3 33.7H, Arterial Blood Oxygen Saturation 94.7, Arterial Blood Base Excess 8.0, Efren Test Positive Height (Feet): 5 Height (Inches): 7.00 Weight (Pounds): 142 EENT: other - on vent Cardiovascular: tachycardia Respiratory/Chest: decreased breath sounds Abdomen: soft Objective no change YAMIL LOVE February 15, 2018 16:04
[2018-02-15] MEDS: Nitroglycerin Patch 0.4mg TDERMAL SCH (17:32)
--- NOTE | 2018-02-15 23:05 | Cardiology Progress Note ---
Assessment/Plan Assessment/Plan stable from cardiac standpoint on ventilator support for severe COPD Subjective Subjective The patient is alert, intubated, does not report any cardiac complaints Objective Last 24 Hour Vital Signs Date Time Temp Pulse Resp B/P (MAP) Pulse Ox O2 Delivery O2 Flow Rate FiO2 02/15/18 22:33 97 12 30 02/15/18 22:00 108 13 132/89 97 Mechanical Ventilator 30 02/15/18 21:00 99 13 142/90 97 Mechanical Ventilator 30 02/15/18 20:39 99 16 30 02/15/18 20:00 108 02/15/18 20:00 98.7 101 14 128/88 98 Mechanical Ventilator 30 98.7 02/15/18 19:00 109 17 143/93 98 Mechanical Ventilator 30 02/15/18 18:35 119 15 30 02/15/18 18:00 106 17 153/85 96 Mechanical Ventilator 30 02/15/18 18:00 30 02/15/18 17:32 139/88 02/15/18 17:00 104 17 139/88 96 Mechanical Ventilator 30 02/15/18 16:46 106 17 30 02/15/18 16:00 98.2 103 17 155/87 96 Mechanical Ventilator 30 98.2 02/15/18 16:00 30 02/15/18 16:00 105 02/15/18 15:29 118 18 30 02/15/18 15:00 109 17 143/91 96 Mechanical Ventilator 40 02/15/18 14:00 114 17 152/87 96 Mechanical Ventilator 40 02/15/18 13:05 105 15 30 02/15/18 13:00 110 17 139/86 96 Mechanical Ventilator 40 02/15/18 12:00 103 02/15/18 12:00 30 02/15/18 12:00 98.3 103 17 130/81 97 Mechanical Ventilator 40 98.3 02/15/18 11:00 103 17 128/75 98 Mechanical Ventilator 40 02/15/18 10:50 30 02/15/18 10:48 108 14 30 02/15/18 10:00 108 17 133/82 98 Mechanical Ventilator 40 02/15/18 09:00 105 17 140/85 97 Mechanical Ventilator 40 02/15/18 09:00 30 02/15/18 08:48 100 02/15/18 08:46 112 17 30 5/20/18 08:41 99 16 100 Mechanical Ventilator 30 02/15/18 08:32 108 16 100 Mechanical Ventilator 30 02/15/18 08:32 30 02/15/18 08:00 30 02/15/18 08:00 99 02/15/18 08:00 98.1 99 16 101/70 98 Mechanical Ventilator 40 98.1 02/15/18 07:17 97 16 30 02/15/18 07:00 98 16 101/67 97 Mechanical Ventilator 40 02/15/18 06:00 100 16 120/81 100 Mechanical Ventilator 40 02/15/18 05:12 113 17 30 02/15/18 05:00 98.2 115 16 117/50 100 Mechanical Ventilator 40 98.2 02/15/18 04:00 110 16 107/60 98 Mechanical Ventilator 40 02/15/18 04:00 30 02/15/18 04:00 121 02/15/18 03:28 109 16 30 02/15/18 03:00 106 16 107/60 97 Mechanical Ventilator 40 02/15/18 02:00 102 17 110/50 97 Mechanical Ventilator 40 02/15/18 01:14 112 16 30 02/15/18 01:00 105 16 114/88 97 Mechanical Ventilator 40 02/15/18 00:00 30 02/15/18 00:00 108 02/15/18 00:00 98.6 108 18 124/78 97 Mechanical Ventilator 40 98.6 02/14/18 23:08 120 16 30 General Appearance: on vent EENT: PERRL/EOMI Neck: supple Rhythm: NSR Cardiovascular: regular rhythm Respiratory/Chest: rhonchi - bilaterally Abdomen: non tender Extremities: no calf tenderness Intake and Output 02/14/18 02/15/18 19:00 07:00 Intake Total 871.5 ml 737.5 ml Output Total 1700 ml 725 ml Balance -828.5 ml 12.5 ml IV Total 871.5 ml 737.5 ml Output Urine Total 1600 ml 725 ml Stool Total 100 ml # Bowel Movements 50 Laboratory Tests Test 02/15/18 04:15 02/15/18 12:05 White Blood Count 12.6 K/UL (4.8-10.8) H Red Blood Count 3.27 M/UL (4.70-6.10) L Hemoglobin 9.0 G/DL (14.2-18.0) L Hematocrit 27.9 % (42.0-52.0) L Mean Corpuscular Volume 85 FL (80-99) Mean Corpuscular Hemoglobin 27.5 PG (27.0-31.0) Mean Corpuscular Hemoglobin Concent 32.2 G/DL (32.0-36.0) Red Cell Distribution Width 16.2 % (11.6-14.8) H Platelet Count 165 K/UL (150-450) Mean Platelet Volume 8.5 FL (6.5-10.1) Neutrophils (%) (Auto) % (45.0-75.0) Lymphocytes (%) (Auto) % (20.0-45.0) Monocytes (%) (Auto) % (1.0-10.0) Eosinophils (%) (Auto) % (0.0-3.0) Basophils (%) (Auto) % (0.0-2.0) Differential Total Cells Counted 100 Neutrophils % (Manual) 89 % (45-75) H Lymphocytes % (Manual) 6 % (20-45) L Monocytes % (Manual) 5 % (1-10) Eosinophils % (Manual) 0 % (0-3) Basophils % (Manual) 0 % (0-2) Band Neutrophils 0 % (0-8) Platelet Estimate Adequate Platelet Morphology Normal Hypochromasia 1+ Anisocytosis 1+ Sodium Level 142 MMOL/L (136-145) Potassium Level 3.6 MMOL/L (3.5-5.1) Chloride Level 106 MMOL/L (98-107) Carbon Dioxide Level 30 MMOL/L (21-32) Anion Gap 6 mmol/L (5-15) Blood Urea Nitrogen 11 mg/dL (7-18) Creatinine 0.9 MG/DL (0.55-1.30) Estimat Glomerular Filtration Rate > 60 mL/min (>60) Glucose Level 124 MG/DL (74-106) H Uric Acid 1.3 MG/DL (2.6-7.2) L Calcium Level 8.2 MG/DL (8.5-10.1) L Phosphorus Level 3.1 MG/DL (2.5-4.9) Magnesium Level 1.6 MG/DL (1.8-2.4) L Total Bilirubin 0.3 MG/DL (0.2-1.0) Direct Bilirubin 0.1 MG/DL (0.0-0.3) Aspartate Amino Transf (AST/SGOT) 30 U/L (15-37) Alanine Aminotransferase (ALT/SGPT) 31 U/L (12-78) Alkaline Phosphatase 43 U/L (46-116) L Pro-B-Type Natriuretic Peptide 768 pg/mL (0-125) H Total Protein 6.1 G/DL (6.4-8.2) L Albumin 2.8 G/DL (3.4-5.0) L Arterial Blood pH 7.421 (7.350-7.450) Arterial Blood Partial Pressure CO2 53.0 mmHg (35.0-45.0) H Arterial Blood Partial Pressure O2 78.1 mmHg (75.0-100.0) Arterial Blood HCO3 33.7 mmol/L (22.0-26.0) H Arterial Blood Oxygen Saturation 94.7 % (92.0-98.0) Arterial Blood Base Excess 8.0 Efren Test Positive Anita Tellez MD February 15, 2018 23:05
[2018-02-16] VITALS (24 sets, daily range): BP systolic 107–175; BP diastolic 69–110
[2018-02-16] MEDS: D5NS 1,000 ML IV SCH (06:20)
[2018-02-16 07:13] LABS: HEMATOCRIT 32.8 % (42.0-52.0); HEMOGLOBIN 10.6 G/DL (14.2-18.0); MEAN CORPUSCULAR VOLUME 84 FL (80-99); PLATELET COUNT 210 K/UL (150-450); RED BLOOD COUNT 3.92 M/UL (4.70-6.10); RED CELL DISTRIBUTION WIDTH 15.7 % (11.6-14.8); WHITE BLOOD COUNT 16.8 K/UL (4.8-10.8)
[2018-02-16 07:23] LABS: ANION GAP 5 mmol/L (5-15); BLOOD UREA NITROGEN 15 mg/dL (7-18); CALCIUM 8.7 MG/DL (8.5-10.1); CARBON DIOXIDE 32 MMOL/L (21-32); CHLORIDE 107 MMOL/L (98-107); CREATININE 0.9 MG/DL (0.55-1.30); POTASSIUM 3.5 MMOL/L (3.5-5.1); SODIUM 144 MMOL/L (136-145)
[2018-02-16] MEDS: Pantoprazole Inj IV SCH ×2 (08:17→20:56)
[2018-02-16] MEDS: Solu-MEDROL 125mg Inj IV SCH ×2 (08:18→20:56)
[2018-02-16] MEDS: Heparin 5000 units/ml inj SUBQ SCH ×2 (08:20→20:57)
[2018-02-16 08:50] LABS: ALANINE AMINOTRANSFERASE 37 U/L (12-78); ALBUMIN 2.8 G/DL (3.4-5.0); ALKALINE PHOSPHATASE 51 U/L (46-116); ASPARTATE AMINO TRANSFERASE 29 U/L (15-37); BILIRUBIN,DIRECT < 0.1 MG/DL (0.0-0.3); BILIRUBIN,TOTAL 0.2 MG/DL (0.2-1.0); PHOSPHORUS 2.8 MG/DL (2.5-4.9)
--- NOTE | 2018-02-16 11:17 | Diagnostic Imaging Report ---
Indication: Dyspnea Comparison: 02/14/2018 A single view chest radiograph was obtained. Findings: No infiltrate identified. Lungs are clear. Endotracheal tube and nasogastric tubes are in good position. Heart size is stable. IMPRESSION: No change
--- NOTE | 2018-02-16 11:29 | Nephrology Progress Note ---
Assessment/Plan Problem List: (1) Acute respiratory failure (2) Protein-calorie malnutrition, severe (3) Acute renal failure (4) Dehydration Assessment Renal failure / Acute / Dehydration HyperKalemia likely due to acidosis Acute respiratory failure- Abdominal distention, possible due to the Small bowel obstruction Vs. paralytic Ileus. COPD. History of atrial flutter. Dehydration. History of CHF with systolic dysfunction. GERD. Severe protein calori malnutrition. Plan Noel- D5NS IV fluid down to 50 cc / h IV protonix k phos iv pulmonary support Anemia fuentes avoid nephrotoxics 2D echo Subjective ROS Limited/Unobtainable: Yes Objective Objective Last 24 Hour Vital Signs Date Time Temp Pulse Resp B/P (MAP) Pulse Ox O2 Delivery O2 Flow Rate FiO2 02/16/18 11:15 3.0 02/16/18 11:15 Nasal Cannula 3.0 32 02/16/18 11:15 109 19 30 02/16/18 10:45 112 17 30 02/16/18 08:48 98 02/16/18 08:45 110 18 30 02/16/18 08:00 30 02/16/18 08:00 98.1 111 15 162/100 96 Mechanical Ventilator 30 98.1 02/16/18 08:00 108 02/16/18 07:48 103 14 30 02/16/18 07:00 92 13 138/88 96 Mechanical Ventilator 30 02/16/18 06:00 105 13 125/101 96 Mechanical Ventilator 30 02/16/18 05:04 99 12 30 02/16/18 05:00 100 21 119/76 99 Mechanical Ventilator 30 02/16/18 04:00 30 02/16/18 04:00 98.1 104 21 125/81 99 Mechanical Ventilator 30 98.1 02/16/18 04:00 103 02/16/18 03:21 92 14 30 02/16/18 03:00 106 21 124/93 98 Mechanical Ventilator 30 02/16/18 02:00 106 20 125/76 100 Mechanical Ventilator 30 02/16/18 01:06 95 12 30 02/16/18 01:00 98 16 115/75 97 Mechanical Ventilator 30 02/16/18 00:00 92 02/16/18 00:00 30 02/16/18 00:00 98.0 89 17 119/83 98 Mechanical Ventilator 30 98.0 02/15/18 23:00 108 13 150/90 96 Mechanical Ventilator 30 02/15/18 22:33 97 12 30 02/15/18 22:00 108 13 132/89 97 Mechanical Ventilator 30 02/15/18 21:00 99 13 142/90 97 Mechanical Ventilator 30 02/15/18 20:39 99 16 30 02/15/18 20:00 108 02/15/18 20:00 98.7 101 14 128/88 98 Mechanical Ventilator 30 98.7 02/15/18 20:00 30 02/15/18 19:00 109 17 143/93 98 Mechanical Ventilator 30 02/15/18 18:35 119 15 30 02/15/18 18:00 106 17 153/85 96 Mechanical Ventilator 30 02/15/18 18:00 30 02/15/18 17:32 139/88 02/15/18 17:00 104 17 139/88 96 Mechanical Ventilator 30 02/15/18 16:46 106 17 30 02/15/18 16:00 98.2 103 17 155/87 96 Mechanical Ventilator 30 98.2 02/15/18 16:00 30 02/15/18 16:00 105 02/15/18 15:29 118 18 30 02/15/18 15:00 109 17 143/91 96 Mechanical Ventilator 40 02/15/18 14:00 114 17 152/87 96 Mechanical Ventilator 40 02/15/18 13:05 105 15 30 02/15/18 13:00 110 17 139/86 96 Mechanical Ventilator 40 02/15/18 12:00 103 02/15/18 12:00 30 02/15/18 12:00 98.3 103 17 130/81 97 Mechanical Ventilator 40 98.3 Intake and Output 02/15/18 02/16/18 19:00 07:00 Intake Total 911.5 ml 1080 ml Output Total 1180 ml 430 ml Balance -268.5 ml 650 ml Free Water 100 ml IV Total 806.5 ml 600 ml Tube Feeding 105 ml 380 ml Output Urine Total 1140 ml 430 ml Stool Total 40 ml Laboratory Tests 02/15/18 12:05: Arterial Blood pH 7.421, Arterial Blood Partial Pressure CO2 53.0H, Arterial Blood Partial Pressure O2 78.1, Arterial Blood HCO3 33.7H, Arterial Blood Oxygen Saturation 94.7, Arterial Blood Base Excess 8.0, Efren Test Positive 02/16/18 06:05: White Blood Count 16.8H, Red Blood Count 3.92L, Hemoglobin 10.6L, Hematocrit 32.8L, Mean Corpuscular Volume 84, Mean Corpuscular Hemoglobin 27.0, Mean Corpuscular Hemoglobin Concent 32.2, Red Cell Distribution Width 15.7H, Platelet Count 210, Mean Platelet Volume 8.2, Neutrophils (%) (Auto) , Lymphocytes (%) (Auto) , Monocytes (%) (Auto) , Eosinophils (%) (Auto) , Basophils (%) (Auto) , Differential Total Cells Counted 100, Neutrophils % ( Manual) 89H, Lymphocytes % (Manual) 5L, Monocytes % (Manual) 6, Eosinophils % ( Manual) 0, Basophils % (Manual) 0, Band Neutrophils 0, Platelet Estimate Adequate, Platelet Morphology Normal, Hypochromasia 1+, Anisocytosis 1+, Sodium Level 144, Potassium Level 3.5, Chloride Level 107, Carbon Dioxide Level 32, Anion Gap 5, Blood Urea Nitrogen 15, Creatinine 0.9, Estimat Glomerular Filtration Rate > 60, Glucose Level 118H, Calcium Level 8.7, Phosphorus Level 2.8, Magnesium Level 1.9, Total Bilirubin 0.2, Direct Bilirubin < 0.1, Aspartate Amino Transf (AST/SGOT) 29, Alanine Aminotransferase (ALT/SGPT) 37, Alkaline Phosphatase 51, Total Protein 6.4, Albumin 2.8L 02/16/18 08:45: Arterial Blood pH 7.370, Arterial Blood Partial Pressure CO2 60.1*H, Arterial Blood Partial Pressure O2 75.0, Arterial Blood HCO3 34.0H, Arterial Blood Oxygen Saturation 94.6, Arterial Blood Base Excess 7.0, Efren Test Positive Height (Feet): 5 Height (Inches): 7.00 Weight (Pounds): 141 General Appearance: no apparent distress Objective no change YAMIL LOVE February 16, 2018 11:29
--- NOTE | 2018-02-16 11:54 | Pulmonolgy Critical Care Note ---
Critical Care - Asmt/Plan Problems: (1) Acute respiratory failure (2) copd exacerbation (3) SBO (small bowel obstruction) (4) ATN (acute tubular necrosis) (5) Protein-calorie malnutrition, severe (6) Emphysema, unspecified Respiratory: monitor respiratory rate, adjust FIO2, CXR Cardiac: continue to monitor HR/BP Renal: F/U I&O Infectious Disease: check cultures Gastrointestinal: continue feedings/current rate Endocrine: monitor blood sugar Hematologic: monitor H/H Neurologic: PRN Ativan Affect: PRN ativan Prophylaxis: Protonix, Heparin Notes Reviewed: cardio Discussed with: nurses, consultants, correctional case managerday spa manager - Objective Last 24 Hour Vital Signs Date Time Temp Pulse Resp B/P (MAP) Pulse Ox O2 Delivery O2 Flow Rate FiO2 02/16/18 11:15 3.0 02/16/18 11:15 Nasal Cannula 3.0 32 02/16/18 11:15 109 19 30 02/16/18 10:45 112 17 30 02/16/18 08:48 98 02/16/18 08:45 110 18 30 02/16/18 08:00 30 02/16/18 08:00 98.1 111 15 162/100 96 Mechanical Ventilator 30 98.1 02/16/18 08:00 108 02/16/18 07:48 103 14 30 02/16/18 07:00 92 13 138/88 96 Mechanical Ventilator 30 02/16/18 06:00 105 13 125/101 96 Mechanical Ventilator 30 02/16/18 05:04 99 12 30 02/16/18 05:00 100 21 119/76 99 Mechanical Ventilator 30 02/16/18 04:00 30 02/16/18 04:00 98.1 104 21 125/81 99 Mechanical Ventilator 30 98.1 02/16/18 04:00 103 02/16/18 03:21 92 14 30 02/16/18 03:00 106 21 124/93 98 Mechanical Ventilator 30 02/16/18 02:00 106 20 125/76 100 Mechanical Ventilator 30 02/16/18 01:06 95 12 30 02/16/18 01:00 98 16 115/75 97 Mechanical Ventilator 30 02/16/18 00:00 92 02/16/18 00:00 30 02/16/18 00:00 98.0 89 17 119/83 98 Mechanical Ventilator 30 98.0 02/15/18 23:00 108 13 150/90 96 Mechanical Ventilator 30 02/15/18 22:33 97 12 30 02/15/18 22:00 108 13 132/89 97 Mechanical Ventilator 30 02/15/18 21:00 99 13 142/90 97 Mechanical Ventilator 30 02/15/18 20:39 99 16 30 02/15/18 20:00 108 02/15/18 20:00 98.7 101 14 128/88 98 Mechanical Ventilator 30 98.7 02/15/18 20:00 30 02/15/18 19:00 109 17 143/93 98 Mechanical Ventilator 30 02/15/18 18:35 119 15 30 02/15/18 18:00 106 17 153/85 96 Mechanical Ventilator 30 02/15/18 18:00 30 02/15/18 17:32 139/88 02/15/18 17:00 104 17 139/88 96 Mechanical Ventilator 30 02/15/18 16:46 106 17 30 02/15/18 16:00 98.2 103 17 155/87 96 Mechanical Ventilator 30 98.2 02/15/18 16:00 30 02/15/18 16:00 105 02/15/18 15:29 118 18 30 02/15/18 15:00 109 17 143/91 96 Mechanical Ventilator 40 02/15/18 14:00 114 17 152/87 96 Mechanical Ventilator 40 02/15/18 13:05 105 15 30 02/15/18 13:00 110 17 139/86 96 Mechanical Ventilator 40 02/15/18 12:00 103 02/15/18 12:00 30 02/15/18 12:00 98.3 103 17 130/81 97 Mechanical Ventilator 40 98.3 Status: awake Condition: critical HEENT: atraumatic Heart: HR/BP stable Abdomen: soft, active bowel sounds Decubiti: location Critical Care - Subjective ROS Limited/Unobtainable: No ICU Day: 6 Condition: critical EKG Rhythm: Sinus Rhythm FI02: 32 Vent Support Breath Rate: 16 Vent Support Mode: CPAP Vent Tidal Volume: 600 Sputum Amount: Small PEEP: 5.0 PIP: 12 Tube Feeding Amount: 60 I&O: Intake and Output 02/15/18 02/16/18 19:00 07:00 Intake Total 911.5 ml 1080 ml Output Total 1180 ml 430 ml Balance -268.5 ml 650 ml Free Water 100 ml IV Total 806.5 ml 600 ml Tube Feeding 105 ml 380 ml Output Urine Total 1140 ml 430 ml Stool Total 40 ml CXR: no change ET-Tube: 7.5 ET Position: 24 Labs: Laboratory Tests Test 02/15/18 12:05 02/16/18 06:05 02/16/18 08:45 Arterial Blood pH 7.421 (7.350-7.450) 7.370 (7.350-7.450) Arterial Blood Partial Pressure CO2 53.0 mmHg (35.0-45.0) H 60.1 mmHg (35.0-45.0) *H Arterial Blood Partial Pressure O2 78.1 mmHg (75.0-100.0) 75.0 mmHg (75.0-100.0) Arterial Blood HCO3 33.7 mmol/L (22.0-26.0) H 34.0 mmol/L (22.0-26.0) H Arterial Blood Oxygen Saturation 94.7 % (92.0-98.0) 94.6 % (92.0-98.0) Arterial Blood Base Excess 8.0 7.0 Efren Test Positive Positive White Blood Count 16.8 K/UL (4.8-10.8) H Red Blood Count 3.92 M/UL (4.70-6.10) L Hemoglobin 10.6 G/DL (14.2-18.0) L Hematocrit 32.8 % (42.0-52.0) L Mean Corpuscular Volume 84 FL (80-99) Mean Corpuscular Hemoglobin 27.0 PG (27.0-31.0) Mean Corpuscular Hemoglobin Concent 32.2 G/DL (32.0-36.0) Red Cell Distribution Width 15.7 % (11.6-14.8) H Platelet Count 210 K/UL (150-450) Mean Platelet Volume 8.2 FL (6.5-10.1) Neutrophils (%) (Auto) % (45.0-75.0) Lymphocytes (%) (Auto) % (20.0-45.0) Monocytes (%) (Auto) % (1.0-10.0) Eosinophils (%) (Auto) % (0.0-3.0) Basophils (%) (Auto) % (0.0-2.0) Differential Total Cells Counted 100 Neutrophils % (Manual) 89 % (45-75) H Lymphocytes % (Manual) 5 % (20-45) L Monocytes % (Manual) 6 % (1-10) Eosinophils % (Manual) 0 % (0-3) Basophils % (Manual) 0 % (0-2) Band Neutrophils 0 % (0-8) Platelet Estimate Adequate Platelet Morphology Normal Hypochromasia 1+ Anisocytosis 1+ Sodium Level 144 MMOL/L (136-145) Potassium Level 3.5 MMOL/L (3.5-5.1) Chloride Level 107 MMOL/L (98-107) Carbon Dioxide Level 32 MMOL/L (21-32) Anion Gap 5 mmol/L (5-15) Blood Urea Nitrogen 15 mg/dL (7-18) Creatinine 0.9 MG/DL (0.55-1.30) Estimat Glomerular Filtration Rate > 60 mL/min (>60) Glucose Level 118 MG/DL (74-106) H Calcium Level 8.7 MG/DL (8.5-10.1) Phosphorus Level 2.8 MG/DL (2.5-4.9) Magnesium Level 1.9 MG/DL (1.8-2.4) Total Bilirubin 0.2 MG/DL (0.2-1.0) Direct Bilirubin < 0.1 MG/DL (0.0-0.3) Aspartate Amino Transf (AST/SGOT) 29 U/L (15-37) Alanine Aminotransferase (ALT/SGPT) 37 U/L (12-78) Alkaline Phosphatase 51 U/L (46-116) Total Protein 6.4 G/DL (6.4-8.2) Albumin 2.8 G/DL (3.4-5.0) Jose Cruz Li MD February 16, 2018 11:54
--- NOTE | 2018-02-16 12:32 | Internal Med Progress Note ---
Subjective Date of Service: February 16, 2018 Physician Name Fausto Kelley Attending Physician Dipesh Cardoza MD Current Medications Medications (Trade) Dose Ordered Sig/Radha Route PRN Reason Start Time Stop Time Status Last Admin Dose Admin Albuterol/ Ipratropium (Albuterol/ Ipratropium) 3 ml Q4H PRN HHN dyspnea and/or SOB 02/14/18 15:00 02/19/18 14:59 02/15/18 08:34 Dextrose (Dextrose 50%) 25 ml PRN IV Hypoglycemia 02/12/18 11:30 03/12/18 18:59 Dextrose (Dextrose 50%) 50 ml PRN IV hypoglycemia 02/12/18 11:30 03/12/18 18:59 Dextrose/Sodium Chloride 1,000 ml @ 50 mls/hr Q20H IV 02/14/18 15:00 03/14/18 14:59 02/16/18 06:20 Heparin Sodium (Porcine) (Heparin 5000 units/ml) 5,000 units EVERY 12 HOURS SUBQ 02/12/18 21:00 03/12/18 20:59 02/16/18 08:20 Lorazepam (Ativan 2mg/ml 1ml) 1 mg Q2H PRN IV For Anxiety 02/12/18 11:45 02/19/18 09:35 02/14/18 23:00 Methylprednisolone Sodium Succinate (Solu-MEDROL) 60 mg EVERY 12 HOURS IV 02/15/18 21:00 03/16/18 11:59 02/16/18 08:18 Morphine Sulfate (Morphine Sulfate) 4 mg Q4H PRN IVP For Pain 02/12/18 12:15 02/19/18 12:14 Nitroglycerin (Ntg) 0.4 mg Q5M X 3 DOSES PRN SL Prn Chest Pain 02/12/18 11:30 03/12/18 16:59 Nitroglycerin (Ntg) 1 patch Q24H TDERMAL 02/12/18 18:00 03/14/18 17:59 02/15/18 17:32 Ondansetron HCl (Zofran) 4 mg Q6H PRN IVP Nausea & Vomiting 02/12/18 17:00 03/12/18 16:59 Pantoprazole (Protonix) 40 mg Q12HR IV 02/12/18 21:00 03/15/18 08:59 02/16/18 08:17 Allergies: Coded Allergies: No Known Allergies (Unverified , 10/30/16) ROS Limited/Unobtainable: No Constitutional: Reports: no symptoms HEENT: Reports: no symptoms Cardiovascular: Reports: no symptoms Respiratory: Reports: shortness of breath Gastrointestinal/Abdominal: Reports: no symptoms Genitourinary: Reports: no symptoms Neurologic/Psychiatric: Reports: no symptoms Subjective 68 YO M admitted with shortness of breath; now COPD exacerbation. Cover for Int Wilfrid-Dr Cardoza. ICU. Extubated earlier today Objective Last Vital Signs Date Time Temp Pulse Resp B/P (MAP) Pulse Ox O2 Delivery O2 Flow Rate FiO2 02/16/18 12:00 99 02/16/18 12:00 98.3 21 152/106 99 Nasal Cannula 3.0 98.3 02/16/18 11:15 32 Laboratory Tests Test 02/16/18 06:05 02/16/18 08:45 White Blood Count 16.8 K/UL (4.8-10.8) H Red Blood Count 3.92 M/UL (4.70-6.10) L Hemoglobin 10.6 G/DL (14.2-18.0) L Hematocrit 32.8 % (42.0-52.0) L Mean Corpuscular Volume 84 FL (80-99) Mean Corpuscular Hemoglobin 27.0 PG (27.0-31.0) Mean Corpuscular Hemoglobin Concent 32.2 G/DL (32.0-36.0) Red Cell Distribution Width 15.7 % (11.6-14.8) H Platelet Count 210 K/UL (150-450) Mean Platelet Volume 8.2 FL (6.5-10.1) Neutrophils (%) (Auto) % (45.0-75.0) Lymphocytes (%) (Auto) % (20.0-45.0) Monocytes (%) (Auto) % (1.0-10.0) Eosinophils (%) (Auto) % (0.0-3.0) Basophils (%) (Auto) % (0.0-2.0) Differential Total Cells Counted 100 Neutrophils % (Manual) 89 % (45-75) H Lymphocytes % (Manual) 5 % (20-45) L Monocytes % (Manual) 6 % (1-10) Eosinophils % (Manual) 0 % (0-3) Basophils % (Manual) 0 % (0-2) Band Neutrophils 0 % (0-8) Platelet Estimate Adequate Platelet Morphology Normal Hypochromasia 1+ Anisocytosis 1+ Sodium Level 144 MMOL/L (136-145) Potassium Level 3.5 MMOL/L (3.5-5.1) Chloride Level 107 MMOL/L (98-107) Carbon Dioxide Level 32 MMOL/L (21-32) Anion Gap 5 mmol/L (5-15) Blood Urea Nitrogen 15 mg/dL (7-18) Creatinine 0.9 MG/DL (0.55-1.30) Estimat Glomerular Filtration Rate > 60 mL/min (>60) Glucose Level 118 MG/DL (74-106) H Calcium Level 8.7 MG/DL (8.5-10.1) Phosphorus Level 2.8 MG/DL (2.5-4.9) Magnesium Level 1.9 MG/DL (1.8-2.4) Total Bilirubin 0.2 MG/DL (0.2-1.0) Direct Bilirubin < 0.1 MG/DL (0.0-0.3) Aspartate Amino Transf (AST/SGOT) 29 U/L (15-37) Alanine Aminotransferase (ALT/SGPT) 37 U/L (12-78) Alkaline Phosphatase 51 U/L (46-116) Total Protein 6.4 G/DL (6.4-8.2) Albumin 2.8 G/DL (3.4-5.0) L Arterial Blood pH 7.370 (7.350-7.450) Arterial Blood Partial Pressure CO2 60.1 mmHg (35.0-45.0) *H Arterial Blood Partial Pressure O2 75.0 mmHg (75.0-100.0) Arterial Blood HCO3 34.0 mmol/L (22.0-26.0) H Arterial Blood Oxygen Saturation 94.6 % (92.0-98.0) Arterial Blood Base Excess 7.0 Efren Test Positive Intake and Output 02/15/18 02/16/18 19:00 07:00 Intake Total 911.5 ml 1080 ml Output Total 1180 ml 430 ml Balance -268.5 ml 650 ml Free Water 100 ml IV Total 806.5 ml 600 ml Tube Feeding 105 ml 380 ml Output Urine Total 1140 ml 430 ml Stool Total 40 ml Objective Objective General: awake, alert, responsive, intubated. HEENT: NCAT, sclera anicteric, PERRL, ET Tube, OG Tube. Neck: Supple, no significant jugular venous distention, Lungs: Nasal canula; coarse breath sound, no Wheeze or Rales. Heart: Regular rate and rhythm, normal S1/S2, no murmurs Abdomen: Hard, nontender, less distended. hypoactive bowel sounds. / Rectal: Refused and deferred. Extremities: No Cyanosis , clubbing or edema. Neuro: sedated, Able to move all extremities Assessment/Plan Assessment/Plan Assessment/Plan Assessment/Plan 1. Abdominal distention, possible due to the Small bowel obstruction improving.. 2. Acute COPD. 3. History of atrial flutter. 4. Dehydration. 5. History of CHF with systolic dysfunction. 6. GERD. 7. Hyponatremia. 8. Hyperkalemia. 9. Acute kidney injury. 10. Severe protein calori malnutrition. 11. Acute Respiratory Failure. Plan: in ICU F/U with surgery recommendations Monitor labs and cultures Abx: Zosyn Neb Tx decrease Solumedral IV 60mg IV Q12 hr Full code heparin SQ Vent per pulmonary Swallow Fausto Jiang MD February 16, 2018 12:32
--- NOTE | 2018-02-16 12:33 | General Progress Note ---
Assessment/Plan Assessment/Plan - Ileus vs SBO - suspect former - Anemia - Resp failure>>> extubated today - Electrolyte abnormalities Recommendations - - given diarrhea will hold laxatives - correct all lytes - follow exam and imaging -swallow eval Subjective ROS Limited/Unobtainable: No Allergies: Coded Allergies: No Known Allergies (Unverified , 10/30/16) Subjective extubated Objective Last 24 Hour Vital Signs Date Time Temp Pulse Resp B/P (MAP) Pulse Ox O2 Delivery O2 Flow Rate FiO2 02/16/18 12:00 99 02/16/18 12:00 98.3 109 21 152/106 99 Nasal Cannula 3.0 98.3 02/16/18 11:15 3.0 02/16/18 11:15 Nasal Cannula 3.0 32 02/16/18 11:15 109 19 30 02/16/18 10:45 112 17 30 02/16/18 08:48 98 02/16/18 08:45 110 18 30 02/16/18 08:00 30 02/16/18 08:00 98.1 111 15 162/100 96 Mechanical Ventilator 30 98.1 02/16/18 08:00 108 02/16/18 07:48 103 14 30 02/16/18 07:00 92 13 138/88 96 Mechanical Ventilator 30 02/16/18 06:00 105 13 125/101 96 Mechanical Ventilator 30 02/16/18 05:04 99 12 30 02/16/18 05:00 100 21 119/76 99 Mechanical Ventilator 30 02/16/18 04:00 30 02/16/18 04:00 98.1 104 21 125/81 99 Mechanical Ventilator 30 98.1 02/16/18 04:00 103 02/16/18 03:21 92 14 30 02/16/18 03:00 106 21 124/93 98 Mechanical Ventilator 30 02/16/18 02:00 106 20 125/76 100 Mechanical Ventilator 30 02/16/18 01:06 95 12 30 02/16/18 01:00 98 16 115/75 97 Mechanical Ventilator 30 02/16/18 00:00 92 02/16/18 00:00 30 02/16/18 00:00 98.0 89 17 119/83 98 Mechanical Ventilator 30 98.0 02/15/18 23:00 108 13 150/90 96 Mechanical Ventilator 30 02/15/18 22:33 97 12 30 02/15/18 22:00 108 13 132/89 97 Mechanical Ventilator 30 02/15/18 21:00 99 13 142/90 97 Mechanical Ventilator 30 02/15/18 20:39 99 16 30 02/15/18 20:00 108 02/15/18 20:00 98.7 101 14 128/88 98 Mechanical Ventilator 30 98.7 02/15/18 20:00 30 02/15/18 19:00 109 17 143/93 98 Mechanical Ventilator 30 02/15/18 18:35 119 15 30 02/15/18 18:00 106 17 153/85 96 Mechanical Ventilator 30 02/15/18 18:00 30 02/15/18 17:32 139/88 02/15/18 17:00 104 17 139/88 96 Mechanical Ventilator 30 02/15/18 16:46 106 17 30 02/15/18 16:00 98.2 103 17 155/87 96 Mechanical Ventilator 30 98.2 02/15/18 16:00 30 02/15/18 16:00 105 02/15/18 15:29 118 18 30 02/15/18 15:00 109 17 143/91 96 Mechanical Ventilator 40 02/15/18 14:00 114 17 152/87 96 Mechanical Ventilator 40 02/15/18 13:05 105 15 30 02/15/18 13:00 110 17 139/86 96 Mechanical Ventilator 40 Intake and Output 02/15/18 02/16/18 19:00 07:00 Intake Total 911.5 ml 1080 ml Output Total 1180 ml 430 ml Balance -268.5 ml 650 ml Free Water 100 ml IV Total 806.5 ml 600 ml Tube Feeding 105 ml 380 ml Output Urine Total 1140 ml 430 ml Stool Total 40 ml Laboratory Tests 02/16/18 06:05: White Blood Count 16.8H, Red Blood Count 3.92L, Hemoglobin 10.6L, Hematocrit 32.8L, Mean Corpuscular Volume 84, Mean Corpuscular Hemoglobin 27.0, Mean Corpuscular Hemoglobin Concent 32.2, Red Cell Distribution Width 15.7H, Platelet Count 210, Mean Platelet Volume 8.2, Neutrophils (%) (Auto) , Lymphocytes (%) (Auto) , Monocytes (%) (Auto) , Eosinophils (%) (Auto) , Basophils (%) (Auto) , Differential Total Cells Counted 100, Neutrophils % ( Manual) 89H, Lymphocytes % (Manual) 5L, Monocytes % (Manual) 6, Eosinophils % ( Manual) 0, Basophils % (Manual) 0, Band Neutrophils 0, Platelet Estimate Adequate, Platelet Morphology Normal, Hypochromasia 1+, Anisocytosis 1+, Sodium Level 144, Potassium Level 3.5, Chloride Level 107, Carbon Dioxide Level 32, Anion Gap 5, Blood Urea Nitrogen 15, Creatinine 0.9, Estimat Glomerular Filtration Rate > 60, Glucose Level 118H, Calcium Level 8.7, Phosphorus Level 2.8, Magnesium Level 1.9, Total Bilirubin 0.2, Direct Bilirubin < 0.1, Aspartate Amino Transf (AST/SGOT) 29, Alanine Aminotransferase (ALT/SGPT) 37, Alkaline Phosphatase 51, Total Protein 6.4, Albumin 2.8L 02/16/18 08:45: Arterial Blood pH 7.370, Arterial Blood Partial Pressure CO2 60.1*H, Arterial Blood Partial Pressure O2 75.0, Arterial Blood HCO3 34.0H, Arterial Blood Oxygen Saturation 94.6, Arterial Blood Base Excess 7.0, Efren Test Positive Height (Feet): 5 Height (Inches): 7.00 Weight (Pounds): 141 General Appearance: alert EENT: normal ENT inspection Neck: supple Cardiovascular: normal rate Respiratory/Chest: decreased breath sounds Abdomen: normal bowel sounds, non tender, soft Extremities: non-tender Naldo Raza MD February 16, 2018 12:33
[2018-02-16] MEDS: Nitroglycerin Patch 0.4mg TDERMAL SCH (17:38)
--- NOTE | 2018-02-16 21:06 | Cardiology Progress Note ---
Assessment/Plan Assessment/Plan 1. Respiratory failure, likely secondary to chronic obstructive pulmonary disease with exacerbation. 2. Abdominal distention, likely secondary to ileus. 3. History of coronary artery disease per chart pt denies 4. History of atrial fibrillation previously per chart 5. previous hx of cm now normal per recent echo 6. hx of respiratory failreu and PEA arrest with recovery he looks and feel better his ef is normal remain sinsu tachy but less tachy off vent trop min elevated likely due to demand ekg without st t wave abn he deineis any chest pain no chf on exam today tele neg cxr neg today Subjective Cardiovascular: Denies: chest pain, lightheadedness, palpitations Respiratory: Denies: shortness of breath Gastrointestinal/Abdominal: Denies: abdominal pain Genitourinary: Denies: burning Objective Last 24 Hour Vital Signs Date Time Temp Pulse Resp B/P (MAP) Pulse Ox O2 Delivery O2 Flow Rate FiO2 02/16/18 18:00 97 18 156/87 100 Nasal Cannula 3.0 02/16/18 17:38 149/84 02/16/18 17:00 100 18 149/84 100 Nasal Cannula 3.0 02/16/18 16:00 98.2 100 17 129/86 100 Nasal Cannula 3.0 98.2 02/16/18 16:00 104 02/16/18 16:00 3.0 02/16/18 15:00 101 17 134/83 99 Nasal Cannula 3.0 02/16/18 14:00 102 18 165/100 97 Nasal Cannula 3.0 02/16/18 13:00 106 18 145/95 98 Nasal Cannula 3.0 02/16/18 12:00 99 02/16/18 12:00 98.3 109 21 152/106 99 Nasal Cannula 3.0 98.3 02/16/18 11:15 3.0 02/16/18 11:15 Nasal Cannula 3.0 32 02/16/18 11:15 109 19 30 02/16/18 11:00 112 19 175/110 97 Nasal Cannula 3.0 02/16/18 10:45 112 17 30 02/16/18 10:00 109 16 165/106 96 Nasal Cannula 3.0 02/16/18 09:00 108 16 147/101 96 Mechanical Ventilator 30 02/16/18 08:48 98 02/16/18 08:45 110 18 30 02/16/18 08:00 30 02/16/18 08:00 98.1 111 15 162/100 96 Mechanical Ventilator 30 98.1 02/16/18 08:00 108 02/16/18 07:48 103 14 30 02/16/18 07:00 92 13 138/88 96 Mechanical Ventilator 30 02/16/18 06:00 105 13 125/101 96 Mechanical Ventilator 30 02/16/18 05:04 99 12 30 02/16/18 05:00 100 21 119/76 99 Mechanical Ventilator 30 02/16/18 04:00 30 02/16/18 04:00 98.1 104 21 125/81 99 Mechanical Ventilator 30 98.1 02/16/18 04:00 103 02/16/18 03:21 92 14 30 02/16/18 03:00 106 21 124/93 98 Mechanical Ventilator 30 02/16/18 02:00 106 20 125/76 100 Mechanical Ventilator 30 02/16/18 01:06 95 12 30 02/16/18 01:00 98 16 115/75 97 Mechanical Ventilator 30 02/16/18 00:00 92 02/16/18 00:00 30 02/16/18 00:00 98.0 89 17 119/83 98 Mechanical Ventilator 30 98.0 02/15/18 23:00 108 13 150/90 96 Mechanical Ventilator 30 02/15/18 22:33 97 12 30 02/15/18 22:00 108 13 132/89 97 Mechanical Ventilator 30 General Appearance: no apparent distress, alert Neck: supple Cardiovascular: normal rate, regular rhythm Respiratory/Chest: lungs clear Abdomen: non tender, soft Extremities: non-tender, no swelling Intake and Output 02/15/18 02/16/18 19:00 07:00 Intake Total 911.5 ml 1080 ml Output Total 1180 ml 430 ml Balance -268.5 ml 650 ml Free Water 100 ml IV Total 806.5 ml 600 ml Tube Feeding 105 ml 380 ml Output Urine Total 1140 ml 430 ml Stool Total 40 ml Laboratory Tests Test 02/16/18 06:05 02/16/18 08:45 White Blood Count 16.8 K/UL (4.8-10.8) H Red Blood Count 3.92 M/UL (4.70-6.10) L Hemoglobin 10.6 G/DL (14.2-18.0) L Hematocrit 32.8 % (42.0-52.0) L Mean Corpuscular Volume 84 FL (80-99) Mean Corpuscular Hemoglobin 27.0 PG (27.0-31.0) Mean Corpuscular Hemoglobin Concent 32.2 G/DL (32.0-36.0) Red Cell Distribution Width 15.7 % (11.6-14.8) H Platelet Count 210 K/UL (150-450) Mean Platelet Volume 8.2 FL (6.5-10.1) Neutrophils (%) (Auto) % (45.0-75.0) Lymphocytes (%) (Auto) % (20.0-45.0) Monocytes (%) (Auto) % (1.0-10.0) Eosinophils (%) (Auto) % (0.0-3.0) Basophils (%) (Auto) % (0.0-2.0) Differential Total Cells Counted 100 Neutrophils % (Manual) 89 % (45-75) H Lymphocytes % (Manual) 5 % (20-45) L Monocytes % (Manual) 6 % (1-10) Eosinophils % (Manual) 0 % (0-3) Basophils % (Manual) 0 % (0-2) Band Neutrophils 0 % (0-8) Platelet Estimate Adequate Platelet Morphology Normal Hypochromasia 1+ Anisocytosis 1+ Sodium Level 144 MMOL/L (136-145) Potassium Level 3.5 MMOL/L (3.5-5.1) Chloride Level 107 MMOL/L (98-107) Carbon Dioxide Level 32 MMOL/L (21-32) Anion Gap 5 mmol/L (5-15) Blood Urea Nitrogen 15 mg/dL (7-18) Creatinine 0.9 MG/DL (0.55-1.30) Estimat Glomerular Filtration Rate > 60 mL/min (>60) Glucose Level 118 MG/DL (74-106) H Calcium Level 8.7 MG/DL (8.5-10.1) Phosphorus Level 2.8 MG/DL (2.5-4.9) Magnesium Level 1.9 MG/DL (1.8-2.4) Total Bilirubin 0.2 MG/DL (0.2-1.0) Direct Bilirubin < 0.1 MG/DL (0.0-0.3) Aspartate Amino Transf (AST/SGOT) 29 U/L (15-37) Alanine Aminotransferase (ALT/SGPT) 37 U/L (12-78) Alkaline Phosphatase 51 U/L (46-116) Total Protein 6.4 G/DL (6.4-8.2) Albumin 2.8 G/DL (3.4-5.0) L Arterial Blood pH 7.370 (7.350-7.450) Arterial Blood Partial Pressure CO2 60.1 mmHg (35.0-45.0) *H Arterial Blood Partial Pressure O2 75.0 mmHg (75.0-100.0) Arterial Blood HCO3 34.0 mmol/L (22.0-26.0) H Arterial Blood Oxygen Saturation 94.6 % (92.0-98.0) Arterial Blood Base Excess 7.0 Efren Test Positive Crow Del Rosario MD February 16, 2018 21:06
[2018-02-17] VITALS (18 sets, daily range): BP systolic 112–142; BP diastolic 71–92
[2018-02-17] MEDS: D5NS 1,000 ML IV SCH ×3 (00:23→20:07)
[2018-02-17 06:11] LABS: HEMATOCRIT 32.4 % (42.0-52.0); HEMOGLOBIN 10.3 G/DL (14.2-18.0); MEAN CORPUSCULAR VOLUME 85 FL (80-99); PLATELET COUNT 213 K/UL (150-450); RED BLOOD COUNT 3.79 M/UL (4.70-6.10); RED CELL DISTRIBUTION WIDTH 16.4 % (11.6-14.8); WHITE BLOOD COUNT 13.4 K/UL (4.8-10.8)
[2018-02-17 06:25] LABS: ALANINE AMINOTRANSFERASE 33 U/L (12-78); ALBUMIN 2.6 G/DL (3.4-5.0); ALBUMIN/GLOBULIN RATIO 0.7 (1.0-2.7); ALKALINE PHOSPHATASE 42 U/L (46-116); ANION GAP 1 mmol/L (5-15); ASPARTATE AMINO TRANSFERASE 19 U/L (15-37); BILIRUBIN,TOTAL 0.2 MG/DL (0.2-1.0); BLOOD UREA NITROGEN 12 mg/dL (7-18); CALCIUM 8.4 MG/DL (8.5-10.1); CARBON DIOXIDE 37 MMOL/L (21-32); CHLORIDE 104 MMOL/L (98-107); CREATININE 0.7 MG/DL (0.55-1.30); PHOSPHORUS 3.4 MG/DL (2.5-4.9); POTASSIUM 3.7 MMOL/L (3.5-5.1); SODIUM 142 MMOL/L (136-145)
--- NOTE | 2018-02-17 09:02 | Diagnostic Imaging Report ---
Indication: Dyspnea Technique: One view of the chest Comparison: 02/16/2018 Findings: Interim removal of endotracheal and nasogastric tubes. The lungs and pleural spaces are clear. The heart size is normal. Impression: Interim endotracheal and nasogastric extubation. No acute process currently
[2018-02-17] MEDS: Solu-MEDROL 125mg Inj IV SCH ×2 (09:36→20:06)
[2018-02-17] MEDS: Pantoprazole Inj IV SCH ×2 (09:36→20:06)
[2018-02-17] MEDS: Heparin 5000 units/ml inj SUBQ SCH ×2 (09:38→20:06)
--- NOTE | 2018-02-17 11:00 | Pulmonolgy Critical Care Note ---
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 Renal: check electrolytes Gastrointestinal: continue feedings/current rate Endocrine: monitor blood sugar Hematologic: monitor H/H, transfuse if hgb<8.5 Neurologic: PRN Ativan, keep patient comfortable Disposition: transfer to Critical Care - Objective Last 24 Hour Vital Signs Date Time Temp Pulse Resp B/P (MAP) Pulse Ox O2 Delivery O2 Flow Rate FiO2 02/17/18 10:03 Nasal Cannula 3.0 32 02/17/18 10:02 99 Nasal Cannula 3.0 32 02/17/18 07:45 101 23 Nasal Cannula 3.0 32 02/17/18 06:00 83 14 131/92 100 Nasal Cannula 2.0 02/17/18 05:00 94 17 142/77 96 Nasal Cannula 2.0 02/17/18 04:05 96 02/17/18 04:00 98.3 86 17 119/79 99 Nasal Cannula 2.0 98.3 02/17/18 03:00 92 15 126/79 99 Nasal Cannula 2.0 02/17/18 02:00 90 16 115/73 97 Nasal Cannula 2.0 02/17/18 01:00 95 16 131/82 97 Nasal Cannula 2.0 02/17/18 00:00 97 02/17/18 00:00 98.2 97 18 121/71 96 Nasal Cannula 2.0 98.2 02/16/18 23:00 99 18 122/79 100 Nasal Cannula 2.0 02/16/18 22:00 103 18 122/79 100 Nasal Cannula 2.0 02/16/18 21:00 109 19 141/74 99 Nasal Cannula 3.0 02/16/18 20:00 98.0 110 20 107/69 98 Nasal Cannula 3.0 98.0 02/16/18 20:00 110 02/16/18 19:00 111 18 142/93 98 Nasal Cannula 3.0 02/16/18 18:00 97 18 156/87 100 Nasal Cannula 3.0 02/16/18 17:38 149/84 02/16/18 17:00 100 18 149/84 100 Nasal Cannula 3.0 02/16/18 16:00 98.2 100 17 129/86 100 Nasal Cannula 3.0 98.2 02/16/18 16:00 104 02/16/18 16:00 3.0 02/16/18 15:00 101 17 134/83 99 Nasal Cannula 3.0 02/16/18 14:00 102 18 165/100 97 Nasal Cannula 3.0 02/16/18 13:00 106 18 145/95 98 Nasal Cannula 3.0 02/16/18 12:00 99 02/16/18 12:00 98.3 109 21 152/106 99 Nasal Cannula 3.0 98.3 02/16/18 11:15 3.0 02/16/18 11:15 Nasal Cannula 3.0 32 02/16/18 11:15 109 19 30 02/16/18 11:00 112 19 175/110 97 Nasal Cannula 3.0 Status: awake Condition: critical Neck: full ROM Lungs: chest wall tender Heart: HR/BP stable, regular Abdomen: active bowel sounds Extremities: no C/C/E Critical Care - Subjective ROS Limited/Unobtainable: No Condition: critical EKG Rhythm: Sinus Rhythm FI02: 32 Vent Support Breath Rate: 16 Vent Support Mode: CPAP Vent Tidal Volume: 600 Sputum Amount: None PEEP: 5.0 PIP: 12 Tube Feeding Amount: 0 I&O: Intake and Output 02/16/18 02/17/18 19:00 07:00 Intake Total 1280 ml 670 ml Output Total 1435 ml 610 ml Balance -155 ml 60 ml Intake Oral 420 ml 120 ml IV Total 600 ml 550 ml Tube Feeding 240 ml Other 20 ml Output Urine Total 1310 ml 510 ml Stool Total 125 ml 100 ml CXR: hyperinflated ET-Tube: 7.5 ET Position: 24 Labs: Laboratory Tests Test 02/17/18 05:15 02/17/18 08:40 White Blood Count 13.4 K/UL (4.8-10.8) H Red Blood Count 3.79 M/UL (4.70-6.10) L Hemoglobin 10.3 G/DL (14.2-18.0) L Hematocrit 32.4 % (42.0-52.0) L Mean Corpuscular Volume 85 FL (80-99) Mean Corpuscular Hemoglobin 27.2 PG (27.0-31.0) Mean Corpuscular Hemoglobin Concent 31.8 G/DL (32.0-36.0) L Red Cell Distribution Width 16.4 % (11.6-14.8) H Platelet Count 213 K/UL (150-450) Mean Platelet Volume 6.8 FL (6.5-10.1) Neutrophils (%) (Auto) % (45.0-75.0) Lymphocytes (%) (Auto) % (20.0-45.0) Monocytes (%) (Auto) % (1.0-10.0) Eosinophils (%) (Auto) % (0.0-3.0) Basophils (%) (Auto) % (0.0-2.0) Sodium Level 142 MMOL/L (136-145) Potassium Level 3.7 MMOL/L (3.5-5.1) Chloride Level 104 MMOL/L (98-107) Carbon Dioxide Level 37 MMOL/L (21-32) H Anion Gap 1 mmol/L (5-15) L Blood Urea Nitrogen 12 mg/dL (7-18) Creatinine 0.7 MG/DL (0.55-1.30) Estimat Glomerular Filtration Rate > 60 mL/min (>60) Glucose Level 131 MG/DL (74-106) H Calcium Level 8.4 MG/DL (8.5-10.1) L Phosphorus Level 3.4 MG/DL (2.5-4.9) Magnesium Level 1.8 MG/DL (1.8-2.4) Total Bilirubin 0.2 MG/DL (0.2-1.0) Aspartate Amino Transf (AST/SGOT) 19 U/L (15-37) Alanine Aminotransferase (ALT/SGPT) 33 U/L (12-78) Alkaline Phosphatase 42 U/L (46-116) L Total Protein 6.1 G/DL (6.4-8.2) L Albumin 2.6 G/DL (3.4-5.0) L Globulin 3.5 g/dL Albumin/Globulin Ratio 0.7 (1.0-2.7) L Arterial Blood pH 7.330 (7.350-7.450) Arterial Blood Partial Pressure CO2 71.1 mmHg (35.0-45.0) *H Arterial Blood Partial Pressure O2 91.4 mmHg (75.0-100.0) Arterial Blood HCO3 37.4 mmol/L (22.0-26.0) H Arterial Blood Oxygen Saturation 96.4 % (92.0-98.0) Arterial Blood Base Excess 9.2 Efren Test Positive Jose Cruz Katz MD February 17, 2018 11:00
--- NOTE | 2018-02-17 12:19 | Nephrology Progress Note ---
Assessment/Plan Problem List: (1) Acute respiratory failure (2) Protein-calorie malnutrition, severe (3) Acute renal failure (4) Dehydration Assessment Renal failure / Acute / Dehydration HyperKalemia likely due to acidosis Acute respiratory failure- Abdominal distention, possible due to the Small bowel obstruction Vs. paralytic Ileus. COPD. History of atrial flutter. Dehydration. History of CHF with systolic dysfunction. GERD. Severe protein calori malnutrition. Plan Noel- D5NS IV fluid down to 50 cc / h IV protonix k phos iv pulmonary support Anemia fuentes avoid nephrotoxics 2D echo Subjective ROS Limited/Unobtainable: No Constitutional: Reports: malaise Objective Objective Last 24 Hour Vital Signs Date Time Temp Pulse Resp B/P (MAP) Pulse Ox O2 Delivery O2 Flow Rate FiO2 02/17/18 11:00 89 17 125/80 98 Nasal Cannula 2.0 02/17/18 10:03 Nasal Cannula 3.0 32 02/17/18 10:02 99 Nasal Cannula 3.0 32 02/17/18 10:00 83 16 129/89 98 Nasal Cannula 2.0 02/17/18 09:00 87 14 132/92 100 Nasal Cannula 2.0 02/17/18 08:00 89 02/17/18 08:00 98.5 86 17 118/80 99 Nasal Cannula 2.0 98.5 02/17/18 07:45 101 23 Nasal Cannula 3.0 32 02/17/18 07:00 85 15 122/92 100 Nasal Cannula 2.0 02/17/18 06:00 83 14 131/92 100 Nasal Cannula 2.0 02/17/18 05:00 94 17 142/77 96 Nasal Cannula 2.0 02/17/18 04:05 96 02/17/18 04:00 98.3 86 17 119/79 99 Nasal Cannula 2.0 98.3 02/17/18 03:00 92 15 126/79 99 Nasal Cannula 2.0 02/17/18 02:00 90 16 115/73 97 Nasal Cannula 2.0 02/17/18 01:00 95 16 131/82 97 Nasal Cannula 2.0 02/17/18 00:00 97 02/17/18 00:00 98.2 97 18 121/71 96 Nasal Cannula 2.0 98.2 02/16/18 23:00 99 18 122/79 100 Nasal Cannula 2.0 02/16/18 22:00 103 18 122/79 100 Nasal Cannula 2.0 02/16/18 21:00 109 19 141/74 99 Nasal Cannula 3.0 02/16/18 20:00 98.0 110 20 107/69 98 Nasal Cannula 3.0 98.0 02/16/18 20:00 110 02/16/18 19:00 111 18 142/93 98 Nasal Cannula 3.0 02/16/18 18:00 97 18 156/87 100 Nasal Cannula 3.0 02/16/18 17:38 149/84 02/16/18 17:00 100 18 149/84 100 Nasal Cannula 3.0 02/16/18 16:00 98.2 100 17 129/86 100 Nasal Cannula 3.0 98.2 02/16/18 16:00 104 02/16/18 16:00 3.0 02/16/18 15:00 101 17 134/83 99 Nasal Cannula 3.0 02/16/18 14:00 102 18 165/100 97 Nasal Cannula 3.0 02/16/18 13:00 106 18 145/95 98 Nasal Cannula 3.0 Intake and Output 02/16/18 02/17/18 19:00 07:00 Intake Total 1280 ml 670 ml Output Total 1435 ml 650 ml Balance -155 ml 20 ml Intake Oral 420 ml 120 ml IV Total 600 ml 550 ml Tube Feeding 240 ml Other 20 ml Output Urine Total 1310 ml 550 ml Stool Total 125 ml 100 ml Laboratory Tests 02/17/18 05:15: White Blood Count 13.4H, Red Blood Count 3.79L, Hemoglobin 10.3L, Hematocrit 32.4L, Mean Corpuscular Volume 85, Mean Corpuscular Hemoglobin 27.2, Mean Corpuscular Hemoglobin Concent 31.8L, Red Cell Distribution Width 16.4H, Platelet Count 213, Mean Platelet Volume 6.8, Neutrophils (%) (Auto) , Lymphocytes (%) (Auto) , Monocytes (%) (Auto) , Eosinophils (%) (Auto) , Basophils (%) (Auto) , Sodium Level 142, Potassium Level 3.7, Chloride Level 104 , Carbon Dioxide Level 37H, Anion Gap 1L, Blood Urea Nitrogen 12, Creatinine 0.7 , Estimat Glomerular Filtration Rate > 60, Glucose Level 131H, Calcium Level 8.4L, Phosphorus Level 3.4, Magnesium Level 1.8, Total Bilirubin 0.2, Aspartate Amino Transf (AST/SGOT) 19, Alanine Aminotransferase (ALT/SGPT) 33, Alkaline Phosphatase 42L, Total Protein 6.1L, Albumin 2.6L, Globulin 3.5, Albumin/ Globulin Ratio 0.7L 02/17/18 08:40: Arterial Blood pH 7.330L, Arterial Blood Partial Pressure CO2 71.1*H, Arterial Blood Partial Pressure O2 91.4, Arterial Blood HCO3 37.4H, Arterial Blood Oxygen Saturation 96.4, Arterial Blood Base Excess 9.2, Efren Test Positive Height (Feet): 5 Height (Inches): 7.00 Weight (Pounds): 144 General Appearance: no apparent distress EENT: other - extubated Cardiovascular: normal rate Respiratory/Chest: decreased breath sounds Abdomen: soft Objective no change YAMIL LOVE February 17, 2018 12:19
--- NOTE | 2018-02-17 12:21 | Cardiology Progress Note ---
Assessment/Plan Assessment/Plan 1. Respiratory failure, likely secondary to chronic obstructive pulmonary disease with exacerbation. 2. Abdominal distention, likely secondary to ileus. 3. History of coronary artery disease per chart pt denies 4. History of atrial fibrillation previously per chart 5. previous hx of cm now normal per recent echo 6. hx of respiratory failreu and PEA arrest with recovery he looks and feel better his ef is normal remain sinsu tachy but less tachy off vent trop min elevated likely due to demand ekg without st t wave abn he deineis any chest pain no chf on exam today tele neg Subjective Cardiovascular: Denies: chest pain, lightheadedness, palpitations Respiratory: Denies: shortness of breath Gastrointestinal/Abdominal: Denies: abdominal pain Genitourinary: Denies: burning Objective Last 24 Hour Vital Signs Date Time Temp Pulse Resp B/P (MAP) Pulse Ox O2 Delivery O2 Flow Rate FiO2 02/17/18 11:00 89 17 125/80 98 Nasal Cannula 2.0 02/17/18 10:03 Nasal Cannula 3.0 32 02/17/18 10:02 99 Nasal Cannula 3.0 32 02/17/18 10:00 83 16 129/89 98 Nasal Cannula 2.0 02/17/18 09:00 87 14 132/92 100 Nasal Cannula 2.0 02/17/18 08:00 89 02/17/18 08:00 98.5 86 17 118/80 99 Nasal Cannula 2.0 98.5 02/17/18 07:45 101 23 Nasal Cannula 3.0 32 02/17/18 07:00 85 15 122/92 100 Nasal Cannula 2.0 02/17/18 06:00 83 14 131/92 100 Nasal Cannula 2.0 02/17/18 05:00 94 17 142/77 96 Nasal Cannula 2.0 02/17/18 04:05 96 02/17/18 04:00 98.3 86 17 119/79 99 Nasal Cannula 2.0 98.3 02/17/18 03:00 92 15 126/79 99 Nasal Cannula 2.0 02/17/18 02:00 90 16 115/73 97 Nasal Cannula 2.0 02/17/18 01:00 95 16 131/82 97 Nasal Cannula 2.0 02/17/18 00:00 97 02/17/18 00:00 98.2 97 18 121/71 96 Nasal Cannula 2.0 98.2 02/16/18 23:00 99 18 122/79 100 Nasal Cannula 2.0 02/16/18 22:00 103 18 122/79 100 Nasal Cannula 2.0 02/16/18 21:00 109 19 141/74 99 Nasal Cannula 3.0 02/16/18 20:00 98.0 110 20 107/69 98 Nasal Cannula 3.0 98.0 02/16/18 20:00 110 02/16/18 19:00 111 18 142/93 98 Nasal Cannula 3.0 02/16/18 18:00 97 18 156/87 100 Nasal Cannula 3.0 02/16/18 17:38 149/84 02/16/18 17:00 100 18 149/84 100 Nasal Cannula 3.0 02/16/18 16:00 98.2 100 17 129/86 100 Nasal Cannula 3.0 98.2 02/16/18 16:00 104 02/16/18 16:00 3.0 02/16/18 15:00 101 17 134/83 99 Nasal Cannula 3.0 02/16/18 14:00 102 18 165/100 97 Nasal Cannula 3.0 02/16/18 13:00 106 18 145/95 98 Nasal Cannula 3.0 General Appearance: no apparent distress Neck: supple Cardiovascular: normal rate, regular rhythm Respiratory/Chest: decreased breath sounds Abdomen: normal bowel sounds, non tender, soft Extremities: no swelling Intake and Output 02/16/18 02/17/18 19:00 07:00 Intake Total 1280 ml 670 ml Output Total 1435 ml 650 ml Balance -155 ml 20 ml Intake Oral 420 ml 120 ml IV Total 600 ml 550 ml Tube Feeding 240 ml Other 20 ml Output Urine Total 1310 ml 550 ml Stool Total 125 ml 100 ml Laboratory Tests Test 02/17/18 05:15 02/17/18 08:40 White Blood Count 13.4 K/UL (4.8-10.8) H Red Blood Count 3.79 M/UL (4.70-6.10) L Hemoglobin 10.3 G/DL (14.2-18.0) L Hematocrit 32.4 % (42.0-52.0) L Mean Corpuscular Volume 85 FL (80-99) Mean Corpuscular Hemoglobin 27.2 PG (27.0-31.0) Mean Corpuscular Hemoglobin Concent 31.8 G/DL (32.0-36.0) L Red Cell Distribution Width 16.4 % (11.6-14.8) H Platelet Count 213 K/UL (150-450) Mean Platelet Volume 6.8 FL (6.5-10.1) Neutrophils (%) (Auto) % (45.0-75.0) Lymphocytes (%) (Auto) % (20.0-45.0) Monocytes (%) (Auto) % (1.0-10.0) Eosinophils (%) (Auto) % (0.0-3.0) Basophils (%) (Auto) % (0.0-2.0) Sodium Level 142 MMOL/L (136-145) Potassium Level 3.7 MMOL/L (3.5-5.1) Chloride Level 104 MMOL/L (98-107) Carbon Dioxide Level 37 MMOL/L (21-32) H Anion Gap 1 mmol/L (5-15) L Blood Urea Nitrogen 12 mg/dL (7-18) Creatinine 0.7 MG/DL (0.55-1.30) Estimat Glomerular Filtration Rate > 60 mL/min (>60) Glucose Level 131 MG/DL (74-106) H Calcium Level 8.4 MG/DL (8.5-10.1) L Phosphorus Level 3.4 MG/DL (2.5-4.9) Magnesium Level 1.8 MG/DL (1.8-2.4) Total Bilirubin 0.2 MG/DL (0.2-1.0) Aspartate Amino Transf (AST/SGOT) 19 U/L (15-37) Alanine Aminotransferase (ALT/SGPT) 33 U/L (12-78) Alkaline Phosphatase 42 U/L (46-116) L Total Protein 6.1 G/DL (6.4-8.2) L Albumin 2.6 G/DL (3.4-5.0) L Globulin 3.5 g/dL Albumin/Globulin Ratio 0.7 (1.0-2.7) L Arterial Blood pH 7.330 (7.350-7.450) Arterial Blood Partial Pressure CO2 71.1 mmHg (35.0-45.0) *H Arterial Blood Partial Pressure O2 91.4 mmHg (75.0-100.0) Arterial Blood HCO3 37.4 mmol/L (22.0-26.0) H Arterial Blood Oxygen Saturation 96.4 % (92.0-98.0) Arterial Blood Base Excess 9.2 Efren Test Positive Crow Del Rosario MD February 17, 2018 12:21
[2018-02-17] MEDS ORDERED: Nitroglycerin Subl 0.4mg tab SL PRN (15:45)
[2018-02-17] MEDS ORDERED: LORazepam Inj 2mg/ml 1ml IV PRN (15:45)
[2018-02-17] MEDS ORDERED: Albuterol/Ipratropium 3ml neb HHN PRN (16:00)
[2018-02-17] MEDS ORDERED: Morphine Sulfate 4mg/ml Inj IVP PRN (16:15)
--- NOTE | 2018-02-17 17:13 | Internal Med Progress Note ---
Subjective Date of Service: February 17, 2018 Physician Name Fausto Kelley Attending Physician Dipesh Cardoza MD Current Medications Medications (Trade) Dose Ordered Sig/Radha Route PRN Reason Start Time Stop Time Status Last Admin Dose Admin Albuterol/ Ipratropium (Albuterol/ Ipratropium) 3 ml Q4H PRN HHN dyspnea and/or SOB 02/17/18 16:00 02/19/18 15:59 Dextrose (Dextrose 50%) 25 ml PRN IV Hypoglycemia 02/17/18 16:00 03/12/18 15:59 Dextrose (Dextrose 50%) 50 ml PRN IV hypoglycemia 02/17/18 15:45 03/12/18 18:59 Dextrose/Sodium Chloride 1,000 ml @ 50 mls/hr Q20H IV 02/17/18 16:00 03/19/18 15:59 Heparin Sodium (Porcine) (Heparin 5000 units/ml) 5,000 units EVERY 12 HOURS SUBQ 02/17/18 21:00 03/12/18 20:59 Lorazepam (Ativan 2mg/ml 1ml) 1 mg Q2H PRN IV For Anxiety 02/17/18 15:45 02/19/18 09:35 Methylprednisolone Sodium Succinate (Solu-MEDROL) 60 mg EVERY 12 HOURS IV 02/17/18 21:00 03/16/18 11:59 Morphine Sulfate (Morphine Sulfate) 4 mg Q4H PRN IVP For Pain 02/17/18 16:15 02/19/18 12:14 Nitroglycerin (Ntg) 0.4 mg Q5M X 3 DOSES PRN SL Prn Chest Pain 02/17/18 15:45 03/12/18 16:59 Nitroglycerin (Ntg) 1 patch Q24H TDERMAL 02/17/18 18:00 03/14/18 17:59 Ondansetron HCl (Zofran) 4 mg Q6H PRN IVP Nausea & Vomiting 02/17/18 16:00 03/12/18 15:59 Pantoprazole (Protonix) 40 mg Q12HR IV 02/17/18 21:00 03/15/18 08:59 Allergies: Coded Allergies: No Known Allergies (Unverified , 10/30/16) ROS Limited/Unobtainable: No Constitutional: Reports: no symptoms HEENT: Reports: no symptoms Cardiovascular: Reports: no symptoms Respiratory: Reports: shortness of breath Gastrointestinal/Abdominal: Reports: no symptoms Genitourinary: Reports: no symptoms Neurologic/Psychiatric: Reports: no symptoms Subjective 68 YO M admitted with shortness of breath; now COPD exacerbation. Cover for Int Wilfrid-Dr Cardoza. Extubated 02/16/18; tolerating nasal canula Objective Last Vital Signs Date Time Temp Pulse Resp B/P (MAP) Pulse Ox O2 Delivery O2 Flow Rate FiO2 02/17/18 16:35 98.0 98 20 136/82 97 98.0 02/17/18 15:00 Nasal Cannula 2.0 02/17/18 10:03 32 Laboratory Tests Test 02/17/18 05:15 02/17/18 08:40 White Blood Count 13.4 K/UL (4.8-10.8) H Red Blood Count 3.79 M/UL (4.70-6.10) L Hemoglobin 10.3 G/DL (14.2-18.0) L Hematocrit 32.4 % (42.0-52.0) L Mean Corpuscular Volume 85 FL (80-99) Mean Corpuscular Hemoglobin 27.2 PG (27.0-31.0) Mean Corpuscular Hemoglobin Concent 31.8 G/DL (32.0-36.0) L Red Cell Distribution Width 16.4 % (11.6-14.8) H Platelet Count 213 K/UL (150-450) Mean Platelet Volume 6.8 FL (6.5-10.1) Neutrophils (%) (Auto) % (45.0-75.0) Lymphocytes (%) (Auto) % (20.0-45.0) Monocytes (%) (Auto) % (1.0-10.0) Eosinophils (%) (Auto) % (0.0-3.0) Basophils (%) (Auto) % (0.0-2.0) Sodium Level 142 MMOL/L (136-145) Potassium Level 3.7 MMOL/L (3.5-5.1) Chloride Level 104 MMOL/L (98-107) Carbon Dioxide Level 37 MMOL/L (21-32) H Anion Gap 1 mmol/L (5-15) L Blood Urea Nitrogen 12 mg/dL (7-18) Creatinine 0.7 MG/DL (0.55-1.30) Estimat Glomerular Filtration Rate > 60 mL/min (>60) Glucose Level 131 MG/DL (74-106) H Calcium Level 8.4 MG/DL (8.5-10.1) L Phosphorus Level 3.4 MG/DL (2.5-4.9) Magnesium Level 1.8 MG/DL (1.8-2.4) Total Bilirubin 0.2 MG/DL (0.2-1.0) Aspartate Amino Transf (AST/SGOT) 19 U/L (15-37) Alanine Aminotransferase (ALT/SGPT) 33 U/L (12-78) Alkaline Phosphatase 42 U/L (46-116) L Total Protein 6.1 G/DL (6.4-8.2) L Albumin 2.6 G/DL (3.4-5.0) L Globulin 3.5 g/dL Albumin/Globulin Ratio 0.7 (1.0-2.7) L Arterial Blood pH 7.330 (7.350-7.450) Arterial Blood Partial Pressure CO2 71.1 mmHg (35.0-45.0) *H Arterial Blood Partial Pressure O2 91.4 mmHg (75.0-100.0) Arterial Blood HCO3 37.4 mmol/L (22.0-26.0) H Arterial Blood Oxygen Saturation 96.4 % (92.0-98.0) Arterial Blood Base Excess 9.2 Efren Test Positive Intake and Output 02/16/18 02/17/18 19:00 07:00 Intake Total 1280 ml 670 ml Output Total 1435 ml 650 ml Balance -155 ml 20 ml Intake Oral 420 ml 120 ml IV Total 600 ml 550 ml Tube Feeding 240 ml Other 20 ml Output Urine Total 1310 ml 550 ml Stool Total 125 ml 100 ml Objective Objective General: awake, alert, responsive, intubated. HEENT: NCAT, sclera anicteric, PERRL, ET Tube, OG Tube. Neck: Supple, no significant jugular venous distention, Lungs: Nasal canula; coarse breath sound, no Wheeze or Rales. Heart: Regular rate and rhythm, normal S1/S2, no murmurs Abdomen: Hard, nontender, less distended. hypoactive bowel sounds. / Rectal: Refused and deferred. Extremities: No Cyanosis , clubbing or edema. Neuro: sedated, Able to move all extremities Assessment/Plan Assessment/Plan Assessment/Plan Assessment/Plan 1. Abdominal distention, possible due to the Small bowel obstruction improving.. 2. Acute COPD. 3. History of atrial flutter. 4. Dehydration. 5. History of CHF with systolic dysfunction. 6. GERD. 7. Hyponatremia. 8. Hyperkalemia. 9. Acute kidney injury. 10. Severe protein calori malnutrition. 11. Acute Respiratory Failure. Plan: Med/surg F/U with surgery recommendations Monitor labs and cultures Abx: Zosyn Oscar Tx decrease Solumedral IV 60mg IV Q12 hr Full code heparin SQ Vent per pulmonary Fausto Kelley MD February 17, 2018 17:13
[2018-02-17] MEDS: Nitroglycerin Patch 0.4mg TDERMAL SCH (18:09)
--- NOTE | 2018-02-17 23:09 | General Progress Note ---
Assessment/Plan Assessment/Plan Assessment - Ileus vs SBO - resolved - Anemia - Resp failure - extubated - diarrhea Recommendations - po diet as tolerate - check C Diff - follow exam and labs Subjective Allergies: Coded Allergies: No Known Allergies (Unverified , 10/30/16) Subjective above noted feels ok tolerating po rectal tube / liquid stools Objective Last 24 Hour Vital Signs Date Time Temp Pulse Resp B/P (MAP) Pulse Ox O2 Delivery O2 Flow Rate FiO2 02/17/18 20:47 99 Nasal Cannula 3.0 32 02/17/18 20:47 Nasal Cannula 3.0 32 02/17/18 20:00 98.6 100 20 139/88 99 98.6 02/17/18 18:09 136/82 02/17/18 16:35 98.0 98 20 136/82 97 98.0 02/17/18 15:00 80 17 117/80 98 Nasal Cannula 2.0 02/17/18 14:00 91 16 122/72 98 Nasal Cannula 2.0 02/17/18 13:00 89 17 130/79 98 Nasal Cannula 2.0 02/17/18 12:00 98.4 85 18 112/80 99 Nasal Cannula 2.0 98.4 02/17/18 12:00 82 02/17/18 11:00 89 17 125/80 98 Nasal Cannula 2.0 02/17/18 10:03 Nasal Cannula 3.0 32 02/17/18 10:02 99 Nasal Cannula 3.0 32 02/17/18 10:00 83 16 129/89 98 Nasal Cannula 2.0 02/17/18 09:00 87 14 132/92 100 Nasal Cannula 2.0 02/17/18 08:00 89 02/17/18 08:00 98.5 86 17 118/80 99 Nasal Cannula 2.0 98.5 02/17/18 07:45 101 23 Nasal Cannula 3.0 32 02/17/18 07:00 85 15 122/92 100 Nasal Cannula 2.0 02/17/18 06:00 83 14 131/92 100 Nasal Cannula 2.0 02/17/18 05:00 94 17 142/77 96 Nasal Cannula 2.0 02/17/18 04:05 96 02/17/18 04:00 98.3 86 17 119/79 99 Nasal Cannula 2.0 98.3 02/17/18 03:00 92 15 126/79 99 Nasal Cannula 2.0 02/17/18 02:00 90 16 115/73 97 Nasal Cannula 2.0 02/17/18 01:00 95 16 131/82 97 Nasal Cannula 2.0 02/17/18 00:00 97 02/17/18 00:00 98.2 97 18 121/71 96 Nasal Cannula 2.0 98.2 Intake and Output 02/16/18 02/17/18 19:00 07:00 Intake Total 1280 ml 670 ml Output Total 1435 ml 650 ml Balance -155 ml 20 ml Intake Oral 420 ml 120 ml IV Total 600 ml 550 ml Tube Feeding 240 ml Other 20 ml Output Urine Total 1310 ml 550 ml Stool Total 125 ml 100 ml Laboratory Tests 02/17/18 05:15: White Blood Count 13.4H, Red Blood Count 3.79L, Hemoglobin 10.3L, Hematocrit 32.4L, Mean Corpuscular Volume 85, Mean Corpuscular Hemoglobin 27.2, Mean Corpuscular Hemoglobin Concent 31.8L, Red Cell Distribution Width 16.4H, Platelet Count 213, Mean Platelet Volume 6.8, Neutrophils (%) (Auto) , Lymphocytes (%) (Auto) , Monocytes (%) (Auto) , Eosinophils (%) (Auto) , Basophils (%) (Auto) , Sodium Level 142, Potassium Level 3.7, Chloride Level 104 , Carbon Dioxide Level 37H, Anion Gap 1L, Blood Urea Nitrogen 12, Creatinine 0.7 , Estimat Glomerular Filtration Rate > 60, Glucose Level 131H, Calcium Level 8.4L, Phosphorus Level 3.4, Magnesium Level 1.8, Total Bilirubin 0.2, Aspartate Amino Transf (AST/SGOT) 19, Alanine Aminotransferase (ALT/SGPT) 33, Alkaline Phosphatase 42L, Total Protein 6.1L, Albumin 2.6L, Globulin 3.5, Albumin/ Globulin Ratio 0.7L 02/17/18 08:40: Arterial Blood pH 7.330L, Arterial Blood Partial Pressure CO2 71.1*H, Arterial Blood Partial Pressure O2 91.4, Arterial Blood HCO3 37.4H, Arterial Blood Oxygen Saturation 96.4, Arterial Blood Base Excess 9.2, Efren Test Positive Height (Feet): 5 Height (Inches): 7.00 Weight (Pounds): 144 Objective WDWN AA man NCAT supple CTA RRR abd soft, flat no edema Nic Cade MD February 17, 2018 23:09
[2018-02-18] VITALS: BP 117/84
[2018-02-18 04:00] VITALS: BP 125/72
[2018-02-18 07:43] LABS: HEMATOCRIT 33.1 % (42.0-52.0); HEMOGLOBIN 10.2 G/DL (14.2-18.0); MEAN CORPUSCULAR VOLUME 86 FL (80-99); PLATELET COUNT 246 K/UL (150-450); RED BLOOD COUNT 3.85 M/UL (4.70-6.10); RED CELL DISTRIBUTION WIDTH 16.2 % (11.6-14.8); WHITE BLOOD COUNT 14.2 K/UL (4.8-10.8)
[2018-02-18 08:00] VITALS: BP 124/73
[2018-02-18] MEDS: Pantoprazole Inj IV SCH ×2 (08:12→20:18)
[2018-02-18] MEDS: Solu-MEDROL 125mg Inj IV SCH ×2 (08:12→20:18)
[2018-02-18] MEDS: Heparin 5000 units/ml inj SUBQ SCH ×2 (08:18→20:23)
[2018-02-18 08:25] LABS: ALANINE AMINOTRANSFERASE 36 U/L (12-78); ALBUMIN 2.6 G/DL (3.4-5.0); ALBUMIN/GLOBULIN RATIO 0.8 (1.0-2.7); ALKALINE PHOSPHATASE 41 U/L (46-116); ASPARTATE AMINO TRANSFERASE 19 U/L (15-37); BILIRUBIN,TOTAL 0.2 MG/DL (0.2-1.0); BLOOD UREA NITROGEN 14 mg/dL (7-18); CALCIUM 8.6 MG/DL (8.5-10.1); CHLORIDE 103 MMOL/L (98-107); CREATININE 0.7 MG/DL (0.55-1.30); PHOSPHORUS 3.4 MG/DL (2.5-4.9); POTASSIUM 4.1 MMOL/L (3.5-5.1); SODIUM 142 MMOL/L (136-145)
[2018-02-18 09:18] LABS: ANION GAP 0 mmol/L (5-15); CARBON DIOXIDE 39 MMOL/L (21-32)
[2018-02-18 12:00] VITALS: BP 115/56
--- NOTE | 2018-02-18 14:41 | Pulmonology Progress Note ---
Assessment/Plan Problems: (1) Acute respiratory failure (2) CHF (congestive heart failure) (3) Protein-calorie malnutrition, severe (4) Emphysema, unspecified Assessment/Plan improving respiratory treatment abx as per ID dc planning soon Subjective ROS Limited/Unobtainable: No Constitutional: Reports: no symptoms HEENT: Repors: no symptoms Respiratory: Reports: no symptoms Allergies: Coded Allergies: No Known Allergies (Unverified , 10/30/16) Objective Last 24 Hour Vital Signs Date Time Temp Pulse Resp B/P (MAP) Pulse Ox O2 Delivery O2 Flow Rate FiO2 02/18/18 12:00 97.3 74 12 115/56 96 Nasal Cannula 2.0 97.3 02/18/18 11:23 98 20 Nasal Cannula 3.0 32 02/18/18 11:23 Nasal Cannula 3.0 32 02/18/18 11:23 97 Nasal Cannula 3.0 32 02/18/18 08:00 97.9 87 18 124/73 97 Nasal Cannula 2.0 97.9 02/18/18 04:00 97.5 87 18 125/72 100 97.5 02/18/18 00:00 98.5 100 18 117/84 96 98.5 02/17/18 20:47 99 Nasal Cannula 3.0 32 02/17/18 20:47 Nasal Cannula 3.0 32 02/17/18 20:00 99 Nasal Cannula 2.0 02/17/18 20:00 98.6 100 20 139/88 99 98.6 02/17/18 18:09 136/82 02/17/18 16:35 98.0 98 20 136/82 97 98.0 02/17/18 15:00 80 17 117/80 98 Nasal Cannula 2.0 Intake and Output 02/17/18 02/18/18 19:00 07:00 Intake Total 620 ml 550 ml Output Total 390 ml 850 ml Balance 230 ml -300 ml Intake Oral 120 ml IV Total 500 ml 550 ml Output Urine Total 390 ml 850 ml General Appearance: WD/WN HEENT: normocephalic, atraumatic Respiratory/Chest: chest wall non-tender, normal breath sounds Cardiovascular: normal peripheral pulses, regular rhythm, no JVD Genitourinary: normal external genitalia Extremities: no clubbing Laboratory Tests 02/18/18 05:10: White Blood Count 14.2H, Red Blood Count 3.85L, Hemoglobin 10.2L, Hematocrit 33.1L, Mean Corpuscular Volume 86, Mean Corpuscular Hemoglobin 26.4L, Mean Corpuscular Hemoglobin Concent 30.7L, Red Cell Distribution Width 16.2H, Platelet Count 246, Mean Platelet Volume 7.6, Neutrophils (%) (Auto) , Lymphocytes (%) (Auto) , Monocytes (%) (Auto) , Eosinophils (%) (Auto) , Basophils (%) (Auto) , Differential Total Cells Counted 100, Neutrophils % ( Manual) 86H, Lymphocytes % (Manual) 5L, Monocytes % (Manual) 9, Eosinophils % ( Manual) 0, Basophils % (Manual) 0, Band Neutrophils 0, Platelet Estimate Adequate, Platelet Morphology Normal, Hypochromasia 1+, Anisocytosis 1+, Sodium Level 142, Potassium Level 4.1, Chloride Level 103, Carbon Dioxide Level 39H, Anion Gap 0L, Blood Urea Nitrogen 14, Creatinine 0.7, Estimat Glomerular Filtration Rate > 60, Glucose Level 120H, Calcium Level 8.6, Phosphorus Level 3.4, Magnesium Level 1.8, Total Bilirubin 0.2, Aspartate Amino Transf (AST/SGOT ) 19, Alanine Aminotransferase (ALT/SGPT) 36, Alkaline Phosphatase 41L, Total Protein 5.9L, Albumin 2.6L, Globulin 3.3, Albumin/Globulin Ratio 0.8L Current Medications Medications (Trade) Dose Ordered Sig/Radha Route PRN Reason Start Time Stop Time Status Last Admin Dose Admin Albuterol/ Ipratropium (Albuterol/ Ipratropium) 3 ml Q4H PRN HHN dyspnea and/or SOB 02/17/18 16:00 02/19/18 15:59 Dextrose (Dextrose 50%) 25 ml PRN IV Hypoglycemia 02/17/18 16:00 03/12/18 15:59 Dextrose (Dextrose 50%) 50 ml PRN IV hypoglycemia 02/17/18 15:45 03/12/18 18:59 Dextrose/Sodium Chloride 1,000 ml @ 50 mls/hr Q20H IV 02/17/18 16:00 03/19/18 15:59 02/17/18 20:07 Heparin Sodium (Porcine) (Heparin 5000 units/ml) 5,000 units EVERY 12 HOURS SUBQ 02/17/18 21:00 03/12/18 20:59 02/18/18 08:18 Lorazepam (Ativan 2mg/ml 1ml) 1 mg Q2H PRN IV For Anxiety 02/17/18 15:45 02/19/18 09:35 Methylprednisolone Sodium Succinate (Solu-MEDROL) 60 mg EVERY 12 HOURS IV 02/17/18 21:00 03/16/18 11:59 02/18/18 08:12 Morphine Sulfate (Morphine Sulfate) 4 mg Q4H PRN IVP For Pain 02/17/18 16:15 02/19/18 12:14 Nitroglycerin (Ntg) 0.4 mg Q5M X 3 DOSES PRN SL Prn Chest Pain 02/17/18 15:45 03/12/18 16:59 Nitroglycerin (Ntg) 1 patch Q24H TDERMAL 02/17/18 18:00 03/14/18 17:59 02/17/18 18:09 Ondansetron HCl (Zofran) 4 mg Q6H PRN IVP Nausea & Vomiting 02/17/18 16:00 03/12/18 15:59 Pantoprazole (Protonix) 40 mg Q12HR IV 02/17/18 21:00 03/15/18 08:59 02/18/18 08:12 Jose Cruz Katz MD February 18, 2018 14:41
[2018-02-18 15:39] VITALS: BP 126/78
--- NOTE | 2018-02-18 16:35 | Nephrology Progress Note ---
Assessment/Plan Problem List: (1) Acute respiratory failure (2) Protein-calorie malnutrition, severe (3) Acute renal failure (4) Dehydration Assessment Renal failure / Acute / Dehydration HyperKalemia likely due to acidosis Acute respiratory failure- Abdominal distention, possible due to the Small bowel obstruction Vs. paralytic Ileus. COPD. History of atrial flutter. Dehydration. History of CHF with systolic dysfunction. GERD. Severe protein calori malnutrition. Plan stable from renal stand point pulmonary support Anemia fuentes avoid nephrotoxics 2D echo Subjective ROS Limited/Unobtainable: No Constitutional: Reports: malaise Objective Objective Last 24 Hour Vital Signs Date Time Temp Pulse Resp B/P (MAP) Pulse Ox O2 Delivery O2 Flow Rate FiO2 02/18/18 15:39 97.7 84 19 126/78 100 Room Air 97.7 02/18/18 12:00 97.3 74 12 115/56 96 Nasal Cannula 2.0 97.3 02/18/18 11:23 98 20 Nasal Cannula 3.0 32 02/18/18 11:23 Nasal Cannula 3.0 32 02/18/18 11:23 97 Nasal Cannula 3.0 32 02/18/18 08:00 97.9 87 18 124/73 97 Nasal Cannula 2.0 97.9 02/18/18 04:00 97.5 87 18 125/72 100 97.5 02/18/18 00:00 98.5 100 18 117/84 96 98.5 02/17/18 20:47 99 Nasal Cannula 3.0 32 02/17/18 20:47 Nasal Cannula 3.0 32 02/17/18 20:00 99 Nasal Cannula 2.0 02/17/18 20:00 98.6 100 20 139/88 99 98.6 02/17/18 18:09 136/82 02/17/18 16:35 98.0 98 20 136/82 97 98.0 Intake and Output 02/17/18 02/18/18 19:00 07:00 Intake Total 620 ml 550 ml Output Total 390 ml 850 ml Balance 230 ml -300 ml Intake Oral 120 ml IV Total 500 ml 550 ml Output Urine Total 390 ml 850 ml Laboratory Tests 02/18/18 05:10: White Blood Count 14.2H, Red Blood Count 3.85L, Hemoglobin 10.2L, Hematocrit 33.1L, Mean Corpuscular Volume 86, Mean Corpuscular Hemoglobin 26.4L, Mean Corpuscular Hemoglobin Concent 30.7L, Red Cell Distribution Width 16.2H, Platelet Count 246, Mean Platelet Volume 7.6, Neutrophils (%) (Auto) , Lymphocytes (%) (Auto) , Monocytes (%) (Auto) , Eosinophils (%) (Auto) , Basophils (%) (Auto) , Differential Total Cells Counted 100, Neutrophils % ( Manual) 86H, Lymphocytes % (Manual) 5L, Monocytes % (Manual) 9, Eosinophils % ( Manual) 0, Basophils % (Manual) 0, Band Neutrophils 0, Platelet Estimate Adequate, Platelet Morphology Normal, Hypochromasia 1+, Anisocytosis 1+, Sodium Level 142, Potassium Level 4.1, Chloride Level 103, Carbon Dioxide Level 39H, Anion Gap 0L, Blood Urea Nitrogen 14, Creatinine 0.7, Estimat Glomerular Filtration Rate > 60, Glucose Level 120H, Calcium Level 8.6, Phosphorus Level 3.4, Magnesium Level 1.8, Total Bilirubin 0.2, Aspartate Amino Transf (AST/SGOT ) 19, Alanine Aminotransferase (ALT/SGPT) 36, Alkaline Phosphatase 41L, Total Protein 5.9L, Albumin 2.6L, Globulin 3.3, Albumin/Globulin Ratio 0.8L Height (Feet): 5 Height (Inches): 7.00 Weight (Pounds): 149 General Appearance: no apparent distress Objective no change YAMIL LOVE February 18, 2018 16:35
[2018-02-18] MEDS: Nitroglycerin Patch 0.4mg TDERMAL SCH (18:02)
[2018-02-18 19:49] VITALS: BP 114/79
--- NOTE | 2018-02-18 19:52 | Internal Med Progress Note ---
Subjective Date of Service: February 18, 2018 Physician Name Fausto Kelley Attending Physician Dipesh Cardoza MD Current Medications Medications (Trade) Dose Ordered Sig/Radha Route PRN Reason Start Time Stop Time Status Last Admin Dose Admin Albuterol/ Ipratropium (Albuterol/ Ipratropium) 3 ml Q4H PRN HHN dyspnea and/or SOB 02/17/18 16:00 02/19/18 15:59 Dextrose (Dextrose 50%) 25 ml PRN IV Hypoglycemia 02/17/18 16:00 03/12/18 15:59 Dextrose (Dextrose 50%) 50 ml PRN IV hypoglycemia 02/17/18 15:45 03/12/18 18:59 Dextrose/Sodium Chloride 1,000 ml @ 50 mls/hr Q20H IV 02/17/18 16:00 03/19/18 15:59 02/17/18 20:07 Heparin Sodium (Porcine) (Heparin 5000 units/ml) 5,000 units EVERY 12 HOURS SUBQ 02/17/18 21:00 03/12/18 20:59 02/18/18 08:18 Lorazepam (Ativan 2mg/ml 1ml) 1 mg Q2H PRN IV For Anxiety 02/17/18 15:45 02/19/18 09:35 Methylprednisolone Sodium Succinate (Solu-MEDROL) 60 mg EVERY 12 HOURS IV 02/17/18 21:00 03/16/18 11:59 02/18/18 08:12 Morphine Sulfate (Morphine Sulfate) 4 mg Q4H PRN IVP For Pain 02/17/18 16:15 02/19/18 12:14 Nitroglycerin (Ntg) 0.4 mg Q5M X 3 DOSES PRN SL Prn Chest Pain 02/17/18 15:45 03/12/18 16:59 Nitroglycerin (Ntg) 1 patch Q24H TDERMAL 02/17/18 18:00 03/14/18 17:59 02/18/18 18:02 Ondansetron HCl (Zofran) 4 mg Q6H PRN IVP Nausea & Vomiting 02/17/18 16:00 03/12/18 15:59 Pantoprazole (Protonix) 40 mg Q12HR IV 02/17/18 21:00 03/15/18 08:59 02/18/18 08:12 Allergies: Coded Allergies: No Known Allergies (Unverified , 10/30/16) ROS Limited/Unobtainable: No Constitutional: Reports: no symptoms HEENT: Reports: no symptoms Respiratory: Reports: shortness of breath Gastrointestinal/Abdominal: Reports: no symptoms Genitourinary: Reports: no symptoms Neurologic/Psychiatric: Reports: no symptoms Subjective 68 YO M admitted with shortness of breath; now COPD exacerbation. Cover for Int Wilfrid-Dr Cardoza. Extubated 02/16/18; tolerating nasal canula Objective Last Vital Signs Date Time Temp Pulse Resp B/P (MAP) Pulse Ox O2 Delivery O2 Flow Rate FiO2 02/18/18 19:49 98.1 110 19 114/79 96 98.1 02/18/18 19:27 Nasal Cannula 3.0 32 Laboratory Tests Test 02/18/18 05:10 White Blood Count 14.2 K/UL (4.8-10.8) H Red Blood Count 3.85 M/UL (4.70-6.10) L Hemoglobin 10.2 G/DL (14.2-18.0) L Hematocrit 33.1 % (42.0-52.0) L Mean Corpuscular Volume 86 FL (80-99) Mean Corpuscular Hemoglobin 26.4 PG (27.0-31.0) L Mean Corpuscular Hemoglobin Concent 30.7 G/DL (32.0-36.0) L Red Cell Distribution Width 16.2 % (11.6-14.8) H Platelet Count 246 K/UL (150-450) Mean Platelet Volume 7.6 FL (6.5-10.1) Neutrophils (%) (Auto) % (45.0-75.0) Lymphocytes (%) (Auto) % (20.0-45.0) Monocytes (%) (Auto) % (1.0-10.0) Eosinophils (%) (Auto) % (0.0-3.0) Basophils (%) (Auto) % (0.0-2.0) Differential Total Cells Counted 100 Neutrophils % (Manual) 86 % (45-75) H Lymphocytes % (Manual) 5 % (20-45) L Monocytes % (Manual) 9 % (1-10) Eosinophils % (Manual) 0 % (0-3) Basophils % (Manual) 0 % (0-2) Band Neutrophils 0 % (0-8) Platelet Estimate Adequate Platelet Morphology Normal Hypochromasia 1+ Anisocytosis 1+ Sodium Level 142 MMOL/L (136-145) Potassium Level 4.1 MMOL/L (3.5-5.1) Chloride Level 103 MMOL/L (98-107) Carbon Dioxide Level 39 MMOL/L (21-32) H Anion Gap 0 mmol/L (5-15) L Blood Urea Nitrogen 14 mg/dL (7-18) Creatinine 0.7 MG/DL (0.55-1.30) Estimat Glomerular Filtration Rate > 60 mL/min (>60) Glucose Level 120 MG/DL (74-106) H Calcium Level 8.6 MG/DL (8.5-10.1) Phosphorus Level 3.4 MG/DL (2.5-4.9) Magnesium Level 1.8 MG/DL (1.8-2.4) Total Bilirubin 0.2 MG/DL (0.2-1.0) Aspartate Amino Transf (AST/SGOT) 19 U/L (15-37) Alanine Aminotransferase (ALT/SGPT) 36 U/L (12-78) Alkaline Phosphatase 41 U/L (46-116) L Total Protein 5.9 G/DL (6.4-8.2) L Albumin 2.6 G/DL (3.4-5.0) L Globulin 3.3 g/dL Albumin/Globulin Ratio 0.8 (1.0-2.7) L Intake and Output 02/17/18 02/18/18 19:00 07:00 Intake Total 620 ml 550 ml Output Total 390 ml 850 ml Balance 230 ml -300 ml Intake Oral 120 ml IV Total 500 ml 550 ml Output Urine Total 390 ml 850 ml Objective Objective General: awake, alert, responsive, intubated. HEENT: NCAT, sclera anicteric, PERRL, ET Tube, OG Tube. Neck: Supple, no significant jugular venous distention, Lungs: Nasal canula; coarse breath sound, no Wheeze or Rales. Heart: Regular rate and rhythm, normal S1/S2, no murmurs Abdomen: Hard, nontender, less distended. hypoactive bowel sounds. / Rectal: Refused and deferred. Extremities: No Cyanosis , clubbing or edema. Neuro: sedated, Able to move all extremities Assessment/Plan Assessment/Plan Assessment/Plan Assessment/Plan 1. Abdominal distention, possible due to the Small bowel obstruction improving.. 2. Acute COPD. 3. History of atrial flutter. 4. Dehydration. 5. History of CHF with systolic dysfunction. 6. GERD. 7. Hyponatremia. 8. Hyperkalemia. 9. Acute kidney injury. 10. Severe protein calori malnutrition. 11. Acute Respiratory Failure. Plan: Med/surg F/U with surgery recommendations Monitor labs and cultures Abx: Anushkasycalvin Moore Tx decrease Solumedral IV 60mg IV Q12 hr Full code heparin SQ Vent per pulmonary Fausto Kelley MD February 18, 2018 19:52
[2018-02-18] MEDS: D5NS 1,000 ML IV SCH (20:17)
--- NOTE | 2018-02-18 23:35 | General Progress Note ---
Assessment/Plan Assessment/Plan Assessment - Ileus vs SBO - resolved - Anemia - Resp failure - extubated - diarrhea - r/o C Diff Recommendations - po diet as tolerate - check C Diff - follow exam and labs Subjective Allergies: Coded Allergies: No Known Allergies (Unverified , 10/30/16) Subjective above noted feels ok tolerating po liquid stools no C Diff result yet Objective Last 24 Hour Vital Signs Date Time Temp Pulse Resp B/P (MAP) Pulse Ox O2 Delivery O2 Flow Rate FiO2 02/18/18 20:00 96 Nasal Cannula 2.0 02/18/18 19:49 98.1 110 19 114/79 96 98.1 02/18/18 19:27 Nasal Cannula 3.0 32 02/18/18 19:27 97 18 Nasal Cannula 3.0 32 02/18/18 19:27 97 Nasal Cannula 3.0 32 02/18/18 18:02 126/78 02/18/18 15:39 97.7 84 19 126/78 100 Room Air 97.7 02/18/18 12:00 97.3 74 12 115/56 96 Nasal Cannula 2.0 97.3 02/18/18 11:23 98 20 Nasal Cannula 3.0 32 02/18/18 11:23 Nasal Cannula 3.0 32 02/18/18 11:23 97 Nasal Cannula 3.0 32 02/18/18 08:00 97.9 87 18 124/73 97 Nasal Cannula 2.0 97.9 02/18/18 04:00 97.5 87 18 125/72 100 97.5 02/18/18 00:00 98.5 100 18 117/84 96 98.5 Intake and Output 02/17/18 02/18/18 19:00 07:00 Intake Total 620 ml 550 ml Output Total 390 ml 850 ml Balance 230 ml -300 ml Intake Oral 120 ml IV Total 500 ml 550 ml Output Urine Total 390 ml 850 ml Laboratory Tests 02/18/18 05:10: White Blood Count 14.2H, Red Blood Count 3.85L, Hemoglobin 10.2L, Hematocrit 33.1L, Mean Corpuscular Volume 86, Mean Corpuscular Hemoglobin 26.4L, Mean Corpuscular Hemoglobin Concent 30.7L, Red Cell Distribution Width 16.2H, Platelet Count 246, Mean Platelet Volume 7.6, Neutrophils (%) (Auto) , Lymphocytes (%) (Auto) , Monocytes (%) (Auto) , Eosinophils (%) (Auto) , Basophils (%) (Auto) , Differential Total Cells Counted 100, Neutrophils % ( Manual) 86H, Lymphocytes % (Manual) 5L, Monocytes % (Manual) 9, Eosinophils % ( Manual) 0, Basophils % (Manual) 0, Band Neutrophils 0, Platelet Estimate Adequate, Platelet Morphology Normal, Hypochromasia 1+, Anisocytosis 1+, Sodium Level 142, Potassium Level 4.1, Chloride Level 103, Carbon Dioxide Level 39H, Anion Gap 0L, Blood Urea Nitrogen 14, Creatinine 0.7, Estimat Glomerular Filtration Rate > 60, Glucose Level 120H, Calcium Level 8.6, Phosphorus Level 3.4, Magnesium Level 1.8, Total Bilirubin 0.2, Aspartate Amino Transf (AST/SGOT ) 19, Alanine Aminotransferase (ALT/SGPT) 36, Alkaline Phosphatase 41L, Total Protein 5.9L, Albumin 2.6L, Globulin 3.3, Albumin/Globulin Ratio 0.8L Height (Feet): 5 Height (Inches): 7.00 Weight (Pounds): 149 Objective WDWN AA man NCAT supple CTA RRR abd soft, flat no edema Nic Cade MD February 18, 2018 23:35
[2018-02-19] VITALS: BP 134/77
[2018-02-19 04:00] VITALS: BP 126/74
[2018-02-19 08:00] VITALS: BP 118/63
[2018-02-19 08:59] LABS: HEMATOCRIT 32.7 % (42.0-52.0); HEMOGLOBIN 10.3 G/DL (14.2-18.0); MEAN CORPUSCULAR VOLUME 87 FL (80-99); PLATELET COUNT 256 K/UL (150-450); RED BLOOD COUNT 3.78 M/UL (4.70-6.10); RED CELL DISTRIBUTION WIDTH 16.1 % (11.6-14.8); WHITE BLOOD COUNT 15.7 K/UL (4.8-10.8)
[2018-02-19 09:19] LABS: ALANINE AMINOTRANSFERASE 37 U/L (12-78); ALBUMIN 2.7 G/DL (3.4-5.0); ALBUMIN/GLOBULIN RATIO 0.8 (1.0-2.7); ALKALINE PHOSPHATASE 42 U/L (46-116); ASPARTATE AMINO TRANSFERASE 17 U/L (15-37); BILIRUBIN,TOTAL 0.2 MG/DL (0.2-1.0); BLOOD UREA NITROGEN 13 mg/dL (7-18); CALCIUM 8.4 MG/DL (8.5-10.1); CHLORIDE 102 MMOL/L (98-107); CREATININE 0.7 MG/DL (0.55-1.30); PHOSPHORUS 2.8 MG/DL (2.5-4.9); POTASSIUM 3.8 MMOL/L (3.5-5.1); SODIUM 140 MMOL/L (136-145)
[2018-02-19 09:40] LABS: ANION GAP 0 mmol/L (5-15)
[2018-02-19 09:43] LABS: CARBON DIOXIDE 41 MMOL/L (21-32)
[2018-02-19] MEDS: Heparin 5000 units/ml inj SUBQ SCH (10:31)
[2018-02-19] MEDS: Pantoprazole Inj IV SCH (10:31)
[2018-02-19] MEDS: Solu-MEDROL 125mg Inj IV SCH (10:31)
[2018-02-19 12:00] VITALS: BP 101/62
--- NOTE | 2018-02-19 12:07 | Nephrology Progress Note ---
Assessment/Plan Problem List: (1) Acute respiratory failure (2) Protein-calorie malnutrition, severe (3) Acute renal failure (4) Dehydration Assessment Renal failure / Acute / Dehydration HyperKalemia likely due to acidosis Acute respiratory failure- Abdominal distention, possible due to the Small bowel obstruction Vs. paralytic Ileus. COPD. History of atrial flutter. Dehydration. History of CHF with systolic dysfunction. GERD. Severe protein calori malnutrition. Plan stable from renal stand point pulmonary support Anemia fuentes avoid nephrotoxics 2D echo Subjective ROS Limited/Unobtainable: No Constitutional: Reports: malaise Objective Objective Last 24 Hour Vital Signs Date Time Temp Pulse Resp B/P (MAP) Pulse Ox O2 Delivery O2 Flow Rate FiO2 02/19/18 10:03 98 Nasal Cannula 3.0 32 02/19/18 10:03 Nasal Cannula 3.0 32 02/19/18 10:01 103 20 Nasal Cannula 3.0 32 02/19/18 08:00 98.2 104 19 118/63 98 98.2 02/19/18 04:00 96 Nasal Cannula 2.0 02/19/18 04:00 98.1 95 18 126/74 96 98.1 02/19/18 00:00 96 Nasal Cannula 2.0 02/19/18 00:00 98.2 97 18 134/77 96 98.2 02/18/18 20:00 96 Nasal Cannula 2.0 02/18/18 19:49 98.1 110 19 114/79 96 98.1 02/18/18 19:27 Nasal Cannula 3.0 32 02/18/18 19:27 97 18 Nasal Cannula 3.0 32 02/18/18 19:27 97 Nasal Cannula 3.0 32 02/18/18 18:02 126/78 02/18/18 15:39 97.7 84 19 126/78 100 Room Air 97.7 Intake and Output 02/18/18 02/19/18 19:00 07:00 Intake Total 750 ml 600 ml Output Total 300 ml 1200 ml Balance 450 ml -600 ml Intake Oral 700 ml IV Total 50 ml 600 ml Output Urine Total 300 ml 1200 ml Laboratory Tests 02/19/18 08:30: White Blood Count 15.7H, Red Blood Count 3.78L, Hemoglobin 10.3L, Hematocrit 32.7L, Mean Corpuscular Volume 87, Mean Corpuscular Hemoglobin 27.3, Mean Corpuscular Hemoglobin Concent 31.5L, Red Cell Distribution Width 16.1H, Platelet Count 256, Mean Platelet Volume 7.5, Neutrophils (%) (Auto) , Lymphocytes (%) (Auto) , Monocytes (%) (Auto) , Eosinophils (%) (Auto) , Basophils (%) (Auto) , Differential Total Cells Counted 100, Neutrophils % ( Manual) 86H, Lymphocytes % (Manual) 7L, Monocytes % (Manual) 7, Eosinophils % ( Manual) 0, Basophils % (Manual) 0, Band Neutrophils 0, Platelet Estimate Adequate, Platelet Morphology Normal, Hypochromasia 1+, Sodium Level 140, Potassium Level 3.8, Chloride Level 102, Carbon Dioxide Level 41*H, Anion Gap 0L , Blood Urea Nitrogen 13, Creatinine 0.7, Estimat Glomerular Filtration Rate > 60, Glucose Level 126H, Calcium Level 8.4L, Phosphorus Level 2.8, Magnesium Level 1.7L, Total Bilirubin 0.2, Aspartate Amino Transf (AST/SGOT) 17, Alanine Aminotransferase (ALT/SGPT) 37, Alkaline Phosphatase 42L, Total Protein 6.0L, Albumin 2.7L, Globulin 3.3, Albumin/Globulin Ratio 0.8L Height (Feet): 5 Height (Inches): 7.00 Weight (Pounds): 155 General Appearance: no apparent distress Objective no change YAMIL LOVE February 19, 2018 12:07
[2018-02-19 16:00] VITALS: BP 128/70
[2018-02-19] MEDS: Nitroglycerin Patch 0.4mg TDERMAL SCH (18:00)
[2018-02-19] MEDS ORDERED: D5NS 1000ml IV ONE ×4 (18:39)
--- NOTE | 2018-02-19 19:46 | Internal Med Progress Note ---
Subjective Date of Service: February 19, 2018 Physician Name Fausto Kelley Attending Physician Dipesh Cardoza MD Allergies: Coded Allergies: No Known Allergies (Unverified , 10/30/16) ROS Limited/Unobtainable: No Constitutional: Reports: no symptoms HEENT: Reports: no symptoms Cardiovascular: Reports: no symptoms Respiratory: Reports: no symptoms Gastrointestinal/Abdominal: Reports: no symptoms Genitourinary: Reports: no symptoms Neurologic/Psychiatric: Reports: no symptoms Subjective 68 YO M admitted with shortness of breath; now COPD exacerbation. Cover for Int Med-Dr Cardoza. Extubated 02/16/18; tolerating nasal canula. Await transfer to [facility] Objective Last Vital Signs Date Time Temp Pulse Resp B/P (MAP) Pulse Ox O2 Delivery O2 Flow Rate FiO2 02/19/18 16:00 97.7 102 17 128/70 98 97.7 02/19/18 12:14 Nasal Cannula 3.0 32 Laboratory Tests Test 02/19/18 08:30 White Blood Count 15.7 K/UL (4.8-10.8) H Red Blood Count 3.78 M/UL (4.70-6.10) L Hemoglobin 10.3 G/DL (14.2-18.0) L Hematocrit 32.7 % (42.0-52.0) L Mean Corpuscular Volume 87 FL (80-99) Mean Corpuscular Hemoglobin 27.3 PG (27.0-31.0) Mean Corpuscular Hemoglobin Concent 31.5 G/DL (32.0-36.0) L Red Cell Distribution Width 16.1 % (11.6-14.8) H Platelet Count 256 K/UL (150-450) Mean Platelet Volume 7.5 FL (6.5-10.1) Neutrophils (%) (Auto) % (45.0-75.0) Lymphocytes (%) (Auto) % (20.0-45.0) Monocytes (%) (Auto) % (1.0-10.0) Eosinophils (%) (Auto) % (0.0-3.0) Basophils (%) (Auto) % (0.0-2.0) Differential Total Cells Counted 100 Neutrophils % (Manual) 86 % (45-75) H Lymphocytes % (Manual) 7 % (20-45) L Monocytes % (Manual) 7 % (1-10) Eosinophils % (Manual) 0 % (0-3) Basophils % (Manual) 0 % (0-2) Band Neutrophils 0 % (0-8) Platelet Estimate Adequate Platelet Morphology Normal Hypochromasia 1+ Sodium Level 140 MMOL/L (136-145) Potassium Level 3.8 MMOL/L (3.5-5.1) Chloride Level 102 MMOL/L (98-107) Carbon Dioxide Level 41 MMOL/L (21-32) *H Anion Gap 0 mmol/L (5-15) L Blood Urea Nitrogen 13 mg/dL (7-18) Creatinine 0.7 MG/DL (0.55-1.30) Estimat Glomerular Filtration Rate > 60 mL/min (>60) Glucose Level 126 MG/DL (74-106) H Calcium Level 8.4 MG/DL (8.5-10.1) L Phosphorus Level 2.8 MG/DL (2.5-4.9) Magnesium Level 1.7 MG/DL (1.8-2.4) L Total Bilirubin 0.2 MG/DL (0.2-1.0) Aspartate Amino Transf (AST/SGOT) 17 U/L (15-37) Alanine Aminotransferase (ALT/SGPT) 37 U/L (12-78) Alkaline Phosphatase 42 U/L (46-116) L Total Protein 6.0 G/DL (6.4-8.2) L Albumin 2.7 G/DL (3.4-5.0) L Globulin 3.3 g/dL Albumin/Globulin Ratio 0.8 (1.0-2.7) L Microbiology Date/Time Source Procedure Growth Status 02/18/18 10:00 Stool Clostridium difficile Toxin Assay - Final Complete Intake and Output 02/18/18 02/19/18 19:00 07:00 Intake Total 750 ml 600 ml Output Total 300 ml 1200 ml Balance 450 ml -600 ml Intake Oral 700 ml IV Total 50 ml 600 ml Output Urine Total 300 ml 1200 ml Objective Objective General: awake, alert, responsive, intubated. HEENT: NCAT, sclera anicteric, PERRL, ET Tube, OG Tube. Neck: Supple, no significant jugular venous distention, Lungs: Nasal canula; coarse breath sound, no Wheeze or Rales. Heart: Regular rate and rhythm, normal S1/S2, no murmurs Abdomen: Hard, nontender, less distended. hypoactive bowel sounds. / Rectal: Refused and deferred. Extremities: No Cyanosis , clubbing or edema. Neuro: sedated, Able to move all extremities Assessment/Plan Assessment/Plan Assessment/Plan Assessment/Plan 1. Abdominal distention, possible due to the Small bowel obstruction improving.. 2. Acute COPD. 3. History of atrial flutter. 4. Dehydration. 5. History of CHF with systolic dysfunction. 6. GERD. 7. Hyponatremia. 8. Hyperkalemia. 9. Acute kidney injury. 10. Severe protein calori malnutrition. 11. Acute Respiratory Failure. Plan: Med/surg F/U with surgery recommendations Monitor labs and cultures Abx: Zosyn Neb Tx decrease Solumedral IV 60mg IV Q12 hr Full code heparin SQ Vent per pulmonary Discharge to Rehab on [facility] today Fausto Kelley MD February 19, 2018 19:46
--- NOTE | 2018-02-19 23:35 | General Progress Note ---
Assessment/Plan Assessment/Plan Assessment - Ileus vs SBO - resolved - Anemia - Resp failure - extubated - diarrhea - better Recommendations - po diet as tolerated - follow exam and labs Subjective Allergies: Coded Allergies: No Known Allergies (Unverified , 10/30/16) Subjective above noted feels ok tolerating po (+) BM diarrhea better Objective Last 24 Hour Vital Signs Date Time Temp Pulse Resp B/P (MAP) Pulse Ox O2 Delivery O2 Flow Rate FiO2 02/19/18 16:00 97.7 102 17 128/70 98 97.7 02/19/18 12:14 105 16 97 Nasal Cannula 3.0 32 02/19/18 12:00 98.4 93 17 101/62 97 98.4 02/19/18 10:03 98 Nasal Cannula 3.0 32 02/19/18 10:03 Nasal Cannula 3.0 32 02/19/18 10:01 103 20 Nasal Cannula 3.0 32 02/19/18 08:00 98.2 104 19 118/63 98 98.2 02/19/18 04:00 96 Nasal Cannula 2.0 02/19/18 04:00 98.1 95 18 126/74 96 98.1 02/19/18 00:00 96 Nasal Cannula 2.0 02/19/18 00:00 98.2 97 18 134/77 96 98.2 Intake and Output 02/18/18 02/19/18 19:00 07:00 Intake Total 750 ml 600 ml Output Total 300 ml 1200 ml Balance 450 ml -600 ml Intake Oral 700 ml IV Total 50 ml 600 ml Output Urine Total 300 ml 1200 ml Laboratory Tests 02/19/18 08:30: White Blood Count 15.7H, Red Blood Count 3.78L, Hemoglobin 10.3L, Hematocrit 32.7L, Mean Corpuscular Volume 87, Mean Corpuscular Hemoglobin 27.3, Mean Corpuscular Hemoglobin Concent 31.5L, Red Cell Distribution Width 16.1H, Platelet Count 256, Mean Platelet Volume 7.5, Neutrophils (%) (Auto) , Lymphocytes (%) (Auto) , Monocytes (%) (Auto) , Eosinophils (%) (Auto) , Basophils (%) (Auto) , Differential Total Cells Counted 100, Neutrophils % ( Manual) 86H, Lymphocytes % (Manual) 7L, Monocytes % (Manual) 7, Eosinophils % ( Manual) 0, Basophils % (Manual) 0, Band Neutrophils 0, Platelet Estimate Adequate, Platelet Morphology Normal, Hypochromasia 1+, Sodium Level 140, Potassium Level 3.8, Chloride Level 102, Carbon Dioxide Level 41*H, Anion Gap 0L , Blood Urea Nitrogen 13, Creatinine 0.7, Estimat Glomerular Filtration Rate > 60, Glucose Level 126H, Calcium Level 8.4L, Phosphorus Level 2.8, Magnesium Level 1.7L, Total Bilirubin 0.2, Aspartate Amino Transf (AST/SGOT) 17, Alanine Aminotransferase (ALT/SGPT) 37, Alkaline Phosphatase 42L, Total Protein 6.0L, Albumin 2.7L, Globulin 3.3, Albumin/Globulin Ratio 0.8L Height (Feet): 5 Height (Inches): 7.00 Weight (Pounds): 155 Objective WDWN AA man NCAT supple CTA RRR abd soft, flat no edema Nic Cade MD February 19, 2018 23:35
--- NOTE | 2018-02-20 12:27 | Discharge Summary ---
Discharge Summary Discharge Summary _ DATE OF ADMISSION: 02/10/2018 DATE OF DISCHARGE: 02/19/2018 ATTENDING: Dr. Dipesh Cardoza CONSULTANTS: Dr. Jose Cruz Liao BRIEF HOSPITAL COURSE: Patient is a 68-year-old unfortunate -[place] gentleman, with past medical history significant for COPD, chronic smoker, atrial flutter with congestive heart failure with reduced ejection fraction of 31%, prior history of respiratory failure as well as cardiac arrest presented to the hospital from nursing facility after he was noted to have severe shortness of breath and abdominal distention. He stated he had bowel movement for the past 4 days, he denied any cough, or chest congestion. He had cardiopulmonary arrest in October 2017 that required intubation. On evaluation at ED, he was initially hypoxemic. He was given albuterol and Atrovent nebulizer treatment. He was given prednisone with improvement in respiratory status. He had distended abdomen that was tender to palpation. He underwent CT of the abdomen and pelvis findings were concerning for small bowel obstruction. He initially declined NGT placement. There was no leukocytosis, however with mild left shift. Surgical evaluation was done. He was placed on NPO. He was admitted to [facility]. He was continued on respiratory treatments and was started on theophylline and was given IV steroids. He was placed on IV Zosyn. On 02/12/2018, he had significant COPD deterioration with decreased pH and elevated CO2. He was responsive very minimally to physical stimuli. He was orally intubated and was transferred to ICU. She had hyperkalemia potassium of 6.2, creatinine was 1.1. He was given IV fluids and IV Protonix. He was continued on NPO status. NGT was connected to low intermittent suction. Respiratory failure was likely secondary to COPD, with no signs of heart failure. Echocardiogram showed normal ejection fraction. He had elevated troponin levels likely due to demand ischemia. EKG was without any ST to T wave abnormalities. Telemetry was negative. He started to have bowel movements. Paralytic ileus was resolving. He was finally extubated on 02/16/2018. He underwent swallow evaluation and was started on diet. He was having diarrhea rectal tube was inserted. C. difficile was negative. He was tolerating po well. O2 saturation stable with nasal cannula. He was eventually discharged back [facility]. FINAL DIAGNOSES: Abdominal distention, possibly due to paralytic ileus, resolved Acute hypoxemic hypercapnic respiratory failure requiring intubation Acute COPD exacerbation Dehydration Acute kidney injury Hyperkalemia Hyponatremia GERD CHF with systolic dysfunction Severe protein calorie malnutrition Diarrhea Hyperkalemia likely due to acidosis History of atrial flutter DISPOSITION: He was discharged to rehabilitation Center on . DISCHARGE MEDICATIONS: Refer to Discharge Medication List. I have been assigned to dictate discharge summary on this account, and I was not involved in the patient's management. Lawanda Benitez NP February 20, 2018 12:26
== END 2018-02-19 18:40 | DRG 130 ==
LOC: EDBD 13:22 → EMR 14:02 → EDBEDREQ 14:18 → 2W 14:40 → EDBEDREQ 15:23 → 2E 02-11 16:43 → ICU 02-12 08:16 → 4W 02-17 15:41
PROC: 5A1955Z Respiratory Ventilation, Greater than 96 Consecutive Hours (ICD-10-PCS; principal; 2018-02-12)
PROC: 0BH17EZ Insertion of Endotracheal Airway into Trachea, Via Natural or Artificial Opening (ICD-10-PCS; principal; 2018-02-12)
DX: J44.1 Chronic obstructive pulmonary disease with (acute) exacerbation (principal); E43 Unspecified severe protein-calorie malnutrition; N17.9 Acute kidney failure, unspecified; G93.40 Encephalopathy, unspecified; I11.0 Hypertensive heart disease with heart failure; I50.22 Chronic systolic (congestive) heart failure; K56.0 Paralytic ileus; I42.9 Cardiomyopathy, unspecified; E86.0 Dehydration; J96.01 Acute respiratory failure with hypoxia; I48.92 Unspecified atrial flutter; Z86.74 Personal history of sudden cardiac arrest; E87.1 Hypo-osmolality and hyponatremia; E87.5 Hyperkalemia; I25.10 Atherosclerotic heart disease of native coronary artery without angina pectoris; Z99.81 Dependence on supplemental oxygen; Z68.24 Body mass index [BMI] 24.0-24.9, adult; D64.9 Anemia, unspecified; R19.7 Diarrhea, unspecified
CPT/HCPCS: 36415; 36600; 71045; 74018; 74177; 80048; 80053; 80061; 80076; 81001; 81003; 82550; 82553; 82607; 82728; 82746; 82803; 82977; 83036; 83540; 83550; 83605; 83735; 83880; 84100; 84133; 84300; 84443; 84484; 84550; 85007; 85025; 85610; 85651; 85730; 86140; 87040; 87081; 87324; 89050; 93005; 93306; 94002; 94003; 94640; 94664; 94760; 99285; J7620; J8499